=== PATIENT | male | born 1935 | race Caucasian/White ===

== ENCOUNTER 2017-03-22 19:08 | Emergency (ER) | payer MEDICARE ==
[~2017-03-22] VITALS: Ht 180.3 cm; Wt 102.5 kg
[~2017-03-22 19:08] MED LIST: /ESOM40CA OR; ALLO300T OR; BUME2TAB OR; KLOR8TAB OR; LIPI20TA OR; PLAV75TA2 OR; meloxicam
[2017-03-22] MEDS ORDERED: COUM1TAB19 PO (19:18)
[2017-03-22] MEDS ORDERED: PRED25TA PO (19:19)
[2017-03-22 20:33] LABS: INR 2.04
[2017-03-22 20:45] LABS: ADD MORPHOLOGY? YES; BASO # 0.1 K/mm3 (0.0-0.2); BASO % 0.9 % (0.0-1.0); EOS # 0.1 K/mm3 (0.0-0.50); EOS % 0.9 % (0.0-3.0); LARGE UNSTAINED CELL # 0.2 K/mm3 (0.0-0.4); LARGE UNSTAINED CELL % 2.1 % (0.0-4.0); LYMPH # 2.3 K/mm3 (1.5-4.5); MEAN CORPUSCULAR HEMOGLOBIN 24.8 pg (27.0-33.0); MEAN CORPUSCULAR HGB CONC 30.7 g/dl (32.0-36.5); MEAN CORPUSCULAR VOLUME 80.8 fl (80.0-96.0); MONO # 0.4 K/mm3 (0.0-0.8); MONO % 4.3 % (0.0-5.0); NEUTROPHILS % 70.8 % (36.0-66.0); PLATELET COUNT, AUTOMATED 268 k/mm3 (150-450); RED CELL DISTRIBUTION WIDTH 17.5 % (11.5-14.5); WHITE BLOOD COUNT 9.9 K/mm3 (4.0-10.0)
[2017-03-22 20:48] LABS: CALCIUM LEVEL 8.5 MG/DL (8.8-10.2); CREATININE FOR GFR 1.78 MG/DL (0.70-1.30); GLOMERULAR FILTRATION RATE 39.1 (>35); POTASSIUM SERUM 4.2 MEQ/L (3.5-5.1)
[2017-03-22 21:05] LABS: ANISOCYTOSIS 1+; HYPOCHROMASIA 2+
[2017-03-22 21:07] LABS: MICROCYTOSIS 1+
--- NOTE | 2017-03-22 22:00 | REPUSA ---
CT of the head Clinical history: dizziness. Protocol: Multiple axial CT images obtained with 5 mm slice thickness were obtained through the head without administration of contrast. Comparison: None. Findings: The ventricles and sulci are symmetric but prominent in size bilaterally. There are periven tricular areas of low attenuation throughout the deep white matter. There is no evidence of acute hem orrhage or infarct. There is no midline shift, mass effect, or extra-axial fluid collection. The osse ous structures are unremarkable. The visualized paranasal sinuses and mastoid air cells are clear. Impression: No acute hemorrhage or infarct. 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
[2017-03-22 23:43] VITALS: O2SAT 93
[2017-03-22 23:48] VITALS: BP 120/58
--- NOTE | 2017-03-23 06:54 | REP ---
Clinical: Chest pain . Comparison: 03/07/2012 . Technique: PA and lateral. Findings: The mediastinum and cardiac silhouette are stable and within normal limits. The lung ugarte demonstrate chronic change without acute consolidation, effusion, or pneumothorax. The skeletal structures are intact and normal. Impression: 1. No acute cardiopulmonary process. Signed by Ramez Hutchins MD 03/23/2017 06:45 A
--- NOTE | 2017-03-23 08:11 | ECGEPIP ---
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
== END 2017-03-22 23:56 | disposition home or self-care (01) ==
LOC: M ED 20:47
DX: R53.81 Other malaise (principal); I51.9 Heart disease, unspecified; I48.91 Unspecified atrial fibrillation; I50.9 Heart failure, unspecified; I25.10 Atherosclerotic heart disease of native coronary artery without angina pectoris; I25.2 Old myocardial infarction; Z95.5 Presence of coronary angioplasty implant and graft; Z87.891 Personal history of nicotine dependence; Z79.82 Long term (current) use of aspirin; Z79.899 Other long term (current) drug therapy; Z88.5 Allergy status to narcotic agent
CPT/HCPCS: 36415; 70450; 71020; 80048; 80162; 81001; 82550; 82553; 83880; 84484; 85025; 85610; 85730; 87040; 87086; 93005; 93041; 94760; 99285; G0480

== ENCOUNTER → 2017-05-05 | Outpatient (REF) | payer MEDICARE ==
[~2017-05-05] MED LIST changes: +COUM1TAB19 PO; +PRED25TA PO
[2017-05-05 18:25] LABS: MEAN CORPUSCULAR HEMOGLOBIN 23.7 pg (27.0-33.0); MEAN CORPUSCULAR HGB CONC 28.9 g/dl (32.0-36.5); MEAN CORPUSCULAR VOLUME 82.2 fl (80.0-96.0); RED CELL DISTRIBUTION WIDTH 18.4 % (11.5-14.5); WHITE BLOOD COUNT 12.2 K/mm3 (4.0-10.0)
[2017-05-05 18:41] LABS: CALCIUM LEVEL 8.7 MG/DL (8.8-10.2); CREATININE FOR GFR 1.82 MG/DL (0.70-1.30); DIGOXIN LEVEL 0.7 NG/ML (0.5-2.0); GLOMERULAR FILTRATION RATE 38.1 (>35)
== END ==
LOC: M LABSMT 17:09
PROVIDERS: ATTEND Internal Medicine Cardiovascular Disease
DX: I50.9 Heart failure, unspecified (principal); I48.91 Unspecified atrial fibrillation

== ENCOUNTER → 2017-10-25 | Outpatient (CLI) | payer MEDICARE ==
[2017-10-25 13:07] LABS: MEAN CORPUSCULAR HEMOGLOBIN 32.8 pg (27.0-33.0); MEAN CORPUSCULAR HGB CONC 33.7 g/dl (32.0-36.5); MEAN CORPUSCULAR VOLUME 97.3 fl (80.0-96.0); PLATELET COUNT, AUTOMATED 221 10^3/uL (150-450); RED CELL DISTRIBUTION WIDTH 17.2 % (11.5-14.5); WHITE BLOOD COUNT 12.2 10^3/uL (4.0-10.0)
[2017-10-25 13:17] LABS: INR 2.39
[2017-10-25 13:28] LABS: ESTIMATED AVERAGE GLUCOSE 103 MG/DL (60-110)
[2017-10-25 13:33] LABS: ALBUMIN 3.7 GM/DL (3.2-5.2); ALKALINE PHOSPHATASE 157 U/L (45-117); ALT/SGPT 31 U/L (12-78); ANION GAP 7 MEQ/L (8-16); AST/SGOT 21 U/L (7-37); BILIRUBIN,TOTAL 0.9 MG/DL (0.2-1.0); BLOOD UREA NITROGEN 27 MG/DL (7-18); CALCIUM LEVEL 8.9 MG/DL (8.8-10.2); CARBON DIOXIDE LEVEL 36 MEQ/L (21-32); CHLORIDE LEVEL 100 MEQ/L (98-107); CREATININE FOR GFR 1.75 MG/DL (0.70-1.30); GLOMERULAR FILTRATION RATE 39.7 (>35); GLUCOSE, FASTING 102 MG/DL (83-110); POTASSIUM SERUM 4.2 MEQ/L (3.5-5.1); PSA SCREENING 0.54 NG/ML (< 4.0); SODIUM LEVEL 143 MEQ/L (136-145); TOTAL PROTEIN 7.4 GM/DL (6.4-8.2)
== END ==
LOC: M SMT 11:05
DX: R53.83 Other fatigue (principal); N40.1 Benign prostatic hyperplasia with lower urinary tract symptoms; I10 Essential (primary) hypertension
CPT/HCPCS: 84403

== ENCOUNTER 2018-02-07 16:57 | Inpatient (IN) | payer MEDICARE ==
[2018-02-07 17:19] LABS: BASO # 0.1 10^3/uL (0.0-0.2); BASO % 0.3 % (0.0-1.0); EOS % 0.1 % (0.0-3.0); HEMATOCRIT 49.7 % (42.0-52.0); HEMOGLOBIN 17.1 g/dl (13.5-17.5); IMMATURE GRANULOCYTE % 0.6 % (0-3.0); LYMPH # 1.9 10^3/uL (1.5-4.5); MEAN CORPUSCULAR HEMOGLOBIN 32.3 pg (27.0-33.0); MEAN CORPUSCULAR HGB CONC 34.4 g/dl (32.0-36.5); MONO # 1.1 10^3/uL (0.0-0.8); MONO % 6.2 % (0.0-5.0); NEUTROPHILS # 14.4 10^3/uL (1.8-7.7); NEUTROPHILS % 81.8 % (36.0-66.0); PLATELET COUNT, AUTOMATED 282 10^3/uL (150-450); RED BLOOD COUNT 5.29 10^6/uL (4.30-6.10); RED CELL DISTRIBUTION WIDTH 15.4 % (11.5-14.5); WHITE BLOOD COUNT 17.7 10^3/uL (4.0-10.0)
[2018-02-07 17:43] LABS: ERYTHROCYTE SEDIMENTATION RATE 18 mm/hr (0-20)
[2018-02-07 17:49] LABS: ANION GAP 7 MEQ/L (8-16); BLOOD UREA NITROGEN 26 MG/DL (7-18); CALCIUM LEVEL 9.4 MG/DL (8.8-10.2); CARBON DIOXIDE LEVEL 32 MEQ/L (21-32); CHLORIDE LEVEL 98 MEQ/L (98-107); CREATININE FOR GFR 1.66 MG/DL (0.70-1.30); GLOMERULAR FILTRATION RATE 42.2 (>35); GLUCOSE, FASTING 131 MG/DL (70-100); POTASSIUM SERUM 4.3 MEQ/L (3.5-5.1); SODIUM LEVEL 137 MEQ/L (136-145)
[2018-02-07 18:18] LABS: LACTIC ACID SEPSIS PROTOCOL 3.1 MMOL/L (0.4-2.0)
[2018-02-07] MEDS: CEFTAROLINE FOSAMIL 600 MG in D5W MINI-BAG PLUS 50 ML IV (20:15)
[2018-02-07] MEDS ORDERED: ONDANSETRON 4MG/2ML VIAL (J2405) IV (20:30)
[2018-02-07] MEDS: METOPROLOL SUCC (TopROL XL) 100MG *XL* TAB PO (23:22)
[2018-02-07] MEDS: ATORVASTATIN 20 MG TAB PO (23:22)
[2018-02-07] MEDS: MULTIVITAMINS/MINERALS THERAP 1 TAB PO (23:22)
[2018-02-07] MEDS: ACETAMINOPHEN 500 MG TAB PO (23:22)
[2018-02-07] MEDS: DIGOXIN 0.125 MG TAB PO (23:23)
[2018-02-07] MEDS: ALLOPURINOL 300 MG TAB PO (23:23)
[2018-02-07] MEDS: MELOXICAM (MOBIC) 7.5 MG TAB PO (23:53)
[2018-02-07] MEDS: TORSEMIDE 100 MG TAB PO (23:53)
[2018-02-08] MEDS ORDERED: HEPARIN SOD (PORCINE) 5000 UNITS/ML VIAL SC (06:00)
[2018-02-08 07:06] LABS: HEMATOCRIT 46.8 % (42.0-52.0); HEMOGLOBIN 15.8 g/dl (13.5-17.5); MEAN CORPUSCULAR HEMOGLOBIN 32.4 pg (27.0-33.0); MEAN CORPUSCULAR HGB CONC 33.8 g/dl (32.0-36.5); MEAN CORPUSCULAR VOLUME 96.1 fl (80.0-96.0); PLATELET COUNT, AUTOMATED 220 10^3/uL (150-450); RED BLOOD COUNT 4.87 10^6/uL (4.30-6.10); RED CELL DISTRIBUTION WIDTH 15.2 % (11.5-14.5)
[2018-02-08 07:17] LABS: INR 2.85; PROTHROMBIN TIME 31.2 SECONDS (12.4-14.5)
[2018-02-08 07:38] LABS: ANION GAP 7 MEQ/L (8-16); BLOOD UREA NITROGEN 23 MG/DL (7-18); CARBON DIOXIDE LEVEL 30 MEQ/L (21-32); CHLORIDE LEVEL 101 MEQ/L (98-107); CREATININE FOR GFR 1.28 MG/DL (0.70-1.30); DIGOXIN LEVEL 0.7 NG/ML (0.5-2.0); GLUCOSE, FASTING 106 MG/DL (70-100); MAGNESIUM LEVEL 2.4 MG/DL (1.8-2.4); POTASSIUM SERUM 3.3 MEQ/L (3.5-5.1); SODIUM LEVEL 138 MEQ/L (136-145)
[2018-02-08] MEDS: METOPROLOL SUCC (TopROL XL) 100MG *XL* TAB PO ×2 (08:43→23:00)
[2018-02-08] MEDS: ACETAMINOPHEN 500 MG TAB PO ×2 (08:43→21:55)
[2018-02-08] MEDS: OMEPRAZOLE 20 MG CAP PO (08:43)
[2018-02-08] MEDS: MELOXICAM (MOBIC) 7.5 MG TAB PO ×2 (08:43→21:55)
[2018-02-08] MEDS: CEFTAROLINE FOSAMIL 400 MG in D5W MINI-BAG PLUS 50 ML IV ×2 (08:43→21:56)
[2018-02-08] MEDS: POTASSIUM CHLORIDE 10 MEQ SR TABLET PO (14:34)
[2018-02-08] MEDS: MULTIVITAMINS/MINERALS THERAP 1 TAB PO (21:55)
[2018-02-08] MEDS: ALLOPURINOL 300 MG TAB PO (21:55)
[2018-02-08] MEDS: ATORVASTATIN 20 MG TAB PO (21:55)
[2018-02-08] MEDS: DIGOXIN 0.125 MG TAB PO (21:56)
[2018-02-08] MEDS: TORSEMIDE 100 MG TAB PO (23:00)
[2018-02-09 07:25] LABS: HEMATOCRIT 48.2 % (42.0-52.0); HEMOGLOBIN 16.3 g/dl (13.5-17.5); MEAN CORPUSCULAR HEMOGLOBIN 32.1 pg (27.0-33.0); MEAN CORPUSCULAR HGB CONC 33.8 g/dl (32.0-36.5); MEAN CORPUSCULAR VOLUME 94.9 fl (80.0-96.0); PLATELET COUNT, AUTOMATED 268 10^3/uL (150-450); RED BLOOD COUNT 5.08 10^6/uL (4.30-6.10); RED CELL DISTRIBUTION WIDTH 14.7 % (11.5-14.5); WHITE BLOOD COUNT 14.3 10^3/uL (4.0-10.0)
[2018-02-09 07:51] LABS: ANION GAP 4 MEQ/L (8-16); BLOOD UREA NITROGEN 27 MG/DL (7-18); CALCIUM LEVEL 9.1 MG/DL (8.8-10.2); CARBON DIOXIDE LEVEL 34 MEQ/L (21-32); CHLORIDE LEVEL 102 MEQ/L (98-107); CREATININE FOR GFR 1.42 MG/DL (0.70-1.30); GLOMERULAR FILTRATION RATE 50.6 (>35); GLUCOSE, FASTING 112 MG/DL (70-100); MAGNESIUM LEVEL 2.6 MG/DL (1.8-2.4); POTASSIUM SERUM 3.7 MEQ/L (3.5-5.1); SODIUM LEVEL 140 MEQ/L (136-145)
[2018-02-09 07:59] LABS: INR 2.53; PROTHROMBIN TIME 28.3 SECONDS (12.4-14.5)
[2018-02-09] MEDS: MELOXICAM (MOBIC) 7.5 MG TAB PO ×2 (09:00→21:25)
[2018-02-09] MEDS: OMEPRAZOLE 20 MG CAP PO (09:00)
[2018-02-09] MEDS: ACETAMINOPHEN 500 MG TAB PO ×2 (10:22→21:24)
[2018-02-09] MEDS: CEFTAROLINE FOSAMIL 400 MG in D5W MINI-BAG PLUS 50 ML IV ×2 (10:22→21:24)
[2018-02-09] MEDS: METOPROLOL SUCC (TopROL XL) 100MG *XL* TAB PO ×2 (10:26→21:26)
[2018-02-09] MEDS ORDERED: MIDAZOLAM INJ 2 MG/2 ML VIAL (J2250) As Ordered ×2 (13:23→17:12)
[2018-02-09] MEDS ORDERED: HEPARIN 1,000 UNITS/ML 10ML VIAL (FOR RADIOLOGY& DIALYSIS ONLY) As Ordered (13:23)
[2018-02-09] MEDS ORDERED: fentaNYL 100 MCG/2 ML INJECTION (J3010) As Ordered ×2 (13:23→17:12)
[2018-02-09] MEDS ORDERED: ISOVUE-300 61% 50ML VIAL (Q9967) As Ordered (13:24)
[2018-02-09 16:53] LABS: ABO/RH TYPE(VISION) 1 1
[2018-02-09] MEDS ORDERED: PROPOFOL 200 MG/20 ML VIAL As Ordered (17:12)
[2018-02-09] MEDS: ROPIvacaine 0.5% 30 ML INJECTION (J2795 PER 1MG) As Ordered (18:14)
[2018-02-09] MEDS: GENTAMICIN SULF INJ 80MG/2ML VIAL (J1580) As Ordered (18:30)
[2018-02-09] MEDS ORDERED: ACETAMINOPHEN TAB 650MG DOSE (2X325MG) PO (19:30)
[2018-02-09] MEDS ORDERED: ONDANSETRON 4MG/2ML VIAL (J2405) IV (19:30)
[2018-02-09] MEDS: LR 1,000 ML IV (20:41)
[2018-02-09] MEDS: ATORVASTATIN 20 MG TAB PO (21:24)
[2018-02-09] MEDS: TORSEMIDE 100 MG TAB PO (21:24)
[2018-02-09] MEDS: MULTIVITAMINS/MINERALS THERAP 1 TAB PO (21:25)
[2018-02-09] MEDS: DIGOXIN 0.125 MG TAB PO (21:25)
[2018-02-09] MEDS: ALLOPURINOL 300 MG TAB PO (21:25)
[2018-02-10 05:59] LABS: HEMATOCRIT 46.6 % (42.0-52.0); HEMOGLOBIN 15.6 g/dl (13.5-17.5); MEAN CORPUSCULAR HEMOGLOBIN 32.2 pg (27.0-33.0); MEAN CORPUSCULAR HGB CONC 33.5 g/dl (32.0-36.5); MEAN CORPUSCULAR VOLUME 96.3 fl (80.0-96.0); PLATELET COUNT, AUTOMATED 247 10^3/uL (150-450); RED BLOOD COUNT 4.84 10^6/uL (4.30-6.10); RED CELL DISTRIBUTION WIDTH 14.7 % (11.5-14.5)
[2018-02-10 06:09] LABS: INR 1.81; PROTHROMBIN TIME 21.5 SECONDS (12.4-14.5)
[2018-02-10 06:20] LABS: ANION GAP 6 MEQ/L (8-16); BLOOD UREA NITROGEN 21 MG/DL (7-18); CARBON DIOXIDE LEVEL 35 MEQ/L (21-32); CHLORIDE LEVEL 100 MEQ/L (98-107); CREATININE FOR GFR 1.24 MG/DL (0.70-1.30); GLOMERULAR FILTRATION RATE 59.1 (>35); GLUCOSE, FASTING 97 MG/DL (70-100); MAGNESIUM LEVEL 2.3 MG/DL (1.8-2.4); POTASSIUM SERUM 3.5 MEQ/L (3.5-5.1); SODIUM LEVEL 141 MEQ/L (136-145)
[2018-02-10] MEDS: MELOXICAM (MOBIC) 7.5 MG TAB PO ×2 (09:00→20:44)
[2018-02-10] MEDS: OMEPRAZOLE 20 MG CAP PO (10:15)
[2018-02-10] MEDS: METOPROLOL SUCC (TopROL XL) 100MG *XL* TAB PO ×2 (10:15→20:44)
[2018-02-10] MEDS: ACETAMINOPHEN 500 MG TAB PO ×2 (10:16→20:45)
[2018-02-10] MEDS: CEFTAROLINE FOSAMIL 400 MG in D5W MINI-BAG PLUS 50 ML IV ×2 (10:17→20:44)
[2018-02-10] MEDS: HEPARIN SOD (PORCINE) 5000 UNITS/ML VIAL SQ ×2 (11:48→20:43)
[2018-02-10] MEDS: WARFARIN SOD 4 MG TAB PO (16:47)
[2018-02-10] MEDS: TORSEMIDE 100 MG TAB PO (20:42)
[2018-02-10] MEDS: ALLOPURINOL 300 MG TAB PO (20:44)
[2018-02-10] MEDS: ATORVASTATIN 20 MG TAB PO (20:44)
[2018-02-10] MEDS: DIGOXIN 0.125 MG TAB PO (20:45)
[2018-02-10] MEDS: MULTIVITAMINS/MINERALS THERAP 1 TAB PO (20:45)
[2018-02-11 05:47] LABS: HEMATOCRIT 46.9 % (42.0-52.0); HEMOGLOBIN 15.6 g/dl (13.5-17.5); MEAN CORPUSCULAR HGB CONC 33.3 g/dl (32.0-36.5); MEAN CORPUSCULAR VOLUME 96.1 fl (80.0-96.0); PLATELET COUNT, AUTOMATED 248 10^3/uL (150-450); RED BLOOD COUNT 4.88 10^6/uL (4.30-6.10); RED CELL DISTRIBUTION WIDTH 14.6 % (11.5-14.5); WHITE BLOOD COUNT 10.7 10^3/uL (4.0-10.0)
[2018-02-11 05:58] LABS: INR 1.85; PROTHROMBIN TIME 21.9 SECONDS (12.4-14.5)
[2018-02-11 06:09] LABS: ANION GAP 3 MEQ/L (8-16); BLOOD UREA NITROGEN 23 MG/DL (7-18); CARBON DIOXIDE LEVEL 36 MEQ/L (21-32); CHLORIDE LEVEL 103 MEQ/L (98-107); CREATININE FOR GFR 1.36 MG/DL (0.70-1.30); GLOMERULAR FILTRATION RATE 53.1 (>35); GLUCOSE, FASTING 94 MG/DL (70-100); MAGNESIUM LEVEL 2.5 MG/DL (1.8-2.4); POTASSIUM SERUM 3.6 MEQ/L (3.5-5.1); SODIUM LEVEL 142 MEQ/L (136-145)
[2018-02-11] MEDS: MELOXICAM (MOBIC) 7.5 MG TAB PO ×2 (09:00→20:25)
[2018-02-11] MEDS: ACETAMINOPHEN 500 MG TAB PO ×2 (09:07→20:29)
[2018-02-11] MEDS: OMEPRAZOLE 20 MG CAP PO (09:07)
[2018-02-11] MEDS: TORSEMIDE 100 MG TAB PO (09:07)
[2018-02-11] MEDS: METOPROLOL SUCC (TopROL XL) 100MG *XL* TAB PO ×2 (09:08→20:27)
[2018-02-11] MEDS: HEPARIN SOD (PORCINE) 5000 UNITS/ML VIAL SQ ×2 (09:08→20:29)
[2018-02-11] MEDS: CEFTAROLINE FOSAMIL 400 MG in D5W MINI-BAG PLUS 50 ML IV (09:09)
[2018-02-11] MEDS: LevoFLOXacin IV 500 MG in APPROPRIATE DILUENT 1 EA IV (12:48)
[2018-02-11] MEDS: CEFAZOLIN SOD 1 GM in APPROPRIATE DILUENT 1 EA IV ×2 (15:09→21:27)
[2018-02-11] MEDS: WARFARIN SOD 4 MG TAB PO (16:44)
[2018-02-11] MEDS: ATORVASTATIN 20 MG TAB PO (20:27)
[2018-02-11] MEDS: ALLOPURINOL 300 MG TAB PO (20:27)
[2018-02-11] MEDS: MULTIVITAMINS/MINERALS THERAP 1 TAB PO (20:28)
[2018-02-11] MEDS: DIGOXIN 0.125 MG TAB PO (20:30)
[2018-02-12] MEDS: CEFAZOLIN SOD 1 GM in APPROPRIATE DILUENT 1 EA IV ×3 (05:25→21:10)
[2018-02-12 06:35] LABS: HEMATOCRIT 44.8 % (42.0-52.0); HEMOGLOBIN 15.2 g/dl (13.5-17.5); MEAN CORPUSCULAR HEMOGLOBIN 32.5 pg (27.0-33.0); MEAN CORPUSCULAR HGB CONC 33.9 g/dl (32.0-36.5); MEAN CORPUSCULAR VOLUME 95.9 fl (80.0-96.0); PLATELET COUNT, AUTOMATED 257 10^3/uL (150-450); RED BLOOD COUNT 4.67 10^6/uL (4.30-6.10); RED CELL DISTRIBUTION WIDTH 14.6 % (11.5-14.5); WHITE BLOOD COUNT 11.7 10^3/uL (4.0-10.0)
[2018-02-12 06:51] LABS: INR 2.08; PROTHROMBIN TIME 24.1 SECONDS (12.4-14.5)
[2018-02-12 07:19] LABS: ANION GAP 5 MEQ/L (8-16); BLOOD UREA NITROGEN 24 MG/DL (7-18); CALCIUM LEVEL 9.1 MG/DL (8.8-10.2); CARBON DIOXIDE LEVEL 35 MEQ/L (21-32); CHLORIDE LEVEL 100 MEQ/L (98-107); CREATININE FOR GFR 1.31 MG/DL (0.70-1.30); GLOMERULAR FILTRATION RATE 55.5 (>35); GLUCOSE, FASTING 94 MG/DL (70-100); MAGNESIUM LEVEL 2.3 MG/DL (1.8-2.4); POTASSIUM SERUM 3.3 MEQ/L (3.5-5.1); SODIUM LEVEL 140 MEQ/L (136-145)
[2018-02-12] MEDS: OMEPRAZOLE 20 MG CAP PO (08:31)
[2018-02-12] MEDS: METOPROLOL SUCC (TopROL XL) 100MG *XL* TAB PO ×2 (08:31→21:00)
[2018-02-12] MEDS: MELOXICAM (MOBIC) 7.5 MG TAB PO ×2 (08:31→20:39)
[2018-02-12] MEDS: TORSEMIDE 100 MG TAB PO (08:31)
[2018-02-12] MEDS: ACETAMINOPHEN 500 MG TAB PO ×2 (08:31→20:38)
[2018-02-12] MEDS: HEPARIN SOD (PORCINE) 5000 UNITS/ML VIAL SQ (08:32)
[2018-02-12] MEDS: POTASSIUM CHLORIDE 10 MEQ SR TABLET PO (10:59)
[2018-02-12] MEDS: LevoFLOXacin IV 500 MG in APPROPRIATE DILUENT 1 EA IV (11:01)
[2018-02-12] MEDS: WARFARIN SOD 4 MG TAB PO (16:38)
[2018-02-12] MEDS: ATORVASTATIN 20 MG TAB PO (20:37)
[2018-02-12] MEDS: ALLOPURINOL 300 MG TAB PO (20:37)
[2018-02-12] MEDS: MULTIVITAMINS/MINERALS THERAP 1 TAB PO (20:37)
[2018-02-12] MEDS: DIGOXIN 0.125 MG TAB PO (21:10)
[2018-02-12] MEDS: NS 1,000 ML IV (22:28)
[2018-02-13] MEDS: CEFAZOLIN SOD 1 GM in APPROPRIATE DILUENT 1 EA IV ×3 (05:32→22:18)
[2018-02-13 06:15] LABS: HEMATOCRIT 44.6 % (42.0-52.0); HEMOGLOBIN 15.1 g/dl (13.5-17.5); MEAN CORPUSCULAR HGB CONC 33.9 g/dl (32.0-36.5); MEAN CORPUSCULAR VOLUME 94.5 fl (80.0-96.0); PLATELET COUNT, AUTOMATED 266 10^3/uL (150-450); RED BLOOD COUNT 4.72 10^6/uL (4.30-6.10); RED CELL DISTRIBUTION WIDTH 14.5 % (11.5-14.5); WHITE BLOOD COUNT 10.9 10^3/uL (4.0-10.0)
[2018-02-13 06:32] LABS: ANION GAP 5 MEQ/L (8-16); BLOOD UREA NITROGEN 24 MG/DL (7-18); CARBON DIOXIDE LEVEL 34 MEQ/L (21-32); CHLORIDE LEVEL 101 MEQ/L (98-107); CREATININE FOR GFR 1.25 MG/DL (0.70-1.30); GLOMERULAR FILTRATION RATE 58.6 (>35); GLUCOSE, FASTING 102 MG/DL (70-100); POTASSIUM SERUM 3.4 MEQ/L (3.5-5.1); SODIUM LEVEL 140 MEQ/L (136-145)
[2018-02-13 08:09] LABS: INR 2.14; PROTHROMBIN TIME 24.7 SECONDS (12.4-14.5)
[2018-02-13] MEDS: OMEPRAZOLE 20 MG CAP PO (09:00)
[2018-02-13] MEDS: MELOXICAM (MOBIC) 7.5 MG TAB PO ×2 (09:00→20:41)
[2018-02-13] MEDS: TORSEMIDE 100 MG TAB PO (09:00)
[2018-02-13] MEDS: METOPROLOL SUCC (TopROL XL) 100MG *XL* TAB PO ×2 (09:39→20:50)
[2018-02-13] MEDS: ACETAMINOPHEN 500 MG TAB PO ×2 (09:40→20:52)
[2018-02-13] MEDS: NS 1,000 ML IV (11:41)
[2018-02-13] MEDS: LevoFLOXacin IV 500 MG in APPROPRIATE DILUENT 1 EA IV (11:41)
[2018-02-13] MEDS ORDERED: NEOSPORIN GU IRRIG 20 ML VIAL As Ordered (15:38)
[2018-02-13] MEDS ORDERED: BACITRACIN PWD 50,000 UNITS VIAL As Ordered (15:38)
[2018-02-13] MEDS ORDERED: MIDAZOLAM INJ 2 MG/2 ML VIAL (J2250) As Ordered (17:06)
[2018-02-13] MEDS ORDERED: PROPOFOL 200 MG/20 ML VIAL As Ordered (17:06)
[2018-02-13] MEDS ORDERED: fentaNYL 100 MCG/2 ML INJECTION (J3010) As Ordered (17:07)
[2018-02-13] MEDS ORDERED: LIDOCAINE 2% INJ 100 MG/5 ML SDV (FOR ANES.) As Ordered (18:02)
[2018-02-13] MEDS: ROPIvacaine 0.5% 30 ML INJECTION (J2795 PER 1MG) As Ordered (18:13)
[2018-02-13] MEDS: TOBRAMYCIN SULF 1.2 GM VIAL As Ordered (18:28)
[2018-02-13] MEDS ORDERED: ONDANSETRON 4MG/2ML VIAL (J2405) IV (19:30)
[2018-02-13] MEDS ORDERED: PERCOCET 5MG/325MG TAB PO (19:30)
[2018-02-13] MEDS: ALLOPURINOL 300 MG TAB PO (20:50)
[2018-02-13] MEDS: MULTIVITAMINS/MINERALS THERAP 1 TAB PO (20:50)
[2018-02-13] MEDS: WARFARIN SOD 4 MG TAB PO (20:50)
[2018-02-13] MEDS: DIGOXIN 0.125 MG TAB PO (20:51)
[2018-02-13] MEDS: ATORVASTATIN 20 MG TAB PO (20:52)
[2018-02-14] MEDS: NS 1,000 ML IV (00:52)
[2018-02-14] MEDS: CEFAZOLIN SOD 1 GM in APPROPRIATE DILUENT 1 EA IV ×3 (05:55→21:45)
[2018-02-14 06:24] LABS: HEMATOCRIT 42.5 % (42.0-52.0); HEMOGLOBIN 14.4 g/dl (13.5-17.5); MEAN CORPUSCULAR HEMOGLOBIN 32.4 pg (27.0-33.0); MEAN CORPUSCULAR HGB CONC 33.9 g/dl (32.0-36.5); MEAN CORPUSCULAR VOLUME 95.5 fl (80.0-96.0); PLATELET COUNT, AUTOMATED 258 10^3/uL (150-450); RED BLOOD COUNT 4.45 10^6/uL (4.30-6.10); RED CELL DISTRIBUTION WIDTH 14.6 % (11.5-14.5); WHITE BLOOD COUNT 9.8 10^3/uL (4.0-10.0)
[2018-02-14 06:36] LABS: INR 2.31; PROTHROMBIN TIME 26.3 SECONDS (12.4-14.5)
[2018-02-14 06:40] LABS: ANION GAP 5 MEQ/L (8-16); BLOOD UREA NITROGEN 18 MG/DL (7-18); CALCIUM LEVEL 8.7 MG/DL (8.8-10.2); CARBON DIOXIDE LEVEL 30 MEQ/L (21-32); CHLORIDE LEVEL 107 MEQ/L (98-107); CREATININE FOR GFR 0.86 MG/DL (0.70-1.30); GLOMERULAR FILTRATION RATE > 60.0 (>35); GLUCOSE, FASTING 81 MG/DL (70-100); MAGNESIUM LEVEL 2.2 MG/DL (1.8-2.4); POTASSIUM SERUM 3.2 MEQ/L (3.5-5.1); SODIUM LEVEL 142 MEQ/L (136-145)
[2018-02-14] MEDS: TORSEMIDE 100 MG TAB PO (09:54)
[2018-02-14] MEDS: OMEPRAZOLE 20 MG CAP PO (09:56)
[2018-02-14] MEDS: METOPROLOL SUCC (TopROL XL) 100MG *XL* TAB PO ×2 (09:56→21:44)
[2018-02-14] MEDS: POTASSIUM CHLORIDE 10 MEQ SR TABLET PO ×2 (09:57→12:37)
[2018-02-14] MEDS: ACETAMINOPHEN 500 MG TAB PO ×2 (09:57→21:43)
[2018-02-14] MEDS: LevoFLOXacin IV 500 MG in APPROPRIATE DILUENT 1 EA IV (12:37)
[2018-02-14] MEDS: WARFARIN SOD 4 MG TAB PO (17:24)
[2018-02-14] MEDS: MULTIVITAMINS/MINERALS THERAP 1 TAB PO (21:43)
[2018-02-14] MEDS: DIGOXIN 0.125 MG TAB PO (21:44)
[2018-02-14] MEDS: ALLOPURINOL 300 MG TAB PO (21:44)
[2018-02-14] MEDS: ATORVASTATIN 20 MG TAB PO (21:44)
[2018-02-15] MEDS: CEFAZOLIN SOD 1 GM in APPROPRIATE DILUENT 1 EA IV ×3 (06:35→21:18)
[2018-02-15 06:42] LABS: HEMOGLOBIN 14.9 g/dl (13.5-17.5); MEAN CORPUSCULAR HEMOGLOBIN 31.7 pg (27.0-33.0); MEAN CORPUSCULAR HGB CONC 33.9 g/dl (32.0-36.5); MEAN CORPUSCULAR VOLUME 93.6 fl (80.0-96.0); PLATELET COUNT, AUTOMATED 277 10^3/uL (150-450); RED CELL DISTRIBUTION WIDTH 14.5 % (11.5-14.5); WHITE BLOOD COUNT 7.9 10^3/uL (4.0-10.0)
[2018-02-15 06:52] LABS: INR 2.48; PROTHROMBIN TIME 27.9 SECONDS (12.4-14.5)
[2018-02-15 07:07] LABS: ANION GAP 6 MEQ/L (8-16); BLOOD UREA NITROGEN 21 MG/DL (7-18); CARBON DIOXIDE LEVEL 30 MEQ/L (21-32); CHLORIDE LEVEL 105 MEQ/L (98-107); CREATININE FOR GFR 1.01 MG/DL (0.70-1.30); GLOMERULAR FILTRATION RATE > 60.0 (>35); GLUCOSE, FASTING 86 MG/DL (70-100); POTASSIUM SERUM 3.4 MEQ/L (3.5-5.1); SODIUM LEVEL 141 MEQ/L (136-145)
[2018-02-15] MEDS: ACETAMINOPHEN 500 MG TAB PO ×2 (08:30→21:18)
[2018-02-15] MEDS: OMEPRAZOLE 20 MG CAP PO (08:30)
[2018-02-15] MEDS: POTASSIUM CHLORIDE 10 MEQ SR TABLET PO (08:33)
[2018-02-15] MEDS: METOPROLOL SUCC (TopROL XL) 100MG *XL* TAB PO ×2 (08:33→21:17)
[2018-02-15] MEDS: TORSEMIDE (DEMADEX) 50 MG PER 1/2 TAB PO (10:13)
[2018-02-15] MEDS: LevoFLOXacin IV 500 MG in APPROPRIATE DILUENT 1 EA IV (12:05)
[2018-02-15] MEDS: WARFARIN SOD 4 MG TAB PO (17:02)
[2018-02-15] MEDS: ATORVASTATIN 20 MG TAB PO (21:16)
[2018-02-15] MEDS: ALLOPURINOL 300 MG TAB PO (21:16)
[2018-02-15] MEDS: MULTIVITAMINS/MINERALS THERAP 1 TAB PO (21:16)
[2018-02-15] MEDS: DIGOXIN 0.125 MG TAB PO (21:17)
[2018-02-16] MEDS: CEFAZOLIN SOD 1 GM in APPROPRIATE DILUENT 1 EA IV ×3 (05:48→21:03)
[2018-02-16 06:36] LABS: HEMATOCRIT 44.3 % (42.0-52.0); MEAN CORPUSCULAR HGB CONC 33.9 g/dl (32.0-36.5); MEAN CORPUSCULAR VOLUME 94.5 fl (80.0-96.0); PLATELET COUNT, AUTOMATED 294 10^3/uL (150-450); RED BLOOD COUNT 4.69 10^6/uL (4.30-6.10); RED CELL DISTRIBUTION WIDTH 14.4 % (11.5-14.5); WHITE BLOOD COUNT 9.3 10^3/uL (4.0-10.0)
[2018-02-16 06:49] LABS: INR 2.66; PROTHROMBIN TIME 29.5 SECONDS (12.4-14.5)
[2018-02-16 06:55] LABS: ANION GAP 6 MEQ/L (8-16); BLOOD UREA NITROGEN 25 MG/DL (7-18); CALCIUM LEVEL 9.3 MG/DL (8.8-10.2); CARBON DIOXIDE LEVEL 35 MEQ/L (21-32); CHLORIDE LEVEL 100 MEQ/L (98-107); GLOMERULAR FILTRATION RATE 51.4 (>35); GLUCOSE, FASTING 102 MG/DL (70-100); POTASSIUM SERUM 3.5 MEQ/L (3.5-5.1); SODIUM LEVEL 141 MEQ/L (136-145)
[2018-02-16] MEDS: OMEPRAZOLE 20 MG CAP PO (09:41)
[2018-02-16] MEDS: ACETAMINOPHEN 500 MG TAB PO ×2 (09:41→21:05)
[2018-02-16] MEDS: METOPROLOL SUCC (TopROL XL) 100MG *XL* TAB PO ×2 (09:41→21:04)
[2018-02-16] MEDS: LevoFLOXacin IV 500 MG in APPROPRIATE DILUENT 1 EA IV (12:42)
[2018-02-16] MEDS: WARFARIN SOD 4 MG TAB PO (16:01)
[2018-02-16] MEDS: ALLOPURINOL 300 MG TAB PO (21:06)
[2018-02-16] MEDS: ATORVASTATIN 20 MG TAB PO (21:06)
[2018-02-16] MEDS: MULTIVITAMINS/MINERALS THERAP 1 TAB PO (21:06)
[2018-02-16] MEDS: DIGOXIN 0.125 MG TAB PO (21:06)
[2018-02-17] MEDS: CEFAZOLIN SOD 1 GM in APPROPRIATE DILUENT 1 EA IV ×2 (05:33→13:21)
[2018-02-17 05:59] LABS: HEMATOCRIT 43.2 % (42.0-52.0); HEMOGLOBIN 14.7 g/dl (13.5-17.5); MEAN CORPUSCULAR HEMOGLOBIN 31.8 pg (27.0-33.0); MEAN CORPUSCULAR VOLUME 93.5 fl (80.0-96.0); PLATELET COUNT, AUTOMATED 273 10^3/uL (150-450); RED BLOOD COUNT 4.62 10^6/uL (4.30-6.10); RED CELL DISTRIBUTION WIDTH 14.3 % (11.5-14.5); WHITE BLOOD COUNT 8.4 10^3/uL (4.0-10.0)
[2018-02-17 06:14] LABS: PROTHROMBIN TIME 27.1 SECONDS (12.4-14.5)
[2018-02-17 06:21] LABS: ANION GAP 7 MEQ/L (8-16); BLOOD UREA NITROGEN 21 MG/DL (7-18); CALCIUM LEVEL 9.2 MG/DL (8.8-10.2); CARBON DIOXIDE LEVEL 30 MEQ/L (21-32); CHLORIDE LEVEL 105 MEQ/L (98-107); GLOMERULAR FILTRATION RATE > 60.0 (>35); GLUCOSE, FASTING 91 MG/DL (70-100); POTASSIUM SERUM 3.3 MEQ/L (3.5-5.1); SODIUM LEVEL 142 MEQ/L (136-145)
[2018-02-17] MEDS: ACETAMINOPHEN 500 MG TAB PO ×2 (08:25→20:54)
[2018-02-17] MEDS: POTASSIUM CHLORIDE 10 MEQ SR TABLET PO (08:25)
[2018-02-17] MEDS: OMEPRAZOLE 20 MG CAP PO (08:25)
[2018-02-17] MEDS: METOPROLOL SUCC (TopROL XL) 100MG *XL* TAB PO ×2 (08:27→20:55)
[2018-02-17] MEDS: TORSEMIDE 10 MG TABLET PO (12:21)
[2018-02-17] MEDS: LevoFLOXacin IV 500 MG in APPROPRIATE DILUENT 1 EA IV (12:21)
[2018-02-17] MEDS: WARFARIN SOD 4 MG TAB PO (17:17)
[2018-02-17] MEDS: ATORVASTATIN 20 MG TAB PO (20:54)
[2018-02-17] MEDS: ALLOPURINOL 300 MG TAB PO (20:55)
[2018-02-17] MEDS: MULTIVITAMINS/MINERALS THERAP 1 TAB PO (20:55)
[2018-02-17] MEDS: DIGOXIN 0.125 MG TAB PO (20:55)
[2018-02-17] MEDS: BACTRIM 160MG/800MG DS TAB PO (20:55)
[2018-02-18 06:22] LABS: HEMATOCRIT 43.2 % (42.0-52.0); HEMOGLOBIN 14.8 g/dl (13.5-17.5); MEAN CORPUSCULAR HEMOGLOBIN 32.2 pg (27.0-33.0); MEAN CORPUSCULAR HGB CONC 34.3 g/dl (32.0-36.5); MEAN CORPUSCULAR VOLUME 93.9 fl (80.0-96.0); PLATELET COUNT, AUTOMATED 276 10^3/uL (150-450); RED CELL DISTRIBUTION WIDTH 14.4 % (11.5-14.5)
[2018-02-18 06:39] LABS: ANION GAP 8 MEQ/L (8-16); BLOOD UREA NITROGEN 21 MG/DL (7-18); CARBON DIOXIDE LEVEL 30 MEQ/L (21-32); CHLORIDE LEVEL 104 MEQ/L (98-107); CREATININE FOR GFR 0.97 MG/DL (0.70-1.30); GLOMERULAR FILTRATION RATE > 60.0 (>35); GLUCOSE, FASTING 76 MG/DL (70-100); INR 2.19; POTASSIUM SERUM 3.4 MEQ/L (3.5-5.1); PROTHROMBIN TIME 25.1 SECONDS (12.4-14.5); SODIUM LEVEL 142 MEQ/L (136-145)
[2018-02-18] MEDS: OMEPRAZOLE 20 MG CAP PO (09:41)
[2018-02-18] MEDS: TORSEMIDE 10 MG TABLET PO (09:41)
[2018-02-18] MEDS: ACETAMINOPHEN 500 MG TAB PO ×2 (09:42→22:20)
[2018-02-18] MEDS: POTASSIUM CHLORIDE 10 MEQ SR TABLET PO (09:42)
[2018-02-18] MEDS: METOPROLOL SUCC (TopROL XL) 100MG *XL* TAB PO ×2 (09:42→21:00)
[2018-02-18] MEDS: BACTRIM 160MG/800MG DS TAB PO ×2 (09:42→22:17)
[2018-02-18] MEDS: WARFARIN SOD 4 MG TAB PO (17:49)
[2018-02-18] MEDS: DIGOXIN 0.125 MG TAB PO (21:00)
[2018-02-18] MEDS: ATORVASTATIN 20 MG TAB PO (22:17)
[2018-02-18] MEDS: MULTIVITAMINS/MINERALS THERAP 1 TAB PO (22:18)
[2018-02-18] MEDS: ALLOPURINOL 300 MG TAB PO (22:23)
[2018-02-19 05:56] LABS: HEMATOCRIT 41.9 % (42.0-52.0); HEMOGLOBIN 14.1 g/dl (13.5-17.5); MEAN CORPUSCULAR HEMOGLOBIN 31.9 pg (27.0-33.0); MEAN CORPUSCULAR HGB CONC 33.7 g/dl (32.0-36.5); MEAN CORPUSCULAR VOLUME 94.8 fl (80.0-96.0); PLATELET COUNT, AUTOMATED 267 10^3/uL (150-450); RED BLOOD COUNT 4.42 10^6/uL (4.30-6.10); RED CELL DISTRIBUTION WIDTH 14.4 % (11.5-14.5); WHITE BLOOD COUNT 7.9 10^3/uL (4.0-10.0)
[2018-02-19 06:23] LABS: INR 2.28
[2018-02-19 06:34] LABS: ANION GAP 8 MEQ/L (8-16); BLOOD UREA NITROGEN 21 MG/DL (7-18); CARBON DIOXIDE LEVEL 29 MEQ/L (21-32); CHLORIDE LEVEL 106 MEQ/L (98-107); CREATININE FOR GFR 1.11 MG/DL (0.70-1.30); GLOMERULAR FILTRATION RATE > 60.0 (>35); GLUCOSE, FASTING 76 MG/DL (70-100); POTASSIUM SERUM 3.6 MEQ/L (3.5-5.1); SODIUM LEVEL 143 MEQ/L (136-145)
[2018-02-19] MEDS: OMEPRAZOLE 20 MG CAP PO (09:44)
[2018-02-19] MEDS: BACTRIM 160MG/800MG DS TAB PO ×2 (09:45→21:39)
[2018-02-19] MEDS: TORSEMIDE 10 MG TABLET PO (09:45)
[2018-02-19] MEDS: ACETAMINOPHEN 500 MG TAB PO ×2 (09:46→21:40)
[2018-02-19] MEDS: METOPROLOL SUCC (TopROL XL) 100MG *XL* TAB PO ×2 (09:46→21:41)
[2018-02-19] MEDS: WARFARIN SOD 4 MG TAB PO (18:30)
[2018-02-19] MEDS: DIGOXIN 0.125 MG TAB PO (21:39)
[2018-02-19] MEDS: ATORVASTATIN 20 MG TAB PO (21:40)
[2018-02-19] MEDS: MULTIVITAMINS/MINERALS THERAP 1 TAB PO (21:40)
[2018-02-19] MEDS: ALLOPURINOL 300 MG TAB PO (21:40)
[2018-02-20] MEDS: OMEPRAZOLE 20 MG CAP PO (00:40)
[2018-02-20 06:02] LABS: HEMATOCRIT 41.2 % (42.0-52.0); HEMOGLOBIN 13.9 g/dl (13.5-17.5); MEAN CORPUSCULAR HGB CONC 33.7 g/dl (32.0-36.5); MEAN CORPUSCULAR VOLUME 94.7 fl (80.0-96.0); PLATELET COUNT, AUTOMATED 266 10^3/uL (150-450); RED BLOOD COUNT 4.35 10^6/uL (4.30-6.10); RED CELL DISTRIBUTION WIDTH 14.6 % (11.5-14.5); WHITE BLOOD COUNT 7.6 10^3/uL (4.0-10.0)
[2018-02-20] MEDS: ACETAMINOPHEN 500 MG TAB PO ×2 (07:58→21:54)
[2018-02-20] MEDS: BACTRIM 160MG/800MG DS TAB PO (07:58)
[2018-02-20] MEDS: TORSEMIDE 10 MG TABLET PO (07:59)
[2018-02-20] MEDS: METOPROLOL SUCC (TopROL XL) 100MG *XL* TAB PO ×2 (07:59→21:55)
[2018-02-20] MEDS: WARFARIN SOD 4 MG TAB PO (17:21)
[2018-02-20] MEDS: ALLOPURINOL 300 MG TAB PO (21:53)
[2018-02-20] MEDS: MULTIVITAMINS/MINERALS THERAP 1 TAB PO (21:54)
[2018-02-20] MEDS: DIGOXIN 0.125 MG TAB PO (21:54)
[2018-02-20] MEDS: ATORVASTATIN 20 MG TAB PO (21:55)
[2018-02-20] MEDS: SENOKOT S TAB PO (21:55)
[2018-02-21 07:32] LABS: HEMATOCRIT 41.8 % (42.0-52.0); HEMOGLOBIN 14.2 g/dl (13.5-17.5); MEAN CORPUSCULAR HEMOGLOBIN 31.9 pg (27.0-33.0); MEAN CORPUSCULAR VOLUME 93.9 fl (80.0-96.0); PLATELET COUNT, AUTOMATED 274 10^3/uL (150-450); RED BLOOD COUNT 4.45 10^6/uL (4.30-6.10); RED CELL DISTRIBUTION WIDTH 14.6 % (11.5-14.5); WHITE BLOOD COUNT 7.3 10^3/uL (4.0-10.0)
[2018-02-21] MEDS: TORSEMIDE 10 MG TABLET PO (09:18)
[2018-02-21] MEDS: OMEPRAZOLE 20 MG CAP PO (09:18)
[2018-02-21] MEDS: METOPROLOL SUCC (TopROL XL) 100MG *XL* TAB PO (09:19)
[2018-02-21] MEDS: ACETAMINOPHEN 500 MG TAB PO ×2 (09:19→21:56)
[2018-02-21 15:21] LABS: INR 2.33; PROTHROMBIN TIME 26.5 SECONDS (12.4-14.5)
[2018-02-21 15:23] LABS: ANION GAP 4 MEQ/L (8-16); BLOOD UREA NITROGEN 21 MG/DL (7-18); CALCIUM LEVEL 8.9 MG/DL (8.8-10.2); CARBON DIOXIDE LEVEL 35 MEQ/L (21-32); CHLORIDE LEVEL 102 MEQ/L (98-107); CREATININE FOR GFR 1.26 MG/DL (0.70-1.30); GLUCOSE, FASTING 164 MG/DL (70-100); POTASSIUM SERUM 3.9 MEQ/L (3.5-5.1); SODIUM LEVEL 141 MEQ/L (136-145)
[2018-02-21] MEDS: WARFARIN SOD 4 MG TAB PO (18:04)
[2018-02-21] MEDS: SENOKOT S TAB PO (21:54)
[2018-02-21] MEDS: ATORVASTATIN 20 MG TAB PO (21:55)
[2018-02-21] MEDS: MULTIVITAMINS/MINERALS THERAP 1 TAB PO (21:55)
[2018-02-21] MEDS: ALLOPURINOL 300 MG TAB PO (21:56)
[2018-02-21] MEDS: DIGOXIN 0.125 MG TAB PO (21:57)
[2018-02-21] MEDS: METOPROLOL SUCC *XL* 25MG TAB (TopROL *XL*) PO (21:57)
[2018-02-22 06:23] LABS: HEMATOCRIT 38.9 % (42.0-52.0); HEMOGLOBIN 13.3 g/dl (13.5-17.5); MEAN CORPUSCULAR HEMOGLOBIN 31.9 pg (27.0-33.0); MEAN CORPUSCULAR HGB CONC 34.2 g/dl (32.0-36.5); MEAN CORPUSCULAR VOLUME 93.3 fl (80.0-96.0); PLATELET COUNT, AUTOMATED 256 10^3/uL (150-450); RED BLOOD COUNT 4.17 10^6/uL (4.30-6.10); RED CELL DISTRIBUTION WIDTH 14.6 % (11.5-14.5)
[2018-02-22 06:28] LABS: PROTHROMBIN TIME 27.1 SECONDS (12.4-14.5)
[2018-02-22 06:42] LABS: ANION GAP 6 MEQ/L (8-16); BLOOD UREA NITROGEN 20 MG/DL (7-18); CALCIUM LEVEL 8.8 MG/DL (8.8-10.2); CARBON DIOXIDE LEVEL 32 MEQ/L (21-32); CHLORIDE LEVEL 104 MEQ/L (98-107); CREATININE FOR GFR 1.05 MG/DL (0.70-1.30); GLOMERULAR FILTRATION RATE > 60.0 (>35); GLUCOSE, FASTING 81 MG/DL (70-100); MAGNESIUM LEVEL 2.3 MG/DL (1.8-2.4); POTASSIUM SERUM 3.6 MEQ/L (3.5-5.1); SODIUM LEVEL 142 MEQ/L (136-145)
[2018-02-22] MEDS: OMEPRAZOLE 20 MG CAP PO (09:00)
[2018-02-22] MEDS: TORSEMIDE 10 MG TABLET PO (09:00)
[2018-02-22] MEDS: ACETAMINOPHEN 500 MG TAB PO ×2 (09:01→21:02)
[2018-02-22] MEDS: METOPROLOL SUCC *XL* 25MG TAB (TopROL *XL*) PO ×2 (09:02→21:03)
[2018-02-22] MEDS: ASPIRIN 81 MG ENTERIC TAB PO (11:10)
[2018-02-22] MEDS: WARFARIN SOD 4 MG TAB PO (16:49)
[2018-02-22] MEDS: MULTIVITAMINS/MINERALS THERAP 1 TAB PO (21:01)
[2018-02-22] MEDS: DIGOXIN 0.125 MG TAB PO (21:01)
[2018-02-22] MEDS: ATORVASTATIN 20 MG TAB PO (21:01)
[2018-02-22] MEDS: ALLOPURINOL 300 MG TAB PO (21:01)
[2018-02-23 07:02] LABS: HEMATOCRIT 42.1 % (42.0-52.0); HEMOGLOBIN 14.6 g/dl (13.5-17.5); MEAN CORPUSCULAR HEMOGLOBIN 32.4 pg (27.0-33.0); MEAN CORPUSCULAR HGB CONC 34.7 g/dl (32.0-36.5); MEAN CORPUSCULAR VOLUME 93.3 fl (80.0-96.0); PLATELET COUNT, AUTOMATED 257 10^3/uL (150-450); RED BLOOD COUNT 4.51 10^6/uL (4.30-6.10); RED CELL DISTRIBUTION WIDTH 14.5 % (11.5-14.5); WHITE BLOOD COUNT 6.9 10^3/uL (4.0-10.0)
[2018-02-23 07:19] LABS: ANION GAP 6 MEQ/L (8-16); BLOOD UREA NITROGEN 21 MG/DL (7-18); CARBON DIOXIDE LEVEL 30 MEQ/L (21-32); CHLORIDE LEVEL 106 MEQ/L (98-107); CREATININE FOR GFR 1.04 MG/DL (0.70-1.30); GLOMERULAR FILTRATION RATE > 60.0 (>35); GLUCOSE, FASTING 86 MG/DL (70-100); MAGNESIUM LEVEL 2.3 MG/DL (1.8-2.4); POTASSIUM SERUM 3.6 MEQ/L (3.5-5.1); SODIUM LEVEL 142 MEQ/L (136-145)
[2018-02-23 07:25] LABS: INR 2.27; PROTHROMBIN TIME 25.9 SECONDS (12.4-14.5)
[2018-02-23] MEDS: OMEPRAZOLE 20 MG CAP PO (08:21)
[2018-02-23] MEDS: TORSEMIDE 10 MG TABLET PO (08:22)
[2018-02-23] MEDS: ACETAMINOPHEN 500 MG TAB PO ×2 (08:22→22:07)
[2018-02-23] MEDS: ASPIRIN 81 MG ENTERIC TAB PO (08:22)
[2018-02-23] MEDS: METOPROLOL SUCC *XL* 25MG TAB (TopROL *XL*) PO ×2 (08:22→21:52)
[2018-02-23] MEDS: WARFARIN SOD 4 MG TAB PO (16:56)
[2018-02-23] MEDS: DIGOXIN 0.125 MG TAB PO (22:04)
[2018-02-23] MEDS: ATORVASTATIN 20 MG TAB PO (22:04)
[2018-02-23] MEDS: BACTRIM 160MG/800MG DS TAB PO (22:04)
[2018-02-23] MEDS: MULTIVITAMINS/MINERALS THERAP 1 TAB PO (22:05)
[2018-02-23] MEDS: ALLOPURINOL 300 MG TAB PO (22:07)
[2018-02-24 06:03] LABS: HEMATOCRIT 40.9 % (42.0-52.0); HEMOGLOBIN 13.8 g/dl (13.5-17.5); MEAN CORPUSCULAR HGB CONC 33.7 g/dl (32.0-36.5); MEAN CORPUSCULAR VOLUME 94.9 fl (80.0-96.0); PLATELET COUNT, AUTOMATED 221 10^3/uL (150-450); RED BLOOD COUNT 4.31 10^6/uL (4.30-6.10); RED CELL DISTRIBUTION WIDTH 14.3 % (11.5-14.5); WHITE BLOOD COUNT 7.2 10^3/uL (4.0-10.0)
[2018-02-24 06:14] LABS: INR 2.22; PROTHROMBIN TIME 25.4 SECONDS (12.4-14.5)
[2018-02-24 06:31] LABS: ANION GAP 8 MEQ/L (8-16); BLOOD UREA NITROGEN 24 MG/DL (7-18); C REACTIVE PROTEIN QUANTITATIV 1.77 MG/DL (0.00-0.30); CALCIUM LEVEL 8.8 MG/DL (8.8-10.2); CARBON DIOXIDE LEVEL 31 MEQ/L (21-32); CHLORIDE LEVEL 104 MEQ/L (98-107); CREATININE FOR GFR 0.91 MG/DL (0.70-1.30); GLOMERULAR FILTRATION RATE > 60.0 (>35); GLUCOSE, FASTING 80 MG/DL (70-100); MAGNESIUM LEVEL 2.4 MG/DL (1.8-2.4); POTASSIUM SERUM 3.2 MEQ/L (3.5-5.1); SODIUM LEVEL 143 MEQ/L (136-145)
[2018-02-24] MEDS: METOPROLOL SUCC *XL* 25MG TAB (TopROL *XL*) PO ×2 (09:00→21:51)
[2018-02-24] MEDS: OMEPRAZOLE 20 MG CAP PO (09:17)
[2018-02-24] MEDS: ASPIRIN 81 MG ENTERIC TAB PO (09:17)
[2018-02-24] MEDS: BACTRIM 160MG/800MG DS TAB PO ×2 (09:17→21:50)
[2018-02-24] MEDS: TORSEMIDE 10 MG TABLET PO (09:17)
[2018-02-24] MEDS: ACETAMINOPHEN 500 MG TAB PO ×2 (09:18→21:49)
[2018-02-24] MEDS: POTASSIUM CHLORIDE 10 MEQ SR TABLET PO (09:18)
[2018-02-24] MEDS: WARFARIN SOD 4 MG TAB PO (16:46)
[2018-02-24] MEDS: MULTIVITAMINS/MINERALS THERAP 1 TAB PO (21:48)
[2018-02-24] MEDS: DIGOXIN 0.125 MG TAB PO (21:49)
[2018-02-24] MEDS: ATORVASTATIN 20 MG TAB PO (21:51)
[2018-02-24] MEDS: ALLOPURINOL 300 MG TAB PO (21:51)
[2018-02-24] MEDS: SENOKOT S TAB PO (21:59)
[2018-02-25 06:01] LABS: HEMATOCRIT 40.3 % (42.0-52.0); MEAN CORPUSCULAR HEMOGLOBIN 32.6 pg (27.0-33.0); MEAN CORPUSCULAR HGB CONC 34.7 g/dl (32.0-36.5); MEAN CORPUSCULAR VOLUME 93.7 fl (80.0-96.0); PLATELET COUNT, AUTOMATED 204 10^3/uL (150-450); RED CELL DISTRIBUTION WIDTH 14.5 % (11.5-14.5); WHITE BLOOD COUNT 7.2 10^3/uL (4.0-10.0)
[2018-02-25 06:13] LABS: INR 2.46; PROTHROMBIN TIME 27.6 SECONDS (12.4-14.5)
[2018-02-25 06:21] LABS: ANION GAP 5 MEQ/L (8-16); BLOOD UREA NITROGEN 23 MG/DL (7-18); C REACTIVE PROTEIN QUANTITATIV 1.86 MG/DL (0.00-0.30); CALCIUM LEVEL 8.8 MG/DL (8.8-10.2); CARBON DIOXIDE LEVEL 31 MEQ/L (21-32); CHLORIDE LEVEL 107 MEQ/L (98-107); CREATININE FOR GFR 1.11 MG/DL (0.70-1.30); GLOMERULAR FILTRATION RATE > 60.0 (>35); GLUCOSE, FASTING 80 MG/DL (70-100); MAGNESIUM LEVEL 2.4 MG/DL (1.8-2.4); POTASSIUM SERUM 3.8 MEQ/L (3.5-5.1); SODIUM LEVEL 143 MEQ/L (136-145)
[2018-02-25] MEDS: TORSEMIDE 10 MG TABLET PO (09:04)
[2018-02-25] MEDS: BACTRIM 160MG/800MG DS TAB PO ×2 (09:04→21:53)
[2018-02-25] MEDS: ACETAMINOPHEN 500 MG TAB PO ×2 (09:04→21:54)
[2018-02-25] MEDS: ASPIRIN 81 MG ENTERIC TAB PO (09:04)
[2018-02-25] MEDS: OMEPRAZOLE 20 MG CAP PO (09:04)
[2018-02-25] MEDS: POTASSIUM CHLORIDE 10 MEQ SR TABLET PO (09:05)
[2018-02-25] MEDS: METOPROLOL SUCC *XL* 25MG TAB (TopROL *XL*) PO ×2 (09:05→21:55)
[2018-02-25] MEDS: LACTOBACILLUS ACIDOPHILUS CAP (BACID) PO ×3 (11:32→17:19)
[2018-02-25] MEDS: WARFARIN SOD 4 MG TAB PO (17:18)
[2018-02-25] MEDS: ATORVASTATIN 20 MG TAB PO (21:54)
[2018-02-25] MEDS: ALLOPURINOL 300 MG TAB PO (21:54)
[2018-02-25] MEDS: MULTIVITAMINS/MINERALS THERAP 1 TAB PO (21:54)
[2018-02-25] MEDS: DIGOXIN 0.125 MG TAB PO (21:56)
[2018-02-26 06:23] LABS: HEMATOCRIT 39.9 % (42.0-52.0); HEMOGLOBIN 13.7 g/dl (13.5-17.5); MEAN CORPUSCULAR HEMOGLOBIN 32.5 pg (27.0-33.0); MEAN CORPUSCULAR HGB CONC 34.3 g/dl (32.0-36.5); MEAN CORPUSCULAR VOLUME 94.8 fl (80.0-96.0); PLATELET COUNT, AUTOMATED 189 10^3/uL (150-450); RED BLOOD COUNT 4.21 10^6/uL (4.30-6.10); RED CELL DISTRIBUTION WIDTH 14.7 % (11.5-14.5); WHITE BLOOD COUNT 6.9 10^3/uL (4.0-10.0)
[2018-02-26 06:56] LABS: ANION GAP 4 MEQ/L (8-16); BLOOD UREA NITROGEN 22 MG/DL (7-18); C REACTIVE PROTEIN QUANTITATIV 1.59 MG/DL (0.00-0.30); CALCIUM LEVEL 8.7 MG/DL (8.8-10.2); CARBON DIOXIDE LEVEL 31 MEQ/L (21-32); CHLORIDE LEVEL 107 MEQ/L (98-107); CREATININE FOR GFR 1.12 MG/DL (0.70-1.30); GLOMERULAR FILTRATION RATE > 60.0 (>35); GLUCOSE, FASTING 80 MG/DL (70-100); MAGNESIUM LEVEL 2.4 MG/DL (1.8-2.4); SODIUM LEVEL 142 MEQ/L (136-145)
[2018-02-26] MEDS: LACTOBACILLUS ACIDOPHILUS CAP (BACID) PO ×3 (08:31→17:34)
[2018-02-26] MEDS: TORSEMIDE 10 MG TABLET PO (08:32)
[2018-02-26] MEDS: BACTRIM 160MG/800MG DS TAB PO ×2 (08:32→21:25)
[2018-02-26] MEDS: ASPIRIN 81 MG ENTERIC TAB PO (08:32)
[2018-02-26] MEDS: OMEPRAZOLE 20 MG CAP PO (08:33)
[2018-02-26] MEDS: POTASSIUM CHLORIDE 10 MEQ SR TABLET PO (08:33)
[2018-02-26] MEDS: METOPROLOL SUCC *XL* 25MG TAB (TopROL *XL*) PO ×2 (08:34→21:26)
[2018-02-26] MEDS: ACETAMINOPHEN 500 MG TAB PO ×2 (08:36→21:25)
[2018-02-26 12:16] LABS: INR 2.37; PROTHROMBIN TIME 26.8 SECONDS (12.4-14.5)
[2018-02-26] MEDS: WARFARIN SOD 4 MG TAB PO (15:36)
[2018-02-26] MEDS: MULTIVITAMINS/MINERALS THERAP 1 TAB PO (21:24)
[2018-02-26] MEDS: ALLOPURINOL 300 MG TAB PO (21:25)
[2018-02-26] MEDS: ATORVASTATIN 20 MG TAB PO (21:25)
[2018-02-26] MEDS: DIGOXIN 0.125 MG TAB PO (21:26)
[2018-02-27 06:15] LABS: HEMATOCRIT 42.8 % (42.0-52.0); HEMOGLOBIN 14.7 g/dl (13.5-17.5); MEAN CORPUSCULAR HEMOGLOBIN 32.8 pg (27.0-33.0); MEAN CORPUSCULAR HGB CONC 34.3 g/dl (32.0-36.5); MEAN CORPUSCULAR VOLUME 95.5 fl (80.0-96.0); PLATELET COUNT, AUTOMATED 203 10^3/uL (150-450); RED BLOOD COUNT 4.48 10^6/uL (4.30-6.10); RED CELL DISTRIBUTION WIDTH 14.7 % (11.5-14.5)
[2018-02-27 06:30] LABS: ANION GAP 6 MEQ/L (8-16); BLOOD UREA NITROGEN 21 MG/DL (7-18); CALCIUM LEVEL 8.9 MG/DL (8.8-10.2); CARBON DIOXIDE LEVEL 31 MEQ/L (21-32); CHLORIDE LEVEL 105 MEQ/L (98-107); CREATININE FOR GFR 1.18 MG/DL (0.70-1.30); GLOMERULAR FILTRATION RATE > 60.0 (>35); GLUCOSE, FASTING 86 MG/DL (70-100); MAGNESIUM LEVEL 2.6 MG/DL (1.8-2.4); SODIUM LEVEL 142 MEQ/L (136-145)
[2018-02-27 06:32] LABS: INR 2.52; PROTHROMBIN TIME 28.2 SECONDS (12.4-14.5)
[2018-02-27] MEDS: OMEPRAZOLE 20 MG CAP PO (08:40)
[2018-02-27] MEDS: ACETAMINOPHEN 500 MG TAB PO ×2 (08:40→22:31)
[2018-02-27] MEDS: POTASSIUM CHLORIDE 10 MEQ SR TABLET PO (08:40)
[2018-02-27] MEDS: BACTRIM 160MG/800MG DS TAB PO ×2 (08:41→22:28)
[2018-02-27] MEDS: TORSEMIDE 10 MG TABLET PO (08:41)
[2018-02-27] MEDS: LACTOBACILLUS ACIDOPHILUS CAP (BACID) PO ×3 (08:41→17:38)
[2018-02-27] MEDS: ASPIRIN 81 MG ENTERIC TAB PO (08:41)
[2018-02-27] MEDS: METOPROLOL SUCC *XL* 25MG TAB (TopROL *XL*) PO ×2 (08:42→22:29)
[2018-02-27] MEDS: WARFARIN SOD 4 MG TAB PO (17:38)
[2018-02-27] MEDS: MULTIVITAMINS/MINERALS THERAP 1 TAB PO (22:29)
[2018-02-27] MEDS: DIGOXIN 0.125 MG TAB PO (22:31)
[2018-02-27] MEDS: ATORVASTATIN 20 MG TAB PO (22:31)
[2018-02-27] MEDS: ALLOPURINOL 300 MG TAB PO (22:31)
[2018-02-28 06:12] LABS: HEMATOCRIT 39.7 % (42.0-52.0); HEMOGLOBIN 13.6 g/dl (13.5-17.5); MEAN CORPUSCULAR HEMOGLOBIN 32.2 pg (27.0-33.0); MEAN CORPUSCULAR HGB CONC 34.3 g/dl (32.0-36.5); MEAN CORPUSCULAR VOLUME 93.9 fl (80.0-96.0); PLATELET COUNT, AUTOMATED 171 10^3/uL (150-450); RED BLOOD COUNT 4.23 10^6/uL (4.30-6.10); RED CELL DISTRIBUTION WIDTH 14.6 % (11.5-14.5); WHITE BLOOD COUNT 6.9 10^3/uL (4.0-10.0)
[2018-02-28 06:22] LABS: INR 2.87; PROTHROMBIN TIME 31.3 SECONDS (12.4-14.5)
[2018-02-28 06:35] LABS: ANION GAP 6 MEQ/L (8-16); BLOOD UREA NITROGEN 24 MG/DL (7-18); CALCIUM LEVEL 8.8 MG/DL (8.8-10.2); CARBON DIOXIDE LEVEL 30 MEQ/L (21-32); CHLORIDE LEVEL 105 MEQ/L (98-107); CREATININE FOR GFR 1.17 MG/DL (0.70-1.30); GLOMERULAR FILTRATION RATE > 60.0 (>35); GLUCOSE, FASTING 76 MG/DL (70-100); MAGNESIUM LEVEL 2.3 MG/DL (1.8-2.4); POTASSIUM SERUM 4.1 MEQ/L (3.5-5.1); SODIUM LEVEL 141 MEQ/L (136-145)
[2018-02-28] MEDS: POTASSIUM CHLORIDE 10 MEQ SR TABLET PO (08:48)
[2018-02-28] MEDS: ACETAMINOPHEN 500 MG TAB PO (08:50)
[2018-02-28] MEDS: BACTRIM 160MG/800MG DS TAB PO (08:51)
[2018-02-28] MEDS: LACTOBACILLUS ACIDOPHILUS CAP (BACID) PO ×2 (08:51→12:31)
[2018-02-28] MEDS: ASPIRIN 81 MG ENTERIC TAB PO (08:51)
[2018-02-28] MEDS: TORSEMIDE 10 MG TABLET PO (08:51)
[2018-02-28] MEDS: METOPROLOL SUCC *XL* 25MG TAB (TopROL *XL*) PO (08:51)
[2018-02-28] MEDS: OMEPRAZOLE 20 MG CAP PO (08:51)
== END 2018-02-28 13:35 | disposition home health service (06) | DRG 617 ==
LOC: M ED 16:57 → M ED INP 20:18 → M MSPAV 22:37
PROC: 0Y6T0Z1 Detachment at Right 3rd Toe, High, Open Approach (ICD-10-PCS; principal; 2018-02-09 10:24)
PROC: 0KBV0ZZ Excision of Right Foot Muscle, Open Approach (ICD-10-PCS; 2018-02-09 18:06)
PROC: B41FYZZ Fluoroscopy of Right Lower Extremity Arteries using Other Contrast (ICD-10-PCS; 2018-02-09 18:06)
DX: E11.621 Type 2 diabetes mellitus with foot ulcer (principal); L03.115 Cellulitis of right lower limb; T81.31XA Disruption of external operation (surgical) wound, not elsewhere classified, initial encounter; I13.0 Hypertensive heart and chronic kidney disease with heart failure and stage 1 through stage 4 chronic kidney disease, or unspecified chronic kidney disease; E11.52 Type 2 diabetes mellitus with diabetic peripheral angiopathy with gangrene; I50.9 Heart failure, unspecified; I73.9 Peripheral vascular disease, unspecified; E78.5 Hyperlipidemia, unspecified; N18.3 Chronic kidney disease, stage 3 (moderate); M10.9 Gout, unspecified; I48.91 Unspecified atrial fibrillation; K21.9 Gastro-esophageal reflux disease without esophagitis; M21.371 Foot drop, right foot; M21.372 Foot drop, left foot; M48.04 Spinal stenosis, thoracic region; M48.061 Spinal stenosis, lumbar region without neurogenic claudication; Z79.899 Other long term (current) drug therapy; Z79.82 Long term (current) use of aspirin; Z88.5 Allergy status to narcotic agent; I25.10 Atherosclerotic heart disease of native coronary artery without angina pectoris; Z95.2 Presence of prosthetic heart valve; E87.6 Hypokalemia; Z79.01 Long term (current) use of anticoagulants; N17.9 Acute kidney failure, unspecified; B95.61 Methicillin susceptible Staphylococcus aureus infection as the cause of diseases classified elsewhere; B96.4 Proteus (mirabilis) (morganii) as the cause of diseases classified elsewhere; E11.69 Type 2 diabetes mellitus with other specified complication

== ENCOUNTER → 2018-07-24 | Outpatient (REF) | payer MEDICARE | LOC: M LAB REF 17:17 | DX: L03.125 Acute lymphangitis of right lower limb (principal) | CPT/HCPCS: 87077; 87186 ==

== ENCOUNTER → 2018-10-16 | Outpatient (CLI) | payer MEDICARE ==
[~2018-10-16] MED LIST changes: +ACET500T15 PO; -ALLO300T OR; +ALLO300T PO; +ASPI81TA85 PO; +BACT800T5 PO; +CALC1TAB74 PO; +CALC600T57 PO; +COUM6TAB PO; +DESI40PS3 TOP; +DIGO0.12 PO; +FERR325T16 PO; +KLOR20TA42 PO; -LIPI20TA OR; +LIPI20TA PO; +MELO7.5T7 PO; +METO1TAB33 PO; +MULT1TAB10 PO; +OMEP20CA3 PO; +OMEP40CA2 PO; +PRED5TA PO; +SMZ/TMP; +TORS100T PO
== END ==
LOC: M SMT 15:11
PROVIDERS: ATTEND Family Medicine
DX: N40.0 Benign prostatic hyperplasia without lower urinary tract symptoms (principal); R53.83 Other fatigue
CPT/HCPCS: 36415; 84403; G0103

== ENCOUNTER 2018-11-06 13:43 | Emergency (ER) | payer MEDICARE ==
[~2018-11-06] VITALS: Ht 182.9 cm; Wt 87.7 kg
[2018-11-06 13:44] VITALS: BP 119/55
--- NOTE | 2018-11-06 14:46 | REP ---
LEFT WRIST, FOUR VIEWS: HISTORY: Fall. A faint linear lucency is present in the navicular bone. This may represent a nondisplaced fracture. There is no dislocation. There is narrowing of the radial carpal joint space. There is marked narrowing of the greater multangular first metacarpal joint space with associated sclerosis and irregularity. The bony structure is osteopenic. IMPRESSION: 1. There is a possible nondisplaced fracture of the navicular bone. 2. Degenerative change as described above. Electronically Signed by Rios Quinones MD 11/06/2018 02:47 P
== END 2018-11-06 14:41 | disposition home or self-care (01) ==
LOC: M ED 13:43
DX: S63.502A Unspecified sprain of left wrist, initial encounter (principal); R93.7 Abnormal findings on diagnostic imaging of other parts of musculoskeletal system; W19.XXXA Unspecified fall, initial encounter; Y92.098 Other place in other non-institutional residence as the place of occurrence of the external cause; G62.9 Polyneuropathy, unspecified; I48.91 Unspecified atrial fibrillation; I10 Essential (primary) hypertension; E78.00 Pure hypercholesterolemia, unspecified; K21.9 Gastro-esophageal reflux disease without esophagitis; N42.9 Disorder of prostate, unspecified; M19.90 Unspecified osteoarthritis, unspecified site; Z95.5 Presence of coronary angioplasty implant and graft; F17.200 Nicotine dependence, unspecified, uncomplicated; Z88.5 Allergy status to narcotic agent; Z79.899 Other long term (current) drug therapy; Z79.01 Long term (current) use of anticoagulants; Z79.82 Long term (current) use of aspirin; Z79.52 Long term (current) use of systemic steroids

== ENCOUNTER 2018-12-02 13:46 | Inpatient (IN) | payer MEDICARE ==
[~2018-12-02] VITALS: Ht 182.9 cm; Wt 86.7 kg
[2018-12-02] MEDS ORDERED: NS 1,000 ML IV ONE ×2 (14:30→16:45)
[2018-12-02 14:48] LABS: BASO % 0.4 % (0.0-1.0); EOS % 0.3 % (0.0-3.0); HEMATOCRIT 42.2 % (42.0-52.0); HEMOGLOBIN 13.9 g/dl (13.5-17.5); LYMPH % 10.9 % (24.0-44.0); MEAN CORPUSCULAR HEMOGLOBIN 33.5 pg (27.0-33.0); MEAN CORPUSCULAR HGB CONC 32.9 g/dl (32.0-36.5); MEAN CORPUSCULAR VOLUME 101.7 fl (80.0-96.0); MONO # 0.5 10^3/uL (0.0-0.8); MONO % 5.9 % (0.0-5.0); NEUTROPHILS # 7.5 10^3/uL (1.8-7.7); NEUTROPHILS % 82.1 % (36.0-66.0); PLATELET COUNT, AUTOMATED 160 10^3/uL (150-450); RED BLOOD COUNT 4.15 10^6/uL (4.30-6.10); WHITE BLOOD COUNT 9.2 10^3/uL (4.0-10.0)
--- NOTE | 2018-12-02 14:54 | REP ---
Clinical: MALAISE. Comparison: 02/09/2018 . Findings: The mediastinum and cardiac silhouette are stable and within normal limits for portable technique. The lung ugarte stable with chronic changes. No acute consolidation, effusion, or pneumothorax. Skeletal structures are intact. Impression: No acute cardiopulmonary process appreciated. If the patient remains symptomatic consider chest CT for further investigation. Electronically Signed by Ramez Hutchins MD 12/02/2018 02:44 P
[2018-12-02 15:01] LABS: INR 1.59; PROTHROMBIN TIME 19.2 SECONDS (12.1-14.4)
[2018-12-02 15:02] LABS: PARTIAL THROMBOPLASTIN TIME 42.8 SECONDS (25.4-37.6)
[2018-12-02 15:09] LABS: ERYTHROCYTE SEDIMENTATION RATE 43 mm/hr (0-30)
[2018-12-02 15:32] LABS: GLUCOSE, FASTING 148 MG/DL (70-100)
[2018-12-02 15:33] LABS: BLOOD UREA NITROGEN 19 MG/DL (7-18); GLOMERULAR FILTRATION RATE 47.4 (>35)
[2018-12-02 15:34] LABS: ALT/SGPT 13 U/L (12-78); CARBON DIOXIDE LEVEL 28 MEQ/L (21-32); CHLORIDE LEVEL 103 MEQ/L (98-107); CPK CREATINE PHOSPHOKINASE 42 U/L (39-308); POTASSIUM SERUM 3.8 MEQ/L (3.5-5.1); SODIUM LEVEL 138 MEQ/L (136-145)
[2018-12-02 15:35] LABS: CK-MB VALUE MASS 1.4 NG/ML (<3.6); MB/CK RELATIVE INDEX 0.03 (< OR =4)
[2018-12-02 15:36] LABS: ALBUMIN 2.7 GM/DL (3.2-5.2); BILIRUBIN,DIRECT 0.2 MG/DL (0.0-0.2); BILIRUBIN,TOTAL 0.7 MG/DL (0.2-1.0)
[2018-12-02 15:37] LABS: TROPONIN I < 0.02 NG/ML (< 0.10)
[2018-12-02] MEDS ORDERED: PIPERACILLIN/TAZOBACTAM SOD 3.375 GM in D5W MINI-BAG PLUS 50 ML IV ONE (16:45)
--- NOTE | 2018-12-02 16:49 | REP ---
Clinical: Trauma. Fall. Technique: AP, lateral, bilateral oblique views of the left wrist. Findings: Evaluation is significantly limited due to overlying cast material. Age related osteoarthritic degenerative changes are appreciated subtle fracture/injury cannot be excluded. Recent prior examination dated 11/06/2018 demonstrated subtle nondisplaced scaphoid fracture. Impression: Limited by advanced osteoarthritic degenerative changes and overlying cast material. Electronically Signed by Ramez Hutchins MD 12/02/2018 04:41 P
--- NOTE | 2018-12-02 16:51 | REP ---
Clinical: Osteomyelitis. Technique: AP, lateral, oblique views of the right foot. Findings: Osteopenia and osteoarthritic degenerative changes are appreciated along with evidence for peripheral vascular disease. The patient is known to be status post amputation at the third metatarsophalangeal joint level. No obvious acute fracture dislocation. No significant subcutaneous emphysema or periosteal reaction is definitively identified. Impression: Osteopenia and osteoarthritic degenerative changes. Electronically Signed by Ramez Hutchins MD 12/02/2018 04:43 P
[2018-12-02] MEDS ORDERED: VITMTA PO (17:36)
[2018-12-02] MEDS ORDERED: ZYLO300T6 PO (17:36)
[2018-12-02] MEDS ORDERED: ATOR1TAB21 PO (17:36)
[2018-12-02] MEDS ORDERED: COUM1TAB19 PO (17:36)
[2018-12-02] MEDS ORDERED: FLOM0.4C39 PO (17:38)
[2018-12-02] MEDS ORDERED: PROBCAP14 PO (17:38)
[2018-12-02] MEDS ORDERED: STOO100C PO (17:38)
[2018-12-02] MEDS: NS 1,000 ML IV SCH (17:45)
[2018-12-02 18:35] VITALS: BP 98/52
[2018-12-02 22:00] VITALS: BP 128/92
[2018-12-02] MEDS: PIPERACILLIN/TAZOBACTAM SOD 3.375 GM in D5W MINI-BAG PLUS 50 ML IV SCH (22:49)
[2018-12-03] MEDS: NS 1,000 ML IV SCH ×2 (01:45→13:55)
[2018-12-03] MEDS: PIPERACILLIN/TAZOBACTAM SOD 3.375 GM in D5W MINI-BAG PLUS 50 ML IV SCH ×4 (05:17→22:11)
[2018-12-03 06:00] VITALS: BP 102/52
--- NOTE | 2018-12-03 07:16 | HPE ---
DATE OF ADMISSION: 12/02/2018 HISTORY OF PRESENT ILLNESS (HPI:) This patient is an 83-year-old male with a past medical history of hypertension, hyperlipidemia, chronic kidney disease (CKD) III, coronary artery disease status post 5 stent placement, history of congestive heart failure (CHF), active tobacco abuser, atrial fibrillation (A-fib), peripheral vascular disease status post right third toe amputation in January 2018 who presents to the emergency room after 48 hours of generalized malaise. When he came to the emergency room (ER) he was found to have some purulent discharge in his ulcer but no elevated white count or fever. The patient was started on intravenous (IV) Zosyn. Dr. Noriega was consulted and will see the patient in the morning. At this time the patient has no pain in the area though he has neuropathy of his feet and he will be admitted for further management. He denies any subjective feeling of fever, aches or chills. PAST MEDICAL HISTORY: 1. Hypertension. 2. Hyperlipidemia. 3. CKD III. 4. Coronary artery disease status post 5 stent placement. 5. CHF. 6. Gastroesophageal reflux disease (GERD). 7. Atrial fibrillation. 8. History of gout. 9. Peripheral artery disease status post right third toe amputation in January 2018. ALLERGIES: OXYCODONE. FAMILY HISTORY: Noncontributory. SOCIAL HISTORY: The patient still is an active tobacco abuser. He smokes 3-4 cigars and inhales them daily. He drinks alcohol occasionally. He denies illicit drug use. MEDICATIONS: - Tylenol 1 gram twice a day - allopurinol 300 mg orally at bedtime - aspirin 81 mg orally at bedtime - atorvastatin 20 mg orally at bedtime - calcium with vitamin D 600/400 one tablet orally daily - Desitin one dose topically daily to the right foot - digoxin 0.125 micrograms orally daily - ferrous gluconate 324 mg orally two times a week - meloxicam 7.5 mg orally twice daily - metoprolol 100 mg orally twice daily - multivitamin one tablet orally daily - omeprazole 20 mg orally daily - potassium chloride 20 mEq orally twice daily - prednisone 5 mg orally at bedtime - torsemide 100 mg orally at bedtime - Bactrim DS 800/160 one tablet orally twice daily three days a week - Warfarin 3 mg orally six times a week and 6 mg once a week. REVIEW OF SYSTEMS: Negative for all 10 major systems except for what is mentioned in the HPI. PHYSICAL EXAMINATION VITAL SIGNS: Blood pressure 96/51, heart rate 99 and irregular, respiratory rate 18, temperature 99.4, Oxygen saturation 92% on room air. HEENT: Normocephalic atraumatic. NECK: Supple, no jugular venous distention (JVD). LUNGS: Clear to auscultation. HEART: S1, S2 audible, no murmurs appreciated. ABDOMEN: Soft, positive bowel sounds. No pedal edema. SKIN: There is a large ulcer with necrotic borders and mild purulent discharge noted in the surgical site where he had his third toe amputation. EXTREMITIES: Dorsal pedal pulses are appreciated bilaterally. NEUROLOGIC EXAM: The patient is awake, alert and oriented times three. LABORATORY DATA: WBC 9.3, hemoglobin 13.9, hematocrit 42.2, platelets 160,000. Sodium 138, potassium 3.8, chloride 103, CO2 28, BUN 19, creatinine 1.5, lactic acid 3.1, calcium 8.0, AST 15, ALT 13, troponin less than 0.02. IMAGING: X-ray of the right foot shows osteopenia, osteoarthritic degenerative changes. No obvious acute fracture or dislocation. IMPRESSION: Infected right foot ulcer. PLAN: The patient will be admitted to the med/surg floor. Will start the patient on intravenous (IV) Zosyn, cultures of that area have been take. Dr. Noriega will be on consult and will see the patient in the morning. The patient's lactic acid level appears elevated. I will start him on normal saline (NS) at 125 mL an hour. Will follow serial lactic acid levels. Will continue all of his preadmission medications but I will hold his Bactrim. Will get an MRI of his right foot to rule out any abscess or possible osteomyelitis.
[2018-12-03 07:31] LABS: BASO % 0.4 % (0.0-1.0); EOS % 0.1 % (0.0-3.0); HEMATOCRIT 38.1 % (42.0-52.0); HEMOGLOBIN 12.7 g/dl (13.5-17.5); LYMPH # 1.5 10^3/uL (1.5-4.5); LYMPH % 20.3 % (24.0-44.0); MEAN CORPUSCULAR HGB CONC 33.3 g/dl (32.0-36.5); MEAN CORPUSCULAR VOLUME 102.1 fl (80.0-96.0); MONO # 0.5 10^3/uL (0.0-0.8); MONO % 7.3 % (0.0-5.0); NEUTROPHILS # 5.1 10^3/uL (1.8-7.7); NEUTROPHILS % 71.3 % (36.0-66.0); PLATELET COUNT, AUTOMATED 132 10^3/uL (150-450); RED BLOOD COUNT 3.73 10^6/uL (4.30-6.10); WHITE BLOOD COUNT 7.1 10^3/uL (4.0-10.0)
[2018-12-03 07:47] LABS: BLOOD UREA NITROGEN 15 MG/DL (7-18); CALCIUM LEVEL 7.8 MG/DL (8.8-10.2); CARBON DIOXIDE LEVEL 27 MEQ/L (21-32); CHLORIDE LEVEL 108 MEQ/L (98-107); CREATININE FOR GFR 1.19 MG/DL (0.70-1.30); GLOMERULAR FILTRATION RATE > 60.0 (>35); GLUCOSE, FASTING 91 MG/DL (70-100); POTASSIUM SERUM 3.3 MEQ/L (3.5-5.1); SODIUM LEVEL 141 MEQ/L (136-145)
--- NOTE | 2018-12-03 08:37 | ECGEPIP ---
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
[2018-12-03] MEDS ORDERED: WARFARIN SOD 3 MG TAB PO SCH ×2 (09:00→21:00)
[2018-12-03 09:34] VITALS: BP 113/52
[2018-12-03 09:37] VITALS: BP 113/52
[2018-12-03] MEDS: MULTIVITAMINS/MINERALS THERAP 1 TAB PO SCH (10:26)
[2018-12-03] MEDS: TAMSULOSIN 0.4 MG CAP PO SCH (11:41)
[2018-12-03] MEDS: DIGOXIN 0.125 MG TAB PO SCH (11:42)
[2018-12-03] MEDS: METOPROLOL SUCC (TopROL XL) 100MG *XL* TAB PO SCH ×2 (11:43→20:35)
[2018-12-03] MEDS: POTASSIUM CHLORIDE 10 MEQ SR TABLET PO SCH ×2 (11:44→20:35)
[2018-12-03] MEDS: DOCUSATE SODIUM 100 MG CAP PO SCH ×2 (12:02→20:34)
[2018-12-03] MEDS: ACETAMINOPHEN TAB 650MG DOSE (2X325MG) PO PRN (12:02)
[2018-12-03] MEDS: ASPIRIN 81 MG ENTERIC TAB PO SCH ×2 (12:02→20:35)
[2018-12-03] MEDS ORDERED: PROHANCE 279.3MG/ML 5ML VIAL (A9576) As Ordered ONE (12:26)
[2018-12-03] MEDS ORDERED: PROHANCE 279.3MG/ML 15ML VIAL (A9576) As Ordered ONE (12:26)
[2018-12-03] MEDS: ATORVASTATIN 20 MG TAB PO SCH ×2 (13:57→20:35)
--- NOTE | 2018-12-03 15:02 | IPN ---
DATE: 12/03/2018 CHIEF COMPLAINT: The patient is seen this morning for evaluation of his right foot. The patient states that he started to feel ill with chills and went to the emergency room where he was admitted. PAST MEDICAL HISTORY: Positive for hypertension, hyperlipidemia, chronic kidney disease stage III, coronary artery disease, congestive heart failure (CHF), gastroesophageal reflux disease (GERD), atrial fibrillation, lower extremity peripheral artery disease. PAST SURGICAL HISTORY: Includes partial third toe amputation of his right foot. ALLERGIES: OXYCODONE. MEDICATIONS: - Tylenol - allopurinol 300 mg at bedtime - aspirin 81 mg at bedtime - atorvastatin 20 mg at bedtime - calcium with vitamin D - digoxin 0.125 mcg daily - ferrous gluconate 324 mg three times a week - meloxicam 7.5 mg twice a day - metoprolol 100 mg twice a day - omeprazole 20 mg daily - potassium chloride 20 mEq twice a day - prednisone 5 mg at bedtime - torsemide 100 mg arthritis bedtime - Bactrim - warfarin 3 mg six times a week and 6 mg once a week PHYSICAL EXAMINATION: 83-year-old male in no acute distress. Evaluation of his foot reveals the fourth toe to be dark and firm to the touch with distal dry gangrene. Evaluation of his second toe reveals it to be dusky in color with considerable vascular changes. Pedal pulses are not palpable. There is an ulceration that spans the lateral aspect of the second toe and the medial aspect of the fourth toe. The ulceration measures 5 cm in length by approximately 4 cm in width. The extensor tendons are visible and there is some necrotic change noted of the wound. X-rays revealed no signs of acute osteomyelitis. There is erythema noted on both lower extremities. There is no discharge from the right wound. ASSESSMENT: Necrotic second and fourth toes with peripheral artery disease. PLAN: Discussed with the patient since the second and fourth toe are necrotic that local amputation of the second and the fourth toe would give a less desirable foot than a transmetatarsal amputation. Discussed with the patient getting a vascular consultation for a transmetatarsal amputation is planned to assess healing of this surgery. His questions were answered.
--- NOTE | 2018-12-03 15:09 | REP ---
MRI right foot without and with IV gadolinium: History: Rule out abscess and osteomyelitis. Comparison right foot radiographs are from December 02, 2018. Gadolinium enhancement dose: 18 mL of intravenous ProHance. MR technique: Axial, coronal and sagittal imaging planes utilized. T1 and T2-weighted scans were obtained with and without fat saturation. MRI findings: The third digit is amputated at the MTP joint as seen radiographically. Cortical and medullary bone signal intensity are normal in the remaining phalanges and in the metatarsals on T1 and T2-weighted scans. There is no abnormal fluid collection to suggest an abscess. No MR evidence of osteomyelitis is seen. Post gadolinium enhanced images show no additional finding. Impression: Status post third digit amputation at the MTP joint. No evidence of abscess or osteomyelitis seen. Electronically Signed by Bert Shafer MD 12/03/2018 05:50 P
[2018-12-03 15:48] VITALS: BP 103/55
--- NOTE | 2018-12-03 17:19 | IPN ---
DATE: 12/03/2018 SUBJECTIVE: The patient is seen and examined in the room today. Patient continues complaining about generalized discomfort. According to the patient, the patient had a fever and chills. OBJECTIVE: VITAL SIGNS: Temperature is 99.4, pulse is 94, respirations 16, blood pressure is 113/52, pulse oximetry is 95% in room air. GENERAL: The patient is alert and awake, mild distress. HEENT: Normocephalic, atraumatic. Extraocular motor grossly intact. CARDIOVASCULAR: Positive S1, S2, irregularly irregular. LUNGS: Clear to auscultation bilaterally. ABDOMEN: Soft, nontender, nondistended. EXTREMITIES: Right lower extremity is wrapped with a dressing. Chronic venous changes noted. LABORATORY DATA: WBC is 7.1, hemoglobin 12.7, hematocrit 38.1, platelet count is 132. Sodium is 141, potassium 3.3, chloride 108, carbon dioxide 27, BUN 15, creatinine 1.19, GFR greater than 60, fasting glucose 91, calcium is 7.8. Microbiology: Blood culture from 12/02/2018 showed no growth after 24 hours. Wound cultures are pending. MRI of the foot without followed by with contrast showed status post digit amputation at the metatarsophalangeal (MTP) joint. No evidence of abscess or osteomyelitis. ASSESSMENT AND PLAN: 1. Necrotic toes with peripheral vascular disease. Dr. Noriega was consulted According to recommendation, the patient may benefit from amputation. We will also consult Dr. Florence for vascular workup. Due to possible amputation in the future, the patient was started on Lovenox. Warfarin on hold. 2. Atrial fibrillation with rapid ventricular response (RVR). The patient has a subtherapeutic international normalized ratio (INR). On Lovenox, on digoxin, on metoprolol. 3. Coronary artery disease. Status post multiple stent placement. On aspirin and Plavix. 4. Congestive heart failure. No significant sign of gross overload at this point. Will continue to monitor. 5. Gastroesophageal reflux disease. On proton pump inhibitor (PPI). 6. Peripheral vascular disease. Status post right third digit amputation January 2018. Vascular surgeon, Dr. Florence, consulted. The patient is on aspirin and Lipitor. 7. History of chronic kidney disease stage III. Current renal function within normal range. 8. Deep vein thrombosis (DVT) prophylaxis. The patient is currently on Lovenox.
[2018-12-03] MEDS: ENOXAPARIN 100MG/1ML SYRINGE (J1650) SC SCH (17:34)
[2018-12-03] MEDS: OMEPRAZOLE 20 MG CAP PO SCH (20:35)
[2018-12-03 22:00] VITALS: BP 130/64
[2018-12-04] MEDS: ENOXAPARIN 100MG/1ML SYRINGE (J1650) SC SCH ×2 (05:42→18:38)
[2018-12-04] MEDS: PIPERACILLIN/TAZOBACTAM SOD 3.375 GM in D5W MINI-BAG PLUS 50 ML IV SCH ×4 (05:42→22:52)
[2018-12-04 06:00] VITALS: BP 120/64
[2018-12-04 06:20] LABS: HEMATOCRIT 37.4 % (42.0-52.0); HEMOGLOBIN 12.3 g/dl (13.5-17.5); MEAN CORPUSCULAR HEMOGLOBIN 33.2 pg (27.0-33.0); MEAN CORPUSCULAR HGB CONC 32.9 g/dl (32.0-36.5); MEAN CORPUSCULAR VOLUME 101.1 fl (80.0-96.0); PLATELET COUNT, AUTOMATED 133 10^3/uL (150-450); WHITE BLOOD COUNT 7.3 10^3/uL (4.0-10.0)
[2018-12-04 06:38] LABS: BLOOD UREA NITROGEN 15 MG/DL (7-18); CALCIUM LEVEL 8.2 MG/DL (8.8-10.2); CARBON DIOXIDE LEVEL 26 MEQ/L (21-32); CHLORIDE LEVEL 111 MEQ/L (98-107); CREATININE FOR GFR 0.96 MG/DL (0.70-1.30); GLOMERULAR FILTRATION RATE > 60.0 (>35); GLUCOSE, FASTING 100 MG/DL (70-100); MAGNESIUM LEVEL 2.4 MG/DL (1.8-2.4); POTASSIUM SERUM 3.6 MEQ/L (3.5-5.1); SODIUM LEVEL 143 MEQ/L (136-145)
[2018-12-04 06:39] LABS: INR 1.49; PROTHROMBIN TIME 18.3 SECONDS (12.1-14.4)
--- NOTE | 2018-12-04 08:50 | IPNPDOC ---
Text Note Date of Service The patient was seen on 12/04/18. NOTE SUBJECTIVE: Patient seen and examined at bedside. No new medical complaints. Very curious about his warfarin therapy. OBJECTIVE: GENERAL: NAD, lying comfortably in bed HEENT: NC/AT, EOMI CARDIOVASCULAR: +S1S2, irregular LUNGS: CTA B/L ABDOMEN: Soft, NT, ND EXTREMITIES: RLE dressings in place, LUE cast ASSESSMENT AND PLAN: 83 yo male for necrotic toes, possible amputation complicated with afib/RVR. #Necrotic toes/PVD - podiatry on consult - assistance appreciated - vascular consulted - possible amputation - assistance appreciated - warfarin on hold, bridging with Lovenox - receiving Zosyn day #2 #Afib/RVR - Lovenox for a/c - rate controlled - continue digoxin, metoprolol #CAD - s/p # stents - continue ASA/Plavix #CHF - compensated #GERD - continue PPI #PVD - s/p right third digit amputation - January 2018 - as above pending vascular surgery c/s #CKD III # DVT prophylaxis. The patient is currently on Lovenox. VS,Fishbone, I+O VS, Fishbone, I+O Laboratory Tests 12/04/18 05:52 Red Blood Count 3.70 L, Mean Corpuscular Volume 101.1 H, Mean Corpuscular Hemoglobin 33.2 H, Mean Corpuscular Hemoglobin Concent 32.9, Red Cell Distribution Width 15.6 H, Calcium Level 8.2 L Vital Signs Date Time Temp Pulse Resp B/P (MAP) Pulse Ox O2 Delivery O2 Flow Rate FiO2 12/04/18 06:00 98.7 72 14 120/64 (82) 95 12/02/18 14:04 Room Air I&O- Last 24 Hours up to 6 AM 12/04/18 06:00 Intake Total 3880 ml Balance 3880 ml SHANTEL HUYNH MD Dec 04, 2018 08:50
[2018-12-04] MEDS: DIGOXIN 0.125 MG TAB PO SCH (08:57)
[2018-12-04] MEDS: METOPROLOL SUCC (TopROL XL) 100MG *XL* TAB PO SCH ×2 (08:57→21:35)
[2018-12-04] MEDS: MULTIVITAMINS/MINERALS THERAP 1 TAB PO SCH (08:57)
[2018-12-04] MEDS: POTASSIUM CHLORIDE 10 MEQ SR TABLET PO SCH ×2 (08:57→21:34)
[2018-12-04] MEDS: TAMSULOSIN 0.4 MG CAP PO SCH (08:58)
[2018-12-04] MEDS: ACETAMINOPHEN TAB 650MG DOSE (2X325MG) PO PRN ×2 (08:58→21:34)
[2018-12-04 14:00] VITALS: BP 110/54
--- NOTE | 2018-12-04 15:15 | REP ---
Right lower extremity arterial Doppler ultrasound: History: Nonhealing ulcer right leg. Ankle brachial index could not be accomplished due to the wound in the foot. Severe atherosclerotic disease is seen from the proximal superficial femoral artery distally with multilevel SFA stenoses. There is evidence of occlusion of the posterior tibial artery. Very slow flow is seen in the mid superficial femoral artery. Biphasic to monophasic waveforms are seen. Velocity chart right lower extremity arteries: Right external iliac artery 169 cm/S CF A 104 Profunda 99 Proximal SFA 38-79 Mid SFA 16-48 Distal SFA 20-13 Popliteal 11 Proximal ROBERT 10 Tibioperoneal trunk 17 Proximal SOLUTIONS DELIVERY CONSULTANT occluded Distal SOL[employer] DELIV[employer] CONSULTANT occluded Distal AT A 22 cm/S Electronically Signed by Bert Shafer MD 12/04/2018 03:07 P
--- NOTE | 2018-12-04 15:54 | CR.PDOC ---
General Date of Admission Dec 02, 2018 at 17:19 Primary Care Physician: Mariposa Coon Other Providers Dr. Luis Noriega DPM Attending Physician: DEEPAK MAGANA DO Chief Complaint Vascular surgical consultation was requested on this 83-year-old male admitted with history of peripheral arterial disease, nonhealing right third toe amputation site, right foot cellulitis and right toe ulcerations. Source: Patient, Old records History of Present Illness The patient was seen on 12/04/18 at 12:51. The patient is an 83-year-old male who was seen in the emergency room due to having fevers and chills at home. Patient states that he had just not been feeling well for the last 2 days or so. The patient presented to the emergency room and was noted to have cellulitis of his right foot and some perilymph discharge from his right third toe amputation wound. Patient also had dry gangrene and ischemic changes of the right second and fourth toes. There was also cellulitis in the right foot. The patient was seen by Dr. Noriega who recommended transmetatarsal amputation but wished for the patient to have a vascular surgical evaluation with possible intervention for revascularization prior to undergoing any surgery on his foot. Upon admission the patient was noted to have an elevated serum creatinine with acute kidney injury superimposed on his chronic kidney disease which has now normalized. Wound cultures taken in the emergency room showed ALCALIGENES FAECALIS in the right third toe amputation wound. Patient had an MRI of his right foot which demonstrated no evidence of osteomyelitis or abscess. Home Medications Scheduled (Digoxin) 125 Mcg Tab, 125 MCG PO QHS, (Reported) (Probiotic) 1 Cap Cap, 1 CAP PO BID, (Reported) Allopurinol (Zyloprim) 300 Mg Tab, 300 MG PO DAILY, (Reported) Atorvastatin Calcium (Atorvastatin Calcium) 20 Mg Tab, 20 MG PO QHS, (Reported) Calcium/Vitamin D (Calcium/Vitamin D 600-400 mg-Unit) 1 Tab Tab, 1 TAB PO DAILY, (Reported) Clopidogrel Bisulfate (Clopidogrel) 75 Mg Tab, 75 MG PO DAILY Docusate Sodium (Stool Softener) 100 Mg Cap, 100 MG PO QHS, (Reported) Ferrous Gluconate (Ferrous Gluconate) 324 Mg Tab, 324 MG PO 2XW, (Reported) MON/MON Levofloxacin Hemihydrate (Levaquin) 750 Mg Tab, 750 MG PO DAILY@06 Meloxicam (Meloxicam) 7.5 Mg Tab, 7.5 MG PO BID, (Reported) Metoprolol Succinate (Metoprolol Succinate ER) 100 Mg Tab, 100 MG PO BID, (Reported) Multivitamins *[facility] STOCKED* (Thera M Plus *[facility] STOCKED*) 1 Tab Tab, 1 TAB PO DAILY, (Reported) Omeprazole (Omeprazole) 20 Mg Cap, 20 MG PO QHS, (Reported) Potassium Chloride (Klor-Con M20) 20 Meq Tabcr, 20 MEQ PO BID, (Reported) Prednisone (Prednisone) 5 Mg Tab, 5 MG PO QHS, (Reported) Tamsulosin Hydrochloride (Flomax) 0.4 Mg Cap, 0.4 MG PO DAILY, (Reported) Torsemide (Torsemide) 100 Mg Tab, 50 MG PO DAILY, (Reported) Warfarin Sod (Coumadin) 3 Mg Tab, 3 MG PO DAILY, (Reported) Warfarin Sod (Coumadin) 3 Mg Tab, 3 MG PO 2XWK, (Reported) TAKES AT BEDTIME ON MONDAYS AND WEDNESDAYS IN ADDITION TO MORNING DOSE. Scheduled PRN Acetaminophen (Acetaminophen) 500 Mg Tab, 1,000 MG PO BID PRN for PAIN, (Reported) Allergies Coded Allergies: Oxycodone (Verified Allergy, Intermediate, RASH, 11/06/18) Past Medical History Medical History Atrial fibrillation Coronary artery disease Congestive heart failure Hypertension Hyperlipidemia Chronic renal insufficiency stage III Gastroesophageal reflux disease Gout Bilateral lower extremity peripheral arterial disease Bilateral lower extremity venous valvular insufficiency Left nondisplaced scaphoid fracture Surgical History Coronary angiography with percutaneous intervention with stent placement 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 Review of Systems Review of Systems General: Denies: ROS Unobtainable, Chills, Night Sweats, Fatigue, Malaise, Normal Appetite Constitutional: Denies: Chills, Fever, Malaise, Night Sweats, Weakness, Fatigue, Weight Loss, Lethargy Eyes: Denies: Pain, Vision change, Conjunctivae inflammation, Eyelid infl ammation, Redness HEENT: Denies: Head Aches, Ear Pain, Dysphagia, Sinus Congestion, Post Nasal Drip, Sore Throat, Epistaxis Skin: Denies: Rash, Lesions, Jaundice, Bruising, Itching, Dry, Breakdown, Nail Changes Pulmonary: Denies: Dyspnea, Cough, Pleuritic Chest Pain Cardiovascular: Denies: Chest Pain, Palpitations, Orthopnea, Paroxysmal Noc. Dyspnea, Edema, Lt Headedness Gastrointestinal: Denies: Nausea, Vomiting, Abdominal Pain, Diarrhea, Constipation, Melena, Hematochezia Genitourinary: Denies: Dysuria, Frequency, Incontinence, Hematuria, Retention Hematologic: Denies: Bruising, Bleeding Excessively, Petecchia, Purpura, Enlarged Lymph Nodes ENDOCRINE: Denies: Polydipsia, Polyphagia, Polyuria, Heat Intolerance, Cold Intolerance Musculoskeletal: Denies: Neck Pain, Back Pain, Shoulder Pain, Arm Pain, Hand Pain, Leg Pain, Foot Pain, Joint Pain, Muscle Pain, Spasms Neurological: Reports: Other Symptoms (patient acknowledges some neuropathy in his distal lower extremities.); Denies: Weakness, Numbness, Incoordination, Change in speech, Confusion, Seizures Psych: Reports: Mood Normal; Denies: Anxiety, Depression, Memory Issues, Thoughts of Self Harm, Anger, Thoughts of Harming Other, Other Psych VITAL SIGNS VITAL SIGNS Vital Signs Date Time Temp Pulse Resp B/P (MAP) Pulse Ox O2 Delivery O2 Flow Rate FiO2 12/04/18 14:00 98.2 88 20 110/54 (72) 94 12/04/18 08:57 72 12/04/18 08:57 72 120/64 12/04/18 06:00 98.7 72 14 120/64 (82) 95 12/03/18 22:00 98.8 82 14 130/64 (86) 96 12/03/18 20:35 82 130/64 Intake & Output 12/04/18 06:00 Intake Total 3880 ml Balance 3880 ml Laboratory Tests 12/04/18 05:52: White Blood Count 7.3, Red Blood Count 3.70L, Hemoglobin 12.3L, Hematocrit 37.4L, Mean Corpuscular Volume 101.1H, Mean Corpuscular Hemoglobin 33.2H, Mean Corpuscular Hemoglobin Concent 32.9, Red Cell Distribution Width 15.6H, Platelet Count 133L, Nucleated Red Blood Cells % (auto) 0.0, Prothrombin Time 18.3H, Prothromb Time International Ratio 1.49, Blood Urea Nitrogen 15, Creatinine 0.96, Sodium Level 143, Potassium Level 3.6, Chloride Level 111H, Carbon Dioxide Level 26, Calcium Level 8.2L, Anion Gap 6L, Glomerular Filtration Rate > 60.0, Fasting Glucose 100, Magnesium Level 2.4 Current Medications Medications (Trade) Dose Ordered Sig/Jaime Route PRN Reason Start Time Stop Time Status Last Admin Dose Admin Acetaminophen (Tylenol Tab) 650 mg Q6HP PRN PO PAIN / FEVER 12/03/18 08:15 12/04/18 08:58 650 MG Aspirin (Ecotrin) 81 mg QHS PO 12/03/18 09:45 12/03/18 20:35 81 MG Atorvastatin Calcium (Lipitor) 20 mg QHS PO 12/03/18 09:45 12/03/18 20:35 20 MG Digoxin (Lanoxin) 0.125 mg DAILY PO 12/03/18 09:45 12/04/18 08:57 0.125 MG Docusate Sodium (Colace) 100 mg QHS PO 12/03/18 09:45 12/03/18 20:34 100 MG Enoxaparin Sodium (Lovenox) 90 mg Q12H SC 12/03/18 18:00 12/04/18 05:42 90 MG Metoprolol Succinate (TopROL XL) 100 mg BID PO 12/03/18 09:45 12/04/18 08:57 100 MG Multivitamins (Theragram-M) 1 tab DAILY PO 12/03/18 09:00 12/04/18 08:57 1 TAB Omeprazole (PriLOSEC) 20 mg QHS PO 12/03/18 21:00 12/03/18 20:35 20 MG Piperacillin Sod/ Tazobactam Sod 3.375 gm/Dextrose 50 ml @ 50 mls/hr Q6H IV 12/02/18 23:00 12/04/18 10:46 50 MLS/HR Potassium Chloride (Micro-K Extencaps) 20 meq BID PO 12/03/18 09:45 12/04/18 08:57 20 MEQ Tamsulosin HCl (Flomax) 0.4 mg DAILY PO 12/03/18 09:45 12/04/18 08:58 0.4 MG Laboratory Tests 12/03/18 07:06 Red Blood Count 3.73 L, Mean Corpuscular Volume 102.1 H, Mean Corpuscular Hemoglobin 34.0 H, Mean Corpuscular Hemoglobin Concent 33.3, Red Cell Distribution Width 15.5 H, Neutrophils (%) (Auto) 71.3 H, Lymphocytes (%) (Auto) 20.3 L, Monocytes (%) (Auto) 7.3 H, Eosinophils (%) (Auto) 0.1, Basophils (%) (Auto) 0.4, Neutrophils # (Auto) 5.1, Lymphocytes # (Auto) 1.5, Monocytes # (Auto) 0.5, Eosinophils # (Auto) 0.0, Basophils # (Auto) 0.0, Calcium Level 7.8 L 12/04/18 05:52 Red Blood Count 3.70 L, Mean Corpuscular Volume 101.1 H, Mean Corpuscular Hemoglobin 33.2 H, Mean Corpuscular Hemoglobin Concent 32.9, Red Cell Distribution Width 15.6 H, Calcium Level 8.2 L Microbiology 12/02/18 Blood Culture - Preliminary, Resulted No Growth after 48 hours. All Specime... 12/02/18 Blood Culture - Preliminary, Resulted No Growth after 48 hours. All Specime... 12/02/18 Wound Culture - Preliminary, Resulted Alcaligenes Sp. Faecalis Objective Physical Examination General Exam: Positive: Alert, Cooperative, No Acute Distress Eye Exam: Positive: PERRLA, Conjunctiva & lids normal, EOMI ENT Exam: Positive: Atraumatic, Mucous membr. moist/pink, Pharynx Normal, Tongue Midline, Nares Patent, Ext Auditory Canal Nml, Pinna Normal Neck Exam: Positive: Supple, +2 carotid pulse wo bruit; Negative: JVD, thyromegaly, Lymphadenopathy Chest Exam: Positive: Clear to auscultation, Normal air movement; Negative: Rales, Rhonchi, Wheezing, Diminished Heart Exam: Positive: Rate Normal, Regular Rhythm; Negative: Tachycardic, Bradycardic, Irregular Rhythm, Normal S1, Normal S2, Gallops, Murmurs, Rubs Telemetry: Positive: No significant arrhythmia Abdomen Exam: Positive: Normal bowel sounds; Negative: BS Hyperactive, BS Hypoactive, Soft, Tenderness, Hepatospenomegaly, Mass, Hernia Male Exam: Positive: Normal Genital Exam Extremity Exam: Positive: Other ( ); Negative: Clubbing, Cyanosis, Edema, Normal pulses (patient has nonpalpable popliteal, dorsalis pedis and posterior tibial pulses in the bilateral lower extremities.), Tenderness, Swelling Skin Exam: Positive: Nl turgor and temperature; Negative: Rash, Breakdown, Lesion, Pruritus, Other skin issue Neuro Exam: Positive: Normal Gait, Normal Speech, Strength at 5/5 X4 ext, Normal Tone, Sensation Intact, Cranial Nerves 3-12 NL, Reflexes 2+ Psych Exam: Positive: Mental status NL, Mood NL, Memory Intact, Oriented x 3 Date of Service IMAGING NOTE NAME: KEO WOODS DATE OF : 1935 AGE: 83 SEX: M REPORT #: [id number] ROOM: ED [facility] DOCTOR: STERLING GILLIS MD Ordered for Date&Time: 12/02/18 1429 cc: [~ rep ct ivnm] Service Date&Time: EXAMINATION REQUESTED: PORTABLE CHEST X-RAY REASON FOR PATIENT VISIT: GENERAL ILLNESS REASON FOR EXAM/COMMENT: malaise Clinical: MALAISE. Comparison: 02/09/2018 . Findings: The mediastinum and cardiac silhouette are stable and within normal limits for portable technique. The lung ugarte stable with chronic changes. No acute consolidation, effusion, or pneumothorax. Skeletal structures are intact. Impression: No acute cardiopulmonary process appreciated. If the patient remains symptomatic consider chest CT for further investigation. Electronically Signed by Ramez Hutchins MD 12/02/2018 02:44 P NAME: KEO WOODS DATE OF : 1935 AGE: 83 SEX: M REPORT #: [id number] ROOM: ED TECHNOLOGIST: [facility] DOCTOR: STERLING GILLIS MD Ordered for Date&Time: 12/02/18 1606 cc: [~ rep ct ivnm] Service Date&Time: EXAMINATION REQUESTED: Wrist Ap, Lat LEFT REASON FOR PATIENT VISIT: GENERAL ILLNESS REASON FOR EXAM/COMMENT: fall/cast Clinical: Trauma. Fall. Technique: AP, lateral, bilateral oblique views of the left wrist. Findings: Evaluation is significantly limited due to overlying cast material. Age related osteoarthritic degenerative changes are appreciated subtle fracture/injury cannot be excluded. Recent prior examination dated 11/06/2018 demonstrated subtle nondisplaced scaphoid fracture. Impression: Limited by advanced osteoarthritic degenerative changes and overlying cast material. Electronically Signed by Ramez Hutchins MD 12/02/2018 04:41 P NAME: KEO WOODS DATE OF : 1935 AGE: 83 SEX: M REPORT #: [id number] ROOM: [facility] TECHNOLOGIST: [facility] DOCTOR: STERLING GILLIS MD Ordered for Date&Time: 12/02/18 1606 cc: [~ rep ct ivnm] Service Date&Time: EXAMINATION REQUESTED: Foot, complete RIGHT REASON FOR PATIENT VISIT: GENERAL ILLNESS REASON FOR EXAM/COMMENT: osteomylitis Clinical: Osteomyelitis. Technique: AP, lateral, oblique views of the right foot. Findings: Osteopenia and osteoarthritic degenerative changes are appreciated along with evidence for peripheral vascular disease. The patient is known to be status post amputation at the third metatarsophalangeal joint level. No obvious acute fracture dislocation. No significant subcutaneous emphysema or periosteal reaction is definitively identified. Impression: Osteopenia and osteoarthritic degenerative changes. Electronically Signed by Ramez Hutchins MD 12/02/2018 04:43 P NAME: KEO WOODS DATE OF : 1935 AGE: 83 SEX: M REPORT #: [id number] ROOM: [address] TECHNOLOGIST: [facility] DOCTOR: PALMIRA STOKES MD Ordered for Date&Time: 12/03/18 1728 cc: [~ rep ct ivnm] Service Date&Time: 12/03/18 1321 EXAMINATION REQUESTED: MRI-Foot W/O FOL WITH RIGHT REASON FOR PATIENT VISIT: CELLULITIS FOOT REASON FOR EXAM/COMMENT: R/O ABSCESS AND OSTEOMYELITIS MRI right foot without and with IV gadolinium: History: Rule out abscess and osteomyelitis. Comparison right foot radiographs are from December 02, 2018. Gadolinium enhancement dose: 18 mL of intravenous ProHance. MR technique: Axial, coronal and sagittal imaging planes utilized. T1 and T2-weighted scans were obtained with and without fat saturation. MRI findings: The third digit is amputated at the MTP joint as seen radiographically. Cortical and medullary bone signal intensity are normal in the remaining phalanges and in the metatarsals on T1 and T2-weighted scans. There is no abnormal fluid collection to suggest an abscess. No MR evidence of osteomyelitis is seen. Post gadolinium enhanced images show no additional finding. Impression: Status post third digit amputation at the MTP joint. No evidence of abscess or osteomyelitis seen. Electronically Signed by Bert Shafer MD 12/03/2018 05:50 P Assessment/Plan Assessment 83-year-old male with admission to the hospital with nonhealing right third toe amputation site and ischemic gangrene of the right second and fourth toes. Patient also had acute kidney injury with an elevated creatinine on admission which is now resolved. Patient has a history of chronic renal insufficiency. Patient has bilateral lower extremity arterial and venous insufficiency. Patient requires a right transmetatarsal amputation. Plan Patient will undergo a right lower extremity arterial duplex to define the in flow to the right foot followed by probable need for right lower extremity angiography with intervention prior to any surgical intervention on the right foot. Luis Florence MD Dec 04, 2018 15:54
--- NOTE | 2018-12-04 16:38 | CR ---
DATE OF CONSULTATION: 12/04/2018 CONSULTATION FOR: Hospitalist, Lemuel Marcelino M.D. CHIEF COMPLAINT: Left thumb spica cast with possible drainage from the dorsum of his hand. HISTORY: This is an 83-year-old gentleman who was admitted for cellulitis of his lower extremity, and he was admitted 2 days ago for this. He has a thumb spica cast on his left upper extremity for a scaphoid fracture that had been treated through the office and apparently did fall a few days ago and had a repeat x-ray after that that he indicated was okay, but basically I was asked to see him because he had a little bit of drainage coming from the back of his cast. The patient is not having any pain with the cast. He says it is comfortable, etc.. PAST MEDICAL HISTORY: Notable for: 1. Hypertension. 2. Hyperlipidemia. 3. Kidney disease. 4. Coronary artery disease. 5. Congestive heart failure (CHF). 6. Gastroesophageal reflux disease (GERD). 7. Atrial fibrillation. 8. Gout. 9. Peripheral artery disease. ALLERGIES: Include OXYCODONE. FAMILY HISTORY: Noncontributory. MEDICATIONS: Include Tylenol, allopurinol, aspirin, atorvastatin, calcium, Desitin, digoxin, ferrous gluconate, meloxicam, metoprolol, multivitamin, omeprazole, potassium chloride, prednisone, flurosemide, Bactrim DS, warfarin. PHYSICAL EXAMINATION: Isolated to the upper extremity. His thumb spica cast appears to be fitting well. Under the dorsal ulnar aspect of his cast there appears to be a small little bloody area. I elected to window the cast after talking to him about the options. We talked about possibly doing a bivalve and taking the back half off, but he said he is worried about how friable his skin is, so I decided just to window the cast over the back of his hand, and there was a very small, what appeared to be, blister that was draining a tiny bit over the dorsal aspect of his distal 5th metacarpal. It is quite superficial. No mayra purulence noted. There was a little bit of bloody drainage on the cast padding. This is likely just a little pressure sore from the cast, and the pressure has been eliminated now. I think just a triple-antibiotic ointment twice a day would be appropriate for this. Please contact us if there are further issues. Please arrange for followup with the orthopedic group when he is discharged. The cast itself is intact appropriately for stabilizing his fracture. The thumb portion was left alone.
[2018-12-04] MEDS: OMEPRAZOLE 20 MG CAP PO SCH (21:33)
[2018-12-04] MEDS: ASPIRIN 81 MG ENTERIC TAB PO SCH (21:33)
[2018-12-04] MEDS: DOCUSATE SODIUM 100 MG CAP PO SCH (21:33)
[2018-12-04] MEDS: ATORVASTATIN 20 MG TAB PO SCH (21:34)
[2018-12-04] MEDS: NEOSPORIN TOP OINT 15GM TOP SCH (21:35)
[2018-12-04 22:00] VITALS: BP 118/55
[2018-12-05] MEDS: PIPERACILLIN/TAZOBACTAM SOD 3.375 GM in D5W MINI-BAG PLUS 50 ML IV SCH ×4 (05:27→23:14)
[2018-12-05] MEDS: ENOXAPARIN 100MG/1ML SYRINGE (J1650) SC SCH ×2 (05:27→17:12)
[2018-12-05 06:05] LABS: HEMATOCRIT 38.2 % (42.0-52.0); HEMOGLOBIN 12.5 g/dl (13.5-17.5); MEAN CORPUSCULAR HEMOGLOBIN 32.8 pg (27.0-33.0); MEAN CORPUSCULAR HGB CONC 32.7 g/dl (32.0-36.5); MEAN CORPUSCULAR VOLUME 100.3 fl (80.0-96.0); PLATELET COUNT, AUTOMATED 134 10^3/uL (150-450); RED BLOOD COUNT 3.81 10^6/uL (4.30-6.10); WHITE BLOOD COUNT 8.2 10^3/uL (4.0-10.0)
[2018-12-05 06:19] LABS: INR 1.4; PROTHROMBIN TIME 17.4 SECONDS (12.1-14.4)
[2018-12-05 06:28] LABS: BLOOD UREA NITROGEN 11 MG/DL (7-18); CALCIUM LEVEL 8.3 MG/DL (8.8-10.2); CARBON DIOXIDE LEVEL 24 MEQ/L (21-32); CHLORIDE LEVEL 112 MEQ/L (98-107); CREATININE FOR GFR 0.95 MG/DL (0.70-1.30); GLOMERULAR FILTRATION RATE > 60.0 (>35); GLUCOSE, FASTING 99 MG/DL (70-100); MAGNESIUM LEVEL 2.4 MG/DL (1.8-2.4); POTASSIUM SERUM 3.9 MEQ/L (3.5-5.1); SODIUM LEVEL 143 MEQ/L (136-145)
--- NOTE | 2018-12-05 08:32 | IPNPDOC ---
Text Note Date of Service The patient was seen on 12/05/18. NOTE SUBJECTIVE: Patient seen and examined at bedside. No new medical complaints. He is not happy with his breakfast this morning. OBJECTIVE: GENERAL: NAD, sitting comfortably at edge of bed, disheveled HEENT: NC/AT, EOMI CARDIOVASCULAR: +S1S2, irregular LUNGS: CTA B/L ABDOMEN: Soft, NT, ND EXTREMITIES: RLE dressings in place, LUE cast in place ASSESSMENT AND PLAN: 83 yo male for necrotic toes, possible amputation complicated with afib/RVR. #Necrotic toes/PVD - podiatry on consult - assistance appreciated - vascular consulted - possible amputation - assistance appreciated - pending angiogram - warfarin on hold, bridging with Lovenox - receiving Zosyn day #3 #Afib/RVR - Lovenox for a/c - rate controlled - continue digoxin, metoprolol #LUE cast - ortho c/s appreciated #CAD - s/p # stents - continue ASA/Plavix #CHF - compensated #GERD - continue PPI #PVD - s/p right third digit amputation - January 2018 - as above pending vascular surgery c/s #CKD III # DVT prophylaxis. The patient is currently on Lovenox. #CODE STATUS - discussed advanced directives at length at bedside; he has opted for DNR/DNI, MOLST form completed VS,Ezequiel, I+O VS, Ezequiel, I+O Laboratory Tests 12/05/18 05:51 Red Blood Count 3.81 L, Mean Corpuscular Volume 100.3 H, Mean Corpuscular Hemoglobin 32.8, Mean Corpuscular Hemoglobin Concent 32.7, Red Cell Distribution Width 15.3 H, Calcium Level 8.3 L Vital Signs Date Time Temp Pulse Resp B/P (MAP) Pulse Ox O2 Delivery O2 Flow Rate FiO2 12/04/18 22:00 98.6 101 18 118/55 (76) 89 12/02/18 14:04 Room Air I&O- Last 24 Hours up to 6 AM 12/05/18 06:00 Intake Total 890 ml Balance 890 ml SHANTEL HUYNH MD Dec 05, 2018 08:32
[2018-12-05] MEDS: MULTIVITAMINS/MINERALS THERAP 1 TAB PO SCH (08:40)
[2018-12-05] MEDS: METOPROLOL SUCC (TopROL XL) 100MG *XL* TAB PO SCH ×2 (08:41→20:44)
[2018-12-05] MEDS: FERROUS GLUCONATE 324 MG TAB PO SCH (08:41)
[2018-12-05] MEDS: POTASSIUM CHLORIDE 10 MEQ SR TABLET PO SCH ×2 (08:41→20:41)
[2018-12-05] MEDS: TAMSULOSIN 0.4 MG CAP PO SCH (08:41)
[2018-12-05] MEDS: DIGOXIN 0.125 MG TAB PO SCH (08:41)
[2018-12-05] MEDS: NEOSPORIN TOP OINT 15GM TOP SCH ×2 (08:41→20:46)
[2018-12-05] MEDS ORDERED: MIDAZOLAM INJ 2 MG/2 ML VIAL (J2250) As Ordered ONE (09:01)
[2018-12-05] MEDS ORDERED: fentaNYL 100 MCG/2 ML INJECTION (J3010) As Ordered ONE (09:01)
[2018-12-05] MEDS ORDERED: LIDOCAINE 2% MDV 20 ML VIAL As Ordered ONE (09:01)
[2018-12-05] MEDS ORDERED: HEPARIN 1,000 UNITS/ML 10ML VIAL (FOR RADIOLOGY& DIALYSIS ONLY) As Ordered ONE (09:01)
[2018-12-05] MEDS ORDERED: ISOVUE-300 61% 50ML VIAL (Q9967) As Ordered ONE (09:02)
[2018-12-05] MEDS ORDERED: CALCIUM CARBONATE 500 MG CHEW U/D PO ONE (10:30)
[2018-12-05 10:50] LABS: MB/CK RELATIVE INDEX 3.24 (< OR =4); TROPONIN I 0.02 NG/ML (< 0.10)
[2018-12-05 14:00] VITALS: BP 123/57
[2018-12-05 16:21] LABS: CK-MB VALUE MASS < 1.0 NG/ML (<3.6); CPK CREATINE PHOSPHOKINASE 29 U/L (39-308); MB/CK RELATIVE INDEX 3.45 (< OR =4); TROPONIN I 0.02 NG/ML (< 0.10)
[2018-12-05 20:00] VITALS: BP 124/60
[2018-12-05] MEDS: ACETAMINOPHEN TAB 650MG DOSE (2X325MG) PO PRN (20:41)
[2018-12-05] MEDS: ATORVASTATIN 20 MG TAB PO SCH (20:41)
[2018-12-05] MEDS: DOCUSATE SODIUM 100 MG CAP PO SCH (20:44)
[2018-12-05] MEDS: OMEPRAZOLE 20 MG CAP PO SCH (20:44)
[2018-12-05] MEDS: ASPIRIN 81 MG ENTERIC TAB PO SCH (20:45)
--- NOTE | 2018-12-05 21:41 | ECGEPIP ---
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
--- NOTE | 2018-12-05 22:03 | IPNPDOC ---
Subjective General Date/Time Seen The patient was seen on 12/05/18 at 22:02. Subject Chief Complaint/History The patient is a 83-year-old male admitted with a reason for visit of Cellulitis Foot. Patient without complaints. Current Medications Current Medications Current Medications Acetaminophen (Tylenol Tab) 650 mg Q6HP PRN PO PAIN / FEVER Last administered on 12/05/18 20:41; Start 12/03/18 at 08:15 Aspirin (Ecotrin) 81 mg QHS PO Last administered on 12/05/18 20:45; Start 12/03/18 at 09:45 Atorvastatin Calcium (Lipitor) 20 mg QHS PO Last administered on 12/05/18 20:41; Start 12/03/18 at 09:45 Digoxin (Lanoxin) 0.125 mg DAILY PO Last administered on 12/05/18 08:41; Start 12/03/18 at 09:45 Docusate Sodium (Colace) 100 mg QHS PO Last administered on 12/05/18 20:44; Start 12/03/18 at 09:45 Enoxaparin Sodium (Lovenox) 90 mg Q12H SC Last administered on 12/05/18 17:12; Start 12/03/18 at 18:00 Ferrous Gluconate (Fergon) 324 mg SuWe@0900 PO Last administered on 12/05/18 08:41; Start 12/05/18 at 09:00 Home Med (Med Rec Complete!) ASDIRECTED XX ; Start 12/02/18 at 17:45; Stop 12/02/18 at 17:53; Status DC Metoprolol Succinate (TopROL XL) 100 mg BID PO Last administered on 12/05/18 20:44; Start 12/03/18 at 09:45 Multivitamins (Theragram-M) 1 tab DAILY PO Last administered on 12/05/18 08:40; Start 12/03/18 at 09:00 Neomycin/ Polymyxin/ Bacitracin (Neosporin) TO dorsal hand BID TOP Last administered on 12/05/18 20:46; Start 12/04/18 at 21:00 Omeprazole (PriLOSEC) 20 mg QHS PO Last administered on 12/05/18 20:44; Start 12/03/18 at 21:00 Piperacillin Sod/ Tazobactam Sod 3.375 gm/Dextrose 50 ml @ 50 mls/hr Q6H IV Last administered on 12/05/18at 17:11; Start 12/02/18 at 23:00 Potassium Chloride (Micro-K Extencaps) 20 meq BID PO Last administered on at 20:41; Start 12/03/18 at 09:45 Sodium Chloride 1,000 ml @ 125 mls/hr Q8H IV Last administered on 12/03/18at 13:55; Start 12/02/18 at 17:45; Stop 12/03/18 at 16:53; Status DC Tamsulosin HCl (Flomax) 0.4 mg DAILY PO Last administered on 12/05/18 08:41; Start 12/03/18 at 09:45 Warfarin Sodium (Coumadin) 3 mg DAILY PO Last administered on 12/03/18at 10:26; Start 12/03/18 at 09:00; Stop 12/03/18 at 16:46; Status DC Warfarin Sodium (Coumadin) 3 mg MoWe@2100 PO ; Start 12/03/18 at 21:00; Stop 12/03/18 at 21:00; Status DC Allergies Coded Allergies: Oxycodone (Verified Allergy, Intermediate, RASH, 11/06/18) VITAL SIGNS VITAL SIGNS Vital Signs Date Time Temp Pulse Resp B/P (MAP) Pulse Ox O2 Delivery O2 Flow Rate FiO2 12/05/18 20:44 101 124/60 12/05/18 14:00 99.9 94 18 123/57 (79) 96 12/05/18 08:41 101 12/05/18 08:41 101 132/75 Intake & Output 12/05/18 06:00 Intake Total 890 ml Output Total 1000 ml Balance -110 ml Laboratory Tests 12/05/18 05:51: White Blood Count 8.2, Red Blood Count 3.81L, Hemoglobin 12.5L, Hematocrit 38.2L, Mean Corpuscular Volume 100.3H, Mean Corpuscular Hemoglobin 32.8, Mean Corpuscular Hemoglobin Concent 32.7, Red Cell Distribution Width 15.3H, Platelet Count 134L, Nucleated Red Blood Cells % (auto) 0.0, Prothrombin Time 17.4H, Prothromb Time International Ratio 1.40, Blood Urea Nitrogen 11, Creatinine 0.95, Sodium Level 143, Potassium Level 3.9, Chloride Level 112H, Carbon Dioxide Level 24, Calcium Level 8.3L, Anion Gap 7L, Glomerular Filtration Rate > 60.0, Fasting Glucose 99, Magnesium Level 2.4 12/05/18 10:15: Total Creatine Kinase 37L, Creatine Kinase MB 1.0, Creatine Kinase MB Relative Index 3.24, Troponin I 0.02 12/05/18 15:41: Total Creatine Kinase 29L, Creatine Kinase MB < 1.0, Creatine Kinase MB Relative Index 3.45, Troponin I 0.02 Microbiology 12/02/18 Wound Culture - Final, Complete Alcaligenes Sp. Faecalis Enterococcus Faecalis Staphylococcus Epidermidis Current Medications Medications (Trade) Dose Ordered Sig/Jaime Route PRN Reason Start Time Stop Time Status Last Admin Dose Admin Acetaminophen (Tylenol Tab) 650 mg Q6HP PRN PO PAIN / FEVER 12/03/18 08:15 12/05/18 20:41 Aspirin (Ecotrin) 81 mg QHS PO 12/03/18 09:45 12/05/18 20:45 Atorvastatin Calcium (Lipitor) 20 mg QHS PO 12/03/18 09:45 12/05/18 20:41 Digoxin (Lanoxin) 0.125 mg DAILY PO 12/03/18 09:45 12/05/18 08:41 Docusate Sodium (Colace) 100 mg QHS PO 12/03/18 09:45 12/05/18 20:44 Enoxaparin Sodium (Lovenox) 90 mg Q12H SC 12/03/18 18:00 12/05/18 17:12 Ferrous Gluconate (Fergon) 324 mg SuWe@0900 PO 12/05/18 09:00 12/05/18 08:41 Metoprolol Succinate (TopROL XL) 100 mg BID PO 12/03/18 09:45 12/05/18 20:44 Multivitamins (Theragram-M) 1 tab DAILY PO 12/03/18 09:00 12/05/18 08:40 Neomycin/ Polymyxin/ Bacitracin (Neosporin) TO dorsal hand BID TOP 12/04/18 21:00 12/05/18 20:46 Omeprazole (PriLOSEC) 20 mg QHS PO 12/03/18 21:00 12/05/18 20:44 Piperacillin Sod/ Tazobactam Sod 3.375 gm/Dextrose 50 ml @ 50 mls/hr Q6H IV 12/02/18 23:00 12/05/18 17:11 Potassium Chloride (Micro-K Extencaps) 20 meq BID PO 12/03/18 09:45 12/05/18 20:41 Tamsulosin HCl (Flomax) 0.4 mg DAILY PO 12/03/18 09:45 12/05/18 08:41 Laboratory Tests 12/04/18 05:52 Red Blood Count 3.70 L, Mean Corpuscular Volume 101.1 H, Mean Corpuscular Hemoglobin 33.2 H, Mean Corpuscular Hemoglobin Concent 32.9, Red Cell Distribution Width 15.6 H, Calcium Level 8.2 L 12/05/18 05:51 Red Blood Count 3.81 L, Mean Corpuscular Volume 100.3 H, Mean Corpuscular Hemoglobin 32.8, Mean Corpuscular Hemoglobin Concent 32.7, Red Cell Distribution Width 15.3 H, Calcium Level 8.3 L Microbiology 12/02/18 Blood Culture - Preliminary, Resulted No Growth after 72 hours. All specime... 12/02/18 Blood Culture - Preliminary, Resulted No Growth after 72 hours. All specime... 12/02/18 Wound Culture - Final, Complete Alcaligenes Sp. Faecalis Enterococcus Faecalis Staphylococcus Epidermidis Objective Physical Examination General Exam: Positive: Alert, Cooperative, No Acute Distress Eye Exam: Positive: PERRLA, Conjunctiva & lids normal, EOMI ENT Exam: Positive: Atraumatic, Mucous membr. moist/pink, Pharynx Normal, Tongue Midline, Nares Patent, Ext Auditory Canal Nml, Pinna Normal Neck Exam: Positive: Supple, +2 carotid pulse wo bruit; Negative: JVD, thyromegaly, Lymphadenopathy Chest Exam: Positive: Clear to auscultation, Normal air movement; Negative: Rales, Rhonchi, Wheezing, Diminished Heart Exam: Positive: Rate Normal, Regular Rhythm; Negative: Tachycardic, Bradycardic, Irregular Rhythm, Normal S1, Normal S2, Gallops, Murmurs, Rubs Telemetry: Positive: No significant arrhythmia Abdomen Exam: Positive: Normal bowel sounds; Negative: BS Hyperactive, BS Hypoactive, Soft, Tenderness, Hepatospenomegaly, Mass, Hernia Male Exam: Positive: Normal Genital Exam Extremity Exam: Positive: Other ( ); Negative: Clubbing, Cyanosis, Edema, Normal pulses (patient has nonpalpable popliteal, dorsalis pedis and posterior tibial pulses in the bilateral lower extremities.), Tenderness, Swelling Skin Exam: Positive: Nl turgor and temperature; Negative: Rash, Breakdown, Lesion, Pruritus, Other skin issue Neuro Exam: Positive: Normal Gait, Normal Speech, Strength at 5/5 X4 ext, Normal Tone, Sensation Intact, Cranial Nerves 3-12 NL, Reflexes 2+ Psych Exam: Positive: Mental status NL, Mood NL, Memory Intact, Oriented x 3 Assessment/Plan Assessment Patient is stable with better perfusion of his lower extremity's. Plan Stable with better improvement in his perfusion of his lower extremity is. Luis Florence MD Dec 05, 2018 22:03
[2018-12-06] MEDS: PIPERACILLIN/TAZOBACTAM SOD 3.375 GM in D5W MINI-BAG PLUS 50 ML IV SCH ×4 (05:41→22:17)
[2018-12-06] MEDS: ENOXAPARIN 100MG/1ML SYRINGE (J1650) SC SCH ×2 (05:41→18:03)
[2018-12-06 05:59] LABS: HEMOGLOBIN 13.6 g/dl (13.5-17.5); MEAN CORPUSCULAR HEMOGLOBIN 33.5 pg (27.0-33.0); MEAN CORPUSCULAR HGB CONC 33.2 g/dl (32.0-36.5); PLATELET COUNT, AUTOMATED 143 10^3/uL (150-450); RED BLOOD COUNT 4.06 10^6/uL (4.30-6.10); WHITE BLOOD COUNT 10.9 10^3/uL (4.0-10.0)
[2018-12-06 06:00] VITALS: BP 131/72
[2018-12-06 06:13] LABS: INR 1.17; PROTHROMBIN TIME 15.1 SECONDS (12.1-14.4)
[2018-12-06 06:18] LABS: BLOOD UREA NITROGEN 11 MG/DL (7-18); CALCIUM LEVEL 8.5 MG/DL (8.8-10.2); CARBON DIOXIDE LEVEL 26 MEQ/L (21-32); CHLORIDE LEVEL 111 MEQ/L (98-107); GLOMERULAR FILTRATION RATE > 60.0 (>35); GLUCOSE, FASTING 96 MG/DL (70-100); MAGNESIUM LEVEL 2.5 MG/DL (1.8-2.4); POTASSIUM SERUM 3.9 MEQ/L (3.5-5.1); SODIUM LEVEL 143 MEQ/L (136-145)
[2018-12-06] MEDS: ACETAMINOPHEN TAB 650MG DOSE (2X325MG) PO PRN ×2 (06:37→22:14)
[2018-12-06] MEDS ORDERED: VANCOMYCIN HCL 1,000 MG, VIAL MATE ADAPTER 1 EACH in D5W 250 ML IV ONE (07:00)
--- NOTE | 2018-12-06 07:59 | PHACANCOPD ---
PHARMACY VANCOMYCIN DOSING Pt Demographics Demographics Patient Age:83 , Weight:88.640 , Gender: male Adjusted Body Weight Date: 12/06/18, Adjusted Body Weight: Kg Vancomycin Vancomycin indication: NONHEALING RIGHT 3RD TOE AMPUTATION SITE Vancomycin Target Ranges: 10-20 mcg/ml Vancomycin Load Y/N: Yes Load Dose Date Time Vancomycin Load Dose: 2g Date: 12/06/18 Time: 0730 Vancomycin Dose Date: 12/06/18. Current Vancomycin Dose: [1g IVQ18H] Intermittent Dosing?: No Labs Labs Item Value Date Time White Blood Count 10.9 10^3/uL H 12/06/18 0522 White Blood Count 8.2 10^3/uL 12/05/18 0551 White Blood Count 7.3 10^3/uL 12/04/18 0552 White Blood Count 7.1 10^3/uL 12/03/18 0706 Creatinine 0.90 MG/DL 12/06/18 0522 Blood Urea Nitrogen 11 MG/DL 12/05/18 0551 Creatinine 0.96 MG/DL 12/04/18 0552 Creatinine 0.95 MG/DL 12/05/18 0551 Blood Urea Nitrogen 11 MG/DL 12/06/18 0522 Anion Gap 6 MEQ/L L 12/04/18 0552 Blood Urea Nitrogen 15 MG/DL 12/04/18 0552 Micro Microbiology 12/06/18 Blood Culture, Received Pending 12/06/18 Blood Culture, Received Pending 12/02/18 Blood Culture - Preliminary, Resulted No Growth after 72 hours. All specime... 12/02/18 Blood Culture - Preliminary, Resulted No Growth after 72 hours. All specime... 12/02/18 Wound Culture - Final, Complete Alcaligenes Sp. Faecalis Enterococcus Faecalis Staphylococcus Epidermidis Creatinine Clearance Date:12/06/18. Est Creatinine Clearance: [~65 ml/min]. Pending Labs Vancomycin trough scheduled 12/07/18 @1999 Assessment and Plan Maintaining Current Dose?: Yes Reason for dose change: No Dose Change Pharmacist Note Pharmacist Note Date: 12/06/18. Pharmacist note: Day #1 empiric vancomycin initiated with a 2g loading dose, followed by a maintenance regimen of 1g IV Q18H for the treatment of a nonhealing right 3rd toe amputation site. The patient is febrile and WBC is slightly elevated. ESR was elevated on admit. Wound culture grew e.faecalis, staph epi, and alcaligenes faecalis. Scr is currently WNL, but it is noted that the patient does have a hx of CKD stage III. A vancomycin trough has been sched uled to be drawn 12/07/18 @2000, prior to the 3rd dose. We will continue to monitor and make dose adjustments if needed. [facility] Dec 06, 2018 07:59
[2018-12-06] MEDS: METOPROLOL SUCC (TopROL XL) 100MG *XL* TAB PO SCH ×2 (08:23→22:16)
[2018-12-06] MEDS: TAMSULOSIN 0.4 MG CAP PO SCH (08:23)
[2018-12-06] MEDS: POTASSIUM CHLORIDE 10 MEQ SR TABLET PO SCH ×2 (08:24→22:15)
[2018-12-06] MEDS: DIGOXIN 0.125 MG TAB PO SCH (08:24)
[2018-12-06] MEDS: MULTIVITAMINS/MINERALS THERAP 1 TAB PO SCH (08:24)
[2018-12-06] MEDS: VANCOMYCIN HCL 1,000 MG, VIAL MATE ADAPTER 1 EACH in D5W 250 ML IV SCH (08:25)
[2018-12-06] MEDS: NEOSPORIN TOP OINT 15GM TOP SCH ×2 (08:26→22:18)
--- NOTE | 2018-12-06 13:22 | IPNPDOC ---
Text Note Date of Service The patient was seen on 12/06/18. NOTE SUBJECTIVE: Patient seen and examined at bedside. No new medical complaints. OBJECTIVE: GENERAL: NAD, sitting comfortably at edge of bed, disheveled HEENT: NC/AT, EOMI CARDIOVASCULAR: +S1S2, irregular LUNGS: CTA B/L ABDOMEN: Soft, NT, ND EXTREMITIES: RLE dressings in place, LUE cast in place ASSESSMENT AND PLAN: 83 yo male for necrotic toes, possible amputation complicated with afib/RVR. #Necrotic toes/PVD - patient spiking fevers this morning - adding vancomycin for broader coverage - podiatry on consult - assistance appreciated - vascular consulted - possible amputation - assistance appreciated - pending angiogram - warfarin on hold, bridging with Lovenox - receiving Zosyn day #4 #Afib/RVR - Lovenox for a/c - rate controlled - continue digoxin, metoprolol #LUE cast - ortho c/s appreciated #CAD - s/p # stents - continue ASA/Plavix #CHF - compensated #GERD - continue PPI #PVD - s/p right third digit amputation - January 2018 - as above pending vascular surgery c/s #CKD III # DVT prophylaxis. The patient is currently on Lovenox. #CODE STATUS - discussed advanced directives at length at bedside; he has opted for DNR/DNI, MOLST form completed VS,Ezequiel, I+O VS, Keciae, I+O Laboratory Tests 12/06/18 05:22 Red Blood Count 4.06 L, Mean Corpuscular Volume 101.0 H, Mean Corpuscular Hemoglobin 33.5 H, Mean Corpuscular Hemoglobin Concent 33.2, Red Cell Distribution Width 14.9 H, Calcium Level 8.5 L Vital Signs Date Time Temp Pulse Resp B/P (MAP) Pulse Ox O2 Delivery O2 Flow Rate FiO2 12/06/18 08:24 99 12/06/18 08:23 131/72 12/06/18 06:00 100.1 19 95 12/02/18 14:04 Room Air I&O- Last 24 Hours up to 6 AM 12/06/18 06:00 Intake Total 1140 ml Balance 1140 ml SHANTEL HUYNH MD Dec 06, 2018 13:22
[2018-12-06 14:00] VITALS: BP 125/68
[2018-12-06] MEDS ORDERED: fentaNYL 100 MCG/2 ML INJECTION (J3010) As Ordered ONE (14:26)
[2018-12-06] MEDS ORDERED: MIDAZOLAM INJ 2 MG/2 ML VIAL (J2250) As Ordered ONE (14:26)
[2018-12-06] MEDS ORDERED: ISOVUE-300 61% 50ML VIAL (Q9967) As Ordered ONE ×2 (14:27→15:25)
[2018-12-06] MEDS ORDERED: HEPARIN 1,000 UNITS/ML 10ML VIAL (FOR RADIOLOGY& DIALYSIS ONLY) As Ordered ONE (14:27)
[2018-12-06] MEDS ORDERED: LIDOCAINE 2% MDV 20 ML VIAL As Ordered ONE (14:27)
[2018-12-06] MEDS ORDERED: CLOPIDOGREL 300 MG TAB (PLAVIX) PO STA (16:40)
[2018-12-06 22:00] VITALS: BP 102/61
[2018-12-06] MEDS: ASPIRIN 81 MG ENTERIC TAB PO SCH (22:13)
[2018-12-06] MEDS: DOCUSATE SODIUM 100 MG CAP PO SCH (22:13)
[2018-12-06] MEDS: OMEPRAZOLE 20 MG CAP PO SCH (22:14)
[2018-12-06] MEDS: ATORVASTATIN 20 MG TAB PO SCH (22:15)
--- NOTE | 2018-12-06 22:37 | IPNPDOC ---
Subjective General Date/Time Seen The patient was seen on 12/06/18 at 22:33. Subject Chief Complaint/History The patient is a 83-year-old male admitted with a reason for visit of Cellulitis Foot. Patient without complaints. Current Medications Current Medications Current Medications Acetaminophen (Tylenol Tab) 650 mg Q6HP PRN PO PAIN / FEVER Last administered on 12/06/18 22:14; Start 12/03/18 at 08:15 Aspirin (Ecotrin) 81 mg QHS PO Last administered on 12/06/18 22:13; Start 12/03/18 at 09:45 Atorvastatin Calcium (Lipitor) 20 mg QHS PO Last administered on 12/06/18 22:15; Start 12/03/18 at 09:45 Clopidogrel Bisulfate (PLAVix) 75 mg DAILY PO ; Start 12/07/18 at 09:00 Clopidogrel Bisulfate (PLAVix) 600 mg STAT STAT PO Last administered on 12/06/18 18:03; Start 12/06/18 at 16:40; Stop 12/06/18 at 16:43; Status DC Digoxin (Lanoxin) 0.125 mg DAILY PO Last administered on 12/06/18 08:24; Start 12/03/18 at 09:45 Docusate Sodium (Colace) 100 mg QHS PO Last administered on 12/06/18 22:13; Start 12/03/18 at 09:45 Enoxaparin Sodium (Lovenox) 90 mg Q12H SC Last administered on 12/06/18 18:03; Start 12/03/18 at 18:00 Ferrous Gluconate (Fergon) 324 mg SuWe@0900 PO Last administered on 12/05/18 08:41; Start 12/05/18 at 09:00 Home Med (Med Rec Complete!) ASDIRECTED XX ; Start 12/02/18 at 17:45; Stop 12/02/18 at 17:53; Status DC Metoprolol Succinate (TopROL XL) 100 mg BID PO Last administered on 12/06/18 22:16; Start 12/03/18 at 09:45 Multivitamins (Theragram-M) 1 tab DAILY PO Last administered on 12/06/18 08:24; Start 12/03/18 at 09:00 Neomycin/ Polymyxin/ Bacitracin (Neosporin) TO dorsal hand BID TOP Last administered on 12/06/18 22:18; Start 12/04/18 at 21:00 Omeprazole (PriLOSEC) 20 mg QHS PO Last administered on 12/06/18 22:14; Start 12/03/18 at 21:00 Piperacillin Sod/ Tazobactam Sod 3.375 gm/Dextrose 50 ml @ 50 mls/hr Q6H IV Last administered on 12/06/18 22:17; Start 12/02/18 at 23:00 Potassium Chloride (Micro-K Extencaps) 20 meq BID PO Last administered on 12/06/18 22:15; Start 12/03/18 at 09:45 Sodium Chloride 1,000 ml @ 125 mls/hr Q8H IV Last administered on 12/03/18 13:55; Start 12/02/18 at 17:45; Stop 12/03/18 at 16:53; Status DC Tamsulosin HCl (Flomax) 0.4 mg DAILY PO Last administered on 12/06/18 08:23; Start 12/03/18 at 09:45 Vancomycin HCl 1000 mg/IV Miscellaneous Supplies 1 each/ Dextrose 270 ml @ 270 mls/hr Q18H IV Last administered on 12/06/18 08:25; Start 12/06/18 at 09:00 Warfarin Sodium (Coumadin) 3 mg DAILY PO Last administered on 12/03/18 10:26; Start 12/03/18 at 09:00; Stop 12/03/18 at 16:46; Status DC Warfarin Sodium (Coumadin) 3 mg MoWe@2100 PO ; Start 12/03/18 at 21:00; Stop 12/03/18 at 21:00; Status DC Allergies Coded Allergies: Oxycodone (Verified Allergy, Intermediate, RASH, 11/06/18) VITAL SIGNS VITAL SIGNS Vital Signs Date Time Temp Pulse Resp B/P (MAP) Pulse Ox O2 Delivery O2 Flow Rate FiO2 12/06/18 22:16 81 102/61 12/06/18 14:00 99.4 100 22 125/68 (87) 89 12/06/18 08:24 99 12/06/18 08:23 99 131/72 12/06/18 06:00 100.1 99 19 131/72 (91) 95 12/05/18 23:13 99.5 Intake & Output 12/06/18 06:00 Intake Total 1140 ml Balance 1140 ml Laboratory Tests 12/06/18 05:22: White Blood Count 10.9H, Red Blood Count 4.06L, Hemoglobin 13.6, Hematocrit 41.0L, Mean Corpuscular Volume 101.0H, Mean Corpuscular Hemoglobin 33.5H, Mean Corpuscular Hemoglobin Concent 33.2, Red Cell Distribution Width 14.9H, Platelet Count 143L, Nucleated Red Blood Cells % (auto) 0.0, Prothrombin Time 15.1H, Prothromb Time International Ratio 1.17, Blood Urea Nitrogen 11, Creatinine 0.90, Sodium Level 143, Potassium Level 3.9, Chloride Level 111H, Carbon Dioxide Level 26, Calcium Level 8.5L, Anion Gap 6L, Glomerular Filtration Rate > 60.0, Fasting Glucose 96, Magnesium Level 2.5H Microbiology 12/02/18 Wound Culture - Final, Complete Alcaligenes Sp. Faecalis Enterococcus Faecalis Staphylococcus Epidermidis Current Medications Medications (Trade) Dose Ordered Sig/Jaime Route PRN Reason Start Time Stop Time Status Last Admin Dose Admin Acetaminophen (Tylenol Tab) 650 mg Q6HP PRN PO PAIN / FEVER 12/03/18 08:15 12/06/18 22:14 Aspirin (Ecotrin) 81 mg QHS PO 12/03/18 09:45 12/06/18 22:13 Atorvastatin Calcium (Lipitor) 20 mg QHS PO 12/03/18 09:45 12/06/18 22:15 Digoxin (Lanoxin) 0.125 mg DAILY PO 12/03/18 09:45 12/06/18 08:24 Docusate Sodium (Colace) 100 mg QHS PO 12/03/18 09:45 12/06/18 22:13 Enoxaparin Sodium (Lovenox) 90 mg Q12H SC 12/03/18 18:00 12/06/18 18:03 Ferrous Gluconate (Fergon) 324 mg SuWe@0900 PO 12/05/18 09:00 12/05/18 08:41 Metoprolol Succinate (TopROL XL) 100 mg BID PO 12/03/18 09:45 12/06/18 22:16 Multivitamins (Theragram-M) 1 tab DAILY PO 12/03/18 09:00 12/06/18 08:24 Neomycin/ Polymyxin/ Bacitracin (Neosporin) TO dorsal hand BID TOP 12/04/18 21:00 12/06/18 22:18 Omeprazole (PriLOSEC) 20 mg QHS PO 12/03/18 21:00 12/06/18 22:14 Piperacillin Sod/ Tazobactam Sod 3.375 gm/Dextrose 50 ml @ 50 mls/hr Q6H IV 12/02/18 23:00 12/06/18 22:17 Potassium Chloride (Micro-K Extencaps) 20 meq BID PO 12/03/18 09:45 12/06/18 22:15 Tamsulosin HCl (Flomax) 0.4 mg DAILY PO 12/03/18 09:45 12/06/18 08:23 Vancomycin HCl 1000 mg/IV Miscellaneous Supplies 1 each/ Dextrose 270 ml @ 270 mls/hr Q18H IV 12/06/18 09:00 12/06/18 08:25 Laboratory Tests 12/05/18 05:51 Red Blood Count 3.81 L, Mean Corpuscular Volume 100.3 H, Mean Corpuscular Hemoglobin 32.8, Mean Corpuscular Hemoglobin Concent 32.7, Red Cell Distribution Width 15.3 H, Calcium Level 8.3 L 12/06/18 05:22 Red Blood Count 4.06 L, Mean Corpuscular Volume 101.0 H, Mean Corpuscular Hemoglobin 33.5 H, Mean Corpuscular Hemoglobin Concent 33.2, Red Cell Distribution Width 14.9 H, Calcium Level 8.5 L Microbiology 12/06/18 Blood Culture, Received Pending 12/06/18 Blood Culture, Received Pending 12/02/18 Blood Culture - Preliminary, Resulted No Growth after 72 hours. All specime... 12/02/18 Blood Culture - Preliminary, Resulted No Growth after 72 hours. All specime... 12/02/18 Wound Culture - Final, Complete Alcaligenes Sp. Faecalis Enterococcus Faecalis Staphylococcus Epidermidis Objective Physical Examination General Exam: Positive: Alert, Cooperative, No Acute Distress Eye Exam: Positive: PERRLA, Conjunctiva & lids normal, EOMI ENT Exam: Positive: Atraumatic, Mucous membr. moist/pink, Pharynx Normal, Tongue Midline, Nares Patent, Ext Auditory Canal Nml, Pinna Normal Neck Exam: Positive: Supple, +2 carotid pulse wo bruit; Negative: JVD, thyromegaly, Lymphadenopathy Chest Exam: Positive: Clear to auscultation, Normal air movement; Negative: Rales, Rhonchi, Wheezing, Diminished Heart Exam: Positive: Rate Normal, Regular Rhythm; Negative: Tachycardic, Bradycardic, Irregular Rhythm, Normal S1, Normal S2, Gallops, Murmurs, Rubs Telemetry: Positive: No significant arrhythmia Abdomen Exam: Positive: Normal bowel sounds; Negative: BS Hyperactive, BS Hypoactive, Soft, Tenderness, Hepatospenomegaly, Mass, Hernia Male Exam: Positive: Normal Genital Exam Extremity Exam: Positive: Other ( ); Negative: Clubbing, Cyanosis, Edema, Normal pulses (patient has nonpalpable popliteal, dorsalis pedis and posterior tibial pulses in the bilateral lower extremities.), Tenderness, Swelling Skin Exam: Positive: Nl turgor and temperature; Negative: Rash, Breakdown, Lesion, Pruritus, Other skin issue Neuro Exam: Positive: Normal Gait, Normal Speech, Strength at 5/5 X4 ext, Normal Tone, Sensation Intact, Cranial Nerves 3-12 NL, Reflexes 2+ Psych Exam: Positive: Mental status NL, Mood NL, Memory Intact, Oriented x 3 Assessment/Plan Assessment 83-year-old male with 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 Patient underwent angiography with angioplasty and stenting of his right superficial femoral and popliteal artery as well as angioplasty of his right common femoral and superficial femoral artery. Patient has single vessel inflow into the right foot via the peroneal artery which reconstitutes the posterior tibial and dorsalis pedis arteries distally. Patient has significant improvement in inflow to the right foot after undergoing intervention on his right lower extremity. Plan Patient will require Plavix for a minimum of 6 months after undergoing right lower extremity angioplasty and stenting. Patient is stable for right foot surgery. Luis Florence MD Dec 06, 2018 22:37
[2018-12-07 02:00] VITALS: BP 118/64
[2018-12-07] MEDS: VANCOMYCIN HCL 1,000 MG, VIAL MATE ADAPTER 1 EACH in D5W 250 ML IV SCH ×2 (03:47→21:14)
[2018-12-07 04:00] VITALS: BP 102/61
[2018-12-07] MEDS: ENOXAPARIN 100MG/1ML SYRINGE (J1650) SC SCH ×2 (05:35→17:42)
[2018-12-07] MEDS: PIPERACILLIN/TAZOBACTAM SOD 3.375 GM in D5W MINI-BAG PLUS 50 ML IV SCH ×2 (05:35→12:25)
[2018-12-07 06:00] VITALS: BP 102/61
[2018-12-07 07:02] LABS: HEMATOCRIT 36.8 % (42.0-52.0); HEMOGLOBIN 12.1 g/dl (13.5-17.5); MEAN CORPUSCULAR HEMOGLOBIN 33.1 pg (27.0-33.0); MEAN CORPUSCULAR HGB CONC 32.9 g/dl (32.0-36.5); MEAN CORPUSCULAR VOLUME 100.5 fl (80.0-96.0); PLATELET COUNT, AUTOMATED 158 10^3/uL (150-450); RED BLOOD COUNT 3.66 10^6/uL (4.30-6.10); WHITE BLOOD COUNT 9.3 10^3/uL (4.0-10.0)
[2018-12-07 07:15] LABS: INR 1.19; PROTHROMBIN TIME 15.3 SECONDS (12.1-14.4)
[2018-12-07 07:21] LABS: BLOOD UREA NITROGEN 13 MG/DL (7-18); CALCIUM LEVEL 8.3 MG/DL (8.8-10.2); CARBON DIOXIDE LEVEL 24 MEQ/L (21-32); CHLORIDE LEVEL 110 MEQ/L (98-107); CREATININE FOR GFR 0.89 MG/DL (0.70-1.30); GLOMERULAR FILTRATION RATE > 60.0 (>35); GLUCOSE, FASTING 112 MG/DL (70-100); MAGNESIUM LEVEL 2.3 MG/DL (1.8-2.4); POTASSIUM SERUM 3.9 MEQ/L (3.5-5.1); SODIUM LEVEL 140 MEQ/L (136-145)
[2018-12-07 08:00] VITALS: BP 130/68
--- NOTE | 2018-12-07 08:14 | IPNPDOC ---
Text Note Date of Service The patient was seen on 12/07/18. NOTE SUBJECTIVE: Patient seen and examined at bedside. No new medical complaints. OBJECTIVE: GENERAL: NAD, sitting comfortably at edge of bed, disheveled HEENT: NC/AT, EOMI CARDIOVASCULAR: +S1S2, irregular LUNGS: CTA B/L ABDOMEN: Soft, NT, ND EXTREMITIES: RLE dressings in place, LUE cast in place ASSESSMENT AND PLAN: 83 yo male for necrotic toes, possible amputation complicated with afib/RVR. #Necrotic toes/PVD - podiatry on consult - assistance appreciated - vascular consulted - angiogram revealed severe occlusive atherosclerotic disease RLE, s/p stent; cleared for planned TMA - warfarin on hold, bridging with Lovenox - receiving Zosyn day #5, vanco day #2 #Afib/RVR - Lovenox for a/c - rate controlled - continue digoxin, metoprolol #LUE cast - ortho c/s appreciated #CAD - s/p # stents - continue ASA/Plavix #CHF - compensated #GERD - continue PPI #PVD - s/p right third digit amputation - January 2018 - as above - severe occlusive atherosclerotic disease on angiogram - s/p stent; needs plavix 6mths #CKD III # DVT prophylaxis. The patient is currently on Lovenox. #CODE STATUS - discussed advanced directives at length at bedside; he has opted for DNR/DNI, MOLST form completed Dispo: plan for TMA VS,Fishbone, I+O VS, Fishbone, I+O Laboratory Tests 12/07/18 05:45 Red Blood Count 3.66 L, Mean Corpuscular Volume 100.5 H, Mean Corpuscular Hemoglobin 33.1 H, Mean Corpuscular Hemoglobin Concent 32.9, Red Cell Distribution Width 14.7 H, Calcium Level 8.3 L Vital Signs Date Time Temp Pulse Resp B/P (MAP) Pulse Ox O2 Delivery O2 Flow Rate FiO2 12/07/18 06:00 97.8 97 20 102/61 (75) 93 12/02/18 14:04 Room Air I&O- Last 24 Hours up to 6 AM 12/07/18 06:00 Intake Total 1210 ml Balance 1210 ml SHANTEL HUYNH MD Dec 07, 2018 08:14
[2018-12-07] MEDS: POTASSIUM CHLORIDE 10 MEQ SR TABLET PO SCH ×2 (10:53→21:17)
[2018-12-07] MEDS: TAMSULOSIN 0.4 MG CAP PO SCH (10:54)
[2018-12-07] MEDS: CLOPIDOGREL 75 MG TAB PO SCH (10:54)
[2018-12-07] MEDS: DIGOXIN 0.125 MG TAB PO SCH (10:54)
[2018-12-07] MEDS: METOPROLOL SUCC (TopROL XL) 100MG *XL* TAB PO SCH ×2 (10:55→21:17)
[2018-12-07] MEDS: MULTIVITAMINS/MINERALS THERAP 1 TAB PO SCH (10:55)
[2018-12-07] MEDS: NEOSPORIN TOP OINT 15GM TOP SCH ×2 (10:55→21:20)
[2018-12-07 14:00] VITALS: BP 134/70
[2018-12-07 14:20] LABS: ERYTHROCYTE SEDIMENTATION RATE 65 mm/hr (0-30)
[2018-12-07] MEDS: ATORVASTATIN 20 MG TAB PO SCH (21:14)
[2018-12-07] MEDS: OMEPRAZOLE 20 MG CAP PO SCH (21:14)
[2018-12-07] MEDS: DOCUSATE SODIUM 100 MG CAP PO SCH (21:17)
[2018-12-07] MEDS: ASPIRIN 81 MG ENTERIC TAB PO SCH (21:17)
[2018-12-07] MEDS: ACETAMINOPHEN TAB 650MG DOSE (2X325MG) PO PRN (21:19)
[2018-12-07 22:00] VITALS: BP 112/58
[2018-12-08] MEDS: ENOXAPARIN 100MG/1ML SYRINGE (J1650) SC SCH ×2 (05:19→17:52)
[2018-12-08 06:00] VITALS: BP 121/63
[2018-12-08 06:22] LABS: HEMATOCRIT 38.2 % (42.0-52.0); HEMOGLOBIN 12.6 g/dl (13.5-17.5); MEAN CORPUSCULAR HEMOGLOBIN 33.1 pg (27.0-33.0); MEAN CORPUSCULAR VOLUME 100.3 fl (80.0-96.0); PLATELET COUNT, AUTOMATED 196 10^3/uL (150-450); RED BLOOD COUNT 3.81 10^6/uL (4.30-6.10); WHITE BLOOD COUNT 11.9 10^3/uL (4.0-10.0)
[2018-12-08 06:37] LABS: INR 1.11; PROTHROMBIN TIME 14.4 SECONDS (12.1-14.4)
[2018-12-08 06:42] LABS: BLOOD UREA NITROGEN 12 MG/DL (7-18); CALCIUM LEVEL 8.5 MG/DL (8.8-10.2); CARBON DIOXIDE LEVEL 25 MEQ/L (21-32); CHLORIDE LEVEL 109 MEQ/L (98-107); CREATININE FOR GFR 0.77 MG/DL (0.70-1.30); GLOMERULAR FILTRATION RATE > 60.0 (>35); GLUCOSE, FASTING 100 MG/DL (70-100); MAGNESIUM LEVEL 2.3 MG/DL (1.8-2.4); SODIUM LEVEL 140 MEQ/L (136-145)
[2018-12-08] MEDS: VANCOMYCIN HCL 1,000 MG, VIAL MATE ADAPTER 1 EACH in D5W 250 ML IV SCH ×2 (09:17→21:20)
[2018-12-08] MEDS: CLOPIDOGREL 75 MG TAB PO SCH (09:17)
[2018-12-08] MEDS: MULTIVITAMINS/MINERALS THERAP 1 TAB PO SCH (09:18)
[2018-12-08] MEDS: POTASSIUM CHLORIDE 10 MEQ SR TABLET PO SCH ×2 (09:18→21:19)
[2018-12-08] MEDS: DIGOXIN 0.125 MG TAB PO SCH (09:19)
[2018-12-08] MEDS: TAMSULOSIN 0.4 MG CAP PO SCH (09:19)
[2018-12-08] MEDS: METOPROLOL SUCC (TopROL XL) 100MG *XL* TAB PO SCH ×2 (09:19→21:20)
[2018-12-08] MEDS: NEOSPORIN TOP OINT 15GM TOP SCH ×2 (09:19→21:20)
[2018-12-08] MEDS: ACETAMINOPHEN TAB 650MG DOSE (2X325MG) PO PRN (09:34)
--- NOTE | 2018-12-08 12:28 | IPNPDOC ---
Text Note Date of Service The patient was seen on 12/08/18. NOTE SUBJECTIVE: Patient seen and examined at bedside. Complained of chest pain overnight and shortness of breath. No clear modifying factors regarding his chest pain. States his shortness of breath may have improved when sitting up. OBJECTIVE: GENERAL: NAD, sitting comfortably at edge of bed, disheveled HEENT: NC/AT, EOMI CARDIOVASCULAR: +S1S2, irregular LUNGS: CTA B/L ABDOMEN: Soft, NT, ND EXTREMITIES: RLE dressings in place, LUE cast in place ASSESSMENT AND PLAN: 83 yo male for necrotic toes, possible amputation complicated with afib/RVR. #Necrotic toes/PVD - podiatry on consult - assistance appreciated - vascular consulted - angiogram revealed severe occlusive atherosclerotic disease RLE, s/p stent right SFA and popliteal artery; cleared by vascular for planned TMA - warfarin on hold, bridging with Lovenox - Zosyn discontinued, vanco day #3 - ID consultation appreciated #planned TMA - given cardiac history and chest pain - cardiology c/s pending for risk st ratification #bacteremia - repeat cultures pending - as per above - receiving vancomycin #Afib/RVR - Lovenox for a/c - rate controlled - continue digoxin, metoprolol #LUE cast - ortho c/s appreciated #CAD - s/p 5 stents - 2010 at [facility] - continue ASA/Plavix #CHF - compensated #GERD - continue PPI #PVD - s/p right third digit amputation - January 2018 - as above - severe occlusive atherosclerotic disease on angiogram - s/p stent; needs plavix 6mths #CKD III # DVT prophylaxis. The patient is currently on Lovenox. #CODE STATUS - discussed advanced directives at length at bedside; he has opted for DNR/DNI, MOLST form completed Dispo: cardiology c/s pending; f/u blood cultures; plan for likely TMA on Monday VS,Fishbone, I+O VS, Fishbone, I+O Laboratory Tests 12/08/18 05:38 Red Blood Count 3.81 L, Mean Corpuscular Volume 100.3 H, Mean Corpuscular Hemoglobin 33.1 H, Mean Corpuscular Hemoglobin Concent 33.0, Red Cell Distr ibution Width 14.6 H, Calcium Level 8.5 L Vital Signs Date Time Temp Pulse Resp B/P (MAP) Pulse Ox O2 Delivery O2 Flow Rate FiO2 12/08/18 09:19 95 12/08/18 09:19 137/55 12/08/18 06:00 97.6 20 95 12/02/18 14:04 Room Air I&O- Last 24 Hours up to 6 AM 12/08/18 06:00 Intake Total 360 ml Balance 360 ml SHANTEL HUYNH MD Dec 08, 2018 12:28
[2018-12-08 14:00] VITALS: BP 97/54
[2018-12-08] MEDS ORDERED: ACETAMINOPHEN 500 MG TAB PO PRN (14:15)
--- NOTE | 2018-12-08 18:31 | CR ---
DATE OF CONSULTATION: 12/08/2018 REFERRING PHYSICIAN: Dr. Cornell INDICATION: Preoperative evaluation for transmetatarsal amputation of right foot. HISTORY OF PRESENT ILLNESS: Mr. Gardiner is known to me. He is an 83-year-old man who has chronic atrial fibrillation and ischemic cardiomyopathy with severe left ventricular systolic dysfunction. He was admitted to [facility] ([facility]) with infection of his right lower extremity, specifically of his foot. He has infected ischemic ulcer and now is tentatively scheduled for transmetatarsal amputation of his right foot after he underwent percutaneous revascularization of right lower extremity by Dr. Florence. There was a concern about the fact that he had an episode of chest discomfort 2 days ago, on December 05. The patient tells me that he had pressure-like discomfort on the left side of his chest, extending from the left lower ribs to left shoulder. It was present for several hours, he believes at least 3 or 4, in a steady pattern. Not aggravated by position, activity, or taking a deep breath. Eventually the pain subsided on its own. In spite of the prolonged episode, he had no abnormalities on ECG suggestive of ischemia, and his troponin remained negative. He has not had any chest discomfort since. Today he tells me that he is feeling well. He denies any dyspnea or chest discomfort but admits that he has been basically in bed all the time. PAST MEDICAL HISTORY: 1. Coronary artery disease. History of percutaneous coronary intervention (PCI) to right coronary artery with bare metal stents times five in 2010. He has not had any re-evaluation since. 2. Ischemic cardiomyopathy. Last evaluation of systolic function in our office was an echocardiogram performed in 2014 that revealed left ventricular systolic function approximately 30-35% and no significant valvular disease. He did have an echocardiogram in [facility] in December 2017, at which point the left ventricular ejection fraction was estimated about 30% with inferior wall hypokinesis. There was felt to be approximately moderate mitral insufficiency and moderate pulmonary hypertension. Aortic sclerosis but no stenosis was also noted. 3. Chronic atrial fibrillation. At his baseline rate control with combination of Toprol-XL 200 a day plus digoxin and chronically anticoagulated with Coumadin. 4. Hypertension. 5. Dyslipidemia. 6. 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 7. Peripheral vascular disease. 8. Gastroesophageal reflux disease (GERD).. SURGICAL HISTORY: 1. Toe amputation. 2. Coronary intervention. SOCIAL HISTORY: Patient is . He lives with his son. He smokes cigars and has been for all of his adult life. He also is an alcohol drinker of variable degree. Apparently as of lately he cut down substantially, but he used to be a heavy drinker at times. FAMILY HISTORY: No longer relevant. OUTPATIENT MEDICATIONS: - digoxin 0.125 a day - Toprol-XL 100 twice a day - Lipitor 20 mg a day - omeprazole 20 a day - allopurinol 300 mg a day - Flomax 0.4 mg a day - iron sulfate twice a day - testosterone injection as directed by primary care physician - torsemide 50 mg daily - warfarin as directed by our office ALLERGIES: OXYCODONE. PHYSICAL EXAMINATION: Mr. Gardiner is an elderly man who appears approximately the same as his age, even though he seems mentally fairly sharp. The last vital signs, blood pressure was only 97/554. Heart rate usually in 90s but occasionally gets into 100 and teens. Saturation 96% on room air. His weight and fluid balance have not been documented for several days. The admission weight was 88.6 kg. He is alert, oriented, and appropriate. His jugular venous pulse (JVP) is about 4-5 cm. Lungs are reasonably clear to auscultation, even though air movement is only fair due to poor inspiratory effort. I do not appreciate any crackles or rhonchi. Heart exam reveals irregularly irregular rhythm. There is precordial impulse that is displaced to the left. There is faint murmur over the aortic valve, maybe 1/6 in intensity. There is also fairly unimpressive murmur of MR, maybe 1/6 intensity in the apex. Abdomen is soft, nontender. Bowel sounds are present. Extremities have mild edema bilaterally. There are good peripheral pulses in popliteal arteries as well as posterior tibial arteries on both sides. There is a bandage of his right foot that I did not unwrap. Neurologically, he appears weak, but otherwise his speech is intact, and train of thought is intact as well. LABORATORY DATA: As of today CBC reveals WBC count 11.90, hemoglobin 12.6, hematocrit 28.2 a platelet count 196,000. His sedimentation rate yesterday was elevated at 65. Basic metabolic panel today is normal and magnesium is 2.3, CRP 80 yesterday was 18.7. After the chest pain two sets of cardiac enzymes were completely negative and included troponin . INR is 1.1. Chest x-ray revealed chronic abnormalities but otherwise no new problems. He had imaging of his lower extremity during angiography and MRI of the foot on the December 03 date did not reveal any evidence for osteomyelitis. He had two ECGs. The first one was on and revealed atrial fibrillation with heart rate 117 and nonspecific repolarization abnormalities. The second on the , again, atrial fibrillation with ventricular rate 88 beats per minute and no new repolarization abnormalities. During this hospitalization he had a wound culture on the that revealed a mixed alejandra with Enterococcus faecalis and Streptococcus epidermidis. Blood culture, though, also revealed gram-positive cocci in clusters. I do not have the actual identification as of yet. Additional blood cultures were drawn this morning. ASSESSMENT AND PLAN: Mr. Gardiner is an 83-year-old man who has no ischemic cardiomyopathy with severe left ventricular systolic dysfunction together with chronic atrial fibrillation and chronic systolic heart failure who presents with infection of his right foot due to ischemic disease. He underwent peripheral revascularization by Dr. Florence and is scheduled for transmetatarsal amputation on Monday. From a cardiac perspective, I believe that he needs to proceed, unless some new development occurs. He undoubtedly has coronary artery disease and had recent chest discomfort, but the fact that the discomfort lasted several hours and there was no objective evidence for ischemia on ECG and his cardiac enzymes remain negative makes me think that the pain was likely nonischemic in nature. Nevertheless, the intervention needs to be considered high risk on account of his poor mobility, peripheral vascular disease, ischemic cardiomyopathy, chronic atrial fibrillation, and also his age. He is currently on aspirin, Plavix, and Lovenox. Obviously the Lovenox will be held for the procedure, and I hope that the aspirin and Plavix can be continued. If not, I do not have objections for discontinuation of Plavix for the procedure, but it will be up to the discretion of the surgeon. As far as long-term management is concerned, he should return back to warfarin, but I would discontinue aspirin and leave him on Plavix only, because the risk of bleeding on triple therapy is very high. As far as congestive heart failure is concerned, he has not been receiving diuretics since he came to the hospital. It seems to me that he is not grossly volume overloaded, but we will re-evaluate him on daily basis. I am going to add brain natriuretic peptide (BNP) to his lab work tomorrow. It will undoubtedly be high, but it will help us in decision making regarding volume status. I am somewhat concerned about the fact that he is mildly tachycardic, even though he is on his chronic rate-controlling medications. He also has a little elevated white count, and his blood culture came back positive today. That raises to me suspicion that he might have systemic infection. This is something that will be monitored as well, and I am hopeful that he will not become septic. Obviously the surgery may need to be reconsidered under those circumstance, but the way he is looking now, I am optimistic that he indeed will be able to have his surgery on Monday. I will follow the patient with you for the immediate future. JADON
[2018-12-08] MEDS: DOCUSATE SODIUM 100 MG CAP PO SCH (21:18)
[2018-12-08] MEDS: ASPIRIN 81 MG ENTERIC TAB PO SCH (21:18)
[2018-12-08] MEDS: OMEPRAZOLE 20 MG CAP PO SCH (21:19)
[2018-12-08] MEDS: ACETAMINOPHEN 500 MG TAB PO PRN (21:19)
[2018-12-08] MEDS: ATORVASTATIN 20 MG TAB PO SCH (21:20)
[2018-12-08 22:00] VITALS: BP 115/56
[2018-12-09] MEDS: ENOXAPARIN 100MG/1ML SYRINGE (J1650) SC SCH ×2 (05:19→17:56)
[2018-12-09 06:00] VITALS: BP 110/55
[2018-12-09 08:19] LABS: HEMOGLOBIN 12.2 g/dl (13.5-17.5); MEAN CORPUSCULAR HEMOGLOBIN 33.6 pg (27.0-33.0); MEAN CORPUSCULAR VOLUME 101.9 fl (80.0-96.0); PLATELET COUNT, AUTOMATED 214 10^3/uL (150-450); RED BLOOD COUNT 3.63 10^6/uL (4.30-6.10); WHITE BLOOD COUNT 8.4 10^3/uL (4.0-10.0)
[2018-12-09] MEDS: TAMSULOSIN 0.4 MG CAP PO SCH (08:19)
[2018-12-09] MEDS: CLOPIDOGREL 75 MG TAB PO SCH (08:19)
[2018-12-09] MEDS: FERROUS GLUCONATE 324 MG TAB PO SCH (08:20)
[2018-12-09] MEDS: MULTIVITAMINS/MINERALS THERAP 1 TAB PO SCH (08:20)
[2018-12-09] MEDS: POTASSIUM CHLORIDE 10 MEQ SR TABLET PO SCH ×2 (08:20→20:35)
[2018-12-09] MEDS: ACETAMINOPHEN 500 MG TAB PO PRN ×2 (08:20→20:37)
[2018-12-09] MEDS: METOPROLOL SUCC (TopROL XL) 100MG *XL* TAB PO SCH ×2 (08:21→20:34)
[2018-12-09] MEDS: DIGOXIN 0.125 MG TAB PO SCH (08:22)
[2018-12-09 08:28] LABS: BLOOD UREA NITROGEN 12 MG/DL (7-18); CALCIUM LEVEL 8.3 MG/DL (8.8-10.2); CARBON DIOXIDE LEVEL 26 MEQ/L (21-32); CHLORIDE LEVEL 111 MEQ/L (98-107); CREATININE FOR GFR 0.82 MG/DL (0.70-1.30); GLOMERULAR FILTRATION RATE > 60.0 (>35); GLUCOSE, FASTING 108 MG/DL (70-100); MAGNESIUM LEVEL 2.2 MG/DL (1.8-2.4); NT-PRO BNP 4310 PG/ML (<450); SODIUM LEVEL 141 MEQ/L (136-145); TROPONIN I 0.02 NG/ML (< 0.10); VANCOMYCIN LEVEL TROUGH 16.4 UG/ML (10.0-20.0)
[2018-12-09 08:35] LABS: INR 1.17; PROTHROMBIN TIME 15.1 SECONDS (12.1-14.4)
[2018-12-09 08:52] LABS: ERYTHROCYTE SEDIMENTATION RATE 63 mm/hr (0-30)
[2018-12-09] MEDS: NEOSPORIN TOP OINT 15GM TOP SCH ×2 (09:00→20:37)
--- NOTE | 2018-12-09 09:07 | PHACANCOPD ---
PHARMACY VANCOMYCIN DOSING Pt Demographics Demographics Patient Age:83 , Weight:88.640 , Gender: male Adjusted Body Weight Date: 12/06/18, Adjusted Body Weight: Kg Events Past 24 Hours Events Past 24 Hours: NO: Dialysis, Diuretic Therapy, Change in CrCl, Fever, Elevation in WBC, Pending Diagnostics, Pending Procedures, Other Vancomycin Vancomycin indication: NONHEALING RIGHT 3RD TOE AMPUTATION SITE Vancomycin Target Ranges: 10-20 mcg/ml Vancomycin Load Y/N: Yes Load Dose Date Time Vancomycin Load Dose: 2g Date: 12/06/18 Time: 0730 Vancomycin Dose Date: 12/06/18. Current Vancomycin Dose: [1g IVQ18H] Intermittent Dosing?: No Labs Labs Vital Signs Label Value Date Time Patient Temperature 98.5 degrees F 12/09/18 0600 Temperature Source Temporal 12/09/18 0600 Patient Temperature 98.9 degrees F 12/08/18 2200 Temperature Source Temporal 12/08/18 2200 Patient Temperature 97.6 degrees F 12/08/18 1400 Temperature Source Temporal 12/08/18 1400 Item Value Date Time White Blood Count 8.4 10^3/uL 12/09/18 0753 White Blood Count 11.9 10^3/uL H 12/08/18 0538 White Blood Count 9.3 10^3/uL 12/07/18 0545 Vancomycin Level Trough 16.4 UG/ML 12/09/18 0753 Vancomycin Level Trough 8.5 UG/ML L 12/07/18 1956 Creatinine 0.82 MG/DL 12/09/18 0753 Creatinine 0.77 MG/DL 12/08/18 0538 Creatinine 0.89 MG/DL 12/07/18 0545 Micro Microbiology 12/08/18 Blood Culture, Received Pending 12/08/18 Blood Culture - Preliminary, Resulted No growth after 24 hours . All specim... 12/06/18 Blood Culture - Preliminary, Resulted 12/06/18 Blood Culture - Preliminary, Resulted No Growth after 72 hours. All specime... 12/02/18 Blood Culture - Final, Complete NO GROWTH AFTER 5 DAYS 12/02/18 Blood Culture - Final, Complete NO GROWTH AFTER 5 DAYS 12/07/18 MRSA Screen - Final, Complete 12/02/18 Wound Culture - Final, Complete Alcaligenes Sp. Faecalis Enterococcus Faecalis Staphylococcus Epidermidis Creatinine Clearance Date:12/06/18. Est Creatinine Clearance: [~65 ml/min]. Pending Labs Vancomycin trough scheduled 12/07/18 @1999 Assessment and Plan Maintaining Current Dose?: Yes Reason for dose change: No Dose Change Pharmacist Note Pharmacist Note 12/09/18: Trough today resulted at 16.4mcg/ml. This is within our goal range so we will continue the current dose of Vanco 1G IV Q12H@2100. We will continue to monitor and adjust dose as needed. Date: 12/06/18. Pharmacist note: Day #1 empiric vancomycin initiated with a 2g loading dose, followed by a maintenance regimen of 1g IV Q18H for the treatment of a nonhealing right 3rd toe amputation site. The patient is febrile and WBC is slightly elevated. ESR was elevated on admit. Wound culture grew e.faecalis, staph epi, and alcaligenes faecalis. Scr is currently WNL, but it is noted that the patient does have a hx of CKD stage III. A vancomycin trough has been scheduled to be drawn 12/07/18 @1999, prior to the 3rd dose. We will continue to m onitor and make dose adjustments if needed. SHERRIE APONTE [facility] Dec 09, 2018 09:06
[2018-12-09] MEDS: VANCOMYCIN HCL 1,000 MG, VIAL MATE ADAPTER 1 EACH in D5W 250 ML IV SCH ×2 (09:40→20:37)
--- NOTE | 2018-12-09 11:47 | IPNPDOC ---
Text Note Date of Service The patient was seen on 12/09/18. NOTE SUBJECTIVE: Patient seen and examined at bedside. Complained of chest pain overnight and shortness of breath. No clear modifying factors regarding his chest pain. States his shortness of breath may have improved when sitting up. OBJECTIVE: GENERAL: NAD, sitting comfortably at edge of bed, disheveled HEENT: NC/AT, EOMI CARDIOVASCULAR: +S1S2, irregular LUNGS: CTA B/L ABDOMEN: Soft, NT, ND EXTREMITIES: RLE dressings in place, LUE cast in place ASSESSMENT AND PLAN: 83 yo male for necrotic toes, possible amputation complicated with afib/RVR. #Necrotic toes/PVD - podiatry on consult - assistance appreciated - vascular consulted - angiogram revealed severe occlusive atherosclerotic disease RLE, s/p stent right SFA and popliteal artery; cleared by vascular for planned TMA - warfarin on hold, bridging with Lovenox - Zosyn discontinued, vanco day #4 - ID consultation appreciated - planned TMA #bacteremia - repeat cultures pending - as per above - receiving vancomycin #Afib/RVR - Lovenox for a/c - hold 12/10/18 am dose - rate not optimally controlled - possibly secondary to infection? - continue digoxin, metoprolol #LUE cast - ortho c/s appreciated #CAD - s/p 5 stents - 2010 at [facility] - continue ASA/Plavix #CHF - compensated #GERD - continue PPI #PVD - s/p right third digit amputation - January 2018 - as above - severe occlusive atherosclerotic disease on angiogram - s/p stent; needs plavix 6mths #CKD III # DVT prophylaxis. The patient is currently on therapeutic Lovenox. #CODE STATUS - discussed advanced directives at length at bedside; he has opted for DNR/DNI, MOLST form completed Dispo: f/u blood cultures; plan for TMA on Monday VS,Fishbone, I+O VS, Fishbone, I+O Laboratory Tests 12/09/18 07:53 Red Blood Count 3.63 L, Mean Corpuscular Volume 101.9 H, Mean Corpuscular Hemoglobin 33.6 H, Mean Corpuscular Hemoglobin Concent 33.0, Red Cell Distribution Width 14.6 H, Calcium Level 8.3 L Vital Signs Date Time Temp Pulse Resp B/P (MAP) Pulse Ox O2 Delivery O2 Flow Rate FiO2 12/09/18 08:22 103 12/09/18 08:21 110/56 12/09/18 06:00 98.5 20 96 I&O- Last 24 Hours up to 6 AM 12/09/18 06:00 Intake Total 1740 ml Balance 1740 ml SHANTEL HUYNH MD Dec 09, 2018 11:47
--- NOTE | 2018-12-09 13:05 | ECGEPIP ---
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
[2018-12-09 14:00] VITALS: BP 115/60
[2018-12-09] MEDS: ATORVASTATIN 20 MG TAB PO SCH (20:34)
[2018-12-09] MEDS: ASPIRIN 81 MG ENTERIC TAB PO SCH (20:35)
[2018-12-09] MEDS: DOCUSATE SODIUM 100 MG CAP PO SCH (20:35)
[2018-12-09] MEDS: OMEPRAZOLE 20 MG CAP PO SCH (20:35)
[2018-12-09 22:00] VITALS: BP 107/59
[2018-12-10] VITALS (7 sets, daily range): BP systolic 109–141; BP diastolic 56–79
[2018-12-10 06:00] LABS: HEMATOCRIT 38.5 % (42.0-52.0); HEMOGLOBIN 12.5 g/dl (13.5-17.5); MEAN CORPUSCULAR HEMOGLOBIN 32.6 pg (27.0-33.0); MEAN CORPUSCULAR HGB CONC 32.5 g/dl (32.0-36.5); MEAN CORPUSCULAR VOLUME 100.5 fl (80.0-96.0); PLATELET COUNT, AUTOMATED 259 10^3/uL (150-450); RED BLOOD COUNT 3.83 10^6/uL (4.30-6.10); WHITE BLOOD COUNT 9.1 10^3/uL (4.0-10.0)
[2018-12-10 06:32] LABS: BLOOD UREA NITROGEN 14 MG/DL (7-18); CALCIUM LEVEL 8.6 MG/DL (8.8-10.2); CARBON DIOXIDE LEVEL 24 MEQ/L (21-32); CHLORIDE LEVEL 112 MEQ/L (98-107); GLOMERULAR FILTRATION RATE > 60.0 (>35); GLUCOSE, FASTING 90 MG/DL (70-100); MAGNESIUM LEVEL 2.3 MG/DL (1.8-2.4); POTASSIUM SERUM 4.1 MEQ/L (3.5-5.1); SODIUM LEVEL 141 MEQ/L (136-145)
[2018-12-10 06:35] LABS: INR 1.04; PROTHROMBIN TIME 13.7 SECONDS (12.1-14.4)
[2018-12-10] MEDS: CLOPIDOGREL 75 MG TAB PO SCH (08:23)
[2018-12-10] MEDS: NEOSPORIN TOP OINT 15GM TOP SCH (08:23)
[2018-12-10] MEDS: DIGOXIN 0.125 MG TAB PO SCH (08:23)
[2018-12-10] MEDS: VANCOMYCIN HCL 1,000 MG, VIAL MATE ADAPTER 1 EACH in D5W 250 ML IV SCH ×2 (08:23→21:14)
[2018-12-10] MEDS: METOPROLOL SUCC (TopROL XL) 100MG *XL* TAB PO SCH ×2 (08:24→21:16)
[2018-12-10] MEDS: TAMSULOSIN 0.4 MG CAP PO SCH (08:24)
[2018-12-10] MEDS: MULTIVITAMINS/MINERALS THERAP 1 TAB PO SCH (08:24)
[2018-12-10] MEDS: POTASSIUM CHLORIDE 10 MEQ SR TABLET PO SCH ×2 (08:24→21:14)
[2018-12-10] MEDS: ACETAMINOPHEN 500 MG TAB PO PRN ×2 (08:25→21:15)
[2018-12-10 09:16] LABS: ERYTHROCYTE SEDIMENTATION RATE 71 mm/hr (0-30)
--- NOTE | 2018-12-10 10:02 | IPN ---
DATE: 12/10/2018 Mr. Gardiner is scheduled to have his transmetatarsal amputation later this evening. Since yesterday, he has not had any major events. He was able to sleep without difficulty after it took him a long time to actually fall asleep, but he did not have any paroxysmal nocturnal dyspnea (PND). He feels that his shortness of breath this morning is to his baseline. No chest pain. Blood pressure 115/56. Heart rate has been consistently in the 90s. He is afebrile. Saturation is 96% on 2 liters supplemental oxygen. His fluid balance was poorly documented. There has not been any weight. Especially of his output, we really do not have any idea. He is alert and oriented and appropriate. His jugular venous pulse (JVP) does not appear high, maybe 2 or 3 cm above the clavicle. Lungs are clear. Good air movement. No wheezing, crackles or rhonchi. Heart exam reveals irregular rhythm, slightly tachycardiac. No gallop. Faint murmur at the base. Abdomen is soft. There is about 1+ peripheral edema. His right foot is wrapped up. Laboratory-rader: CBC: Hemoglobin 12.5, hematocrit 38, platelet count 259,000, WBC count 9.1. Basic metabolic panel reveals sodium 141, potassium 4.1, BUN 14, creatinine 0.8 and glucose 90. CRP is down to 10.8. N-terminal pro BNP yesterday was 4300. Blood culture from the 7th is growing gram-positive cocci in clusters. I still do not see any identification. All other blood cultures have been negative. ASSESSMENT/PLAN: Mr. Gardiner is an 83-year-old man who has ischemic cardiomyopathy and chronic atrial fibrillation. His ejection fraction is around 30%. He presented with infected right foot and underwent revascularization by Dr. Florence with [employer] to right lower extremity and now is scheduled to have transmetatarsal amputation of his right foot later today. From a cardiac perspective, he can proceed. He certainly is a higher risk than average on account of numerous risk factors that include his advanced age, cardiomyopathy, coronary artery disease and peripheral vascular disease. From a medical point of view, he seems to be reasonably well optimized. After the surgery is performed, I intend to introduce back his diuretics, which he has not been receiving. Otherwise, will continue his chronic medications. Will restart anticoagulation after the surgery is accomplished in the form of Coumadin. He is now on aspirin and Plavix. I will discontinue the aspirin when the anticoagulation is restarted, as the risk of triple therapy is considerable.
--- NOTE | 2018-12-10 12:27 | IPNPDOC ---
Text Note Date of Service The patient was seen on 12/10/18. NOTE SUBJECTIVE: Patient seen and examined at bedside. Complained of chest pain overnight and shortness of breath. No clear modifying factors regarding his chest pain. States his shortness of breath may have improved when sitting up. OBJECTIVE: GENERAL: NAD, sitting comfortably at edge of bed, disheveled HEENT: NC/AT, EOMI CARDIOVASCULAR: +S1S2, irregular LUNGS: CTA B/L ABDOMEN: Soft, NT, ND EXTREMITIES: RLE dressings in place, LUE cast in place ASSESSMENT AND PLAN: 83 yo male for necrotic toes, possible amputation complicated with afib/RVR. #Necrotic toes/PVD - podiatry on consult - assistance appreciated - vascular consulted - angiogram revealed severe occlusive atherosclerotic disease RLE, s/p stent right SFA and popliteal artery; cleared by vascular for planned TMA - medically optimized/risk stratified - cardiology - warfarin on hold, hold Lovenox today for planned surgery - Zosyn discontinued, vanco day #5 - ID consultation appreciated - planned TMA today #bacteremia - repeat cultures pending - as per above - receiving vancomycin - ESR slightly rising; CRP trending down #Afib/RVR - Lovenox for a/c - hold 12/10/18 am dose - rate not optimally controlled - possibly secondary to infection? - continue digoxin, metoprolol - plan to transition to coumadin post-op #LUE cast - ortho c/s appreciated #CAD - s/p 5 stents - 2010 at [facility] - continue ASA/Plavix for now, plan to d/c ASA and transition to warfarin after surgery - follow as per cardiology #CHF - compensated #GERD - continue PPI #PVD - s/p right third digit amputation - January 2018 - as above - severe occlusive atherosclerotic disease on angiogram - s/p stent; needs plavix 6mths as per vascular #CKD III # DVT prophylaxis. The patient is currently on therapeutic Lovenox. #CODE STATUS - discussed advanced directives at length at bedside; he has opted for DNR/DNI, MOLST form completed Dispo: f/u blood cultures; plan for TMA today VS,Fishbone, I+O VS, Fishbone, I+O Laboratory Tests 12/10/18 05:36 Red Blood Count 3.83 L, Mean Corpuscular Volume 100.5 H, Mean Corpuscular Hemoglobin 32.6, Mean Corpuscular Hemoglobin Concent 32.5, Red Cell Distribution Width 14.6 H, Calcium Level 8.6 L Vital Signs Date Time Temp Pulse Resp B/P (MAP) Pulse Ox O2 Delivery O2 Flow Rate FiO2 12/10/18 08:24 95 115/56 12/10/18 06:00 97.8 18 96 I&O- Last 24 Hours up to 6 AM 12/10/18 06:00 Intake Total 2230 ml Balance 2230 ml SHANTEL HUYNH MD Dec 10, 2018 12:27
[2018-12-10] MEDS ORDERED: LIDOCAINE 2% MDV 20 ML VIAL As Ordered ONE (14:20)
[2018-12-10] MEDS ORDERED: BUPIVACAINE HCL 0.5% 10 ML VIAL As Ordered ONE (14:20)
[2018-12-10] MEDS ORDERED: fentaNYL 100 MCG/2 ML INJECTION (J3010) As Ordered ONE (15:48)
[2018-12-10] MEDS ORDERED: PROPOFOL 200 MG/20 ML VIAL As Ordered ONE (15:48)
[2018-12-10] MEDS ORDERED: LIDOCAINE 2% INJ 100 MG/5 ML SDV (FOR ANES.) As Ordered ONE (15:48)
[2018-12-10] MEDS ORDERED: MIDAZOLAM INJ 2 MG/2 ML VIAL (J2250) As Ordered ONE (15:49)
[2018-12-10] MEDS ORDERED: VANCOMYCIN 1000 MG/20 ML VIAL (J3370) As Ordered ONE (17:18)
[2018-12-10] MEDS ORDERED: ONDANSETRON 4MG/2ML VIAL (J2405) As Ordered ONE (17:37)
--- NOTE | 2018-12-10 18:03 | IPN ---
DATE: 12/09/2018 CHIEF COMPLAINT: Patient seen today for evaluation of his right foot. The patient had an angioplasty on his right lower extremity by Dr. Florence. He has necrotic changes of the 2nd and 4th toe, and he was tentatively scheduled for a transmetatarsal amputation of the right foot. Evaluation of the patient's foot today: The bandage was removed, revealing a full thickness ulceration between the 2nd and 4th toes that extends to tendon. The 2nd and 4th toe have dark changes and loss of the distal aspect of the digits, which are firm to the touch. His pedal pulses are not palpable. 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 PLAN: We discussed with the patient a transmetatarsal amputation of the right foot tomorrow. The patient will be nothing by mouth after breakfast, hold heparin after his 6:00 a.m. dose. This will be closed over antibiotic beads with TLS drain. His questions were answered and consent was signed.
[2018-12-10] MEDS ORDERED: fentaNYL 100 MCG/2 ML INJECTION (J3010) IV PRN (19:00)
[2018-12-10] MEDS ORDERED: ONDANSETRON 4MG/2ML VIAL (J2405) IV PRN (19:00)
--- NOTE | 2018-12-10 19:56 | REP ---
Right foot intraoperative fluoroscopic views: There are five views. There is amputation of all five digits at the at the metatarsal neck level. Electronically Signed by Suman Ramírez MD 12/10/2018 07:47 P
[2018-12-10] MEDS: OMEPRAZOLE 20 MG CAP PO SCH (21:14)
[2018-12-10] MEDS: DOCUSATE SODIUM 100 MG CAP PO SCH (21:14)
[2018-12-10] MEDS: ATORVASTATIN 20 MG TAB PO SCH (21:14)
[2018-12-10] MEDS: ASPIRIN 81 MG ENTERIC TAB PO SCH (21:15)
[2018-12-11] MEDS ORDERED: ENOXAPARIN 100MG/1ML SYRINGE (J1650) SC SCH (00:30)
[2018-12-11 02:00] VITALS: BP 117/63
[2018-12-11 06:00] VITALS: BP 125/82
[2018-12-11] MEDS: ENOXAPARIN 100MG/1ML SYRINGE (J1650) SC SCH ×3 (06:00→18:17)
[2018-12-11] MEDS: POTASSIUM CHLORIDE 10 MEQ SR TABLET PO SCH ×2 (08:22→21:10)
[2018-12-11] MEDS: CLOPIDOGREL 75 MG TAB PO SCH (08:22)
[2018-12-11] MEDS: TAMSULOSIN 0.4 MG CAP PO SCH (08:22)
[2018-12-11] MEDS: MULTIVITAMINS/MINERALS THERAP 1 TAB PO SCH (08:23)
[2018-12-11] MEDS: METOPROLOL SUCC (TopROL XL) 100MG *XL* TAB PO SCH ×2 (08:23→21:11)
[2018-12-11] MEDS: VANCOMYCIN HCL 1,000 MG, VIAL MATE ADAPTER 1 EACH in D5W 250 ML IV SCH ×2 (08:23→21:10)
[2018-12-11] MEDS: DIGOXIN 0.125 MG TAB PO SCH (08:23)
--- NOTE | 2018-12-11 09:01 | IPN ---
DATE: 12/11/2018 Mr. Gardiner had his transmetatarsal amputation of right foot yesterday evening. It was uneventful and he tolerated the procedure well. This morning he is a little cantankerous and he is demanding that he gets some bernal, which he has not had since he came to the hospital. Considering the fact that he is an 83-year-old man, it is not likely he is going to change his habits very much, so I will let him have some regular diet just with sodium restrictions. He denies any significant dyspnea or chest discomfort but obviously has not done much activity. Vital signs this morning: Blood pressure 125/82, heart rate remains around 100 beats per minute. He is afebrile. Saturation is 96% on 2 liters of oxygen. Fluid balance is again poorly documented because he is incontinent in his underwear. He is alert and oriented even though he reports that he was confused last night. CVP is hard to clinical transplant coordinator but I would say about 2 to 3 cm above clavicle. Lungs are reasonably clear with good air movement. Heart exam is irregularly irregular rhythm without gallop or rub. Abdomen is soft. There is about 1+ edema bilaterally. Right foot is bandaged. LABORATORY: Hemoglobin 12.9, hematocrit 38, platelet count 259 and his ESR is 71. Basic metabolic panel is normal. CRP is 10.8. ASSESSMENT/PLAN: Mr. Gardiner is an 83-year-old man who has ischemic cardiomyopathy with ejection fraction around 30-35% and chronic atrial fibrillation. He presented with infected right foot and underwent transmetatarsal amputation yesterday evening. From cardiac perspective, he is volume overloaded, but I am somewhat reluctant to give him diuretics now when he just had his foot amputated so he cannot stand and with his incontinence it would create a problem of different thoughts so instead I am going to limit his fluid intake to 1800 mL a day and I asked the nurse to obtain daily weight. We will see as his mobility hopefully will start to increase if we will have to start diuretics. Hopefully, tomorrow or the day after tomorrow. Otherwise, his atrial fibrillation is reasonably rate-controlled, I would hope that it will get improved once we get some of the fluid out of him and wants to the infection is controlled hopefully the irritation from the inflammation will stop as well. I am hoping that his postoperative course is otherwise going to be uneventful. He will continue his aspirin and Lovenox but we should switch him back to apixaban as felt safe from surgical perspective. I do not want to predict how long he will need stay in the hospital but I am somewhat reluctant to consider pushing for early discharge as he is quite debilitated.
[2018-12-11 10:00] VITALS: BP 111/59
[2018-12-11] MEDS: ACETAMINOPHEN 500 MG TAB PO PRN ×2 (10:51→21:11)
[2018-12-11 14:00] VITALS: BP 110/57
[2018-12-11 16:28] LABS: HEMATOCRIT 36.1 % (42.0-52.0); HEMOGLOBIN 11.8 g/dl (13.5-17.5); MEAN CORPUSCULAR HEMOGLOBIN 32.7 pg (27.0-33.0); MEAN CORPUSCULAR HGB CONC 32.7 g/dl (32.0-36.5); PLATELET COUNT, AUTOMATED 263 10^3/uL (150-450); RED BLOOD COUNT 3.61 10^6/uL (4.30-6.10); WHITE BLOOD COUNT 9.1 10^3/uL (4.0-10.0)
--- NOTE | 2018-12-11 16:44 | IPN ---
DATE: 12/10/2018 Mr. Gardiner was unhappy today going to the operating room for a transmetatarsal amputation. This was done by Dr. Noriega this afternoon. He had a right lower extremity angioplasty done by Dr. Florence and has necrotic changes in 2nd and 4th toe. He denied having any fever or chills. He has finished 6 days of IV Zosyn and currently on IV vancomycin. He still has mildly erythematous leg below the knee, mostly anteriorly on the jones and necrotic 2nd and 4th toe. On physical exam, he has stage IV ulceration with necrotic toes of 2nd and 4th, +1 pitting edema of the leg, erythema on the leg. There is also absent sensation to the foot bilaterally. Pedal pulses are not palpable. IMPRESSION: 1. Stage IV ulceration of 2nd and 4th toe, on IV vancomycin and Zosyn for total of 6 days and currently only on IV vancomycin. 2. Peripheral vascular disease status post angioplasty. 3. Necrotic toes. The patient will have a transmetatarsal amputation today. PLAN: Continue IV vancomycin 5 days postoperative.
[2018-12-11 16:45] LABS: BLOOD UREA NITROGEN 15 MG/DL (7-18); CALCIUM LEVEL 7.9 MG/DL (8.8-10.2); CARBON DIOXIDE LEVEL 25 MEQ/L (21-32); CHLORIDE LEVEL 108 MEQ/L (98-107); GLOMERULAR FILTRATION RATE > 60.0 (>35); GLUCOSE, FASTING 137 MG/DL (70-100); MAGNESIUM LEVEL 2.2 MG/DL (1.8-2.4); POTASSIUM SERUM 4.4 MEQ/L (3.5-5.1); SODIUM LEVEL 140 MEQ/L (136-145)
--- NOTE | 2018-12-11 16:56 | IPN ---
DATE: 12/11/2018 SUBJECTIVE: Patient is seen and examined in the room today. Patient does not have any acute complaints. During encounter, the patient is noted to have a soft and pepper bottle at his bedside. He stated that he does not like the hospital food because of the low salt content and long discussion occurred with the patient for the importance of the low salt diet in his situation. He stated he has very difficult time maintaining good oral intake with low salt diet. SUBJECTIVE: VITAL SIGNS: Temperature is 97.8, pulse 99, respirations 20, blood pressure 125/82, pulse oximetry is 96% with 2 liters oxygen. GENERAL: No sign of acute distress. Patient is alert and awake. HEENT: Normocephalic, atraumatic. CARDIOVASCULAR: Positive S1, S2. Irregularly irregular. LUNGS: Clear to auscultation bilaterally. ABDOMEN: Soft, nontender. EXTREMITIES: Right foot was wrapped with bandage. There are some chronic venous stasis changes bilateral lower extremities. 2+ pedal edema bilaterally. LABORATORY DATA: The most recent laboratory data showed WBC 9.1, hemoglobin 12.5, hematocrit 38.5, platelet count is 259. Sodium 141, potassium 4.1, chloride 112, carbon dioxide 24, BUN 14, creatinine 0.8, GFR greater than 60. Fasting glucose 90. Calcium 8.6. Magnesium 2.3. C-reactive protein 10.8. ASSESSMENT AND PLAN: 1. Right necrotic toe. Vascular surgery consulted. Angiogram reveals severe occlusive atherosclerotic disease in the right lower extremities, status post right popliteal artery and superficial femoral artery (SFA) stent placement. Podiatry consulted. Patient had toe amputations. Patient is currently on vancomycin. 2. Peripheral vascular disease. Aspirin, Lipitor. Plavix. 3. Atrial fibrillation (a-fib) with rapid ventricular response (RVR). Lovenox is on hold for the procedure. Currently rate in satisfactory range, on digoxin, on metoprolol. 4. Left upper extremity cast. Orthopedic team was previously consulted. Coronary artery disease, status post right stent. Aspirin and Plavix. Statin. Patient is not very complaint with his low salt diet. 5. Congestive heart failure. Continue to monitor patient's fluid status. 6. History of esophageal reflux disease. On Prilosec. 7. Chronic kidney disease, stage III. 8. Peripheral vascular disease, status post right toe amputations. Status post stent placement. 9. Deep venous thrombosis (DVT) prophylaxis. Will restart Lovenox at appropriate time.
--- NOTE | 2018-12-11 17:51 | CR ---
DATE OF CONSULTATION: 12/10/2018 REASON FOR CONSULTATION: Right lower extremity cellulitis with necrotic toes. HISTORY OF PRESENT ILLNESS: Mr. Gardiner is an 83-year-old gentleman with a history of peripheral vascular disease, hypertension, hyperlipidemia, and chronic kidney disease who underwent a 3rd toe amputation in January [address] Noriega. Since then the wound has not healed. The patient was came in with complaints of 2-3 days of fever and chills. He had temperatures up to 101.3. He was noted to have purulent discharge from the 3rd toe ulceration site, where the toe was amputated. He was started on intravenous (IV) vancomycin and Zosyn. Dr. Noriega was consulted and recommended a transmetatarsal amputation. The patient also was seen by Dr. Florence to clear him from a vascular standpoint. Dr. Florence did an arterial Doppler study, which shows severe atherosclerotic disease of proximal superficial femoral artery and multilevel stenosis. Dr. Florence recommended angioplasty, which was done. The patient is scheduled to have transmetatarsal amputation on Monday. Foot MRI during this hospitalization done on December 03 shows amputation of the 3rd digit at the metatarsophalangeal (MTP) joint and no evidence of abscess or osteomyelitis seen in the other toes. The patient states his fever and chills have resolved. He has no pain in his feet, as he has severe peripheral neuropathy. PAST MEDICAL HISTORY: Significant for: 1. Hypertension. 2. Hyperlipidemia. 3. Chronic kidney disease. 4. Coronary artery disease status post five stent placement. 5. Congestive heart failure. 6. Gastroesophageal reflux disease. 7. Atrial fibrillation. 8. Gout. ALLERGIES: OXYCODONE. FAMILY HISTORY: Nonrevealing. SOCIAL HISTORY: Tobacco abuse, three to four cigarettes a day. Alcohol occasionally. He denies any other drug use. MEDICATIONS: - Tylenol as needed - vancomycin 1 gram intravenous (IV) every 18 hours - Zosyn 3.375 grams IV every 6 hours - warfarin 3 mg by mouth daily - Colace 100 mg by mouth at bedtime - metoprolol 100 mg by mouth twice a day - Flomax 0.4 mg by mouth daily - digoxin 0.125 mg daily - potassium chloride 20 mEq by mouth twice a day - multivitamin one tablet by mouth daily ALLERGIES: OXYCODONE. PHYSICAL EXAMINATION: Elderly gentleman in no acute distress. Irritated and angry about his food restriction. HEART: Irregularly regular. Normal S1-S2 with a systolic ejection murmur. LUNGS: Diminished breath sounds bilaterally. ABDOMEN: Soft, nontender. No hepatosplenomegaly. EXTREMITIES: Bilateral pitting edema, right more than left. Right lower extremity has erythema extending to the jones. He has an amputation of the 3rd toe with necrosis of 2nd and 4th toe. Pulses could be evaluated. Left hand in a cast. Patient with navicular bone fracture. NEUROLOGIC: Alert, oriented times three. Motor strength is normal. LABORATORY DATA On December 07, white count 9.3, hemoglobin 12.1, hematocrit 36.3, platelets 158. ESR 65. Sodium 140, potassium 3.9, chloride 110, bicarbonate 24, BUN 13, creatinine 0.89, glucose 112, calcium 8.3, magnesium 2.3. CRP 18.7, on December 02 was 13. Wound cultures had Alcaligenes faecalis, Enterococcus faecalis, staphylococcus epidermidis. Blood cultures on December 02 were negative. Blood cultures on December 06, one out of two have gram-positive cocci in clusters, most likely a contaminant. December 08 blood cultures we ordered were negative. IMPRESSION: This is a 89-year-old gentleman with a history of peripheral vascular disease, admitted with fever, chills, and right lower extremity cellulitis involving the foot and leg. Cultures were positive for Alcaligenes faecalis, Enterococcus (E) faecalis, Staphylococcus epidermidis. The patient has been on broad-spectrum antibiotic with IV vancomycin and Zosyn. Fever has resolved. He has received 6 days total of IV combination. At this point IV vancomycin was continued, and Zosyn was discontinued. Agree with current management. PLAN: Agree with current management. Transmetatarsal amputation on Monday after preoperative clearance. Continue IV vancomycin for 5 days postoperatively. Monitor fever, CRP, and sedimentation rate. Intraoperative wound cultures will be done.
[2018-12-11] MEDS: WARFARIN SOD 3 MG TAB PO SCH (18:16)
[2018-12-11] MEDS: ATORVASTATIN 20 MG TAB PO SCH (21:10)
[2018-12-11] MEDS: ASPIRIN 81 MG ENTERIC TAB PO SCH (21:10)
[2018-12-11] MEDS: DOCUSATE SODIUM 100 MG CAP PO SCH (21:10)
[2018-12-11] MEDS: OMEPRAZOLE 20 MG CAP PO SCH (21:10)
[2018-12-11 22:00] VITALS: BP 148/67
[2018-12-12] MEDS: ENOXAPARIN 100MG/1ML SYRINGE (J1650) SC SCH ×2 (05:01→17:11)
[2018-12-12 06:00] VITALS: BP 119/53
[2018-12-12 06:43] LABS: HEMATOCRIT 34.6 % (42.0-52.0); HEMOGLOBIN 11.6 g/dl (13.5-17.5); MEAN CORPUSCULAR HEMOGLOBIN 33.1 pg (27.0-33.0); MEAN CORPUSCULAR HGB CONC 33.5 g/dl (32.0-36.5); MEAN CORPUSCULAR VOLUME 98.9 fl (80.0-96.0); PLATELET COUNT, AUTOMATED 251 10^3/uL (150-450); WHITE BLOOD COUNT 7.7 10^3/uL (4.0-10.0)
[2018-12-12 07:03] LABS: BLOOD UREA NITROGEN 15 MG/DL (7-18); CALCIUM LEVEL 8.2 MG/DL (8.8-10.2); CARBON DIOXIDE LEVEL 25 MEQ/L (21-32); CHLORIDE LEVEL 109 MEQ/L (98-107); CREATININE FOR GFR 0.76 MG/DL (0.70-1.30); GLOMERULAR FILTRATION RATE > 60.0 (>35); GLUCOSE, FASTING 89 MG/DL (70-100); MAGNESIUM LEVEL 2.3 MG/DL (1.8-2.4); POTASSIUM SERUM 3.9 MEQ/L (3.5-5.1); SODIUM LEVEL 141 MEQ/L (136-145)
[2018-12-12] MEDS: MULTIVITAMINS/MINERALS THERAP 1 TAB PO SCH (09:04)
[2018-12-12] MEDS: CLOPIDOGREL 75 MG TAB PO SCH (09:04)
[2018-12-12] MEDS: VANCOMYCIN HCL 1,000 MG, VIAL MATE ADAPTER 1 EACH in D5W 250 ML IV SCH ×2 (09:04→20:56)
[2018-12-12] MEDS: DIGOXIN 0.125 MG TAB PO SCH (09:04)
[2018-12-12] MEDS: TAMSULOSIN 0.4 MG CAP PO SCH (09:04)
[2018-12-12] MEDS: METOPROLOL SUCC (TopROL XL) 100MG *XL* TAB PO SCH ×2 (09:05→20:55)
[2018-12-12] MEDS: POTASSIUM CHLORIDE 10 MEQ SR TABLET PO SCH ×2 (09:05→20:53)
[2018-12-12] MEDS: FERROUS GLUCONATE 324 MG TAB PO SCH (09:05)
--- NOTE | 2018-12-12 11:38 | RO ---
DATE OF SURGERY: 12/10/2018 PREOPERATIVE DIAGNOSIS: Necrotic 2nd and 4th toes with stage IV ulceration and infection, right foot. POSTOPERATIVE DIAGNOSIS: Necrotic 2nd and 4th toes with stage IV ulceration and infection, right foot. PROCEDURE PERFORMED: Transmetatarsal amputation, right foot. SURGEON: Luis Noriega DPM CAR ICER: None. HEMOSTASIS: None. DRAINS UTILIZED: TLS drain. IMPLANTS UTILIZED: Vancomycin-impregnated beads. ESTIMATED BLOOD LOSS: 100 mL. DESCRIPTION OF OPERATION: On 12/10/2018, this 83-year-old male was taken from his hospital room to the operating room and placed on the operating table in a supine position. Following the induction of intravenous (IV) sedation and local and regional anesthesia, the right lower extremity was prepped and draped in the usual aseptic manner. Attention was directed to the patient's right foot. There was noted to be a necrotic 2nd and 4th toes with a stage IV wound with infection. At this time, a modified fishmouth-type incision was placed just proximal to the toes extending onto the plantar surface, crossing through the open ulcer, debriding all necrotic tissue with a V-shape dip into the incision margin and then extending off into the plantar surface of the foot inferior to the 5th toe. Dissection was then carried straight down to the metatarsophalangeal joints, and all the toes were disarticulated. The sesamoids were then removed. The dorsal skin was retracted; and utilizing a power saw, osteotomies were performed just at the anatomic necks of the metatarsals, angled slightly in a plantar direction, and utilizing a C-arm to create a well-established parabola to the foot. All bleeders as encountered were electrocoagulated. The redundant flesh was then skived with a 10 blade. Utilizing 3 liters of dilute vancomycin solution with a low-pressure pulse lavage system, the foot was irrigated. A TLS drain was then placed through the wound and tied to the skin with 3-0 nylon suture. The skin was closed with francy. ESTIMATED BLOOD LOSS: Was approximately 100 mL. A dry sterile dressing was applied to the patient's right foot, consisting of Adaptic, 4 x 4's, ABDs, Kerlix, and an Scott wrap under low pressure. The patient, having apparently tolerated the surgical procedure well, was taken to the recovery room for further monitoring by the anesthesia department.
[2018-12-12 14:00] VITALS: BP 98/64
[2018-12-12] MEDS: WARFARIN SOD 3 MG TAB PO SCH (17:11)
--- NOTE | 2018-12-12 19:48 | IPNPDOC ---
Text Note Date of Service The patient was seen on 12/12/18. NOTE SUBJECTIVE: Patient is seen and examined in the room today. Patient does not have any acute complaints. He still does not like hospital food. No fever or chill. SUBJECTIVE: VITAL SIGNS: Listed below. GENERAL: No sign of acute distress. Patient is alert and awake. HEENT: Normocephalic, atraumatic. CARDIOVASCULAR: Positive S1, S2. Irregularly irregular. LUNGS: Clear to auscultation bilaterally. ABDOMEN: Soft, nontender. EXTREMITIES: Right foot was wrapped with bandage. There are some chronic venous stasis changes bilateral lower extremities. positive pedal edema bilaterally. LABORATORY DATA: Listed below. ASSESSMENT AND PLAN: #. Right necrotic toe. - Vascular surgery consulted. Angiogram reveals severe occlusive atherosclerotic disease in the right lower extremities, status post right popliteal artery and superficial femoral artery (SFA) stent placement. - Podiatry consulted. Patient had toe amputations. Patient is currently on vancomycin. - Start physical therapy. #. Atrial fibrillation (a-fib) with rapid ventricular response (RVR). - On Lovenox. Restarted warfarin. Heart rate in satisfactory range, on digoxin, on metoprolol. #. Peripheral vascular disease. Aspirin, Lipitor. Plavix. #. Left upper extremity cast. Orthopedic team was previously consulted. # Coronary artery disease, status post right stent. - On Aspirin and Plavix and Statin. Patient is not very complaint with his low salt diet. #. Congestive heart failure. Continue to monitor patient's fluid status. #. History of esophageal reflux disease. On Prilosec. #. Chronic kidney disease, stage III. #. Peripheral vascular disease, status post right toe amputations. Status post stent placement. #. Deep venous thrombosis (DVT) prophylaxis. On Lovenox. VS,Fishbone, I+O VS, Fishbone, I+O Laboratory Tests 12/12/18 06:24 Red Blood Count 3.50 L, Mean Corpuscular Volume 98.9 H, Mean Corpuscular Hemoglobin 33.1 H, Mean Corpuscular Hemoglobin Concent 33.5, Red Cell Distribution Width 14.5, Calcium Level 8.2 L Vital Signs Date Time Temp Pulse Resp B/P (MAP) Pulse Ox O2 Delivery O2 Flow Rate FiO2 12/12/18 14:00 98.4 96 16 98/64 (75 95 12/11/18 06:00 2.0 12/10/18 18:45 Nasal Cannula I&O- Last 24 Hours up to 6 AM 12/12/18 06:00 Intake Total 1390 ml Output Total 5 ml Balance 1385 ml DEEPAK MAGANA DO Dec 12, 2018 19:48
--- NOTE | 2018-12-12 19:54 | REP ---
RIGHT FOOT, FOUR VIEWS: Four views of the right foot are performed. Patient has had transmetatarsal amputation distally. There are adjacent radiodense implants in the soft tissues as well as metallic skin francy. There are mild degenerative changes of the intertarsal and tarsal/metatarsal joints. There is mild inferior calcaneal spurring. Electronically Signed by Suman Esquivel MD 12/13/2018 09:13 A
[2018-12-12] MEDS: ATORVASTATIN 20 MG TAB PO SCH (20:53)
[2018-12-12] MEDS: ASPIRIN 81 MG ENTERIC TAB PO SCH (20:53)
[2018-12-12] MEDS: DOCUSATE SODIUM 100 MG CAP PO SCH (20:54)
[2018-12-12] MEDS: OMEPRAZOLE 20 MG CAP PO SCH (20:54)
[2018-12-12] MEDS: EUCERIN 120GM CREAM TOP SCH (20:56)
[2018-12-12] MEDS: ACETAMINOPHEN 500 MG TAB PO PRN (20:59)
[2018-12-12 22:00] VITALS: BP 134/60
[2018-12-13 06:00] VITALS: BP 119/64
[2018-12-13] MEDS: ENOXAPARIN 100MG/1ML SYRINGE (J1650) SC SCH ×2 (06:00→17:11)
[2018-12-13 06:58] LABS: HEMATOCRIT 34.3 % (42.0-52.0); HEMOGLOBIN 11.3 g/dl (13.5-17.5); MEAN CORPUSCULAR HEMOGLOBIN 33.1 pg (27.0-33.0); MEAN CORPUSCULAR HGB CONC 32.9 g/dl (32.0-36.5); MEAN CORPUSCULAR VOLUME 100.6 fl (80.0-96.0); PLATELET COUNT, AUTOMATED 269 10^3/uL (150-450); RED BLOOD COUNT 3.41 10^6/uL (4.30-6.10); WHITE BLOOD COUNT 8.4 10^3/uL (4.0-10.0)
[2018-12-13 07:18] LABS: INR 1.12; PROTHROMBIN TIME 14.5 SECONDS (12.1-14.4)
[2018-12-13 07:23] LABS: BLOOD UREA NITROGEN 12 MG/DL (7-18); CALCIUM LEVEL 8.7 MG/DL (8.8-10.2); CARBON DIOXIDE LEVEL 25 MEQ/L (21-32); CHLORIDE LEVEL 109 MEQ/L (98-107); CREATININE FOR GFR 0.69 MG/DL (0.70-1.30); GLOMERULAR FILTRATION RATE > 60.0 (>35); GLUCOSE, FASTING 84 MG/DL (70-100); MAGNESIUM LEVEL 2.2 MG/DL (1.8-2.4); POTASSIUM SERUM 3.9 MEQ/L (3.5-5.1); SODIUM LEVEL 141 MEQ/L (136-145)
--- NOTE | 2018-12-13 08:00 | PHACANCOPD ---
PHARMACY VANCOMYCIN DOSING Pt Demographics Demographics Patient Age:83 , Weight:89.900 , Gender: male Adjusted Body Weight Date: 12/06/18, Adjusted Body Weight: Kg Vancomycin Vancomycin indication: NONHEALING RIGHT 3RD TOE AMPUTATION SITE Vancomycin Target Ranges: 10-20 mcg/ml Vancomycin Load Y/N: Yes Load Dose Date Time Vancomycin Load Dose: 2g Date: 12/06/18 Time: 0730 Vancomycin Dose Date: 12/06/18. Current Vancomycin Dose: [1g IVQ18H] Intermittent Dosing?: No Labs Micro Microbiology 12/08/18 Blood Culture - Preliminary, Resulted No Growth after 72 hours. All specime... 12/08/18 Blood Culture - Preliminary, Resulted No Growth after 72 hours. All specime... 12/06/18 Blood Culture - Final, Complete NO GROWTH AFTER 5 DAYS 12/06/18 Blood Culture - Final, Complete NO GROWTH AFTER 5 DAYS 12/07/18 MRSA Screen - Final, Complete 12/10/18 Gram Stain - Final, Complete 12/10/18 Wound Culture - Final, Complete Stenotrophomonas Maltophilia Enterococcus Faecalis Staphylococcus Epidermidis Creatinine Clearance Date:12/06/18. Est Creatinine Clearance: [~65 ml/min]. Pending Labs Vancomycin trough scheduled 12/07/18 @2000 Assessment and Plan Maintaining Current Dose?: Yes Reason for dose change: No Dose Change Pharmacist Note Pharmacist Note 12/13/18: Vancomycin trough level yesterday resulted therapeutic at 15.3mcg/ml. Scr remains stable at 0.69 today from 0.9 at the start of therapy. We will continue the patient on his current regimen of 1g IV Q12H. We will continue to monitor and draw further levels if needed. 12/09/18: Trough today resulted at 16.4mcg/ml. This is within our goal range so we will continue the current dose of Vanco 1G IV Q12H@2100. We will continue to monitor and adjust dose as needed. Date: 12/06/18. Pharmacist note: Day #1 empiric vancomycin initiated with a 2g loading dose, followed by a maintenance regimen of 1g IV Q18H for the treatment of a nonhealing right 3rd toe amputation site. The patient is febrile and WBC is slightly elevated. ESR was elevated on admit. Wound culture grew e.faecalis, staph epi, and alcaligenes faecalis. Scr is currently WNL, but it is noted that the patient does have a hx of CKD stage III. A vancomycin trough has been scheduled to be drawn 12/07/18 @1999, prior to the 3rd dose. We will continue to monitor and make dose adjustments if needed. [facility] Dec 13, 2018 08:00
[2018-12-13] MEDS: METOPROLOL SUCC (TopROL XL) 100MG *XL* TAB PO SCH ×2 (08:37→22:04)
[2018-12-13] MEDS: TAMSULOSIN 0.4 MG CAP PO SCH (08:37)
[2018-12-13] MEDS: VANCOMYCIN HCL 1,000 MG, VIAL MATE ADAPTER 1 EACH in D5W 250 ML IV SCH ×2 (08:37→22:04)
[2018-12-13] MEDS: DIGOXIN 0.125 MG TAB PO SCH (08:38)
[2018-12-13] MEDS: POTASSIUM CHLORIDE 10 MEQ SR TABLET PO SCH ×2 (08:38→22:04)
[2018-12-13] MEDS: MULTIVITAMINS/MINERALS THERAP 1 TAB PO SCH (08:38)
[2018-12-13] MEDS: CLOPIDOGREL 75 MG TAB PO SCH (08:38)
[2018-12-13] MEDS: EUCERIN 120GM CREAM TOP SCH ×2 (08:38→22:05)
--- NOTE | 2018-12-13 08:54 | IPN ---
DATE: 12/13/2018 Mr. Gardiner has welcomed me with a slew of complaints about his diet as usual, but overall he has been doing well. He denies any dyspnea or chest discomfort. He started rehab yesterday, so far has not done very much. Vital signs this morning, blood pressure 119/64, heart rate has been from 80s to low 100s, he is afebrile, saturation 96% on room air. Fluid balance was poorly documented today. No weight is documented today yesterday it was 89.9 kg. He is alert and oriented and appropriate. His jugular venous pulse (JVP) is not high. Lungs are clear, actually good air movement. No wheezing, rhonchi or crackles. Heart exam reveals irregularly irregular rhythm. I do not appreciate any gallop, rub or murmur. Abdomen is soft. There is trace edema on both lower extremities. Laboratory-rader, hemoglobin 11.3, hematocrit 34, platelet count 169,000. Basic metabolic panel is normal. His INR is 1.1. ASSESSMENT: Mr. Gardiner is an 83-year-old man who has atrial fibrillation and ischemic heart disease who presented with infected toe and underwent transmetatarsal amputation of his right foot. From a cardiac perspective, he has done well. Atrial fibrillation is reasonably well rate controlled. Coumadin was restarted, even though he is not therapeutic as yet. Please do discontinue aspirin once his INR becomes therapeutic because the bleeding risk on triple therapy of aspirin, Plavix and warfarin is very high. Otherwise, I would continue his chronic medications. He seems slightly volume overloaded, but has been stable. I am afraid that giving him diuretics would just be complicated because of his incontinence and difficult mobility. I intend to see him in followup as an outpatient, but I will not keep seeing him in the hospital. Please call me if you have any further questions or concerns.
[2018-12-13 14:00] VITALS: BP 125/65
[2018-12-13] MEDS: WARFARIN SOD 3 MG TAB PO SCH (16:14)
--- NOTE | 2018-12-13 19:37 | IPNPDOC ---
Text Note Date of Service The patient was seen on 12/13/18. NOTE SUBJECTIVE: Patient is seen and examined in the room today. Patient does not have any acute complaints. No fever or chill. SUBJECTIVE: VITAL SIGNS: Listed below. GENERAL: No sign of acute distress. Patient is alert and awake. HEENT: Normocephalic, atraumatic. CARDIOVASCULAR: Positive S1, S2. Irregularly irregular. LUNGS: Clear to auscultation bilaterally. ABDOMEN: Soft, nontender. EXTREMITIES: Right foot was wrapped with bandage. There are some chronic venous stasis changes bilateral lower extremities. positive lower extremity edema bilaterally. LABORATORY DATA: Listed below. ASSESSMENT AND PLAN: #. Right necrotic toe. - Vascular surgery consulted. Angiogram reveals severe occlusive atherosclerotic disease in the right lower extremities, status post right popliteal artery and superficial femoral artery (SFA) stent placement. - Podiatry consulted. Patient had transmetatarsal amputation. Wound culture reviewed. Patient is currently on vancomycin. - Continue physical therapy. #. Atrial fibrillation (a-fib) with rapid ventricular response (RVR). - On Lovenox. Restarted warfarin. Will discontinue ASA when INR is therapeutic. - Heart rate in satisfactory range, on digoxin, on metoprolol. #. Peripheral vascular disease. Aspirin, Lipitor, Plavix. #. Left upper extremity cast. Orthopedic team was previously consulted. # Coronary artery disease, status post right stent. - On Aspirin and Plavix and Statin. Patient is not very complaint with his low salt diet. #. Congestive heart failure. Continue to monitor patient's fluid status. #. History of esophageal reflux disease. On Prilosec. #. Chronic kidney disease, stage III. #. Peripheral vascular disease, status post right transmetatarsal amputations. Status post stent placement. #. Deep venous thrombosis (DVT) prophylaxis. On Lovenox. VS,Fishbone, I+O VS, Fishbone, I+O Laboratory Tests 12/13/18 06:46 Red Blood Count 3.41 L, Mean Corpuscular Volume 100.6 H, Mean Corpuscular Hemoglobin 33.1 H, Mean Corpuscular Hemoglobin Concent 32.9, Red Cell Distribution Width 14.2, Calcium Level 8.7 L Vital Signs Date Time Temp Pulse Resp B/P (MAP) Pulse Ox O2 Delivery O2 Flow Rate FiO2 12/13/18 14:00 98.0 88 18 125/65 (85) 95 12/11/18 06:00 2.0 12/10/18 18:45 Nasal Cannula I&O- Last 24 Hours up to 6 AM 12/13/18 06:00 Intake Total 960 ml Output Total 75 ml Balance 885 ml DEEPAK MAGANA DO Dec 13, 2018 19:37
[2018-12-13 22:00] VITALS: BP 139/71
[2018-12-13] MEDS: ATORVASTATIN 20 MG TAB PO SCH (22:04)
[2018-12-13] MEDS: ASPIRIN 81 MG ENTERIC TAB PO SCH (22:04)
[2018-12-13] MEDS: OMEPRAZOLE 20 MG CAP PO SCH (22:04)
[2018-12-13] MEDS: DOCUSATE SODIUM 100 MG CAP PO SCH (22:04)
[2018-12-13] MEDS: ACETAMINOPHEN 500 MG TAB PO PRN (22:12)
[2018-12-14 06:00] VITALS: BP 143/78
[2018-12-14 06:03] LABS: HEMATOCRIT 34.5 % (42.0-52.0); HEMOGLOBIN 11.5 g/dl (13.5-17.5); MEAN CORPUSCULAR HEMOGLOBIN 32.7 pg (27.0-33.0); MEAN CORPUSCULAR HGB CONC 33.3 g/dl (32.0-36.5); PLATELET COUNT, AUTOMATED 306 10^3/uL (150-450); RED BLOOD COUNT 3.52 10^6/uL (4.30-6.10)
[2018-12-14] MEDS: ENOXAPARIN 100MG/1ML SYRINGE (J1650) SC SCH ×2 (06:16→17:15)
[2018-12-14 06:24] LABS: BLOOD UREA NITROGEN 10 MG/DL (7-18); CALCIUM LEVEL 8.6 MG/DL (8.8-10.2); CARBON DIOXIDE LEVEL 26 MEQ/L (21-32); CHLORIDE LEVEL 107 MEQ/L (98-107); CREATININE FOR GFR 0.72 MG/DL (0.70-1.30); GLOMERULAR FILTRATION RATE > 60.0 (>35); GLUCOSE, FASTING 84 MG/DL (70-100); INR 1.18; MAGNESIUM LEVEL 2.3 MG/DL (1.8-2.4); POTASSIUM SERUM 3.9 MEQ/L (3.5-5.1); PROTHROMBIN TIME 15.2 SECONDS (12.1-14.4); SODIUM LEVEL 140 MEQ/L (136-145)
[2018-12-14 08:42] VITALS: BP 138/58
[2018-12-14] MEDS: DIGOXIN 0.125 MG TAB PO SCH (09:47)
[2018-12-14] MEDS: CLOPIDOGREL 75 MG TAB PO SCH (09:47)
[2018-12-14] MEDS: MULTIVITAMINS/MINERALS THERAP 1 TAB PO SCH (09:48)
[2018-12-14] MEDS: METOPROLOL SUCC (TopROL XL) 100MG *XL* TAB PO SCH ×2 (09:48→20:08)
[2018-12-14] MEDS: TAMSULOSIN 0.4 MG CAP PO SCH (09:48)
[2018-12-14] MEDS: POTASSIUM CHLORIDE 10 MEQ SR TABLET PO SCH ×2 (09:49→20:08)
[2018-12-14] MEDS: VANCOMYCIN HCL 1,000 MG, VIAL MATE ADAPTER 1 EACH in D5W 250 ML IV SCH ×2 (10:09→20:07)
[2018-12-14] MEDS: ACETAMINOPHEN 500 MG TAB PO PRN ×2 (10:15→20:09)
[2018-12-14] MEDS: EUCERIN 120GM CREAM TOP SCH ×2 (10:17→20:09)
[2018-12-14 14:00] VITALS: BP 136/52
[2018-12-14] MEDS: WARFARIN SOD 3 MG TAB PO SCH (17:15)
--- NOTE | 2018-12-14 19:18 | IPNPDOC ---
Text Note Date of Service The patient was seen on 12/14/18. NOTE SUBJECTIVE: Patient is seen and examined in the room today. Patient thinks he is making some progression with physical therapy. No fever or chill. SUBJECTIVE: VITAL SIGNS: Listed below. GENERAL: No sign of acute distress. Patient is alert and awake. HEENT: Normocephalic, atraumatic. CARDIOVASCULAR: Positive S1, S2. Irregularly irregular. LUNGS: Clear to auscultation bilaterally. ABDOMEN: Soft, nontender. EXTREMITIES: Right foot was wrapped with bandage. Chronic venous stasis changes bilateral lower extremities. Positive lower extremity edema bilaterally. LABORATORY DATA: Listed below. ASSESSMENT AND PLAN: #. Right necrotic toe. - Vascular surgery consulted. Angiogram reveals severe occlusive atherosclerotic disease in the right lower extremities, status post right popliteal artery and superficial femoral artery (SFA) stent placement. - Podiatry consulted. Patient had transmetatarsal amputation. - Infectious disease consulted. Wound culture reviewed. On Levaquin. - Continue physical therapy. #. Atrial fibrillation (a-fib) with rapid ventricular response (RVR). - On Lovenox. Restarted warfarin. Will discontinue ASA when INR is therapeutic. - Heart rate in satisfactory range, on digoxin, on metoprolol. #. Peripheral vascular disease. Aspirin, Lipitor, Plavix. #. Left upper extremity cast. Orthopedic team was previously consulted. # Coronary artery disease, status post right stent. - On Aspirin and Plavix and Statin. Patient is not very complaint with his low salt diet. #. Congestive heart failure. Continue to monitor patient's fluid status. #. History of esophageal reflux disease. On Prilosec. #. Chronic kidney disease, stage III. #. Peripheral vascular disease, status post right transmetatarsal amputations. Status post stent placement. #. Deep venous thrombosis (DVT) prophylaxis. On Lovenox. VS,Fishbone, I+O VS, Fishbone, I+O Laboratory Tests 12/14/18 05:29 Red Blood Count 3.52 L, Mean Corpuscular Volume 98.0 H, Mean Corpuscular Hemoglobin 32.7, Mean Corpuscular Hemoglobin Concent 33.3, Red Cell Distribution Width 14.2, Calcium Level 8.6 L Vital Signs Date Time Temp Pulse Resp B/P (MAP) Pulse Ox O2 Delivery O2 Flow Rate FiO2 2/15/19 14:58 96 12/14/18 14:00 97.8 82 20 136/52 (80) 12/11/18 06:00 2.0 12/10/18 18:45 Nasal Cannula I&O- Last 24 Hours up to 6 AM 12/14/18 06:00 Intake Total 840 ml Balance 840 ml DEEPAK MAGANA DO Dec 14, 2018 19:18
[2018-12-14] MEDS: ASPIRIN 81 MG ENTERIC TAB PO SCH (20:07)
[2018-12-14] MEDS: OMEPRAZOLE 20 MG CAP PO SCH (20:08)
[2018-12-14] MEDS: ATORVASTATIN 20 MG TAB PO SCH (20:09)
[2018-12-14] MEDS: DOCUSATE SODIUM 100 MG CAP PO SCH (20:12)
[2018-12-14 22:00] VITALS: BP 114/62
[2018-12-14] MEDS ORDERED: CALCIUM CARBONATE 500 MG CHEW U/D PO PRN (22:00)
[2018-12-15] MEDS: ENOXAPARIN 100MG/1ML SYRINGE (J1650) SC SCH ×2 (05:35→18:39)
[2018-12-15] MEDS: LevoFLOXacin 750 MG TABLET PO SCH (05:35)
[2018-12-15 06:00] VITALS: BP 132/59
[2018-12-15 06:48] LABS: HEMATOCRIT 36.9 % (42.0-52.0); MEAN CORPUSCULAR HEMOGLOBIN 32.3 pg (27.0-33.0); MEAN CORPUSCULAR HGB CONC 32.5 g/dl (32.0-36.5); MEAN CORPUSCULAR VOLUME 99.5 fl (80.0-96.0); PLATELET COUNT, AUTOMATED 311 10^3/uL (150-450); RED BLOOD COUNT 3.71 10^6/uL (4.30-6.10); WHITE BLOOD COUNT 7.9 10^3/uL (4.0-10.0)
[2018-12-15 06:55] LABS: INR 1.42; PROTHROMBIN TIME 17.6 SECONDS (12.1-14.4)
[2018-12-15 07:12] LABS: BLOOD UREA NITROGEN 11 MG/DL (7-18); CALCIUM LEVEL 8.9 MG/DL (8.8-10.2); CARBON DIOXIDE LEVEL 28 MEQ/L (21-32); CHLORIDE LEVEL 107 MEQ/L (98-107); CREATININE FOR GFR 0.81 MG/DL (0.70-1.30); GLOMERULAR FILTRATION RATE > 60.0 (>35); GLUCOSE, FASTING 83 MG/DL (70-100); MAGNESIUM LEVEL 2.2 MG/DL (1.8-2.4); POTASSIUM SERUM 4.2 MEQ/L (3.5-5.1); SODIUM LEVEL 140 MEQ/L (136-145)
--- NOTE | 2018-12-15 07:57 | IPN ---
DATE OF SERVICE: 12/14/2018 Mr. Gardiner has no complaints today. He just complains of being tired as he woke up at 3:30 in the morning. He denies any fever or chills. No nausea, vomiting or diarrhea. He has urinary incontinence. On physical exam, temperature is 97.3, pulse 88, respirations 18, blood pressure 138/58, O2 sat 92% on room air. Right foot transmetatarsal amputation with [address] Wound looks like it is healing well. There is erythema along the dorsal aspect of the foot. Pulse is not palpable. No tenderness. No purulence. LABORATORY DATA: White count is 8, hemoglobin 11.5, hematocrit 34.5, platelets 306. Sodium 140, potassium 3.9, chloride 107, bicarb 26, BUN 10, creatinine 0.72, glucose 84, calcium 8.6, magnesium 2.3, CRP 10.5. Wound culture from 12/10 had moderate growth of Stenotrophomonas Enterococcus faecalis and staph epidermidis. IMPRESSION: 1. Osteomyelitis of the right foot status post transmetatarsal amputation. The patient on IV vancomycin postoperatively. Doing well currently day #5 postop. Due to persistent erythema and elevated CRP, will switch the patient to oral Levaquin for 10 days. Case discussed with Dr. Noriega who believes all the infected bone has been removed. 2. Peripheral vascular disease status post angioplasty by Dr. Florence. PLAN: Discontinue IV vancomycin and switch to oral Levaquin. Continue monitoring CBC, basic CRP weekly for the next couple of weeks.
--- NOTE | 2018-12-15 08:12 | IPN ---
DATE: 12/14/2018 CHIEF COMPLAINT: Patient seen at bedside for evaluation of his right foot status-post transmetatarsal amputation. Patient denies shortness of breath or chest pain. Patient's dressing was removed and the wound is well coapted and maintained with francy. There are no signs of dehiscence at the right foot. X-rays were reviewed revealing a transmetatarsal amputation with antibiotics beads in place with staple closure. No air in the subcutaneous tissues and no signs of continued osteomyelitis. Patient's bacteriology report reveals growth of enterococcus faecalis and streptococcus epidermidis. Patient's antibiotic coverage was being obtained through Dr. Guevara. ASSESSMENT: Status-post transmetatarsal amputation right foot. PLAN: Dry sterile dressing was applied. Patient may ambulate with surgical shoe with walker and try to limit weight to the posterior heel. Patient will be seen later in the week after further evaluation. Discussed with the patient leaving the francy in place for approximately. Patient can change his bandage as needed, however if there is no discharge we discussed with the patient that he can just leave his bandage on and change as the bandage gets soiled or there is discharge noted. His questions were answered.
[2018-12-15] MEDS: DIGOXIN 0.125 MG TAB PO SCH (08:48)
[2018-12-15] MEDS: TAMSULOSIN 0.4 MG CAP PO SCH (08:49)
[2018-12-15] MEDS: POTASSIUM CHLORIDE 10 MEQ SR TABLET PO SCH ×2 (08:49→21:11)
[2018-12-15] MEDS: METOPROLOL SUCC (TopROL XL) 100MG *XL* TAB PO SCH ×2 (08:50→21:11)
[2018-12-15] MEDS: CLOPIDOGREL 75 MG TAB PO SCH (08:51)
[2018-12-15] MEDS: EUCERIN 120GM CREAM TOP SCH ×2 (08:51→21:12)
[2018-12-15] MEDS: MULTIVITAMINS/MINERALS THERAP 1 TAB PO SCH (08:52)
[2018-12-15] MEDS: ACETAMINOPHEN 500 MG TAB PO PRN ×2 (09:02→21:10)
[2018-12-15 14:00] VITALS: BP 113/56
--- NOTE | 2018-12-15 18:31 | IPNPDOC ---
Text Note Date of Service The patient was seen on 12/15/18. NOTE SUBJECTIVE: Patient is seen and examined in the room today. No fever or chill. Denies any pain. Denies no acute complaint. SUBJECTIVE: VITAL SIGNS: Listed below. GENERAL: No sign of acute distress. Patient is alert and awake. HEENT: Normocephalic, atraumatic. CARDIOVASCULAR: Positive S1, S2. Irregularly irregular. LUNGS: Clear to auscultation bilaterally. ABDOMEN: Soft, nontender. EXTREMITIES: Right foot was wrapped with bandage. Chronic venous stasis changes bilateral lower extremities. Positive lower extremity edema bilaterally. LABORATORY DATA: Listed below. ASSESSMENT AND PLAN: #. Right necrotic toe. - Vascular surgery consulted. Angiogram reveals severe occlusive atherosclerotic disease in the right lower extremities, status post right popliteal artery and s uperficial femoral artery (SFA) stent placement. - Podiatry consulted. Transmetatarsal amputation on 12/10/18. Per recommendation, patient may ambulate with surgical shoe and with walker. - Infectious disease consulted. Wound culture reviewed. On Levaquin. - Continue physical therapy. #. Atrial fibrillation (a-fib) with rapid ventricular response (RVR). - On Lovenox. Restarted warfarin. Will discontinue ASA when INR is therapeutic. - Heart rate in satisfactory range, on digoxin, on metoprolol. #. Peripheral vascular disease. Aspirin, Lipitor, Plavix. #. Left upper extremity cast. Orthopedic team was previously consulted. # Coronary artery disease, status post right stent. - On Aspirin and Plavix and Statin. Patient is not very complaint with his low salt diet. #. Congestive heart failure. Continue to monitor patient's fluid status. #. History of esophageal reflux disease. On Prilosec. #. Chronic kidney disease, stage III. #. Peripheral vascular disease, status post right transmetatarsal amputations. Status post stent placement. #. Deep venous thrombosis (DVT) prophylaxis. On Lovenox. VS,Fishbone, I+O VS, Fishbone, I+O Laboratory Tests 12/15/18 06:32 Red Blood Count 3.71 L, Mean Corpuscular Volume 99.5 H, Mean Corpuscular Hemoglobin 32.3, Mean Corpuscular Hemoglobin Concent 32.5, Red Cell Distribution Width 13.9, Calcium Level 8.9 Vital Signs Date Time Temp Pulse Resp B/P (MAP) Pulse Ox O2 Delivery O2 Flow Rate FiO2 12/15/18 14:00 98.3 73 20 113/56 (75) 99 12/11/18 06:00 2.0 12/10/18 18:45 Nasal Cannula I&O- Last 24 Hours up to 6 AM 12/15/18 06:00 Intake Total 960 ml Balance 960 ml DEEPAK MAGANA DO Dec 15, 2018 18:31
[2018-12-15] MEDS: WARFARIN SOD 3 MG TAB PO SCH (18:39)
[2018-12-15] MEDS: OMEPRAZOLE 20 MG CAP PO SCH (21:10)
[2018-12-15] MEDS: ATORVASTATIN 20 MG TAB PO SCH (21:11)
[2018-12-15] MEDS: ASPIRIN 81 MG ENTERIC TAB PO SCH (21:11)
[2018-12-15] MEDS: DOCUSATE SODIUM 100 MG CAP PO SCH (21:11)
[2018-12-15 22:00] VITALS: BP 119/56
[2018-12-16] MEDS: ENOXAPARIN 100MG/1ML SYRINGE (J1650) SC SCH ×2 (05:43→17:41)
[2018-12-16] MEDS: LevoFLOXacin 750 MG TABLET PO SCH (05:43)
[2018-12-16 06:00] VITALS: BP 119/56
[2018-12-16 07:26] LABS: HEMATOCRIT 37.6 % (42.0-52.0); HEMOGLOBIN 12.1 g/dl (13.5-17.5); MEAN CORPUSCULAR HEMOGLOBIN 32.4 pg (27.0-33.0); MEAN CORPUSCULAR HGB CONC 32.2 g/dl (32.0-36.5); MEAN CORPUSCULAR VOLUME 100.5 fl (80.0-96.0); PLATELET COUNT, AUTOMATED 325 10^3/uL (150-450); RED BLOOD COUNT 3.74 10^6/uL (4.30-6.10)
[2018-12-16 07:36] LABS: INR 1.54; PROTHROMBIN TIME 18.7 SECONDS (12.1-14.4)
[2018-12-16 07:51] LABS: BLOOD UREA NITROGEN 14 MG/DL (7-18); CARBON DIOXIDE LEVEL 28 MEQ/L (21-32); CHLORIDE LEVEL 108 MEQ/L (98-107); CREATININE FOR GFR 0.91 MG/DL (0.70-1.30); GLOMERULAR FILTRATION RATE > 60.0 (>35); GLUCOSE, FASTING 85 MG/DL (70-100); MAGNESIUM LEVEL 2.3 MG/DL (1.8-2.4); POTASSIUM SERUM 3.9 MEQ/L (3.5-5.1); SODIUM LEVEL 141 MEQ/L (136-145)
[2018-12-16] MEDS: POTASSIUM CHLORIDE 10 MEQ SR TABLET PO SCH ×2 (09:48→20:11)
[2018-12-16] MEDS: METOPROLOL SUCC (TopROL XL) 100MG *XL* TAB PO SCH ×2 (09:48→20:12)
[2018-12-16] MEDS: MULTIVITAMINS/MINERALS THERAP 1 TAB PO SCH (09:48)
[2018-12-16] MEDS: CLOPIDOGREL 75 MG TAB PO SCH (09:48)
[2018-12-16] MEDS: TAMSULOSIN 0.4 MG CAP PO SCH (09:48)
[2018-12-16] MEDS: FERROUS GLUCONATE 324 MG TAB PO SCH (09:50)
[2018-12-16] MEDS: DIGOXIN 0.125 MG TAB PO SCH (09:50)
[2018-12-16] MEDS: EUCERIN 120GM CREAM TOP SCH ×2 (09:51→20:13)
[2018-12-16 14:00] VITALS: BP 107/57
--- NOTE | 2018-12-16 15:26 | IPNPDOC ---
Text Note Date of Service The patient was seen on 12/16/18. NOTE SUBJECTIVE: Patient is seen and examined in the room today. No fever or chill. Patient has good oral intake. Denies no acute complaint. SUBJECTIVE: VITAL SIGNS: Listed below. GENERAL: No sign of acute distress. Patient is alert and awake. HEENT: Normocephalic, atraumatic. CARDIOVASCULAR: Positive S1, S2. Irregularly irregular. LUNGS: Clear to auscultation bilaterally. ABDOMEN: Soft, nontender. EXTREMITIES: Right foot was wrapped with bandage. Chronic venous stasis changes bilateral lower extremities. Positive lower extremity edema bilaterally. LABORATORY DATA: Listed below. ASSESSMENT AND PLAN: #. Right necrotic toe. - Vascular surgery consulted. Angiogram reveals severe occlusive atherosclerotic disease in the right lower extremities, status post right popliteal artery and superficial femoral artery (SFA) stent placement. - Podiatry consulted. Transmetatarsal amputation on 12/10/18. Per recommendation, patient may ambulate with surgical shoe and with walker. - Infectious disease consulted. Wound culture reviewed. On Levaquin. - Continue physical therapy. #. Atrial fibrillation (a-fib) with rapid ventricular response (RVR). - On Lovenox. Restarted warfarin. Will discontinue ASA when INR is therapeutic. - Heart rate in satisfactory range, on digoxin, on metoprolol. #. Peripheral vascular disease. Aspirin, Lipitor, Plavix. #. Left upper extremity cast. - Orthopedic team was previously consulted. # Coronary artery disease, status post right stent. - On Aspirin and Plavix and Statin. #. Congestive heart failure. Continue to monitor patient's fluid status. #. History of esophageal reflux disease. On Prilosec. #. Chronic kidney disease, stage III. #. Peripheral vascular disease, status post right transmetatarsal amputations. S tatus post stent placement. #. Deep venous thrombosis (DVT) prophylaxis. On Lovenox. INR is not therapeutic yet. VS,Fishbone, I+O VS, Fishbone, I+O Laboratory Tests 12/16/18 06:59 Red Blood Count 3.74 L, Mean Corpuscular Volume 100.5 H, Mean Corpuscular Hemoglobin 32.4, Mean Corpuscular Hemoglobin Concent 32.2, Red Cell Distribution Width 14.0, Calcium Level 9.0 Vital Signs Date Time Temp Pulse Resp B/P (MAP) Pulse Ox O2 Delivery O2 Flow Rate FiO2 12/16/18 14:00 98.0 87 18 107/57 (74) 94 12/11/18 06:00 2.0 12/10/18 18:45 Nasal Cannula I&O- Last 24 Hours up to 6 AM 12/16/18 06:00 Intake Total 1824 ml Output Total 0 ml Balance 1824 ml DEEPAK MAGANA DO Dec 16, 2018 15:26
[2018-12-16] MEDS ORDERED: WARFARIN SOD 5 MG TAB PO ONE (17:00)
[2018-12-16] MEDS: OMEPRAZOLE 20 MG CAP PO SCH (20:12)
[2018-12-16] MEDS: ASPIRIN 81 MG ENTERIC TAB PO SCH (20:12)
[2018-12-16] MEDS: ATORVASTATIN 20 MG TAB PO SCH (20:12)
[2018-12-16] MEDS: DOCUSATE SODIUM 100 MG CAP PO SCH (20:12)
[2018-12-16 22:00] VITALS: BP 115/54
[2018-12-17] MEDS: LevoFLOXacin 750 MG TABLET PO SCH (05:15)
[2018-12-17] MEDS: ENOXAPARIN 100MG/1ML SYRINGE (J1650) SC SCH ×2 (05:15→18:08)
[2018-12-17 06:00] VITALS: BP 117/58
[2018-12-17 06:43] LABS: HEMATOCRIT 36.2 % (42.0-52.0); MEAN CORPUSCULAR HEMOGLOBIN 32.6 pg (27.0-33.0); MEAN CORPUSCULAR HGB CONC 33.1 g/dl (32.0-36.5); MEAN CORPUSCULAR VOLUME 98.4 fl (80.0-96.0); PLATELET COUNT, AUTOMATED 354 10^3/uL (150-450); RED BLOOD COUNT 3.68 10^6/uL (4.30-6.10); WHITE BLOOD COUNT 7.5 10^3/uL (4.0-10.0)
[2018-12-17 06:54] LABS: INR 1.75; PROTHROMBIN TIME 20.7 SECONDS (12.1-14.4)
[2018-12-17 07:04] LABS: BLOOD UREA NITROGEN 14 MG/DL (7-18); CALCIUM LEVEL 8.9 MG/DL (8.8-10.2); CARBON DIOXIDE LEVEL 28 MEQ/L (21-32); CHLORIDE LEVEL 108 MEQ/L (98-107); GLOMERULAR FILTRATION RATE > 60.0 (>35); GLUCOSE, FASTING 76 MG/DL (70-100); MAGNESIUM LEVEL 2.1 MG/DL (1.8-2.4); POTASSIUM SERUM 3.9 MEQ/L (3.5-5.1); SODIUM LEVEL 141 MEQ/L (136-145)
[2018-12-17] MEDS: CLOPIDOGREL 75 MG TAB PO SCH (09:36)
[2018-12-17] MEDS: ACETAMINOPHEN 500 MG TAB PO PRN ×2 (09:37→20:19)
[2018-12-17] MEDS: POTASSIUM CHLORIDE 10 MEQ SR TABLET PO SCH ×2 (09:38→20:19)
[2018-12-17] MEDS: DIGOXIN 0.125 MG TAB PO SCH (09:38)
[2018-12-17] MEDS: METOPROLOL SUCC (TopROL XL) 100MG *XL* TAB PO SCH ×2 (09:39→20:20)
[2018-12-17 09:40] VITALS: BP 115/52
[2018-12-17] MEDS: TAMSULOSIN 0.4 MG CAP PO SCH (09:40)
[2018-12-17] MEDS: MULTIVITAMINS/MINERALS THERAP 1 TAB PO SCH (09:40)
[2018-12-17] MEDS: EUCERIN 120GM CREAM TOP SCH ×2 (09:41→20:20)
[2018-12-17 14:00] VITALS: BP 113/52
[2018-12-17] MEDS: OMEPRAZOLE 20 MG CAP PO SCH (20:19)
[2018-12-17] MEDS: DOCUSATE SODIUM 100 MG CAP PO SCH (20:19)
[2018-12-17] MEDS: ATORVASTATIN 20 MG TAB PO SCH (20:19)
[2018-12-17] MEDS: ASPIRIN 81 MG ENTERIC TAB PO SCH (20:20)
[2018-12-17 22:00] VITALS: BP 111/55
[2018-12-18] MEDS: LevoFLOXacin 750 MG TABLET PO SCH (05:10)
[2018-12-18] MEDS: ENOXAPARIN 100MG/1ML SYRINGE (J1650) SC SCH ×2 (05:11→17:03)
[2018-12-18 06:00] VITALS: BP_SYST 115; BP_SYST 89; BP_DIAS 52; BP_DIAS 94
[2018-12-18 06:35] LABS: HEMATOCRIT 37.4 % (42.0-52.0); HEMOGLOBIN 12.4 g/dl (13.5-17.5); MEAN CORPUSCULAR HEMOGLOBIN 32.4 pg (27.0-33.0); MEAN CORPUSCULAR HGB CONC 33.2 g/dl (32.0-36.5); MEAN CORPUSCULAR VOLUME 97.7 fl (80.0-96.0); PLATELET COUNT, AUTOMATED 310 10^3/uL (150-450); RED BLOOD COUNT 3.83 10^6/uL (4.30-6.10); WHITE BLOOD COUNT 6.7 10^3/uL (4.0-10.0)
[2018-12-18 06:59] LABS: BLOOD UREA NITROGEN 14 MG/DL (7-18); CALCIUM LEVEL 8.8 MG/DL (8.8-10.2); CARBON DIOXIDE LEVEL 27 MEQ/L (21-32); CHLORIDE LEVEL 109 MEQ/L (98-107); CREATININE FOR GFR 0.77 MG/DL (0.70-1.30); GLOMERULAR FILTRATION RATE > 60.0 (>35); GLUCOSE, FASTING 83 MG/DL (70-100); MAGNESIUM LEVEL 2.3 MG/DL (1.8-2.4); POTASSIUM SERUM 3.9 MEQ/L (3.5-5.1); SODIUM LEVEL 142 MEQ/L (136-145)
[2018-12-18] MEDS: CLOPIDOGREL 75 MG TAB PO SCH (08:31)
[2018-12-18] MEDS: DIGOXIN 0.125 MG TAB PO SCH (08:32)
[2018-12-18] MEDS: MULTIVITAMINS/MINERALS THERAP 1 TAB PO SCH (08:32)
[2018-12-18] MEDS: METOPROLOL SUCC (TopROL XL) 100MG *XL* TAB PO SCH ×2 (08:32→21:36)
[2018-12-18] MEDS: TAMSULOSIN 0.4 MG CAP PO SCH (08:32)
[2018-12-18] MEDS: POTASSIUM CHLORIDE 10 MEQ SR TABLET PO SCH ×2 (08:33→21:35)
[2018-12-18] MEDS: EUCERIN 120GM CREAM TOP SCH ×2 (08:33→21:36)
[2018-12-18 10:27] LABS: INR 1.79; PROTHROMBIN TIME 21.1 SECONDS (12.1-14.4)
[2018-12-18 14:00] VITALS: BP 115/63
--- NOTE | 2018-12-18 16:20 | IPNPDOC ---
Subjective Date Seen The patient was seen on 12/18/18. Subjective Chief Complaint/HPI Patient seen and examined at the bedside. No acute overnight events noted. Objective Physical Examination General Exam: Positive: Alert, Cooperative, No Acute Distress ENT Exam: Positive: Atraumatic, Mucous membr. moist/pink Chest Exam: Positive: Clear to auscultation, Normal air movement Heart Exam: Positive: Rate Normal, Normal S1, Normal S2 Abdomen Exam: Positive: Soft; Negative: Tenderness Extremity Exam: Positive: Other (RLE s/p transmetatarsal amputation. Surgical dressing noted to be covering extremity.) Psych Exam: Positive: Oriented x 3 Assessment /Plan Plan/VTE VTE Prophylaxis Ordered?: Yes Plan Osteomyelitis of the right foot s/p Transmetatarsal Amputation Vascular surgery consulted--Angiogram revealed severe occlusive atherosclerotic disease in the right lower extremity, status post right popliteal artery and superficial femoral artery (SFA) stent placement on 12/06/18. Podiatry consulted--s/p Transmetatarsal amputation on 12/10/18--Per recommendation, patient may ambulate with surgical shoe and with walker. Infectious disease consulted--Wound culture reviewed, patient to be on Levaquin for a total of 10 days (started on 12/15/18) Continue physical therapy. Atrial fibrillation Currently on Lovenox bridge to Warfarin Cont on digoxin,metoprolol. We will cont to monitor INR and adjust Coumadin dosing accordingly Peripheral vascular disease Cont Aspirin, Plavix, Lipitor. We will d/c Aspirin once INR is therapeutic given bleeding risk as per Cardiology Left Upper Extremity Scaphoid Fracture s/p Cast placement of the LUE with Ortho as outpatient when injury initially occured in October 2018 LUE Wrist XR noted Orthopedic consulted here--have advised the patient to follow up as an outpatient Hx of Coronary artery disease, status post right stent. On Aspirin, Plavix, Metoprolol, and Statin. Cardiology input noted Hx of Systolic Congestive heart failure EF noted to be 30% on ECHO from 01/2018, severe left atrial dilatation Cont Torsemide History of esophageal reflux disease Cont PPI BPH Cont Flomax Deep venous thrombosis (DVT) prophylaxis. On Lovenox bridge to Coumadin Dispo--pending ramp placement at home for safe entry/exit. Will f/u with PFS. VS, I&O, 24H, Fishbone Vital Signs/I&O Vital Signs Date Time Temp Pulse Resp B/P (MAP) Pulse Ox O2 Delivery O2 Flow Rate FiO2 12/18/18 14:00 97.0 105 19 115/63 (80) 96 I&O- Last 24 Hours up to 6 AM 12/18/18 06:00 Intake Total 1120 ml Balance 1120 ml Laboratory Data 24H LABS Laboratory Tests 2 12/18/18 06:11: Nucleated Red Blood Cells % (auto) 0.0, Anion Gap 6L, Glomerular Filtration Rate > 60.0, Blood Urea Nitrogen 14, Creatinine 0.77, Sodium Level 142, Potassium Level 3.9, Chloride Level 109H, Carbon Dioxide Level 27, Calcium Level 8.8, Magnesium Level 2.3 12/18/18 09:23: Prothrombin Time 21.1H, Prothromb Time International Ratio 1.79 CBC/BMP Laboratory Tests 12/18/18 06:11 Red Blood Count 3.83 L, Mean Corpuscular Volume 97.7 H, Mean Corpuscular Hemoglobin 32.4, Mean Corpuscular Hemoglobin Concent 33.2, Red Cell Distribution Width 13.9, Calcium Level 8.8 Microbiology Microbiology 12/08/18 Blood Culture - Final, Complete NO GROWTH AFTER 5 DAYS 12/08/18 Blood Culture - Final, Complete NO GROWTH AFTER 5 DAYS 12/10/18 Gram Stain - Final, Complete 12/10/18 Wound Culture - Final, Complete Stenotrophomonas Maltophilia Enterococcus Faecalis Staphylococcus Epidermidis NICKOLAS JASSO MD Dec 18, 2018 16:20
[2018-12-18] MEDS ORDERED: WARFARIN SOD 5 MG TAB PO ONE (17:00)
--- NOTE | 2018-12-18 20:04 | IPN ---
DATE: 12/18/2018 CHIEF COMPLAINT: Patient is seen for evaluation status post right foot surgery transmetatarsal amputation. He states he is doing well however his surgical shoe appears to be long when he puts his foot in the shoe, otherwise it fits appropriately at the rear of the foot. He denies shortness of breath or chest pain. There is minimal bleeding noted on the bandage. The bandage was removed today. The incision is well coapted and maintained without discharge. No active bleeding is noted. A dry, sterile dressing was applied to the patient's right foot. Laboratory studies reviewed revealing a white count of 6.7. Culture reveals growth of Enterococcus faecalis and Streptococcus epidermidis sensitive to Zyvox and vancomycin. The infection is being monitored by Dr. Guevara, infectious disease. ASSESSMENT: Healing well status post transmetatarsal amputation status post necrotic toes and osteomyelitis. PLAN: Dry, sterile dressing was re-applied. Patient advised to bear weight touch weightbearing to the heel with walker to assist ambulation. The surgical shoe was sent to maintenance to be shortened. A cutoff line was drawn onto the surgical shoe. The patient's questions are answered.
[2018-12-18] MEDS: ASPIRIN 81 MG ENTERIC TAB PO SCH (21:35)
[2018-12-18] MEDS: ATORVASTATIN 20 MG TAB PO SCH (21:35)
[2018-12-18] MEDS: OMEPRAZOLE 20 MG CAP PO SCH (21:35)
[2018-12-18] MEDS: DOCUSATE SODIUM 100 MG CAP PO SCH (21:35)
[2018-12-18 22:00] VITALS: BP 116/58
[2018-12-19] MEDS: LevoFLOXacin 750 MG TABLET PO SCH (05:43)
[2018-12-19] MEDS: ENOXAPARIN 100MG/1ML SYRINGE (J1650) SC SCH (05:43)
[2018-12-19 06:00] VITALS: BP 123/59
[2018-12-19 06:47] LABS: INR 1.8; PROTHROMBIN TIME 21.2 SECONDS (12.1-14.4)
[2018-12-19] MEDS ORDERED: CLOP75TA2 PO (08:24)
[2018-12-19] MEDS ORDERED: LEVA750T7 PO (08:24)
[2018-12-19] MEDS: POTASSIUM CHLORIDE 10 MEQ SR TABLET PO SCH (08:44)
[2018-12-19 08:46] VITALS: BP 105/58
[2018-12-19] MEDS: METOPROLOL SUCC (TopROL XL) 100MG *XL* TAB PO SCH (08:46)
[2018-12-19] MEDS: DIGOXIN 0.125 MG TAB PO SCH (08:47)
[2018-12-19] MEDS: MULTIVITAMINS/MINERALS THERAP 1 TAB PO SCH (08:47)
[2018-12-19] MEDS: FERROUS GLUCONATE 324 MG TAB PO SCH (08:47)
[2018-12-19] MEDS: CLOPIDOGREL 75 MG TAB PO SCH (08:47)
[2018-12-19] MEDS: TAMSULOSIN 0.4 MG CAP PO SCH (08:47)
[2018-12-19] MEDS: EUCERIN 120GM CREAM TOP SCH (08:48)
[2018-12-19] MEDS ORDERED: TORSEMIDE (DEMADEX) 50 MG PER 1/2 TAB PO SCH (09:00)
[2018-12-19] MEDS ORDERED: WARFARIN SOD 5 MG TAB PO ONE ×2 (12:00→17:00)
--- NOTE | 2018-12-19 17:13 | DS.PDOC ---
Discharge Summary General Date of Admission Dec 02, 2018 at 17:19 Date of Discharge 12/19/18 Specialist/Consultants Involve Dr. Guevara of ID, Dr. Noriega of Podiatry, Dr. Florence of Vascular Surgery, Dr. Mejias of Cardiology Discharge Summary PROCEDURES PERFORMED DURING STAY: Status post right popliteal artery and superficial femoral artery stent placement on 12/06/[address] Florence Status post right transmetatarsal amputation on 12/10/[address] Noriega of Podiatry ADMITTING/DISCHARGE DIAGNOSES: Osteomyelitis of the right foot s/p Transmetatarsal Amputation Atrial fibrillation Peripheral vascular disease Left Upper Extremity Scaphoid Fracture Hx of Coronary artery disease, status post right stent. Hx of Systolic Congestive heart failure COMPLICATIONS/CHIEF COMPLAINT: Cellulitis Foot. HISTORY OF PRESENT ILLNESS: . 83-year-old male with past medical history of peripheral vascular disease, hypertension, dyslipidemia, and chronic kidney disease presented to the ER with a chief complaint of fevers, and chills. The patient stated that he was having purulent discharge from the third toe on his right foot, where the toe was amputated. He was started on empiric antibiotic therapy, and podiatry was consulted. He was admitted to the hospital service for further evaluation and management. During hospitalization, vascular surgery was also consulted, and an arterial Doppler study revealed severe atherosclerotic disease of the proximal superficial femoral artery and multilevel stenosis. Subsequently, an angioplasty was performed. The patient also underwent a transmetatarsal amputation on 12/10/18. Infectious disease has been consulted for antibiotic management. The pa ariane will be discharged home on Levaquin for a completion of a total of 10 days of therapy. Also of note, the patient has been bridging to Coumadin with Lovenox. He has been given an increased dose of Coumadin today, and has been asked to follow-up with his primary care physician within one week for a repeat INR check and further titration of his medication. DISCHARGE MEDICATIONS: Please see below. ALLERGIES: Please see below. PHYSICAL EXAMINATION ON DISCHARGE: VITAL SIGNS: Please see below. General Exam: Positive: Alert, Cooperative, No Acute Distress ENT Exam: Positive: Atraumatic, Mucous membr. moist/pink Chest Exam: Positive: Clear to auscultation, Normal air movement Heart Exam: Positive: Rate Normal, Normal S1, Normal S2 Abdomen Exam: Positive: Soft; Negative: Tenderness Extremity Exam: Positive: Other (RLE s/p transmetatarsal amputation. Surgical dressing noted to be covering extremity.) Psych Exam: Positive: Oriented x 3 LABORATORY DATA: Please see below. IMAGING: Clinical: Trauma. Fall. Technique: AP, lateral, bilateral oblique views of the left wrist. Findings: Evaluation is significantly limited due to overlying cast material. Age related osteoarthritic degenerative changes are appreciated subtle fracture/injury cannot be excluded. Recent prior examination dated 11/06/2018 demonstrated subtle nondisplaced scaphoid fracture. Impression: Limited by advanced osteoarthritic degenerative changes and overlying cast material. Clinical: Osteomyelitis. Technique: AP, lateral, oblique views of the right foot. Findings: Osteopenia and osteoarthritic degenerative changes are appreciated along with evidence for peripheral vascular disease. The patient is known to be status post amputation at the third metatarsophalangeal joint level. No obvious acute fracture dislocation. No significant subcutaneous emphysema or periosteal reaction is definitively identified. Impression: Osteopenia and osteoarthritic degenerative changes. MRI right foot without and with IV gadolinium: History: Rule out abscess and osteomyelitis. Comparison right foot radiographs are from December 02, 2018. Gadolinium enhancement dose: 18 mL of intravenous ProHance. MR technique: Axial, coronal and sagittal imaging planes utilized. T1 and T2-weighted scans were obtained with and without fat saturation. MRI findings: The third digit is amputated at the MTP joint as seen radiographically. Cortical and medullary bone signal intensity are normal in the remaining phalanges and in the metatarsals on T1 and T2-weighted scans. There is no abnormal fluid collection to suggest an abscess. No MR evidence of osteomyelitis is seen. Post gadolinium enhanced images show no additional finding. Impression: Status post third digit amputation at the MTP joint. No evidence of abscess or osteomyelitis seen. RIGHT FOOT, FOUR VIEWS: Four views of the right foot are performed. Patient has had transmetatarsal amputation distally. There are adjacent radiodense implants in the soft tissues as well as metallic skin francy. There are mild degenerative changes of the intertarsal and tarsal/metatarsal joints. There is mild inferior calcaneal spurring. PROGNOSIS: Poor long-term prognosis ACTIVITY: As tolerated. DIET: 2 g low sodium, 1800 mL fluid restricted diet DISCHARGE PLAN: DISPOSITION: [address] [place] [address] [facility] Service. DISCHARGE INSTRUCTIONS: Follow-up with primary care physician within one week for INR check and medical management. Follow-up with vascular surgery within 1-2 weeks. Follow-up with cardiology in 1-2 months. DISCHARGE CONDITION: Stable. TIME SPENT ON DISCHARGE: Greater than 30 minutes. Vital Signs/I&Os Vital Signs Date Time Temp Pulse Resp B/P (MAP) Pulse Ox O2 Delivery O2 Flow Rate FiO2 12/19/18 08:47 91 12/19/18 08:46 105/58 12/19/18 06:00 97.2 19 99 I&O- Last 24 Hours up to 6 AM 12/19/18 06:00 Intake Total 920 ml Output Total 200 ml Balance 720 ml Laboratory Data Labs 24H Laboratory Tests 2 12/19/18 06:17: Prothrombin Time 21.2H, Prothromb Time International Ratio 1.80 Microbiology Microbiology 12/10/18 Gram Stain - Final, Complete 12/10/18 Wound Culture - Final, Complete Stenotrophomonas Maltophilia Enterococcus Faecalis Staphylococcus Epidermidis Discharge Medications Scheduled (Digoxin) 125 Mcg Tab, 125 MCG PO QHS, (Reported) (Probiotic) 1 Cap Cap, 1 CAP PO BID, (Reported) Allopurinol (Zyloprim) 300 Mg Tab, 300 MG PO DAILY, (Reported) Atorvastatin Calcium (Atorvastatin Calcium) 20 Mg Tab, 20 MG PO QHS, (Reported) Calcium/Vitamin D (Calcium/Vitamin D 600-400 mg-Unit) 1 Tab Tab, 1 TAB PO DAILY, (Reported) Clopidogrel Bisulfate (Clopidogrel) 75 Mg Tab, 75 MG PO DAILY Docusate Sodium (Stool Softener) 100 Mg Cap, 100 MG PO QHS, (Reported) Ferrous Gluconate (Ferrous Gluconate) 324 Mg Tab, 324 MG PO 2XW, (Reported) MON/MON Levofloxacin Hemihydrate (Levaquin) 750 Mg Tab, 750 MG PO DAILY@06 Meloxicam (Meloxicam) 7.5 Mg Tab, 7.5 MG PO BID, (Reported) Metoprolol Succinate (Metoprolol Succinate ER) 100 Mg Tab, 100 MG PO BID, (Reported) Multivitamins *[facility] STOCKED* (Thera M Plus *[facility] STOCK[facility]*) 1 Tab Tab, 1 TAB PO DAILY, (Reported) Omeprazole (Omeprazole) 20 Mg Cap, 20 MG PO QHS, (Reported) Potassium Chloride (Klor-Con M20) 20 Meq Tabcr, 20 MEQ PO BID, (Reported) Prednisone (Prednisone) 5 Mg Tab, 5 MG PO QHS, (Reported) Tamsulosin Hydrochloride (Flomax) 0.4 Mg Cap, 0.4 MG PO DAILY, (Reported) Torsemide (Torsemide) 100 Mg Tab, 50 MG PO DAILY, (Reported) Warfarin Sod (Coumadin) 3 Mg Tab, 3 MG PO DAILY, (Reported) Warfarin Sod (Coumadin) 3 Mg Tab, 3 MG PO 2XWK, (Reported) TAKES AT BEDTIME ON MONDAYS AND WEDNESDAYS IN ADDITION TO MORNING DOSE. Scheduled PRN Acetaminophen (Acetaminophen) 500 Mg Tab, 1,000 MG PO BID PRN for PAIN, (Reported) Allergies Coded Allergies: Oxycodone (Verified Allergy, Intermediate, RASH, 11/06/18) NICKOLAS JASSO MD Dec 19, 2018 17:13
--- NOTE | 2018-12-26 11:16 | REPIR ---
DATE OF PROCEDURE: 12/06/2018 ATTENDING SURGEON: Dr. Yessenia Florence SALES REPRESENTATIVE [employer]URCH FURNITURE: Misti Bonds and Vicky Tello PREOPERATIVE DIAGNOSES: Right foot gangrene. Right foot ulcer, nonhealing. POSTOPERATIVE DIAGNOSES Right foot gangrene. Right foot ulcer, nonhealing. PROCEDURE: Aortogram. Iliofemoral angiogram. Selective right common femoral artery catheter placement. Right lower extremity angiogram. Right popliteal artery angioplasty and stent with a 7 x 120 mm balloon Marlen drug-eluting stent, postdilated with a 6 x 200 balloon. Right common femoral artery angioplasty with a 6 x 200 balloon. Right superficial femoral artery angioplasty with a 6 x 200 balloon. MYNX closure of the left common femoral arteriotomy. INDICATION: The patient is an 83-year-old male with nonhealing ulcers and gangrene of the right foot who has cellulitis and will undergo right lower extremity angiogram with possible angioplasty, stent and/or atherectomy. Risks, benefits and alternative options were discussed with the patient. ANESTHESIA: Local with sedation with 1 mg of Versed, 50 mcg of fentanyl and 10 mL of 2% lidocaine. FLUORO TIME: 9.2 minutes. CONTRAST: 27.5 mL. HEPARIN: 7000 units. SEDATION TIME: 1526 hours to 1627 hours for a total of 61 minutes of sedation time. COMPLICATIONS: None. DRAINS: None. SPECIMENS: None. IMPLANT: Right popliteal artery 7 x 120 mm Marlen drug-eluting stent. PROCEDURE: Patient was taken to the angiography suite, placed supine on the angiography room table, and then prepped and draped in a standard surgical fashion. The left common femoral artery was cannulated with a micropuncture needle after anesthetizing the overlying skin with 2% lidocaine. The micropuncture wire was advanced through the micropuncture needle which was upsized to a micropuncture sheath. A Bentson wire was advanced through the micropuncture sheath which was upsized to 5-Mohawk sheath. The catheter was placed in the aorta and aortogram was performed. Catheter was pulled down level with the bifurcation of the iliac arteries and an iliofemoral angiogram was performed. The catheter was directed over the bifurcation, placed in the right common femoral artery and a right lower extremity angiogram was performed. This showed complete occlusion of the superficial femoral and popliteal artery junction which was crossed, after which the area was stented with a 7 x 120 mm Marlen drug-eluting stent which was postdilated a 6 x 200 balloon. There was also stenosis in the right common femoral, superficial femoral arteries which were angioplastied with a 6 x 200 balloon. A completion angiogram showed resolution of the stenoses with widely patent common femoral, superficial femoral and popliteal arteries. Catheters and wires were removed. A MYNX closure device was used to close the arteriotomy in the left common femoral artery with an additional 10 minutes of adjunctive pressure applied for hemostasis. Dressings were then applied. The patient tolerated the procedure well. All instrument, sponge and needle counts were correct at the end the case. There were no complications. Dr. Florence was present for and directed the entire case. The patient was transferred to the holding area and subsequently to the floor in stable condition.
== END 2018-12-19 11:20 | disposition home health service (06) | DRG 240 ==
LOC: M ED 13:46 → M ED INP 17:19 → M MS5PR 18:35
PROVIDERS: ADMIT Internal Medicine; ATTEND Internal Medicine
PROC: 047K3ZZ Dilation of Right Femoral Artery, Percutaneous Approach (ICD-10-PCS; principal; 2018-12-06)
PROC: 047M3ZZ Dilation of Right Popliteal Artery, Percutaneous Approach (ICD-10-PCS; 2018-12-06)
PROC: B41FYZZ Fluoroscopy of Right Lower Extremity Arteries using Other Contrast (ICD-10-PCS; 2018-12-06)
PROC: 0Y6M0Z5 Detachment at Right Foot, Complete 2nd Ray, Open Approach (ICD-10-PCS; 2018-12-10)
PROC: 0Y6M0Z6 Detachment at Right Foot, Complete 3rd Ray, Open Approach (ICD-10-PCS; 2018-12-10)
PROC: 0Y6M0Z7 Detachment at Right Foot, Complete 4th Ray, Open Approach (ICD-10-PCS; 2018-12-10)
DX: I70.261 Atherosclerosis of native arteries of extremities with gangrene, right leg (principal); M86.171 Other acute osteomyelitis, right ankle and foot; I50.32 Chronic diastolic (congestive) heart failure; I13.0 Hypertensive heart and chronic kidney disease with heart failure and stage 1 through stage 4 chronic kidney disease, or unspecified chronic kidney disease; L97.919 Non-pressure chronic ulcer of unspecified part of right lower leg with unspecified severity; L03.115 Cellulitis of right lower limb; N17.9 Acute kidney failure, unspecified; I48.91 Unspecified atrial fibrillation; I25.10 Atherosclerotic heart disease of native coronary artery without angina pectoris; E78.5 Hyperlipidemia, unspecified; N18.3 Chronic kidney disease, stage 3 (moderate); Z79.899 Other long term (current) drug therapy; Z88.5 Allergy status to narcotic agent; K21.9 Gastro-esophageal reflux disease without esophagitis; Z95.2 Presence of prosthetic heart valve; M10.9 Gout, unspecified; F17.200 Nicotine dependence, unspecified, uncomplicated; Z79.82 Long term (current) use of aspirin; Z79.52 Long term (current) use of systemic steroids; S62.002D Unspecified fracture of navicular [scaphoid] bone of left wrist, subsequent encounter for fracture with routine healing; I25.5 Ischemic cardiomyopathy; N40.0 Benign prostatic hyperplasia without lower urinary tract symptoms

== ENCOUNTER 2019-04-25 13:37 | Inpatient (IN) | payer MEDICARE ==
[~2019-04-25] VITALS: Ht 188 cm; Wt 88.4 kg
[~2019-04-25 13:37] MED LIST changes: -/ESOM40CA OR; +ATOR1TAB21 PO; +CLOP75TA2 PO; +FLOM0.4C39 PO; +LEVA750T7 PO; +MM S100C PO; +NEXI1CAP3 OR; -OMEP20CA3 PO; +OMEP20CA4 PO; +PROBCAP14 PO; +VITMTA PO; +ZYLO300T6 PO
[2019-04-25] MEDS ORDERED: ACETAMINOPHEN 325 MG TAB PO ONE (14:00)
[2019-04-25] MEDS ORDERED: NS 1,000 ML IV ONE (14:00)
--- NOTE | 2019-04-25 14:43 | REP ---
Portable chest, 02:27 p.m., single AP view with the patient semi upright: Comparison is 03/22/2017. The the patient is rotated. There is increased density inferiorly in the left lung behind the heart. This could be artifact from patient rotation or could represent a left lower lobe infiltrate. Remainder the lung ugarte are clear. Cardiac size appears upper normal for AP positioning. The pb, mediastinum, skeletal structures are unremarkable except for bilateral shoulder osteoarthritis. Impression: Increased density inferiorly on the left, possibly a left lower lobe infiltrate. The patient is rotated. Electronically Signed by Suman Ramírez MD 04/25/2019 02:34 P
[2019-04-25 14:47] LABS: BASO # 0.1 10^3/uL (0.0-0.2); BASO % 0.3 % (0.0-1.0); EOS % 0.2 % (0.0-3.0); HEMATOCRIT 46.7 % (42.0-52.0); HEMOGLOBIN 15.2 g/dl (13.5-17.5); LYMPH # 1.1 10^3/uL (1.5-4.5); MEAN CORPUSCULAR HEMOGLOBIN 31.9 pg (27.0-33.0); MEAN CORPUSCULAR HGB CONC 32.5 g/dl (32.0-36.5); MEAN CORPUSCULAR VOLUME 97.9 fl (80.0-96.0); MONO # 1.3 10^3/uL (0.0-0.8); MONO % 6.3 % (0.0-5.0); NEUTROPHILS # 18.6 10^3/uL (1.8-7.7); NEUTROPHILS % 87.4 % (36.0-66.0); PLATELET COUNT, AUTOMATED 138 10^3/uL (150-450); RED BLOOD COUNT 4.77 10^6/uL (4.30-6.10); WHITE BLOOD COUNT 21.3 10^3/uL (4.0-10.0)
[2019-04-25 14:57] LABS: INR 2.04; PROTHROMBIN TIME 22.8 SECONDS (11.8-14.0)
[2019-04-25] MEDS ORDERED: LevoFLOXacin IV 500 MG in APPROPRIATE DILUENT 1 EA IV ONE (15:00)
[2019-04-25 15:24] LABS: ALT/SGPT 20 U/L (12-78); BILIRUBIN,DIRECT 0.3 MG/DL (0.0-0.2); BILIRUBIN,TOTAL 0.9 MG/DL (0.2-1.0); BLOOD UREA NITROGEN 22 MG/DL (7-18); CALCIUM LEVEL 8.1 MG/DL (8.8-10.2); CARBON DIOXIDE LEVEL 30 MEQ/L (21-32); CHLORIDE LEVEL 108 MEQ/L (98-107); CK-MB VALUE MASS < 1.0 NG/ML (<3.6); CPK CREATINE PHOSPHOKINASE 33 U/L (39-308); CREATININE FOR GFR 1.29 MG/DL (0.70-1.30); DIGOXIN LEVEL 0.5 NG/ML (0.5-2.0); GLOMERULAR FILTRATION RATE 56.4 (>35); GLUCOSE, FASTING 97 MG/DL (70-100); MB/CK RELATIVE INDEX 3.03 (< OR =4); POTASSIUM SERUM 3.1 MEQ/L (3.5-5.1); SODIUM LEVEL 145 MEQ/L (136-145); TOTAL PROTEIN 6.6 GM/DL (6.4-8.2); TROPONIN I 0.04 NG/ML (< 0.10)
[2019-04-25] MEDS ORDERED: AZITHROMYCIN 250 MG TAB PO ONE (15:30)
[2019-04-25] MEDS ORDERED: WARF-58 PO ×2 (15:46)
[2019-04-25] MEDS ORDERED: MELO15TA28 PO (15:46)
[2019-04-25] MEDS ORDERED: TORS100T PO (15:46)
[2019-04-25] MEDS ORDERED: TEST200I14 IM (15:51)
[2019-04-25] MEDS ORDERED: CYAN1000VL IM (15:51)
[2019-04-25] MEDS ORDERED: ASPI81TA85 PO (15:56)
--- NOTE | 2019-04-25 16:15 | REP ---
Clinical: Shortness of breath and cough. Technique: Axial noncontrast images from the thoracic inlet to the upper abdomen with coronal and sagittal re-formations. Findings: Lung ugarte demonstrate chronic age-related interstitial changes along with chronic bronchiectasis and emphysematous changes. Subtle superimposed left basilar atelectasis is suggested. No effusion. No focal consolidation. No pneumothorax. Tracheobronchial tree is patent. No significant adenopathy. Mediastinum demonstrates atherosclerotic changes to the thoracic aorta and coronary arteries along with cardiomegaly. Surrounding osseous structures demonstrate degenerative changes. Impression: Chronic changes with subtle superimposed left basilar atelectasis suggested. Electronically Signed by Ramez Hutchins MD 04/25/2019 04:06 P
[2019-04-25 16:38] LABS: C REACTIVE PROTEIN QUANTITATIV 3.37 MG/DL (0.00-0.30); NT-PRO BNP 1486 PG/ML (<450)
[2019-04-25 17:18] VITALS: BP 102/56
[2019-04-25] MEDS: NS 1,000 ML IV SCH (17:30)
[2019-04-25] MEDS ORDERED: POTASSIUM CHLORIDE 10 MEQ SR TABLET PO ONE (17:45)
[2019-04-25 18:23] LABS: ERYTHROCYTE SEDIMENTATION RATE 20 mm/hr (0-30)
[2019-04-25] MEDS: WARFARIN SOD 3 MG TAB PO SCH (19:00)
[2019-04-25 20:00] VITALS: BP 106/53
--- NOTE | 2019-04-25 20:23 | HPEPDOC ---
[facility] Medical History & Physical Date of Admission Apr 25, 2019 Date of Service: Apr 25, 2019 History and Physical CHIEF COMPLAINT: Chills HISTORY OF PRESENTING ILLNESS: 83 y/o male admitted 11/2018 for a right ischemic foot / osteomyelitis s/p transmetatarsal amputation by Dr. Noriega, given IV vanco, zosyn and downgraded to po levaquin,chronic wound vac and debridement by Dr. Noriega since hospital discharge. Pt also underwent right popliteal artery and superficial femoral artery stent placement on 12/06/[address] Florence to improve healing, but has not seen vascular surgery since. His right foot was debrided in the office on Monday, and now presents to the ER with acute onset of chills this morning, described as "I was shaking so bad, I figured something was wrong." no medications were taken at home. He also admits to a hacking cough more than usual,nonproductive, for the past few days, and woke up morning "not breathing good. I couldn't move so much since my toes were taken off." He d enies any pain in the right foot. "I don't feel much in my hands and feet anymore, anyway," and has not seen any change in the usual serous drainage seen when the wound vac is changed on mon, mon, monday. Pt says his temperature usually runs low 97.5-98, but In the ER, pt was found to be febrile 102.4 white count 22 cxr: artifact vs left lower lobe infiltrate. ER gave one dose of IV levaquin. Hospitalist was called to admit for pneumonia, and patient was initially ordered iv ceftrriaxone and azithromycin. CT chest, however, showed chronic bronchiectasis, no consolidation, or infiltrate. Antibiotics changed to iv vanco and iv zosyn to cover chronic osteo of the right foot, podiatry and ID consulted to see the patient in the morning, and MRI foot. PAST MEDICAL HISTORY: Coronary artery disease. percutaneous coronary intervention (PCI) to right coronary artery with bare metal stents times five in 2010. Ischemic cardiomyopathy. 2014 left ventricular systolic function approximately 30-35% inferior wall hypokinesis. moderate mitral insufficiency moderate pulmonary hypertension. Chronic atrial fibrillation. Hypertension. Dyslipidemia. History of chronic anemia that was iron deficiency polycythemia Peripheral vascular disease. Gastroesophageal reflux disease (GERD). Osteomyelitis of the right foot s/p Transmetatarsal Amputation 11/2018 Dr. Noriega Peripheral vascular disease Left Upper Extremity Scaphoid Fracture SURGICAL HISTORY: Toe amputation. PCI with bare metal stents x 5 Right foot transmetatarsal amputation 11/2018 Status post right popliteal artery and superficial femoral artery stent placement on 12/06/[address] Florence SOCIAL HISTORY:. He lives with his son. smoked cigars history of heavy ETOH abuse FAMILY HISTORY: No longer relevant. HOME MEDICATIONS: PLS SEE BELOW ALLERGIES: OXYCODONE. REVIEW OF SYSTEM: 12 POINT SYSTEMS REVIEW NEGATIVE ASIDE FROM POSITIVE FINDINGS ON HPI. PHYSICAL EXAMINATION: VITALS: PLS SEE BELOW GENERAL: unkempt.He is alert, oriented, awake x 3. no conversational dyspnea. no use of respiratory accessory muscles HEENT: anicteric sclera, no jaundice. PERRLA EOMI poor dentition dry mucus membranes neck supple no LAD or cervical LAD HEART:S1 S2 JVP 4-5 cm. irregularly irregular rhythm. displaced PMI to left Lungs : diminished. fairly clear bilaterally. Abdomen isoft,nontender. Bowel sounds are present. no rebound guarding no hsm Extremities have mild edema bilaterally.chronic erythematous venous changes There are good peripheral pulses in popliteal arteries as well as posterior tibial arteries on both sides. Right foot transmetatarsal amputation with wound vac nontender LABORATORY DATA, IMAGING STUDIES, MICROBIOLOGY: PLS SEE BELOW ASSESSMENT AND PLAN: 83 y/o male admitted 11/2018 for a right ischemic foot / osteomyelitis s/p transmetatarsal amputation by Dr. Noriega, given IV vanco, zosyn and downgraded to po levaquin,chronic wound vac and debridement by Dr. Noriega since hospital discharge. Pt also underwent right popliteal artery and superficial femoral artery stent placement on 12/06/[address] Florence to improve healing, but has not seen vascular surgery since. His right foot was debrided in the office on Monday, and now presents to the ER with acute onset of chills this morning, described as "I was shaking so bad, I figured something was wrong." no medications were taken at home. He also admits to a hacking cough more than usual,nonproductive, for the past few days, and woke up th morning "not breathing good. I couldn't move so much since my toes were taken off." He denies any pain in the right foot. "I don't feel much in my hands and feet anymore, anyway," and has not seen any change in the usual serous drainage seen when the wound vac is changed on mon, mon, monday. Pt says his temperature usually runs low 97.5-98, but In the ER, pt was found to be febrile 102.4 white count 22 cxr: artifact vs left lower lobe infiltrate. ER gave one dose of IV levaquin. Hospitalist was called to admit for pneumonia, and patient was initially ordered iv ceftrriaxone and azithromycin. CT chest, however, showed chronic bronchiectasis, no consolidation, or infiltrate. Antibiotics changed to iv vanco and iv zosyn to cover chronic osteo of the right foot, podiatry and ID consulted to see the patient in the morning, and MRI foot. Sepsis -initially thought to be due to left lower lobe pneumonia due to c/o hacking cough, fever, wbc 22, and cxr: artifact vs LLL infiltrate. s/p iv levaquin given by ER 04/25/19, and azithro. -However, CT chest: bronchiectasis, no consolidation or infiltrate -most likely due to chronic osteomyelitis in the right foot despite transmetatarsal amputation with recent debridement this past monday by his patient advocate. -MRI right foot ordered which may be difficult to interpret with previous amputation. -ID and podiatry consulted. -IV vanco and IV zosyn renally dosed by pharmacy until cultures are finalized. -PCU admit due to risk of chf decompensation in light of new infection for telemetry monitoring chronic osteomyelitis in the right foot despite transmetatarsal amputation with recent debridement this past monday by his patient advocate. - Tmax 102.4 wbc 22 -MRI right foot ordered which may be difficult to interpret with previous amputation. -ID and podiatry consulted. wound vac -IV vanco and IV zosyn renally dosed by pharmacy until cultures are finalized. -PCU admit due to risk of chf decompensation in light of new infection for telemetry monitoring Chronic Bronchiectasis s/p iv levaquin given by ER 04/25/19 and po azithromycin -7days IV ceftriaxone and 5 days po azithromycin -PCU admit due to risk of chf decompensation in light of new infection for telemetry monitoring -checked sputum cx, blood cx x 2 sets, urine legionella, urine streptococcal antigen, MRSA screen , and respiratory panel -CT chest : chronic bronchiectasis. no consolidation or infiltrate -supplemental oxygen if needed to keep o2 sat>90% Lactic Acidosis -due to sepsis -gentle ivfluid hydration due to history of systolic chf, and iv antibiotics -serial lactic acid monitoring -follow clinically and check admission and discharge esr and crp Coronary artery disease s/p percutaneous coronary intervention (PCI) to right coronary artery with bare metal stents times five in 2010. -core baker is Dr. Mejias -in light of sepsis , diuretics were held and pt given gentle hydration with ns at 75ml/hr. -monitor for acute ischemic symptoms in light of acute respiratory infection -cycle cardiac markers if sob persists Ischemic cardiomyopathy with left ventricular systolic function approximately 30-35% inferior wall hypokinesis. -core baker is Dr. Mejias -resume home meds -monitor for acute ischemic symptoms in light of acute respiratory infection -cycle cardiac markers if sob persists moderate mitral insufficiency -complicating care moderate pulmonary hypertension. -complicating care Chronic atrial fibrillation. -on chronic warfarin to target inr 2-3 -resumed home dose of warfarin -daily inr check to adjust dose if needed -resumed home metoprolol Hypertension. -resumed home dose of metoprolol Dyslipidemia. -resumed home meds History of chronic anemia that was iron deficiency -monitoring for symptoms of anemia -cbc stable on admission polycythemia -monitor cbc Peripheral vascular disease. -right popliteal artery and superficial femoral artery stent placement on 12/06/[address] Florence -s/p transmetatarsal amputation of the right foot due to osteomyelitis in 11/[address] Noriega Gastroesophageal reflux disease (GERD). -resume home meds Osteomyelitis of the right foot s/p Transmetatarsal Amputation 11/2018 Dr. Noriega -outpt fu with vascular surgery and podiatry for peripheral vascular disease Peripheral vascular disease -on chronic warfarin and statins -history of heavy cigar use Left Upper Extremity Scaphoid Fracture -healed History of cigar use -contributed to pt's peripheral arterial disease History of heavy Alcohol abuse -decreased consumption in recent years DVT prophylaxis: on chronic warfarin for atrial fibrillation Diet: GALEN diet Vital Signs Vital Signs Date Time Temp Pulse Resp B/P (MAP) Pulse Ox O2 Delivery O2 Flow Rate FiO2 04/25/19 13:55 102.0 04/25/19 13:51 116 20 146/65 (92) 95 Room Air Laboratory Data Labs 24H Laboratory Tests 2 04/25/19 14:35: Immature Granulocyte % (Auto) 0.8, White Blood Count 21.3H, Red Blood Count 4.77, Hemoglobin 15.2, Hematocrit 46.7, Mean Corpuscular Volume 97.9H, Mean Corpuscular Hemoglobin 31.9, Mean Corpuscular Hemoglobin Concent 32.5, Red Cell Distribution Width 17.1H, Platelet Count 138L, Neutrophils (%) (Auto) 87.4H, Lymphocytes (%) (Auto) 5.0L, Monocytes (%) (Auto) 6.3H, Eosinophils (%) (Auto) 0.2, Basophils (%) (Auto) 0.3, Neutrophils # (Auto) 18.6H, Lymphocytes # (Auto) 1.1L, Monocytes # (Auto) 1.3H, Eosinophils # (Auto) 0.0, Basophils # (Auto) 0.1, Nucleated Red Blood Cells % (auto) 0.0, Prothrombin Time 22.8H, Prothromb Time International Ratio 2.04, Lactic Acid Level 3.1*H CBC/BMP Laboratory Tests 04/25/19 14:35 Red Blood Count 4.77, Mean Corpuscular Volume 97.9 H, Mean Corpuscular Hemoglobin 31.9, Mean Corpuscular Hemoglobin Concent 32.5, Red Cell Distribution Width 17.1 H, Neutrophils (%) (Auto) 87.4 H, Lymphocytes (%) (Auto) 5.0 L, Monocytes (%) (Auto) 6.3 H, Eosinophils (%) (Auto) 0.2, Basophils (%) (Auto) 0.3, Neutrophils # (Auto) 18.6 H, Lymphocytes # (Auto) 1.1 L, Monocytes # (Auto) 1.3 H, Eosinophils # (Auto) 0.0, Basophils # (Auto) 0.1 Microbiology Microbiology 04/25/19 Blood Culture, Received Pending 04/25/19 Blood Culture, Received Pending Home Medications Scheduled Acetaminophen (Acetaminophen) 500 Mg Tab, 1,000 MG PO BID Allopurinol (Zyloprim) 300 Mg Tab, 300 MG PO DAILY Aspirin (Aspir 81) 81 Mg Tablet.dr, 81 MG PO QPM Atorvastatin Calcium (Atorvastatin Calcium) 20 Mg Tab, 20 MG PO QHS Calcium Carbonate/Vitamin D3 (Calcium 600-Vit D3 400 Tablet) 1 Tab Tab, 1 TAB PO BID Cyanocobalamin (Cyanocobalamin Injection) 1,000 Mcg/1 Ml Vial, 1 ML IM Q2WK Digoxin (Digoxin) 125 Mcg Tab, 125 MCG PO Q2D Docusate Sodium (Stool Softener) 100 Mg Cap, 100 MG PO QHS Ferrous Gluconate (Ferrous Gluconate) 324 Mg Tab, 324 MG PO 2XW SUN/WED Lactobacillus Acidophilus (Probiotic) 1 Cap Cap, 1 CAP PO BID Meloxicam (Meloxicam) 15 Mg Tablet, 7.5 MG PO BID Metoprolol Succinate (Metoprolol Succinate) 100 Mg Tab, 100 MG PO BID Multivitamins (Thera M Plus Tablet) 1 Tab Tab, 1 TAB PO DAILY Omeprazole (Omeprazole) 20 Mg Cap, 20 MG PO QHS Potassium Chloride (Klor-Con M20) 20 Meq Tabcr, 20 MEQ PO BID Prednisone (Prednisone) 5 Mg Tab, 5 MG PO QHS Tamsulosin HCl (Flomax) 0.4 Mg Cap, 0.4 MG PO DAILY Testosterone Cypionate (Testosterone Cypionate) 200 Mg/1 Ml Vial, 1 ML IM Q2WK Torsemide (Torsemide) 100 Mg Tab, 50 MG PO QAM Torsemide (Torsemide) 100 Mg Tablet, 25 MG PO QPM Warfarin Sodium (Warfarin Sodium) 3 Mg Tablet, 6 MG PO 2XW Tuesdays and Wednesdays Warfarin Sodium (Warfarin Sodium) 3 Mg Tablet, 3 MG PO 5XW Sun, Mon, Thurs, Fri, Sat Allergies Coded Allergies: oxycodone (Verified Allergy, Mild, Rash, 04/25/19) A-FIB/CHADSVASC A-FIB History Current/History of A-Fib/PAF?: Yes Current PO Anticoag Therapy: Yes Treatment Treatment ordered: ROSALES Hurt MD Apr 25, 2019 15:20
[2019-04-25] MEDS ORDERED: LR 1,000 ML IV SCH ×2 (20:30→23:00)
[2019-04-25] MEDS ORDERED: VANCOMYCIN HCL 500 MG in D5W MINI-BAG PLUS 100 ML IV ONE ×2 (20:45→23:00)
[2019-04-25] MEDS ORDERED: cefTRIAXone SOD 2 GM in D5W MINI-BAG PLUS 50 ML IV SCH (21:00)
--- NOTE | 2019-04-25 21:26 | PHACANCOPD ---
PHARMACY VANCOMYCIN DOSING Pt Demographics Demographics Patient Age:83 , Weight:91.500 , Gender: male Adjusted Body Weight Date: 04/25/19, Adjusted Body Weight: Kg Events Past 24 Hours Events Past 24 Hours: YES: Fever, Elevation in WBC Vancomycin Vancomycin Target Ranges: 15-20 mcg/ml Vancomycin Load Y/N: Yes Load Dose Date Time Vancomycin Load Dose: 1500 MG Date: 04/25/19 Time: 2200 Vancomycin Dose Date: 04/25/19. Current Vancomycin Dose: [1 GRAM IV Q12H] Intermittent Dosing?: No Labs Micro Microbiology 04/25/19 Blood Culture, Received Pending 04/25/19 Blood Culture, Received Pending 04/25/19 Respiratory Virus Panel (PCR) (AIDA) - Final, Complete 04/25/19 MRSA Screen, Received Pending Creatinine Clearance Date:04/25/19. Creatinine Clearance: . Assessment and Plan Maintaining Current Dose?: Yes Reason for dose change: No Dose Change Pharmacist Note Pharmacist Note Date: 04/25/19. Pharmacist note: Pharmacy consulted for vancomycin dosing for sepsis suspected to be caused by chronic osteomyelitis of the right foot. Patient was previously treated here at [facility] for same issue in November with Vancomycin and Zosyn. Patient was febrile and had an elevated white count. We'll load him with 1500 mg and continue with 1 gram q12h, as he did well on this regimen back in November. His creatinine is slightly higher this time, however. Pharmacy will continue to follow this patient and make adjustments as necessary. [facility] Apr 25, 2019 21:26
[2019-04-25] MEDS: PIPERACILLIN/TAZOBACTAM SOD 3.375 GM in D5W MINI-BAG PLUS 50 ML IV SCH (21:35)
[2019-04-25] MEDS: ASPIRIN 81 MG ENTERIC TAB PO SCH (21:37)
[2019-04-25] MEDS: ACETAMINOPHEN 500 MG TAB PO SCH (21:37)
[2019-04-25] MEDS: predniSONE 5 MG TAB PO SCH (21:37)
[2019-04-25] MEDS: OMEPRAZOLE 20 MG CAP PO SCH (21:38)
[2019-04-25] MEDS: ATORVASTATIN 20 MG TAB PO SCH (21:38)
[2019-04-25] MEDS: METOPROLOL SUCC (TopROL XL) 100MG *XL* TAB PO SCH (21:39)
[2019-04-25] MEDS: DOCUSATE SODIUM 100 MG CAP PO SCH (21:40)
[2019-04-25] MEDS: VANCOMYCIN HCL 1,000 MG, VIAL MATE ADAPTER 1 EACH in D5W 250 ML IV SCH (22:37)
[2019-04-25 23:59] VITALS: BP 95/54
[2019-04-26] MEDS: PIPERACILLIN/TAZOBACTAM SOD 3.375 GM in D5W MINI-BAG PLUS 50 ML IV SCH ×4 (02:48→21:00)
[2019-04-26 04:00] VITALS: BP 114/57
--- NOTE | 2019-04-26 05:43 | ECGEPIP ---
[facility] - ED Test Date: 2019-04-25 Pat Name: KEO WOODS Department: Room: - Gender: Male Vice President: SHIRA : 1935 Requested By: SHAKILA SENIOR Order Number: [id number] Reading MD: Stefan Field Measurements Intervals [place] Rate: 69 P: OR: -1 QRS: 74 QRSD: 103 T: 75 QT: 384 QTc: 413 Interpretive Statements ATRIAL FIBRILLATION WITH ABERRANT CONDUCTION OR VENTRICULAR PREMATURE COMPLEXES LOW QRS VOLTAGE IN EXTREMITY LEADS NSTTW ABNORMALITIES RATE CHANGE COMPARED TO 12/09/18 Electronically Signed on 04-26-2019 5:42:51 EDT by Stefan Field
[2019-04-26] MEDS: NS 1,000 ML IV SCH ×3 (05:54→22:57)
[2019-04-26 08:00] VITALS: BP 104/53
[2019-04-26 08:34] LABS: HEMATOCRIT 43.8 % (42.0-52.0); MEAN CORPUSCULAR HEMOGLOBIN 32.3 pg (27.0-33.0); MEAN CORPUSCULAR VOLUME 101.2 fl (80.0-96.0); PLATELET COUNT, AUTOMATED 117 10^3/uL (150-450); RED BLOOD COUNT 4.33 10^6/uL (4.30-6.10); WHITE BLOOD COUNT 15.7 10^3/uL (4.0-10.0)
[2019-04-26 08:47] LABS: INR 2.07; PROTHROMBIN TIME 23.1 SECONDS (11.8-14.0)
[2019-04-26] MEDS ORDERED: AZITHROMYCIN 250 MG TAB PO SCH (09:00)
[2019-04-26 09:05] LABS: ALBUMIN 2.3 GM/DL (3.2-5.2); BLOOD UREA NITROGEN 20 MG/DL (7-18); CALCIUM LEVEL 8.4 MG/DL (8.8-10.2); CARBON DIOXIDE LEVEL 30 MEQ/L (21-32); CHLORIDE LEVEL 109 MEQ/L (98-107); GLOMERULAR FILTRATION RATE > 60.0 (>35); GLUCOSE, FASTING 90 MG/DL (70-100); PHOSPHORUS LEVEL 2.2 MG/DL (2.5-4.9); POTASSIUM SERUM 3.5 MEQ/L (3.5-5.1); SODIUM LEVEL 140 MEQ/L (136-145); TROPONIN I 0.03 NG/ML (< 0.10)
--- NOTE | 2019-04-26 09:21 | REP ---
Right foot series: Four views. History: Foot infection. Findings: Four views of the right foot are compared with the postoperative views from December 12, 2018. The patient is status post transmetatarsal amputation of all five digits. There is overlying soft tissue dressing and irregularity. A wound VAC is seen dorsally. Vascular calcification is noted in the soft tissues extending out to the of the level of the metatarsals. There is a plantar heel spur. No acute bony erosive changes seen. No soft tissue gas is noted. Electronically Signed by Bert Shafer MD 04/26/2019 09:13 A
[2019-04-26] MEDS: MULTIVITAMINS/MINERALS THERAP 1 TAB PO SCH (10:11)
[2019-04-26] MEDS: ACETAMINOPHEN 500 MG TAB PO SCH ×2 (10:12→22:55)
[2019-04-26] MEDS: TAMSULOSIN 0.4 MG CAP PO SCH (10:12)
[2019-04-26] MEDS: ALLOPURINOL 300 MG TAB PO SCH (10:13)
[2019-04-26] MEDS: LACTOBACILLUS ACIDOPHILUS CAP (BACID) PO SCH ×2 (10:13→17:38)
[2019-04-26] MEDS: METOPROLOL SUCC (TopROL XL) 100MG *XL* TAB PO SCH ×2 (10:22→22:56)
[2019-04-26] MEDS ORDERED: SLF 3 ML SYR IV PRN (11:15)
[2019-04-26] MEDS: VANCOMYCIN HCL 1,000 MG, VIAL MATE ADAPTER 1 EACH in D5W 250 ML IV SCH ×2 (11:24→22:57)
[2019-04-26] MEDS: SLF 3 ML SYR IV SCH ×2 (13:08→22:00)
--- NOTE | 2019-04-26 13:27 | IPNPDOC ---
Date Seen The patient was seen on 04/26/19. Progress Note SUBJECTIVE:Pt continues to have malodorous serosanguieous discharge in the right foot, left open without wound vac by podiatry. Dr. Guevara is unavailable until Monday. Pt remains afebrile without chillls overnight. His cough is nonproductive and slightly improved. no c/o sob, dizziness,lightheadedness, or chest pain. OBJECTIVE: PHYSICAL EXAMINATION: VITALS: PLS SEE BELOW GENERAL: unkempt.He is alert, oriented, awake x 3. no conversational dyspnea. no use of respiratory accessory muscles HEENT: anicteric sclera, no jaundice. PERRLA EOMI poor dentition dry mucus membranes neck supple no LAD or cervical LAD HEART:S1 S2 JVP 4-5 cm. irregularly irregular rhythm. displaced PMI to left Lungs : diminished. fairly clear bilaterally. Abdomen isoft,nontender. Bowel sounds are present. no rebound guarding no hsm Extremities have mild edema bilaterally.chronic erythematous venous changes There are good peripheral pulses in popliteal arteries as well as posterior tibial arteries on both sides. Right foot transmetatarsal amputation with wound vac nontender LABORATORY DATA, IMAGING STUDIES, MICROBIOLOGY: PLS SEE BELOW ASSESSMENT AND PLAN: 83 y/o male admitted 11/2018 for a right ischemic foot / osteomyelitis s/p transmetatarsal amputation by Dr. Noriega, given IV vanco, zosyn and downgraded to po levaquin,chronic wound vac and debridement by Dr. Noriega since hospital discharge. Pt also underwent right popliteal artery and superficial femoral artery stent placement on 12/06/[address] Florence to improve healing, but has not seen vascular surgery since. His right foot was debrided in the office on Monday, and now presents to the ER with acute onset of ch ills this morning, described as "I was shaking so bad, I figured something was wrong." no medications were taken at home. He also admits to a hacking cough more than usual,nonproductive, for the past few days, and woke up morning "not breathing good. I couldn't move so much since my toes were taken off." He denies any pain in the right foot. "I don't feel much in my hands and feet anymore, anyway," and has not seen any change in the usual serous drainage seen when the wound vac is changed on mon, mon, monday. Pt says his temperature usually runs low 97.5-98, but In the ER, pt was found to be febrile 102.4 white count 22 cxr: artifact vs left lower lobe infiltrate. ER gave one dose of IV levaquin. Hospitalist was called to admit for pneumonia, and patient was initially ordered iv ceftrriaxone and azithromycin. CT chest, however, showed chronic bronchiectasis, no consolidation, or infiltrate. Antibiotics changed to iv vanco and iv zosyn to cover chronic osteo of the right foot, podiatry and ID consulted to see the patient in the morning, and MRI foot. Sepsis -initially thought to be due to left lower lobe pneumonia due to c/o hacking cough, fever, wbc 22, and cxr: artifact vs LLL infiltrate. s/p iv levaquin given by ER 04/25/19, and azithro. 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 -MRI right foot ordered which may be difficult to interpret with previous amputation. -ID and podiatry consulted. -IV vanco and IV zosyn renally dosed by pharmacy until cultures are finalized. 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 - Tmax 102.4 wbc 22 -MRI right foot ordered which may be difficult to interpret with previous amputation. -ID and podiatry consulted. wound vac -IV vanco and IV zosyn renally dosed by pharmacy until cultures are finalized. -PCU admit due to risk of chf decompensation in light of new infection for telemetry monitoring Chronic Bronchiectasis s/p iv levaquin given by ER 04/25/19 and po azithromycin -7days IV ceftriaxone and 5 days po azithromycin -PCU admit due to risk of chf decompensation in light of new infection for telemetry monitoring -checked sputum cx, blood cx x 2 sets, urine legionella, urine streptococcal antigen, MRSA screen , and respiratory panel -CT chest : chronic bronchiectasis. no consolidation or infiltrate -supplemental oxygen if needed to keep o2 sat>90% Lactic Acidosis -due to sepsis -gentle ivfluid hydration due to history of systolic chf, and iv antibiotics -serial lactic acid monitoring -follow clinically and check admission and discharge esr and crp Coronary artery disease s/p percutaneous coronary intervention (PCI) to right coronary artery with bare metal stents times five in 2010. -sequins winder is Dr. Mejias -in light of sepsis , diuretics were held and pt given gentle hydration with ns at 75ml/hr. -monitor for acute ischemic symptoms in light of acute respiratory infection -cycle cardiac markers if sob persists Ischemic cardiomyopathy with left ventricular systolic function approximately 30-35% inferior wall hypokinesis. -sequins winder is Dr. Mejias -resume home meds -monitor for acute ischemic symptoms in light of acute respiratory infection -cycle cardiac markers if sob persists moderate mitral insufficiency -complicating care moderate pulmonary hypertension. -complicating care Chronic atrial fibrillation. -on chronic warfarin to target inr 2-3 -resumed home dose of warfarin -daily inr check to adjust dose if needed -resumed home metoprolol Hypertension. -resumed home dose of metoprolol Dyslipidemia. -resumed home meds History of chronic anemia that was iron deficiency -monitoring for symptoms of anemia -cbc stable on admission polycythemia -monitor cbc Peripheral vascular disease. -right popliteal artery and superficial femoral artery stent placement on 12/06/[address] Florence -s/p transmetatarsal amputation of the right foot due to osteomyelitis in 11/[address] Noriega Gastroesophageal reflux disease (GERD). -resume home meds Osteomyelitis of the right foot s/p Transmetatarsal Amputation 11/2018 Dr. Noriega -outpt fu with vascular surgery and podiatry for peripheral vascular disease Peripheral vascular disease -on chronic warfarin and statins -history of heavy cigar use Left Upper Extremity Scaphoid Fracture -healed History of cigar use -contributed to pt's peripheral arterial disease History of heavy Alcohol abuse -decreased consumption in recent years DVT prophylaxis: on chronic warfarin for atrial fibrillation VS, I&O, 24H, Fishbone Vital Signs/I&O Vital Signs Date Time Temp Pulse Resp B/P (MAP) Pulse Ox O2 Delivery O2 Flow Rate FiO2 04/26/19 04:00 98.7 71 18 114/57 (76) 99 04/25/19 16:37 Room Air I&O- Last 24 Hours up to 6 AM 04/26/19 06:00 Intake Total 1460 ml Output Total 0 ml Balance 1460 ml Laboratory Data 24H LABS Laboratory Tests 2 04/25/19 14:35: Immature Granulocyte % (Auto) 0.8, White Blood Count 21.3H, Red Blood Count 4.77, Hemoglobin 15.2, Hematocrit 46.7, Mean Corpuscular Volume 97.9H, Mean Corpuscular Hemoglobin 31.9, Mean Corpuscular Hemoglobin Concent 32.5, Red Cell Distribution Width 17.1H, Platelet Count 138L, Neutrophils (%) (Auto) 87.4H, Lymphocytes (%) (Auto) 5.0L, Monocytes (%) (Auto) 6.3H, Eosinophils (%) (Auto) 0.2, Basophils (%) (Auto) 0.3, Neutrophils # (Auto) 18.6H, Lymphocytes # (Auto) 1.1L, Monocytes # (Auto) 1.3H, Eosinophils # (Auto) 0.0, Basophils # (Auto) 0.1, Nucleated Red Blood Cells % (auto) 0.0, Erythrocyte Sedimentation Rate 20, Prothrombin Time 22.8H, Prothromb Time International Ratio 2.04, Anion Gap 7L, Glomerular Filtration Rate 56.4, Lactic Acid Level 3.1*H, Calcium Level 8.1L, Aspartate Amino Transf (AST/SGOT) 16, Alanine Aminotransferase (ALT/SGPT) 20, Alkaline Phosphatase 128H, Total Bilirubin 0.9, Direct Bilirubin 0.3H, Total Creatine Kinase 33L, Creatine Kinase MB < 1.0, Creatine Kinase MB Relative Index 3.03, Troponin I 0.04, C-Reactive Protein, Quantitative 3.37H, ON-Qhv-V-Type Natriuretic Peptide 1486H, Total Protein 6.6, Albumin 3.0L, Albumin/Globulin Ratio 0.83L, Digoxin Level 0.5 04/25/19 18:53: Lactic Acid Followup at 4 Hours 3.3*H 04/25/19 21:05: Troponin I 0.02# 04/26/19 00:28: Lactic Acid Level 2.5*H 04/26/19 02:52: Troponin I 0.03# 04/26/19 04:37: Urine Color YELLOW, Urine Appearance CLEAR, Urine pH 7.0, Urine Specific [place] 1.016, Urine Protein NEGATIVE, Urine Glucose (UA) NEGATIVE, Urine Ketones NEGATIVE, Urine Blood NEGATIVE, Urine Nitrite NEGATIVE, Urine Bilirubin NEGATIVE, Urine Urobilinogen 0.2, Urine Leukocyte Esterase NEGATIVE, Urine WBC (Auto) 1, Urine RBC (Auto) 3, Urine Hyaline Casts (Auto) 0, Urine Bacteria (Auto) NEGATIVE, Urine Squamous Epithelial Cells 0, Urine Sperm (Auto) CBC/BMP Laboratory Tests 04/25/19 14:35 Red Blood Count 4.77, Mean Corpuscular Volume 97.9 H, Mean Corpuscular Hemoglobin 31.9, Mean Corpuscular Hemoglobin Concent 32.5, Red Cell Distribution Width 17.1 H, Neutrophils (%) (Auto) 87.4 H, Lymphocytes (%) (Auto) 5.0 L, Monocytes (%) (Auto) 6.3 H, Eosinophils (%) (Auto) 0.2, Basophils (%) (Auto) 0.3, Neutrophils # (Auto) 18.6 H, Lymphocytes # (Auto) 1.1 L, Monocytes # (Auto) 1.3 H, Eosinophils # (Auto) 0.0, Basophils # (Auto) 0.1 Microbiology Microbiology 04/25/19 Blood Culture, Received Pending 04/25/19 Blood Culture, Received Pending 04/26/19 Gram Stain, Received Pending 04/26/19 Sputum Culture, Received Pending 04/25/19 Respiratory Virus Panel (PCR) ([facility]) - Final, Complete 04/25/19 MRSA Screen, Received Pending ROSALES CHONG MD Apr 26, 2019 07:15
--- NOTE | 2019-04-26 14:03 | CR ---
DATE: 04/26/2019 Patient well known to me seen for evaluation of his right foot. The patient is an 83-year-old male. He states that he had fever and chills and was therefore admitted to the hospital. He is seen today for evaluation at bedside. PAST MEDICAL HISTORY: Coronary artery disease. Ischemic cardiomyopathy. Moderate mitral valve insufficiency. Pulmonary hypertension. Chronic atrial fibrillation. Hypertension. Dyslipidemia. Chronic anemia. Peripheral artery disease. Gastroesophageal reflux disease. History of osteomyelitis of the right foot treated with transmetatarsal amputation. PAST SURGICAL HISTORY: Toe amputation. Subsequent transmetatarsal amputation. Percutaneous coronary intervention (PCI) with bare metal stents times five. Right popliteal artery and superficial femoral artery stent placement. PHYSICAL EXAMINATION: There is a wound Vac present on the patient's right lower extremity functioning satisfactorily. The wound Vac was removed revealing good granulation tissue throughout the entire wound bed. There is no purulent drainage. No erythema of the skin. The wound was cultured. The wound measures 4.2 cm from medial to lateral, measures 3.2 cm from dorsal to plantar, and it is 1 mm in depth with good granulation tissue throughout the entire wound bed. It does not extend to bone. X-rays are reviewed and are negative for osteomyelitis with no air in the subcutaneous tissues. The patient's pedal pulses are not palpable. LABORATORY STUDIES: Reviewed and revealing a white count today decreased from admission from 21.3 to 15.7 today. ESR is 20. C-reactive protein series ordered. ASSESSMENT: Stage 3 ulceration right foot status post transmetatarsal amputation. PLAN: Discussed with the patient giving him a break from the wound Vac. The foot was cleansed today and a sterile dressing was applied. Orders will be written for application of a Silvadene and sterile dressing. The wound will be cleansed with Vashe wound cleaner industrial and allowed to stand for 10 minutes followed by dressing. The patient may bear weight on both his extremities. Ambulate with a surgical shoe on his right side. The patient does have an AFO on the right side which may stabilize his gait. He can either use that with his surgical shoe or his regular shoe gear if he is unsteady with his surgical shoe. There is a possibility of early cellulitis of his foot, however, this appears less likely. His questions were answered.
[2019-04-26 16:00] VITALS: BP 133/60
[2019-04-26] MEDS: WARFARIN SOD 3 MG TAB PO SCH (17:38)
[2019-04-26 22:00] VITALS: BP 130/79
[2019-04-26 22:53] VITALS: BP 117/69
[2019-04-26] MEDS: ATORVASTATIN 20 MG TAB PO SCH (22:56)
[2019-04-26] MEDS: DOCUSATE SODIUM 100 MG CAP PO SCH (22:56)
[2019-04-26] MEDS: predniSONE 5 MG TAB PO SCH (22:56)
[2019-04-26] MEDS: ASPIRIN 81 MG ENTERIC TAB PO SCH (22:57)
[2019-04-26] MEDS: OMEPRAZOLE 20 MG CAP PO SCH (22:57)
[2019-04-27] MEDS: PIPERACILLIN/TAZOBACTAM SOD 3.375 GM in D5W MINI-BAG PLUS 50 ML IV SCH ×4 (01:45→18:48)
[2019-04-27] MEDS: SILVER SULFADIAZINE 1% CR 50 GM JAR TOP SCH (05:56)
[2019-04-27 06:00] VITALS: BP 114/62
[2019-04-27] MEDS: SLF 3 ML SYR IV SCH ×3 (06:00→22:16)
[2019-04-27 06:14] LABS: HEMATOCRIT 39.7 % (42.0-52.0); HEMOGLOBIN 12.8 g/dl (13.5-17.5); MEAN CORPUSCULAR HGB CONC 32.2 g/dl (32.0-36.5); MEAN CORPUSCULAR VOLUME 96.1 fl (80.0-96.0); PLATELET COUNT, AUTOMATED 113 10^3/uL (150-450); RED BLOOD COUNT 4.13 10^6/uL (4.30-6.10); WHITE BLOOD COUNT 11.1 10^3/uL (4.0-10.0)
[2019-04-27 06:30] LABS: ALBUMIN 2.2 GM/DL (3.2-5.2); BLOOD UREA NITROGEN 16 MG/DL (7-18); CALCIUM LEVEL 8.5 MG/DL (8.8-10.2); CARBON DIOXIDE LEVEL 27 MEQ/L (21-32); CHLORIDE LEVEL 109 MEQ/L (98-107); CREATININE FOR GFR 1.06 MG/DL (0.70-1.30); GLOMERULAR FILTRATION RATE > 60.0 (>35); GLUCOSE, FASTING 91 MG/DL (70-100); PHOSPHORUS LEVEL 2.2 MG/DL (2.5-4.9); POTASSIUM SERUM 3.2 MEQ/L (3.5-5.1); SODIUM LEVEL 140 MEQ/L (136-145)
[2019-04-27] MEDS ORDERED: POTASSIUM CHLORIDE 10 MEQ SR TABLET PO ONE (06:45)
[2019-04-27 06:59] LABS: PROTHROMBIN TIME 22.5 SECONDS (11.8-14.0)
[2019-04-27] MEDS: TAMSULOSIN 0.4 MG CAP PO SCH (09:46)
[2019-04-27] MEDS: MULTIVITAMINS/MINERALS THERAP 1 TAB PO SCH (09:49)
[2019-04-27] MEDS: LACTOBACILLUS ACIDOPHILUS CAP (BACID) PO SCH ×2 (09:49→17:16)
[2019-04-27] MEDS: ALLOPURINOL 300 MG TAB PO SCH (09:50)
[2019-04-27] MEDS: ACETAMINOPHEN 500 MG TAB PO SCH ×2 (09:52→21:03)
[2019-04-27] MEDS: METOPROLOL SUCC (TopROL XL) 100MG *XL* TAB PO SCH ×2 (09:55→21:04)
[2019-04-27] MEDS: VANCOMYCIN HCL 1,000 MG, VIAL MATE ADAPTER 1 EACH in D5W 250 ML IV SCH ×2 (09:56→22:17)
--- NOTE | 2019-04-27 10:14 | IPNPDOC ---
Date Seen The patient was seen on 04/27/19. Progress Note SUBJECTIVE: Pt feels frustrated about ending up in the hospital again for the same foot infection. "I just don't want to lose my foot, you know." Pt continues to have malodorous serosanguieous discharge in the right foot, left open without wound vac by podiatry. Dr. Guevara is unavailable until Monday. Pt remains afebrile without chillls overnight. His cough is nonproductive and slightly improved. no c/o sob, dizziness,lightheadedness, or chest pain. OBJECTIVE: PHYSICAL EXAMINATION: VITALS: PLS SEE BELOW GENERAL: unkempt.He is alert, oriented, awake x 3. no conversational dyspnea. no use of respiratory accessory muscles HEENT: anicteric sclera, no jaundice. PERRLA EOMI poor dentition dry mucus membranes neck supple no LAD or cervical LAD HEART:S1 S2 JVP 4-5 cm. irregularly irregular rhythm. displaced PMI to left Lungs : diminished. fairly clear bilaterally. Abdomen isoft,nontender. Bowel sounds are present. no rebound guarding no hsm Extremities have mild edema bilaterally.chronic erythematous venous changes There are good peripheral pulses in popliteal arteries as well as posterior tibial arteries on both sides. Right foot transmetatarsal amputation with wound vac nontender LABORATORY DATA, IMAGING STUDIES, MICROBIOLOGY: PLS SEE BELOW ASSESSMENT AND PLAN: 83 y/o male admitted 11/2018 for a right ischemic foot / osteomyelitis s/p transmetatarsal amputation by Dr. Noriega, given IV vanco, zosyn and downgraded to po levaquin,chronic wound vac and debridement by Dr. Noriega since hospital discharge. Pt also underwent right popliteal artery and superficial femoral artery stent placement on 12/06/[address] Florence to improve healing, but has not seen vascular surgery since. His right foot was debrided in the office on Monday, and now presents to the ER with acute onset of chills this morning, described as "I was shaking so bad, I figured something was wrong." no medications were taken at home. He also admits to a hacking cough more than usual,nonproductive, for the past few days, and woke up morning "not breathing good. I couldn't move so much since my toes were taken off." He denies any pain in the right foot. "I don't feel much in my hands and feet anymore, anyway," and has not seen any change in the usual serous drainage seen when the wound vac is changed on mon, mon, monday. Pt says his temperature usually runs low 97.5-98, but In the ER, pt was found to be febrile 102.4 white count 22 cxr: artifact vs left lower lobe infiltrate. ER gave one dose of IV levaquin. Hospitalist was called to admit for pneumonia, and patient was initially ordered iv ceftrriaxone and azithromycin. CT chest, however, showed chronic bronchiectasis, no consolidation, or infiltrate. Antibiotics changed to iv vanco and iv zosyn to cover chronic osteo of the right foot, podiatry and ID consulted to see the patient in the morning, and MRI foot. Sepsis -initially thought to be due to left lower lobe pneumonia due to c/o hacking cough, fever, wbc 22, and cxr: artifact vs LLL infiltrate. s/p iv levaquin given by ER 04/25/19, and azithro. 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 -MRI right foot ordered which may be difficult to interpret with previous amputation. -ID and podiatry consulted. -IV vanco and IV zosyn renally dosed by pharmacy until cultures are finalized. -PCU admit due to risk of chf decompensation in light of new infection for telemetry monitoring chronic osteomyelitis in the right foot despite transmetatarsal amputation with recent debridement this past monday by his methods analyst data processing. - Tmax 102.4 wbc 22 -MRI right foot ordered which may be difficult to interpret with previous amputation. -ID and podiatry consulted. wound vac -IV vanco and IV zosyn renally dosed by pharmacy until cultures are finalized. -PCU admit due to risk of chf decompensation in light of new infection for telemetry monitoring Chronic Bronchiectasis s/p iv levaquin given by ER 04/25/19 and po azithromycin -7days IV ceftriaxone and 5 days po azithromycin -PCU admit due to risk of chf decompensation in light of new infection for telemetry monitoring -checked sputum cx, blood cx x 2 sets, urine legionella, urine streptococcal antigen, MRSA screen , and respiratory panel -CT chest : chronic bronchiectasis. no consolidation or infiltrate -supplemental oxygen if needed to keep o2 sat>90% Lactic Acidosis -due to sepsis -gentle ivfluid hydration due to history of systolic chf, and iv antibiotics -serial lactic acid monitoring -follow clinically and check admission and discharge esr and crp Coronary artery disease s/p percutaneous coronary intervention (PCI) to right coronary artery with bare metal stents times five in 2010. -university controller is Dr. Mejias -in light of sepsis , diuretics were held and pt given gentle hydration with ns at 75ml/hr. -monitor for acute ischemic symptoms in light of acute respiratory infection -cycle cardiac markers if sob persists Ischemic cardiomyopathy with left ventricular systolic function approximately 30-35% inferior wall hypokinesis. -university controller is Dr. Mejias -resume home meds -monitor for acute ischemic symptoms in light of acute respiratory infection -cycle cardiac markers if sob persists moderate mitral insufficiency -complicating care moderate pulmonary hypertension. -complicating care Chronic atrial fibrillation. -on chronic warfarin to target inr 2-3 -resumed home dose of warfarin -daily inr check to adjust dose if needed -resumed home metoprolol Hypertension. -resumed home dose of metoprolol Dyslipidemia. -resumed home meds History of chronic anemia that was iron deficiency -monitoring for symptoms of anemia -cbc stable on admission polycythemia -monitor cbc Peripheral vascular disease. -right popliteal artery and superficial femoral artery stent placement on 12/06/[address] Florence -s/p transmetatarsal amputation of the right foot due to osteomyelitis in 11/[address] Noriega Gastroesophageal reflux disease (GERD). -resume home meds Osteomyelitis of the right foot s/p Transmetatarsal Amputation 11/2018 Dr. Noriega -outpt fu with vascular surgery and podiatry for peripheral vascular disease Peripheral vascular disease -on chronic warfarin and statins -history of heavy cigar use Left Upper Extremity Scaphoid Fracture -healed History of cigar use -contributed to pt's peripheral arterial disease History of heavy Alcohol abuse -decreased consumption in recent years DVT prophylaxis: on chronic warfarin for atrial fibrillation VS, I&O, 24H, Fishbone Vital Signs/I&O Vital Signs Date Time Temp Pulse Resp B/P (MAP) Pulse Ox O2 Delivery O2 Flow Rate FiO2 04/27/19 06:00 97.1 69 18 114/62 (79) 91 04/25/19 16:37 Room Air I&O- Last 24 Hours up to 6 AM 04/27/19 06:00 Intake Total 3180 ml Output Total 1300 ml Balance 1880 ml Laboratory Data 24H LABS Laboratory Tests 2 04/26/19 07:58: Nucleated Red Blood Cells % (auto) 0.0, Prothrombin Time 23.1H, Prothromb Time I nternational Ratio 2.07, Blood Urea Nitrogen 20H, Creatinine 1.20, Sodium Level 140, Potassium Level 3.5, Chloride Level 109H, Carbon Dioxide Level 30, Anion Gap 1L, Glomerular Filtration Rate > 60.0, Calcium Level 8.4L, Phosphorus Level 2.2L, Troponin I 0.03, Albumin 2.3#L 04/27/19 05:41: Nucleated Red Blood Cells % (auto) 0.0, Blood Urea Nitrogen 16, Creatinine 1.06, Sodium Level 140, Potassium Level 3.2L, Chloride Level 109H, Carbon Dioxide Level 27, Anion Gap 4L, Glomerular Filtration Rate > 60.0, Calcium Level 8.5L, Phosphorus Level 2.2L, Albumin 2.2L CBC/BMP Laboratory Tests 04/26/19 07:58 Red Blood Count 4.33, Mean Corpuscular Volume 101.2 H, Mean Corpuscular Hemoglobin 32.3, Mean Corpuscular Hemoglobin Concent 32.0, Red Cell Distribution Width 17.2 H, Anion Gap 1 L 04/27/19 05:41 Red Blood Count 4.13 L, Mean Corpuscular Volume 96.1 H, Mean Corpuscular Hemoglobin 31.0, Mean Corpuscular Hemoglobin Concent 32.2, Red Cell Distribution Width 16.9 H, Anion Gap 4 L Microbiology Microbiology 04/25/19 Blood Culture - Preliminary, Resulted No growth after 24 hours . All specim... 04/25/19 Blood Culture - Preliminary, Resulted 04/26/19 Gram Stain - Final, Complete 04/26/19 Sputum Culture - Final, Complete 04/25/19 Respiratory Virus Panel (PCR) ([facility]) - Final, Complete 04/25/19 MRSA Screen, Received Pending 04/26/19 Gram Stain - Final, Resulted 04/26/19 Wound Culture - Preliminary, Resulted Staphylococcus Aureus ROSALES CHONG MD Apr 27, 2019 06:41
[2019-04-27 14:00] VITALS: BP 127/74
[2019-04-27] MEDS: WARFARIN SOD 3 MG TAB PO SCH (17:16)
[2019-04-27] MEDS: TORSEMIDE 100 MG TAB PO SCH (17:18)
[2019-04-27] MEDS: ASPIRIN 81 MG ENTERIC TAB PO SCH (21:02)
[2019-04-27] MEDS: ATORVASTATIN 20 MG TAB PO SCH (21:02)
[2019-04-27] MEDS: DIGOXIN 0.125 MG TAB PO SCH (21:03)
[2019-04-27] MEDS: OMEPRAZOLE 20 MG CAP PO SCH (21:03)
[2019-04-27] MEDS: predniSONE 5 MG TAB PO SCH (21:03)
[2019-04-27] MEDS: DOCUSATE SODIUM 100 MG CAP PO SCH (21:03)
[2019-04-27 22:00] VITALS: BP 144/62
[2019-04-28] MEDS: SILVER SULFADIAZINE 1% CR 50 GM JAR TOP SCH ×2 (00:30→09:45)
[2019-04-28 00:40] VITALS: BP 122/72
[2019-04-28] MEDS: PIPERACILLIN/TAZOBACTAM SOD 3.375 GM in D5W MINI-BAG PLUS 50 ML IV SCH ×4 (01:37→18:07)
[2019-04-28 06:00] VITALS: BP 120/61
[2019-04-28 06:13] LABS: INR 2.17
[2019-04-28 06:14] LABS: HEMATOCRIT 41.9 % (42.0-52.0); HEMOGLOBIN 13.3 g/dl (13.5-17.5); MEAN CORPUSCULAR HEMOGLOBIN 30.9 pg (27.0-33.0); MEAN CORPUSCULAR HGB CONC 31.7 g/dl (32.0-36.5); MEAN CORPUSCULAR VOLUME 97.2 fl (80.0-96.0); PLATELET COUNT, AUTOMATED 122 10^3/uL (150-450); RED BLOOD COUNT 4.31 10^6/uL (4.30-6.10); WHITE BLOOD COUNT 9.2 10^3/uL (4.0-10.0)
[2019-04-28 06:33] LABS: ALBUMIN 2.3 GM/DL (3.2-5.2); BLOOD UREA NITROGEN 13 MG/DL (7-18); CALCIUM LEVEL 8.7 MG/DL (8.8-10.2); CARBON DIOXIDE LEVEL 26 MEQ/L (21-32); CHLORIDE LEVEL 110 MEQ/L (98-107); CREATININE FOR GFR 1.12 MG/DL (0.70-1.30); GLOMERULAR FILTRATION RATE > 60.0 (>35); GLUCOSE, FASTING 110 MG/DL (70-100); PHOSPHORUS LEVEL 2.5 MG/DL (2.5-4.9); POTASSIUM SERUM 3.5 MEQ/L (3.5-5.1); SODIUM LEVEL 142 MEQ/L (136-145)
[2019-04-28] MEDS: SLF 3 ML SYR IV SCH ×3 (06:52→22:04)
[2019-04-28] MEDS: K-PHOS NEUTRAL 250MG TABLET (SOD.PHOSPHATE/POT.PHOSPHATE) PO SCH ×3 (09:42→20:14)
[2019-04-28] MEDS: ACETAMINOPHEN 500 MG TAB PO SCH ×2 (09:43→20:15)
[2019-04-28] MEDS: LACTOBACILLUS ACIDOPHILUS CAP (BACID) PO SCH ×2 (09:43→18:07)
[2019-04-28] MEDS: METOPROLOL SUCC (TopROL XL) 100MG *XL* TAB PO SCH ×2 (09:44→20:16)
[2019-04-28] MEDS: MULTIVITAMINS/MINERALS THERAP 1 TAB PO SCH (09:44)
[2019-04-28] MEDS: ALLOPURINOL 300 MG TAB PO SCH (09:44)
[2019-04-28] MEDS: TORSEMIDE (DEMADEX) 50 MG PER 1/2 TAB PO SCH (09:44)
[2019-04-28] MEDS: TAMSULOSIN 0.4 MG CAP PO SCH (09:44)
[2019-04-28] MEDS: FERROUS GLUCONATE 324 MG TAB PO SCH (09:45)
[2019-04-28] MEDS: VANCOMYCIN HCL 1,000 MG, VIAL MATE ADAPTER 1 EACH in D5W 250 ML IV SCH ×2 (09:45→22:04)
--- NOTE | 2019-04-28 13:03 | IPNPDOC ---
Date Seen The patient was seen on 04/28/19. Progress Note SUBJECTIVE: No malodrous odor today. still with serosanguinous discharge. afebrile no chills. Pt feels frustrated about ending up in the hospital again for the same foot infection. "I just don't want to lose my foot, you know." right foot has been left open without wound vac by podiatry. Dr. Guevara is unavailable until Monday. His cough is nonproductive and slightly improved. no c/o sob, dizziness,lightheadedness, or chest pain. OBJECTIVE: PHYSICAL EXAMINATION: VITALS: PLS SEE BELOW GENERAL: unkempt.He is alert, oriented, awake x 3. no conversational dyspnea. no use of respiratory accessory muscles HEENT: anicteric sclera, no jaundice. PERRLA EOMI poor dentition dry mucus membranes neck supple no LAD or cervical LAD HEART:S1 S2 JVP 4-5 cm. irregularly irregular rhythm. displaced PMI to left Lungs : diminished. fairly clear bilaterally. Abdomen isoft,nontender. Bowel sounds are present. no rebound guarding no hsm Extremities have mild edema bilaterally.chronic erythematous venous changes There are good peripheral pulses in popliteal arteries as well as posterior tibial arteries on both sides. Right foot transmetatarsal amputation with wound vac nontender LABORATORY DATA, IMAGING STUDIES, MICROBIOLOGY: PLS SEE BELOW ASSESSMENT AND PLAN: 83 y/o male admitted 11/2018 for a right ischemic foot / osteomyelitis s/p transmetatarsal amputation by Dr. Noriega, given IV vanco, zosyn and downgraded to po levaquin,chronic wound vac and debridement by Dr. Noriega since hospital discharge. Pt also underwent right popliteal artery and superficial femoral artery stent placement on 12/06/[address] Florence to improve healing, but has not seen vascular surgery since. His right foot was debrided in the office on Monday, and now presents to the ER with acute onset of chills this morning, described as "I was shaking so bad, I figured something was wrong." no medications were taken at home. He also admits to a hacking cough more than usual,nonproductive, for the past few days, and woke up morning "not breathing good. I couldn't move so much since my toes were taken off." He denies any pain in the right foot. "I don't feel much in my hands and feet anymore, anyway," and has not seen any change in the usual serous drainage seen when the wound vac is changed on mon, mon, monday. Pt says his temperature usually runs low 97.5-98, but In the ER, pt was found to be febrile 102.4 white count 22 cxr: artifact vs left lower lobe infiltrate. ER gave one dose of IV levaquin. Hospitalist was called to admit for pneumonia, and patient was initially ordered iv ceftrriaxone and azithromycin. CT chest, however, showed chronic bronchiectasis, no consolidation, or infiltrate. Antibiotics changed to iv vanco and iv zosyn to cover chronic osteo of the right foot, podiatry and ID consulted to see the patient in the morning, and MRI foot. Sepsis -initially thought to be due to left lower lobe pneumonia due to c/o hacking cough, fever, wbc 22, and cxr: artifact vs LLL infiltrate. s/p iv levaquin given by ER 04/25/19, and azithro. -However, CT chest: bronchiectasis, no consolidation or infiltrate -most likely due to chronic osteomyelitis in the right foot despite transmetatarsal amputation with recent debridement this past monday by his torpedo man. -MRI right foot ordered which may be difficult to interpret with previous amputation. -ID and podiatry consulted. -IV vanco and IV zosyn renally dosed by pharmacy until cultures are finalized. -PCU admit due to risk of chf decompensation in light of new infection for telemetry monitoring chronic osteomyelitis in the right foot despite transmetatarsal amputation with recent debridement this past monday by his torpedo man. - Tmax 102.4 wbc 22 -MRI right foot ordered which may be difficult to interpret with previous amputation. -ID and podiatry consulted. wound vac -IV vanco and IV zosyn renally dosed by pharmacy until cultures are finalized. -PCU admit due to risk of chf decompensation in light of new infection for telemetry monitoring Chronic Bronchiectasis s/p iv levaquin given by ER 04/25/19 and po azithromycin -7days IV ceftriaxone and 5 days po azithromycin -PCU admit due to risk of chf decompensation in light of new infection for telemetry monitoring -checked sputum cx, blood cx x 2 sets, urine legionella, urine streptococcal antigen, MRSA screen , and respiratory panel -CT chest : chronic bronchiectasis. no consolidation or infiltrate -supplemental oxygen if needed to keep o2 sat>90% Lactic Acidosis -due to sepsis -gentle ivfluid hydration due to history of systolic chf, and iv antibiotics -serial lactic acid monitoring -follow clinically and check admission and discharge esr and crp Coronary artery disease s/p percutaneous coronary intervention (PCI) to right coronary artery with bare metal stents times five in 2010. -geological science teacher is Dr. Mejias -in light of sepsis , diuretics were held and pt given gentle hydration with ns at 75ml/hr. -monitor for acute ischemic symptoms in light of acute respiratory infection -cycle cardiac markers if sob persists Ischemic cardiomyopathy with left ventricular systolic function approximately 30-35% inferior wall hypokinesis. -geological science teacher is Dr. Mejias -resume home meds -monitor for acute ischemic symptoms in light of acute respiratory infection -cycle cardiac markers if sob persists moderate mitral insufficiency -complicating care moderate pulmonary hypertension. -complicating care Chronic atrial fibrillation. -on chronic warfarin to target inr 2-3 -resumed home dose of warfarin -daily inr check to adjust dose if needed -resumed home metoprolol Hypertension. -resumed home dose of metoprolol Dyslipidemia. -resumed home meds History of chronic anemia that was iron deficiency -monitoring for symptoms of anemia -cbc stable on admission polycythemia -monitor cbc Peripheral vascular disease. -right popliteal artery and superficial femoral artery stent placement on 12/06/[address] Florence -s/p transmetatarsal amputation of the right foot due to osteomyelitis in 11/[address] Noriega Gastroesophageal reflux disease (GERD). -resume home meds Osteomyelitis of the right foot s/p Transmetatarsal Amputation 11/2018 Dr. Noriega -outpt fu with vascular surgery and podiatry for peripheral vascular disease Peripheral vascular disease -on chronic warfarin and statins -history of heavy cigar use Left Upper Extremity Scaphoid Fracture -healed History of cigar use -contributed to pt's peripheral arterial disease History of heavy Alcohol abuse -decreased consumption in recent years DVT prophylaxis: on chronic warfarin for atrial fibrillation VS, I&O, 24H, Fishbone Vital Signs/I&O Vital Signs Date Time Temp Pulse Resp B/P (MAP) Pulse Ox O2 Delivery O2 Flow Rate FiO2 04/28/19 06:00 96.8 76 18 120/61 (80) 92 04/25/19 16:37 Room Air I&O- Last 24 Hours up to 6 AM 04/28/19 06:00 Intake Total 1778 ml Output Total 2800 ml Balance -1022 ml Laboratory Data 24H LABS Laboratory Tests 2 04/27/19 08:37: Vancomycin Level Trough 12.0 04/28/19 05:39: Nucleated Red Blood Cells % (auto) 0.0, Prothrombin Time 24.0H, Prothromb Time International Ratio 2.17 CBC/BMP Laboratory Tests 04/28/19 05:39 Red Blood Count 4.31, Mean Corpuscular Volume 97.2 H, Mean Corpuscular Hemoglobin 30.9, Mean Corpuscular Hemoglobin Concent 31.7 L, Red Cell Distribution Width 16.8 H Microbiology Microbiology 04/27/19 Blood Culture, Received Pending 04/27/19 Blood Culture, Received Pending 04/25/19 Blood Culture - Preliminary, Resulted No Growth after 48 hours. All Specime... 04/25/19 Blood Culture - Final, Complete Streptococcus Group G 04/26/19 Gram Stain - Final, Complete 04/26/19 Sputum Culture - Final, Complete 04/25/19 Respiratory Virus Panel (PCR) (AIDA) - Final, Complete 04/25/19 MRSA Screen - Final, Complete 04/26/19 Gram Stain - Final, Resulted 04/26/19 Wound Culture - Preliminary, Resulted Staphylococcus Aureus ROSALES CHONG MD Apr 28, 2019 06:28
[2019-04-28 14:00] VITALS: BP 122/66
[2019-04-28] MEDS ORDERED: PILL CUTTER 1 EACH XX PRN (16:00)
[2019-04-28] MEDS: TORSEMIDE 100 MG TAB PO SCH (16:32)
[2019-04-28] MEDS: WARFARIN SOD 3 MG TAB PO SCH (16:33)
[2019-04-28] MEDS: ATORVASTATIN 20 MG TAB PO SCH (20:14)
[2019-04-28] MEDS: predniSONE 5 MG TAB PO SCH (20:15)
[2019-04-28] MEDS: DOCUSATE SODIUM 100 MG CAP PO SCH (20:16)
[2019-04-28] MEDS: OMEPRAZOLE 20 MG CAP PO SCH (20:17)
[2019-04-28] MEDS: ASPIRIN 81 MG ENTERIC TAB PO SCH (20:17)
[2019-04-28 22:00] VITALS: BP 134/67
[2019-04-29] MEDS: PIPERACILLIN/TAZOBACTAM SOD 3.375 GM in D5W MINI-BAG PLUS 50 ML IV SCH ×2 (01:16→06:57)
[2019-04-29] MEDS: SILVER SULFADIAZINE 1% CR 50 GM JAR TOP SCH ×3 (02:21→23:19)
[2019-04-29 06:00] VITALS: BP 122/59
[2019-04-29 06:11] LABS: HEMATOCRIT 42.1 % (42.0-52.0); HEMOGLOBIN 13.8 g/dl (13.5-17.5); MEAN CORPUSCULAR HEMOGLOBIN 30.5 pg (27.0-33.0); MEAN CORPUSCULAR HGB CONC 32.8 g/dl (32.0-36.5); MEAN CORPUSCULAR VOLUME 92.9 fl (80.0-96.0); PLATELET COUNT, AUTOMATED 144 10^3/uL (150-450); RED BLOOD COUNT 4.53 10^6/uL (4.30-6.10); WHITE BLOOD COUNT 8.8 10^3/uL (4.0-10.0)
[2019-04-29 06:19] LABS: INR 1.94; PROTHROMBIN TIME 21.9 SECONDS (11.8-14.0)
[2019-04-29 06:26] LABS: ALBUMIN 2.5 GM/DL (3.2-5.2); BLOOD UREA NITROGEN 16 MG/DL (7-18); CALCIUM LEVEL 8.3 MG/DL (8.8-10.2); CARBON DIOXIDE LEVEL 29 MEQ/L (21-32); CHLORIDE LEVEL 104 MEQ/L (98-107); CREATININE FOR GFR 1.06 MG/DL (0.70-1.30); GLOMERULAR FILTRATION RATE > 60.0 (>35); GLUCOSE, FASTING 112 MG/DL (70-100); PHOSPHORUS LEVEL 3.2 MG/DL (2.5-4.9); POTASSIUM SERUM 3.1 MEQ/L (3.5-5.1); SODIUM LEVEL 142 MEQ/L (136-145)
[2019-04-29 06:46] VITALS: BP 110/64
[2019-04-29] MEDS: SLF 3 ML SYR IV SCH ×2 (06:57→13:57)
[2019-04-29] MEDS: ALLOPURINOL 300 MG TAB PO SCH (09:00)
[2019-04-29] MEDS: TAMSULOSIN 0.4 MG CAP PO SCH (09:00)
[2019-04-29] MEDS: LACTOBACILLUS ACIDOPHILUS CAP (BACID) PO SCH ×2 (09:00→18:15)
[2019-04-29] MEDS: TORSEMIDE (DEMADEX) 50 MG PER 1/2 TAB PO SCH ×2 (09:00→16:43)
[2019-04-29] MEDS: MULTIVITAMINS/MINERALS THERAP 1 TAB PO SCH (09:00)
[2019-04-29] MEDS: METOPROLOL SUCC (TopROL XL) 100MG *XL* TAB PO SCH ×2 (09:01→23:17)
[2019-04-29] MEDS: K-PHOS NEUTRAL 250MG TABLET (SOD.PHOSPHATE/POT.PHOSPHATE) PO SCH ×3 (09:01→23:18)
[2019-04-29] MEDS: ACETAMINOPHEN 500 MG TAB PO SCH ×2 (09:01→23:17)
[2019-04-29] MEDS: VANCOMYCIN HCL 1,000 MG, VIAL MATE ADAPTER 1 EACH in D5W 250 ML IV SCH ×2 (10:11→23:20)
[2019-04-29 14:00] VITALS: BP 137/56
--- NOTE | 2019-04-29 15:02 | IPNPDOC ---
Date Seen The patient was seen on 04/29/19. Progress Note SUBJECTIVE: Afebrile, white count wnl. no malodorous discharge noted this morning. pt denies right leg pain. Pt is frustrated about having blood tests this morning. wound cx: staph,strep sensitive to vanco. zosyn discontinued. Dr. Noriega will not be available for the rest of the week. Vascular surgery consulted. OBJECTIVE: PHYSICAL EXAMINATION: VITALS: PLS SEE BELOW GENERAL: unkempt.He is alert, oriented, awake x 3. no conversational dyspnea. no use of respiratory accessory muscles HEENT: anicteric sclera, no jaundice. PERRLA EOMI poor dentition dry mucus membranes neck supple no LAD or cervical LAD HEART:S1 S2 JVP 4-5 cm. irregularly irregular rhythm. displaced PMI to left Lungs : diminished. fairly clear bilaterally. Abdomen isoft,nontender. Bowel sounds are present. no rebound guarding no hsm Extremities have mild edema bilaterally.chronic erythematous venous changes There are good peripheral pulses in popliteal arteries as well as posterior tibial arteries on both sides. Right foot transmetatarsal amputation bandaged nontender SKin: multiple ecchymoses b/l UE , chronic venous stasis changes in b/l LE. crhonic edema. LABORATORY DATA, IMAGING STUDIES, MICROBIOLOGY: PLS SEE BELOW ASSESSMENT AND PLAN: 83 y/o male admitted 11/2018 for a right ischemic foot / osteomyelitis s/p transmetatarsal amputation by Dr. Noriega, given IV vanco, zosyn and downgraded to po levaquin,chronic wound vac and debridement by Dr. Noriega since hospital discharge. Pt also underwent right popliteal artery and superficial femoral artery stent placement on 12/06/[address] Florence to improve healing, but has not seen vascular surgery since. His right foot was debrided in the office on Monday, and now presents to the ER with acute onset of chills this morning, described as "I was shaking so bad, I figured something was wrong." no medications were taken at home. He also admits to a hacking cough more than usual,nonproductive, for the past few days, and woke up thsi morning "not breathing good. I couldn't move so much since my toes were taken off." He denies any pain in the right foot. "I don't feel much in my hands and feet anymore, anyway," and has not seen any change in the usual serous drainage seen when the wound vac is changed on mon, mon, monday. Pt says his temperature usually runs low 97.5-98, but In the ER, pt was found to be febrile 102.4 white count 22 cxr: artifact vs left lower lobe infiltrate. ER gave one dose of IV levaquin. Hospitalist was called to admit for pneumonia, and patient was initially ordered iv ceftrriaxone and azithromycin. CT chest, however, showed chronic bronchiectasis, no consolidation, or infiltrate. Antibiotics changed to iv vanco and iv zosyn to cover chronic osteo of the right foot, podiatry and ID consulted to see the patient in the morning, and MRI foot. Sepsis -initially thought to be due to left lower lobe pneumonia due to c/o hacking cough, fever, wbc 22, and cxr: artifact vs LLL infiltrate. s/p iv levaquin given by ER 04/25/19, and azithro. -However, CT chest: bronchiectasis, no consolidation or infiltrate -most likely due to chronic osteomyelitis in the right foot despite transmetatar alessia amputation with recent debridement this past monday by his tracer bullet charging machine operator. -MRI right foot ordered which may be difficult to interpret with previous amputation. -ID and podiatry consulted. -IV vanco and IV zosyn renally dosed by pharmacy until cultures: staph and strep. IV zosyn discontinued -PCU admit due to risk of chf decompensation in light of new infection for telemetry monitoring chronic osteomyelitis in the right foot despite transmetatarsal amputation with recent debridement this past monday by his tracer bullet charging machine operator. - Tmax 102.4 wbc 22 -MRI right foot ordered which may be difficult to interpret with previous amputation. -ID and podiatry consulted. wound vac -IV vanco and IV zosyn renally dosed by pharmacy until cultures: staph, strep. iv zosyn discontinued. -PCU admit due to risk of chf decompensation in light of new infection for telemetry monitoring Chronic Bronchiectasis s/p iv levaquin given by ER 04/25/19 and po azithromycin -s/p iv zosyn discontinued 04/29/19 . on iv vanco for wound cx: staph strep -PCU admit due to risk of chf decompensation in light of new infection for telemetry monitoring -checked sputum cx, blood cx x 2 sets, urine legionella, urine streptococcal antigen, MRSA screen , and respiratory panel -CT chest : chronic bronchiectasis. no consolidation or infiltrate -supplemental oxygen if needed to keep o2 sat>90% Lactic Acidosis -due to sepsis -gentle ivfluid hydration due to history of systolic chf, and iv antibiotics -serial lactic acid monitoring -follow clinically and check admission and discharge esr and crp Coronary artery disease s/p percutaneous coronary intervention (PCI) to right coronary artery with bare metal stents times five in 2010. -sales and retail management recruiter is Dr. Mejias -in light of sepsis , diuretics were held initially and s/p gentle hydration with ns at 75ml/hr untili fever stopped. -monitor for acute ischemic symptoms in light of acute respiratory infection -cycle cardiac markers if sob persists -resumed home dose of diuretics Ischemic cardiomyopathy with left ventricular systolic function approximately 30-35% inferior wall hypokinesis. -sales and retail management recruiter is Dr. Mejias -resume home meds -monitor for acute ischemic symptoms in light of acute respiratory infection -cycle cardiac markers if sob persists moderate mitral insufficiency -complicating care moderate pulmonary hypertension. -complicating care Chronic atrial fibrillation. -on chronic warfarin to target inr 2-3 -resumed home dose of warfarin -daily inr check to adjust dose if needed -resumed home metoprolol Hypertension. -resumed home dose of metoprolol Dyslipidemia. -resumed home meds History of chronic anemia that was iron deficiency -monitoring for symptoms of anemia -cbc stable on admission polycythemia -monitor cbc Peripheral vascular disease. -right popliteal artery and superficial femoral artery stent placement on 12/06/[address] Florence -s/p transmetatarsal amputation of the right foot due to osteomyelitis in 11/[address] Noriega Gastroesophageal reflux disease (GERD). -resume home meds Osteomyelitis of the right foot s/p Transmetatarsal Amputation 11/2018 Dr. Noriega -outpt fu with vascular surgery and podiatry for peripheral vascular disease Peripheral vascular disease -on chronic warfarin and statins -history of heavy cigar use Left Upper Extremity Scaphoid Fracture -healed History of cigar use -contributed to pt's peripheral arterial disease History of heavy Alcohol abuse -decreased consumption in recent years DVT prophylaxis: on chronic warfarin for atrial fibrillation VS, I&O, 24H, Fishbone Vital Signs/I&O Vital Signs Date Time Temp Pulse Resp B/P (MAP) Pulse Ox O2 Delivery O2 Flow Rate FiO2 04/28/19 22:00 98.4 97 20 134/67 (89) 99 04/25/19 16:37 Room Air I&O- Last 24 Hours up to 6 AM 04/29/19 06:00 Intake Total 2076 ml Output Total 4225 ml Balance -2149 ml Laboratory Data 24H LABS Laboratory Tests 2 04/29/19 05:39: Nucleated Red Blood Cells % (auto) 0.0, Prothrombin Time 21.9H, Prothromb Time International Ratio 1.94 CBC/BMP Laboratory Tests 04/29/19 05:39 Red Blood Count 4.53, Mean Corpuscular Volume 92.9, Mean Corpuscular Hemoglobin 30.5, Mean Corpuscular Hemoglobin Concent 32.8, Red Cell Distribution Width 16.4 H Microbiology Microbiology 04/27/19 Blood Culture - Preliminary, Resulted No growth after 24 hours . All specim... 04/27/19 Blood Culture - Preliminary, Resulted No growth after 24 hours . All specim... 04/25/19 Blood Culture - Preliminary, Resulted No Growth after 72 hours. All specime... 04/25/19 Blood Culture - Final, Complete Streptococcus Group G 04/26/19 Gram Stain - Final, Complete 04/26/19 Sputum Culture - Final, Complete 04/25/19 Respiratory Virus Panel (PCR) (AIDA) - Final, Complete 04/25/19 MRSA Screen - Final, Complete 04/26/19 Gram Stain - Final, Resulted 04/26/19 Wound Culture - Preliminary, Resulted Staphylococcus Aureus Streptococcus Group G Staphylococcus Sp Coag Neg ROSALES CHONG MD Apr 29, 2019 06:24
[2019-04-29] MEDS: WARFARIN SOD 3 MG TAB PO SCH (16:43)
[2019-04-29] MEDS: TORSEMIDE 100 MG TAB PO SCH (17:01)
[2019-04-29 22:00] VITALS: BP 109/71
[2019-04-29] MEDS: DOCUSATE SODIUM 100 MG CAP PO SCH (23:16)
[2019-04-29] MEDS: ATORVASTATIN 20 MG TAB PO SCH (23:18)
[2019-04-29] MEDS: DIGOXIN 0.125 MG TAB PO SCH (23:18)
[2019-04-29] MEDS: ASPIRIN 81 MG ENTERIC TAB PO SCH (23:18)
[2019-04-29] MEDS: predniSONE 5 MG TAB PO SCH (23:18)
[2019-04-29] MEDS: OMEPRAZOLE 20 MG CAP PO SCH (23:18)
[2019-04-30] MEDS: SLF 3 ML SYR IV SCH ×4 (01:19→22:29)
[2019-04-30 06:00] VITALS: BP 115/57
[2019-04-30 06:16] LABS: INR 1.81; PROTHROMBIN TIME 20.7 SECONDS (11.8-14.0)
[2019-04-30 06:18] LABS: HEMATOCRIT 43.7 % (42.0-52.0); HEMOGLOBIN 14.2 g/dl (13.5-17.5); MEAN CORPUSCULAR HEMOGLOBIN 31.1 pg (27.0-33.0); MEAN CORPUSCULAR HGB CONC 32.5 g/dl (32.0-36.5); MEAN CORPUSCULAR VOLUME 95.6 fl (80.0-96.0); PLATELET COUNT, AUTOMATED 172 10^3/uL (150-450); RED BLOOD COUNT 4.57 10^6/uL (4.30-6.10); WHITE BLOOD COUNT 8.2 10^3/uL (4.0-10.0)
[2019-04-30 06:32] LABS: ALBUMIN 2.5 GM/DL (3.2-5.2); CALCIUM LEVEL 8.9 MG/DL (8.8-10.2); CREATININE FOR GFR 1.23 MG/DL (0.70-1.30); GLOMERULAR FILTRATION RATE 59.5 (>35); PHOSPHORUS LEVEL 3.3 MG/DL (2.5-4.9); POTASSIUM SERUM 2.8 MEQ/L (3.5-5.1)
[2019-04-30] MEDS ORDERED: POTASSIUM CHLORIDE 10 MEQ SR TABLET PO ONE ×2 (06:45→10:30)
[2019-04-30 06:50] LABS: MAGNESIUM LEVEL 2.2 MG/DL (1.8-2.4)
[2019-04-30] MEDS: TORSEMIDE (DEMADEX) 50 MG PER 1/2 TAB PO SCH (09:37)
[2019-04-30] MEDS: ALLOPURINOL 300 MG TAB PO SCH (09:38)
[2019-04-30] MEDS: METOPROLOL SUCC (TopROL XL) 100MG *XL* TAB PO SCH ×2 (09:38→22:28)
[2019-04-30] MEDS: ACETAMINOPHEN 500 MG TAB PO SCH ×2 (09:38→22:26)
[2019-04-30] MEDS: LACTOBACILLUS ACIDOPHILUS CAP (BACID) PO SCH ×2 (09:38→17:46)
[2019-04-30] MEDS: MULTIVITAMINS/MINERALS THERAP 1 TAB PO SCH (09:38)
[2019-04-30] MEDS: TAMSULOSIN 0.4 MG CAP PO SCH (09:38)
[2019-04-30] MEDS: SILVER SULFADIAZINE 1% CR 50 GM JAR TOP SCH ×2 (09:39→22:27)
[2019-04-30] MEDS: VANCOMYCIN HCL 1,000 MG, VIAL MATE ADAPTER 1 EACH in D5W 250 ML IV SCH ×2 (09:39→22:29)
--- NOTE | 2019-04-30 09:46 | CR.PDOC ---
General Date of Consultation: Apr 30, [address] Florence. HPI: 83 y/o male admitted 11/2018 for a right ischemic foot / osteomyelitis s/p transmetatarsal amputation by Dr. Noriega,chronic wound vac and debridement as per Dr. Noriega since hospital discharge. Pt also underwent right popliteal artery and superficial femoral artery stent placement on 12/06/[address] Florence to improve healing. Presnted to [facility] ER with acute onset of chills. Reported has not seen any change in the usual serous drainage seen when the wound vac is changed on mon, mon, monday. Pt admitted to Hospitalist, IV vanco/zosyn to cover chronic osteo of the right foot, podiatry following. vascular surgery consulted re RLE wound. Denies any fevers, chills, weakness, fatigue, Headache, Chest Pain, Shortness of breath, cough, palpitations, abdominal pain, N/V/D or changes in bowel or bladder habits. PAST MEDICAL HISTORY: CAD/bare metal stents times five in 2010. Ischemic cardiomyopathy. left ventricular systolic function approximately 30-35% inferior wall hypokinesis. moderate mitral insufficiency moderate pulmonary hypertension. Chronic atrial fibrillation. Coumadin AC. Hypertension. Dyslipidemia. History of chronic anemia/iron deficiency polycythemia Peripheral vascular disease. Gastroesophageal reflux disease (GERD). Osteomyelitis of the right foot s/p Transmetatarsal Amputation 11/2018 Dr. Noriega Left Upper Extremity Scaphoid Fracture SURGICAL HISTORY: Toe amputation. PCI with bare metal stents x 5 Right foot transmetatarsal amputation 11/2018 Status post right popliteal artery and superficial femoral artery stent placement on 12/06/[address] Florence SOCIAL HISTORY: . He lives with his son. smoked cigars history of heavy ETOH use ROS: As noted in HPI, otherwise 11pt ROS of systems reviewed and unremarkable. PE: GEN: 83yoM, appears stated age. Alert and oriented x 3. HEENT: Normocephalic, atraumatic. Sclera are nonicteric. Conjunctiva without injection. No facial asymmetry. Moist mucous membranes. CHEST: Regular rate and rhythm, +S1, +S2 LUNGS: Clear to auscultation bilaterally. No wheezes, rales, or rhonchi. Breathing appears symmetric and easy. ABD: Round, soft, non-tender, non-distended. +Bowel sounds throughout. EXT: Rt foot bandaged. chronic skin changes noted pretib areas b/l, erythema pretib area RLE. NEURO: Alert and oriented x 3. No focal deficits appreciated. XR foot Findings: Four views of the right foot are compared with the postoperative views from December 12, 2018. The patient is status post transmetatarsal amputation of all five digits. There is overlying soft tissue dressing and irregularity. A wound VAC is seen dorsally. Vascular calcification is noted in the soft tissues extending out to the of the level of the metatarsals. There is a plantar heel spur. No acute bony erosive changes seen. No soft tissue gas is noted. Electronically Signed by Bert Shafer MD 04/26/2019 09:13 A A&P: 1.Peripheral vascular disease. right popliteal artery and superficial femoral artery stent placement on 12/06/[address] Florence s/p transmetatarsal amputation of the right foot due to osteomyelitis in 11/[address] Noriega. Wound care as per Dr Noriega. IV Vanco as per primary team. Reviewed with Dr Florence, plan for LE arterial US, further recommendations pending results. SCr 1.23. DVT prophylaxis. Pt is on Coumadin. Thank you for your consultation. We will continue to follow along with you. Vital Signs/I&O Vital Signs Date Time Temp Pulse Resp B/P (MAP) Pulse Ox O2 Delivery O2 Flow Rate FiO2 04/30/19 06:00 97.0 58 18 115/57 (76) 93 04/25/19 16:37 Room Air I&O- Last 24 Hours up to 6 AM 04/30/19 06:00 Intake Total 1970 ml Output Total 4025 ml Balance -2055 ml Laboratory Data Labs 24H Laboratory Tests 2 04/30/19 05:41: Nucleated Red Blood Cells % (auto) 0.0, Prothrombin Time 20.7H, Prothromb Time International Ratio 1.81, Blood Urea Nitrogen 18, Creatinine 1.23, Sodium Level 141, Potassium Level 2.8*L, Chloride Level 102, Carbon Dioxide Level 31, Anion G ap 8, Glomerular Filtration Rate 59.5, Calcium Level 8.9, Phosphorus Level 3.3, Magnesium Level 2.2, Albumin 2.5L CBC/BMP Laboratory Tests 04/30/19 05:41 Red Blood Count 4.57, Mean Corpuscular Volume 95.6, Mean Corpuscular Hemoglobin 31.1, Mean Corpuscular Hemoglobin Concent 32.5, Red Cell Distribution Width 16.5 H, Anion Gap 8 Microbiology Microbiology 04/27/19 Blood Culture - Preliminary, Resulted No Growth after 72 hours. All specime... 04/27/19 Blood Culture - Preliminary, Resulted No Growth after 72 hours. All specime... 04/25/19 Blood Culture - Preliminary, Resulted No Growth after 72 hours. All specime... 04/25/19 Blood Culture - Final, Complete Streptococcus Group G 04/26/19 Gram Stain - Final, Complete 04/26/19 Sputum Culture - Final, Complete 04/25/19 Respiratory Virus Panel (PCR) (AIDA) - Final, Complete 04/25/19 MRSA Screen - Final, Complete 04/26/19 Gram Stain - Final, Complete 04/26/19 Wound Culture - Final, Complete Staphylococcus Aureus Streptococcus Group G Corynebacterium Species Allergies Coded Allergies: oxycodone (Verified Allergy, Mild, Rash, 04/25/19) Home Medications Scheduled Acetaminophen (Acetaminophen) 500 Mg Tab, 1,000 MG PO BID, (Reported) Allopurinol (Zyloprim) 300 Mg Tab, 300 MG PO DAILY, (Reported) Aspirin (Aspir 81) 81 Mg Tablet.dr, 81 MG PO QPM, (Reported) Atorvastatin Calcium (Atorvastatin Calcium) 20 Mg Tab, 20 MG PO QHS, (Reported) Calcium Carbonate/Vitamin D3 (Calcium 600-Vit D3 400 Tablet) 1 Tab Tab, 1 TAB PO BID, (Reported) Cyanocobalamin (Cyanocobalamin Injection) 1,000 Mcg/1 Ml Vial, 1 ML IM Q2WK, ( Reported) Digoxin (Digoxin) 125 Mcg Tab, 125 MCG PO Q2D, (Reported) Docusate Sodium (Stool Softener) 100 Mg Cap, 100 MG PO QHS, (Reported) Ferrous Gluconate (Ferrous Gluconate) 324 Mg Tab, 324 MG PO 2XW, (Reported) SUN/WED Lactobacillus Acidophilus (Probiotic) 1 Cap Cap, 1 CAP PO BID, (Reported) Meloxicam (Meloxicam) 15 Mg Tablet, 7.5 MG PO BID, (Reported) Metoprolol Succinate (Metoprolol Succinate) 100 Mg Tab, 100 MG PO BID, (Reported) Multivitamins (Thera M Plus Tablet) 1 Tab Tab, 1 TAB PO DAILY, (Reported) Omeprazole (Omeprazole) 20 Mg Cap, 20 MG PO QHS, (Reported) Potassium Chloride (Klor-Con M20) 20 Meq Tabcr, 20 MEQ PO BID, (Reported) Prednisone (Prednisone) 5 Mg Tab, 5 MG PO QHS, (Reported) Tamsulosin HCl (Flomax) 0.4 Mg Cap, 0.4 MG PO DAILY, (Reported) Testosterone Cypionate (Testosterone Cypionate) 200 Mg/1 Ml Vial, 1 ML IM Q2WK, (Reported) Torsemide (Torsemide) 100 Mg Tab, 50 MG PO QAM, (Reported) Torsemide (Torsemide) 100 Mg Tablet, 25 MG PO QPM, (Reported) Warfarin Sodium (Warfarin Sodium) 3 Mg Tablet, 6 MG PO 2XW, (Reported) Mon; Wed Warfarin Sodium (Warfarin Sodium) 3 Mg Tablet, 3 MG PO 5XW, (Reported) Rubia Cuellar FRI, SAT, SUN Richards, Tasha PA Apr 30, 2019 09:46
[2019-04-30 14:00] VITALS: BP 129/58
--- NOTE | 2019-04-30 14:21 | REP ---
Clinical: History of peripheral vascular disease with right lower extremity nonhealing ulcer. Technique: Real time esquivel scale and color Doppler evaluation of the bilateral lower extremity arterial vasculature using linear high frequency transducer. Findings: Esquivel scale and color images demonstrate moderate to severe bilateral atheromatous plaquing without obvious focal area of stenosis. Stent identified in the right mid to distal femoral artery with subsequent downstream monophasic arterial wave patterns and incomplete visualization of the distal posterior tibial artery and anterior tibial artery due to severe subcutaneous edema. Left side demonstrates biphasic arterial wave patterns to the level of the popliteal artery/proximal anterior tibial artery with subsequent monophasic wave patterns to the remainder of the left lower extremity. Right VLAD - cannot be obtained. Left VLAD - 0.9 Peak systolic velocities (cm/sec) RIGHT LEFT Common femoral artery 131.8 69.9 Profunda femoris 134.8 104.6 SFA (proximal) 91.6 71.9 SFA (mid) 75.3 48.0 SFA (distal) 69.9 60.0 Popliteal artery 48.9 15.9 ROBERT (prox.) 20.0 25.4 Tibioperoneal trunk 85.8 27.1 STEEL FABRICATING SUPERVISOR (prox.) 38.8 42.8 STEEL FABRICATING SUPERVISOR (distal) -- 19.4 ROBERT (distal) -- 58.0 Impression: Moderate to significant bilateral atheromatous plaquing. Right femoral artery stent with downstream monophasic wave pattern. Left lower extremity monophasic wave pattern distal to the popliteal artery. Electronically Signed by Ramez Hutchins MD 04/30/2019 02:13 P
[2019-04-30] MEDS ORDERED: WARFARIN SOD 3 MG TAB PO SCH (17:00)
[2019-04-30] MEDS: WARFARIN SOD 3 MG TAB PO SCH (17:46)
[2019-04-30] MEDS: TORSEMIDE 100 MG TAB PO SCH (17:47)
--- NOTE | 2019-04-30 19:57 | IPNPDOC ---
Date Seen The patient was seen on 04/30/19. Progress Note SUBJECTIVE: Patient denies any complaints this morning apart from the daily blood draws. Afebrile overnight and leukocytosis had resolved. Wound culture resulted in s. aureus, group G strep. 1 blood culture with Group G strep. OBJECTIVE PHYSICAL EXAMINATION: VITAL SIGNS: Please see below. General: No acute distress, Alert Eyes: Normal sclera, EOMI, SJ HENT: Atraumatic, neck supple, moist mucous membranes Cardiovascular: Normal rate, normal rhythm. No murmurs appreciated. Pulmonary: Clear to auscultation b/l, no wheezing GI: Soft, nontender, nondistended Skin: Warm and dry Neuro: CN grossly intact. No focal deficits. Strengths equal b/l. Psych: oriented x 3 LABORATORY DATA, IMAGING STUDIES, MICROBIOLOGY: Please see below. ASSESSMENT AND PLAN: 83M initially admitted 12/18 for R. foot ischemia/Osteo s/p transmetatarsal amputation by Dr. Noriega and has had a wound vac post discharge. Also follows with Dr. Florence and had R. popliteal artery and superficial femoral artery stent placement on 12/06/18. Presented with acute onset of chills found to be febrile with leukocytosis. Initially thought to have PNA but CT chest showed chronic bronchiectasis and no infiltrate. Sepsis 2/2 Chronic osteomyelitis of the foot. - Has had transmetatarsal amputation with recent debridement by Flume Worker. - Was seen by Podiatry Dr. Santos, now by Dr. Florence with vascular. - For LE arterial US. f/u recommendations. - group G strep in one blood culture and wound culture. - Was on vancomycin and Zosyn. Zosyn had been discontinued. - s. aureus: sensitive to vanco, oxacillin,bactrim,clinda Group G strep: sensitive to vanco, Rocephin, clinda Thrombocytopenia - resolved. - likely 2/2 sepsis. Chronic Bronchiectasis -s/p iv levaquin given by ER 04/25/19 and po azithromycin -s/p iv zosyn discontinued 04/29/19 . on iv vanco for wound cx: staph strep - respiratory panel, MRSA screen, negative. -CT chest : chronic bronchiectasis. no consolidation or infiltrate Coronary artery disease s/p percutaneous coronary intervention (PCI) to right coronary artery with bare metal stents times five in 2010. -motion picture set grip is Dr. Mejias -resumed home dose of diuretics Chronic atrial fibrillation. -on chronic warfarin to target inr 2-3 -resumed home dose of warfarin -daily inr check to adjust dose if needed -resumed home metoprolol Hypertension. -resumed home dose of metoprolol Dyslipidemia. -resumed home meds Peripheral vascular disease. -right popliteal artery and superficial femoral artery stent placement on 12/06/[address] Florence -s/p transmetatarsal amputation of the right foot due to osteomyelitis in 11/[address] Noriega Gastroesophageal reflux disease (GERD). -resume home meds Peripheral vascular disease -on chronic warfarin and statins -history of heavy cigar use DVT prophylaxis: on chronic warfarin for atrial fibrillation VS, I&O, 24H, Fishbone Vital Signs/I&O Vital Signs Date Time Temp Pulse Resp B/P (MAP) Pulse Ox O2 Delivery O2 Flow Rate FiO2 04/30/19 14:00 107 20 129/58 (81) 97 04/30/19 06:00 97.0 04/25/19 16:37 Room Air I&O- Last 24 Hours up to 6 AM 04/30/19 06:00 Intake Total 1970 ml Output Total 4025 ml Balance -2055 ml Laboratory Data 24H LABS Laboratory Tests 2 04/30/19 05:41: Nucleated Red Blood Cells % (auto) 0.0, Prothrombin Time 20.7H, Prothromb Time International Ratio 1.81, Blood Urea Nitrogen 18, Creatinine 1.23, Sodium Level 141, Potassium Level 2.8*L, Chloride Level 102, Carbon Dioxide Level 31, Anion Gap 8, Glomerular Filtration Rate 59.5, Calcium Level 8.9, Phosphorus Level 3.3, Magnesium Level 2.2, Albumin 2.5L CBC/BMP Laboratory Tests 04/30/19 05:41 Red Blood Count 4.57, Mean Corpuscular Volume 95.6, Mean Corpuscular Hemoglobin 31.1, Mean Corpuscular Hemoglobin Concent 32.5, Red Cell Distribution Width 16.5 H, Anion Gap 8 Microbiology Microbiology 04/27/19 Blood Culture - Preliminary, Resulted No Growth after 72 hours. All specime... 04/27/19 Blood Culture - Preliminary, Resulted No Growth after 72 hours. All specime... 04/25/19 Blood Culture - Final, Complete NO GROWTH AFTER 5 DAYS 04/25/19 Blood Culture - Final, Complete Streptococcus Group G 04/26/19 Gram Stain - Final, Complete 04/26/19 Sputum Culture - Final, Complete 04/25/19 Respiratory Virus Panel (PCR) (AIDA) - Final, Complete 04/25/19 MRSA Screen - Final, Complete 04/26/19 Gram Stain - Final, Complete 04/26/19 Wound Culture - Final, Complete Staphylococcus Aureus Streptococcus Group G Corynebacterium Species JULIO JOHNSON MD Apr 30, 2019 19:57
[2019-04-30 22:00] VITALS: BP 115/73
[2019-04-30] MEDS: DOCUSATE SODIUM 100 MG CAP PO SCH (22:26)
[2019-04-30] MEDS: OMEPRAZOLE 20 MG CAP PO SCH (22:26)
[2019-04-30] MEDS: ATORVASTATIN 20 MG TAB PO SCH (22:26)
[2019-04-30] MEDS: predniSONE 5 MG TAB PO SCH (22:26)
[2019-04-30] MEDS: ASPIRIN 81 MG ENTERIC TAB PO SCH (22:26)
[2019-05-01 06:00] VITALS: BP 108/60
[2019-05-01 06:10] LABS: HEMATOCRIT 43.9 % (42.0-52.0); HEMOGLOBIN 14.2 g/dl (13.5-17.5); MEAN CORPUSCULAR HEMOGLOBIN 30.5 pg (27.0-33.0); MEAN CORPUSCULAR HGB CONC 32.3 g/dl (32.0-36.5); MEAN CORPUSCULAR VOLUME 94.2 fl (80.0-96.0); PLATELET COUNT, AUTOMATED 197 10^3/uL (150-450); RED BLOOD COUNT 4.66 10^6/uL (4.30-6.10); WHITE BLOOD COUNT 10.2 10^3/uL (4.0-10.0)
[2019-05-01 06:19] LABS: INR 1.85; PROTHROMBIN TIME 21.1 SECONDS (11.8-14.0)
[2019-05-01 06:36] LABS: ALBUMIN 2.6 GM/DL (3.2-5.2); BLOOD UREA NITROGEN 21 MG/DL (7-18); CALCIUM LEVEL 8.4 MG/DL (8.8-10.2); CARBON DIOXIDE LEVEL 31 MEQ/L (21-32); CHLORIDE LEVEL 101 MEQ/L (98-107); CREATININE FOR GFR 1.04 MG/DL (0.70-1.30); GLOMERULAR FILTRATION RATE > 60.0 (>35); GLUCOSE, FASTING 106 MG/DL (70-100); PHOSPHORUS LEVEL 2.9 MG/DL (2.5-4.9); POTASSIUM SERUM 3.3 MEQ/L (3.5-5.1); SODIUM LEVEL 141 MEQ/L (136-145)
[2019-05-01] MEDS: SLF 3 ML SYR IV SCH ×3 (06:58→22:17)
[2019-05-01] MEDS: LACTOBACILLUS ACIDOPHILUS CAP (BACID) PO SCH ×2 (08:56→17:10)
[2019-05-01] MEDS: MULTIVITAMINS/MINERALS THERAP 1 TAB PO SCH (08:56)
[2019-05-01] MEDS: METOPROLOL SUCC (TopROL XL) 100MG *XL* TAB PO SCH ×2 (08:56→22:16)
[2019-05-01] MEDS: ALLOPURINOL 300 MG TAB PO SCH (08:56)
[2019-05-01] MEDS: FERROUS GLUCONATE 324 MG TAB PO SCH (08:57)
[2019-05-01] MEDS: TAMSULOSIN 0.4 MG CAP PO SCH (08:57)
[2019-05-01] MEDS: ACETAMINOPHEN 500 MG TAB PO SCH ×2 (08:57→22:15)
[2019-05-01] MEDS: SILVER SULFADIAZINE 1% CR 50 GM JAR TOP SCH (08:58)
[2019-05-01] MEDS ORDERED: VANCOMYCIN HCL 1,000 MG, VIAL MATE ADAPTER 1 EACH in D5W 250 ML IV SCH (10:00)
--- NOTE | 2019-05-01 13:00 | IPNPDOC ---
Date Seen The patient was seen on 05/01/19. Progress Note Vascular Surgery Dr Florence. HPI: 83 y/o male admitted 11/2018 for a right ischemic foot / osteomyelitis s/p transmetatarsal amputation by Dr. Noriega,chronic wound vac and debridement as per Dr. Noriega since hospital discharge. Pt also underwent right popliteal artery and superficial femoral artery stent placement on 12/06/[address] Florence to improve healing. Presnted to [facility] ER with acute onset of chills. Reported has not seen any change in the usual serous drainage seen when the wound vac is changed on mon, mon, monday. Pt admitted to Hospitalist, IV vanco/zosyn to cover chronic osteo of the right foot, podiatry following. vascular surgery consulted re RLE wound. Denies any fevers, chills, weakness, fatigue, Headache, Chest Pain, Shortness of breath, cough, palpitations, abdominal pain, N/V/D or changes in bowel or bladder habits. PAST MEDICAL HISTORY: CAD/bare metal stents times five in 2010. Ischemic cardiomyopathy. left ventricular systolic function approximately 30-35% inferior wall hypokinesis. moderate mitral insufficiency moderate pulmonary hypertension. Chronic atrial fibrillation. Coumadin AC. Hypertension. Dyslipidemia. History of chronic anemia/iron deficiency polycythemia Peripheral vascular disease. Gastroesophageal reflux disease (GERD). Osteomyelitis of the right foot s/p Transmetatarsal Amputation 11/2018 Dr. Noriega Left Upper Extremity Scaphoid Fracture SURGICAL HISTORY: Toe amputation. PCI with bare metal stents x 5 Right foot transmetatarsal amputation 11/2018 Status post right popliteal artery and superficial femoral artery stent plac ement on 12/06/[address] Florence PE: GEN: 83yoM, appears stated age. Alert and oriented x 3. HEENT: Normocephalic, atraumatic. Moist mucous membranes. CHEST: Regular rate and rhythm, +S1, +S2 LUNGS: Clear to auscultation bilaterally. No wheezes, rales, or rhonchi. ABD: Round, soft, non-tender, non-distended. EXT: Rt foot bandaged. chronic skin changes noted pretib areas b/l, erythema pretib area RLE. NEURO: Alert and oriented x 3. No focal deficits appreciated. XR foot Findings: Four views of the right foot are compared with the postoperative views from December 12, 2018. The patient is status post transmetatarsal amputation of all five digits. There is overlying soft tissue dressing and irregularity. A wound VAC is seen dorsally. Vascular calcification is noted in the soft tissues extending out to the of the level of the metatarsals. There is a plantar heel spur. No acute bony erosive changes seen. No soft tissue gas is noted. Electronically Signed by Bert Shafer MD 04/26/2019 09:13 A LE arterial US Impression: Moderate to significant bilateral atheromatous plaquing. Right femoral artery stent with downstream monophasic wave pattern. Left lower extremity monophasic wave pattern distal to the popliteal artery. Electronically Signed by Ramez Hutchins MD 04/30/2019 02:13 P A&P: 1.Peripheral vascular disease. right popliteal artery and superficial femoral artery stent placement on 12/06/[address] Florence s/p transmetatarsal amputation of the right foot due to osteomyelitis in 11/[address] Noriega. Wound care as per Dr Noriega. IV Vanco as per primary team. Plan as relayed as per Dr Florence 05/01/19 is for right lower extremity angiogram 05/02 or Monday05/03/19. SCr 1.04. DVT prophylaxis. Pt is on Coumadin. VS, I&O, 24H, Fishbone Vital Signs/I&O Vital Signs Date Time Temp Pulse Resp B/P (MAP) Pulse Ox O2 Delivery O2 Flow Rate FiO2 05/01/19 08:56 82 109/77 05/01/19 06:00 96.4 18 94 04/25/19 16:37 Room Air I&O- Last 24 Hours up to 6 AM 05/01/19 06:00 Intake Total 2310 ml Output Total 1875 ml Balance 435 ml Laboratory Data 24H LABS Laboratory Tests 2 05/01/19 05:44: Nucleated Red Blood Cells % (auto) 0.0, Prothrombin Time 21.1H, Prothromb Time International Ratio 1.85, Blood Urea Nitrogen 21H, Creatinine 1.04, Sodium Level 141, Potassium Level 3.3L, Chloride Level 101, Carbon Dioxide Level 31, Anion Gap 9, Glomerular Filtration Rate > 60.0, Calcium Level 8.4L, Phosphorus Level 2.9, Albumin 2.6L 05/01/19 09:14: Vancomycin Level Trough 21.5H CBC/BMP Laboratory Tests 05/01/19 05:44 Red Blood Count 4.66, Mean Corpuscular Volume 94.2, Mean Corpuscular Hemoglobin 30.5, Mean Corpuscular Hemoglobin Concent 32.3, Red Cell Distribution Width 16.4 H, Anion Gap 9 Microbiology Microbiology 04/27/19 Blood Culture - Preliminary, Resulted No Growth after 72 hours. All specime... 04/27/19 Blood Culture - Preliminary, Resulted No Growth after 72 hours. All specime... 04/25/19 Blood Culture - Final, Complete NO GROWTH AFTER 5 DAYS 04/25/19 Blood Culture - Final, Complete Streptococcus Group G 04/26/19 Gram Stain - Final, Complete 04/26/19 Sputum Culture - Final, Complete 04/25/19 Respiratory Virus Panel (PCR) (AIDA) - Final, Complete 04/25/19 MRSA Screen - Final, Complete 04/26/19 Gram Stain - Final, Complete 04/26/19 Wound Culture - Final, Complete Staphylococcus Aureus Streptococcus Group G Corynebacterium Species Sofia Malik May 01, 2019 13:00
[2019-05-01 14:00] VITALS: BP 130/73
--- NOTE | 2019-05-01 14:21 | PHACANCOPD ---
PHARMACY VANCOMYCIN DOSING Pt Demographics Demographics Patient Age:83 , Weight:89.300 , Gender: male Adjusted Body Weight Date: 04/25/19, Adjusted Body Weight: Kg Events Past 24 Hours Events Past 24 Hours: NO: Dialysis, Diuretic Therapy, Change in CrCl, Fever, Elevation in WBC, Pending Diagnostics, Pending Procedures, Other Vancomycin Vancomycin indication: Osteo Vancomycin Target Ranges: 15-20 mcg/ml Vancomycin Load Y/N: Yes Load Dose Date Time Vancomycin Load Dose: 1500 MG Date: 04/25/19 Time: 2200 Vancomycin Dose Date: 05/01/19. Current Vancomycin Dose: [1250mg IV q24h@08] Date: 04/25/19. Current Vancomycin Dose: [1 GRAM IV Q12H] Intermittent Dosing?: No Labs Labs Vital Signs Label Value Date Time Patient Temperature 96.4 degrees F 05/01/19 0600 Temperature Source Temporal 05/01/19 0600 Item Value Date Time White Blood Count 8.2 10^3/uL 04/30/19 0541 White Blood Count 10.2 10^3/uL H 05/01/19 0544 Creatinine 1.23 MG/DL 04/30/19 0541 Creatinine 1.04 MG/DL 05/01/19 0544 Micro Microbiology 04/27/19 Blood Culture - Preliminary, Resulted No Growth after 72 hours. All specime... 04/27/19 Blood Culture - Preliminary, Resulted No Growth after 72 hours. All specime... 04/25/19 Blood Culture - Final, Complete NO GROWTH AFTER 5 DAYS 04/25/19 Blood Culture - Final, Complete Streptococcus Group G 04/26/19 Gram Stain - Final, Complete 04/26/19 Sputum Culture - Final, Complete 04/25/19 Respiratory Virus Panel (PCR) (AIDA) - Final, Complete 04/25/19 MRSA Screen - Final, Complete 04/26/19 Gram Stain - Final, Complete 04/26/19 Wound Culture - Final, Complete Staphylococcus Aureus Streptococcus Group G Corynebacterium Species Creatinine Clearance Date:04/25/19. Creatinine Clearance: . Assessment and Plan Maintaining Current Dose?: No Reason for dose change: Trough too high Pharmacist Note Pharmacist Note 05/01: today is day 7 of treatment of Osteomyelitis with Vancomycin. Patient's trough came back at 21.5 this morning and he was given his 1000mg of Vancomycin this morning. His dose will be held 24 hours and restarted tomorrow at 1250mg IV q24h. We will obtain a trough 05/03 to make sure patient's level is within therapeutic range. Date: 04/25/19. Pharmacist note: Pharmacy consulted for vancomycin dosing for sepsis suspected to be caused by chronic osteomyelitis of the right foot. Patient was previously treated here at [facility] for same issue in November with Vancomycin and Zosyn. Patient was febrile and had an elevated white count. We'll load him with 1500 mg and continue with 1 gram q12h, as he did well on this regimen back in November. His creatinine is slightly higher this time, however. Pharmacy will continue to follow this patient and make adjustments as necessary. LETY [facility] May 01, 2019 14:21
[2019-05-01] MEDS ORDERED: LIDOCAINE 1% MDV 20ML VIAL As Ordered ONE (14:58)
[2019-05-01] MEDS: WARFARIN SOD 3 MG TAB PO SCH (17:10)
[2019-05-01] MEDS: TORSEMIDE 100 MG TAB PO SCH (17:11)
--- NOTE | 2019-05-01 19:56 | IPNPDOC ---
Date Seen The patient was seen on 05/01/19. Progress Note SUBJECTIVE: Patient report feeling fine, offered no complaints. Just wants to know about ongoing plans from vascular. Afebrile overnight. OBJECTIVE PHYSICAL EXAMINATION: VITAL SIGNS: Please see below. General: No acute distress, Alert Eyes: Normal sclera, EOMI, SJ HENT: Atraumatic, neck supple, moist mucous membranes Cardiovascular: Normal rate, normal rhythm. No murmurs appreciated. Pulmonary: Clear to auscultation b/l, no wheezing GI: Soft, nontender, nondistended Skin: Warm and dry Neuro: CN grossly intact. No focal deficits. Strengths equal b/l. Psych: oriented x 3 LABORATORY DATA, IMAGING STUDIES, MICROBIOLOGY: Please see below. ASSESSMENT AND PLAN: 83M initially admitted 12/18 for R. foot ischemia/Osteo s/p transmetatarsal amputation by Dr. Noriega and has had a wound vac post discharge. Also follows with Dr. Florence and had R. popliteal artery and superficial femoral artery stent placement on 12/06/18. Presented with acute onset of chills found to be febrile with leukocytosis. Initially thought to have PNA but CT chest showed chronic bronchiectasis and no infiltrate. Sepsis 2/2 Chronic osteomyelitis of the foot. - Has had transmetatarsal amputation with recent debridement by Asset Manager. - Was seen by Podiatry Dr. Santos, now by Dr. Florence with vascular. - LE arterial US with moderate to significant b/l atheromatous plaques. - group G strep in one blood culture and wound culture. - Was on vancomycin and Zosyn. Zosyn had been discontinued. - s. aureus: sensitive to vanco, oxacillin,bactrim,clinda Group G strep: sensitive to vanco, Rocephin, clinda - Planned for angiogram or monday this week. Thrombocytopenia - resolved. - likely 2/2 sepsis. Chronic Bronchiectasis -s/p iv levaquin given by ER 04/25/19 and po azithromycin -s/p iv zosyn discontinued 04/29/19 . on iv vanco for wound cx: staph strep - respiratory panel, MRSA screen, negative. -CT chest : chronic bronchiectasis. no consolidation or infiltrate Coronary artery disease s/p percutaneous coronary intervention (PCI) to right coronary artery with bare metal stents times five in 2010. -road grader operator is Dr. Mejias -resumed home dose of diuretics Chronic atrial fibrillation. -on chronic warfarin to target inr 2-3 -resumed home dose of warfarin -daily inr check to adjust dose if needed -resumed home metoprolol Hypertension. -resumed home dose of metoprolol Dyslipidemia. -resumed home meds Peripheral vascular disease. -right popliteal artery and superficial femoral artery stent placement on 12/06/[address] Florence -s/p transmetatarsal amputation of the right foot due to osteomyelitis in 11/[address] Noriega Gastroesophageal reflux disease (GERD). -resume home meds Peripheral vascular disease -on chronic warfarin and statins -history of heavy cigar use DVT prophylaxis: on chronic warfarin for atrial fibrillation VS, I&O, 24H, Fishbone Vital Signs/I&O Vital Signs Date Time Temp Pulse Resp B/P (MAP) Pulse Ox O2 Delivery O2 Flow Rate FiO2 05/01/19 14:00 96.8 68 20 130/73 (92) 98 04/25/19 16:37 Room Air I&O- Last 24 Hours up to 6 AM 05/01/19 06:00 Intake Total 2310 ml Output Total 1875 ml Balance 435 ml Laboratory Data 24H LABS Laboratory Tests 2 05/01/19 05:44: Nucleated Red Blood Cells % (auto) 0.0, Prothrombin Time 21.1H, Prothromb Time International Ratio 1.85, Blood Urea Nitrogen 21H, Creatinine 1.04, Sodium Level 141, Potassium Level 3.3L, Chloride Level 101, Carbon Dioxide Level 31, Anion Gap 9, Glomerular Filtration Rate > 60.0, Calcium Level 8.4L, Phosphorus Level 2.9, Albumin 2.6L 05/01/19 09:14: Vancomycin Level Trough 21.5H CBC/BMP Laboratory Tests 05/01/19 05:44 Red Blood Count 4.66, Mean Corpuscular Volume 94.2, Mean Corpuscular Hemoglobin 30.5, Mean Corpuscular Hemoglobin Concent 32.3, Red Cell Distribution Width 16.4 H, Anion Gap 9 Microbiology Microbiology 04/27/19 Blood Culture - Preliminary, Resulted No Growth after 72 hours. All specime... 04/27/19 Blood Culture - Preliminary, Resulted No Growth after 72 hours. All specime... 04/25/19 Blood Culture - Final, Complete NO GROWTH AFTER 5 DAYS 04/25/19 Blood Culture - Final, Complete Streptococcus Group G 04/26/19 Gram Stain - Final, Complete 04/26/19 Sputum Culture - Final, Complete 04/25/19 Respiratory Virus Panel (PCR) (AIDA) - Final, Complete 04/25/19 MRSA Screen - Final, Complete 04/26/19 Gram Stain - Final, Complete 04/26/19 Wound Culture - Final, Complete Staphylococcus Aureus Streptococcus Group G Corynebacterium Species JULIO JOHNSON MD May 01, 2019 19:56
[2019-05-01 22:00] VITALS: BP 133/64
[2019-05-01] MEDS: ATORVASTATIN 20 MG TAB PO SCH (22:14)
[2019-05-01] MEDS: DIGOXIN 0.125 MG TAB PO SCH (22:15)
[2019-05-01] MEDS: OMEPRAZOLE 20 MG CAP PO SCH (22:15)
[2019-05-01] MEDS: predniSONE 5 MG TAB PO SCH (22:15)
[2019-05-01] MEDS: DOCUSATE SODIUM 100 MG CAP PO SCH (22:15)
[2019-05-01] MEDS: ASPIRIN 81 MG ENTERIC TAB PO SCH (22:16)
[2019-05-02] MEDS: SILVER SULFADIAZINE 1% CR 50 GM JAR TOP SCH ×2 (01:27→09:10)
[2019-05-02 06:00] VITALS: BP 139/68
[2019-05-02] MEDS: SODIUM CHLORIDE 0.9% INJ 10 ML SYR IV SCH ×2 (06:00→17:27)
[2019-05-02 06:31] LABS: HEMATOCRIT 42.8 % (42.0-52.0); HEMOGLOBIN 13.8 g/dl (13.5-17.5); MEAN CORPUSCULAR HEMOGLOBIN 30.4 pg (27.0-33.0); MEAN CORPUSCULAR HGB CONC 32.2 g/dl (32.0-36.5); MEAN CORPUSCULAR VOLUME 94.3 fl (80.0-96.0); PLATELET COUNT, AUTOMATED 195 10^3/uL (150-450); RED BLOOD COUNT 4.54 10^6/uL (4.30-6.10); WHITE BLOOD COUNT 8.9 10^3/uL (4.0-10.0)
[2019-05-02] MEDS: SLF 3 ML SYR IV SCH ×3 (06:41→22:46)
[2019-05-02 06:44] LABS: INR 1.97; PROTHROMBIN TIME 22.2 SECONDS (11.8-14.0)
[2019-05-02 06:56] LABS: ALBUMIN 2.4 GM/DL (3.2-5.2); BLOOD UREA NITROGEN 22 MG/DL (7-18); CALCIUM LEVEL 8.4 MG/DL (8.8-10.2); CARBON DIOXIDE LEVEL 30 MEQ/L (21-32); CHLORIDE LEVEL 103 MEQ/L (98-107); GLOMERULAR FILTRATION RATE > 60.0 (>35); GLUCOSE, FASTING 101 MG/DL (70-100); PHOSPHORUS LEVEL 2.9 MG/DL (2.5-4.9); POTASSIUM SERUM 3.2 MEQ/L (3.5-5.1); SODIUM LEVEL 140 MEQ/L (136-145)
[2019-05-02] MEDS ORDERED: POTASSIUM CHLORIDE 10 MEQ SR TABLET PO ONE (08:30)
[2019-05-02] MEDS: TORSEMIDE (DEMADEX) 50 MG PER 1/2 TAB PO SCH (09:07)
[2019-05-02] MEDS: ALLOPURINOL 300 MG TAB PO SCH (09:07)
[2019-05-02] MEDS: LACTOBACILLUS ACIDOPHILUS CAP (BACID) PO SCH ×2 (09:07→17:27)
[2019-05-02] MEDS: ACETAMINOPHEN 500 MG TAB PO SCH ×2 (09:07→21:59)
[2019-05-02] MEDS: TAMSULOSIN 0.4 MG CAP PO SCH (09:08)
[2019-05-02] MEDS: METOPROLOL SUCC (TopROL XL) 100MG *XL* TAB PO SCH ×2 (09:08→22:00)
[2019-05-02] MEDS: MULTIVITAMINS/MINERALS THERAP 1 TAB PO SCH (09:08)
[2019-05-02] MEDS: VANCOMYCIN HCL 500 MG in D5W MINI-BAG PLUS 100 ML IV SCH (09:09)
[2019-05-02] MEDS: VANCOMYCIN HCL 750 MG, VIAL MATE ADAPTER 1 EACH in D5W 250 ML IV SCH (10:30)
[2019-05-02 14:00] VITALS: BP 129/65
--- NOTE | 2019-05-02 15:23 | IPNPDOC ---
Date Seen The patient was seen on 05/02/19. Progress Note SUBJECTIVE: Patient denies any complaints. Just inquiring about how much angiogram will help his legs. Planning for angiogram tomorrow. OBJECTIVE PHYSICAL EXAMINATION: VITAL SIGNS: Please see below. General: No acute distress, Alert Eyes: Normal sclera, EOMI, SJ HENT: Atraumatic, neck supple, moist mucous membranes Cardiovascular: Normal rate, normal rhythm. No murmurs appreciated. Pulmonary: Clear to auscultation b/l, no wheezing GI: Soft, nontender, nondistended Skin: Warm and dry Neuro: CN grossly intact. No focal deficits. Strengths equal b/l. Psych: oriented x 3 LABORATORY DATA, IMAGING STUDIES, MICROBIOLOGY: Please see below. ASSESSMENT AND PLAN: 83M initially admitted 12/18 for R. foot ischemia/Osteo s/p transmetatarsal amputation by Dr. Noriega and has had a wound vac post discharge. Also follows with Dr. Florence and had R. popliteal artery and superficial femoral artery stent placement on 12/06/18. Presented with acute onset of chills found to be febrile w ith leukocytosis. Initially thought to have PNA but CT chest showed chronic bronchiectasis and no infiltrate. Sepsis 2/2 Chronic osteomyelitis of the foot. - Has had transmetatarsal amputation with recent debridement by Data Sciences Director. - Was seen by Podiatry Dr. Santos, now by Dr. Florence with vascular. - LE arterial US with moderate to significant b/l atheromatous plaques. - group G strep in one blood culture and wound culture. - Was on vancomycin and Zosyn. Zosyn had been discontinued. - Preferably would use Pennicillin G for GGS but wound culture also has s. aureus and is resistant to Penicillin G, otherwise would likely use Rocephin without staph infection. - c/w vancomycin for now. ID consult when available. Obtain ECHO. - Planned for angiogram tomorrow. Thrombocytopenia - resolved. - likely 2/2 sepsis. Chronic Bronchiectasis -s/p iv levaquin given by ER 04/25/19 and po azithromycin -s/p iv zosyn discontinued 04/29/19 . on iv vanco for wound cx: staph strep - respiratory panel, MRSA screen, negative. -CT chest : chronic bronchiectasis. no consolidation or infiltrate Coronary artery disease s/p percutaneous coronary intervention (PCI) to right coronary artery with bare metal stents times five in 2010. -acute care nursing assistant is Dr. Mejias -resumed home dose of diuretics Chronic atrial fibrillation. -on chronic warfarin to target inr 2-3 -resumed home dose of warfarin -daily inr check to adjust dose if needed -resumed home metoprolol Hypertension. -resumed home dose of metoprolol Dyslipidemia. -resumed home meds Peripheral vascular disease. -right popliteal artery and superficial femoral artery stent placement on 12/06/[address] Florence -s/p transmetatarsal amputation of the right foot due to osteomyelitis in 11/[address] Noriega Gastroesophageal reflux disease (GERD). -resume home meds Peripheral vascular disease -on chronic warfarin and statins -history of heavy cigar use DVT prophylaxis: on chronic warfarin for atrial fibrillation VS, I&O, 24H, Fishbone Vital Signs/I&O Vital Signs Date Time Temp Pulse Resp B/P (MAP) Pulse Ox O2 Delivery O2 Flow Rate FiO2 05/02/19 09:08 76 139/68 05/02/19 06:00 97.8 20 99 I&O- Last 24 Hours up to 6 AM 05/02/19 06:00 Intake Total 1140 ml Output Total 1100 ml Balance 40 ml Laboratory Data 24H LABS Laboratory Tests 2 05/02/19 05:53: Nucleated Red Blood Cells % (auto) 0.0, Prothrombin Time 22.2H, Prothromb Time International Ratio 1.97, Blood Urea Nitrogen 22H, Creatinine 0.90, Sodium Level 140, Potassium Level 3.2L, Chloride Level 103, Carbon Dioxide Level 30, Anion Gap 7L, Glomerular Filtration Rate > 60.0, Calcium Level 8.4L, Phosphorus Level 2.9, Albumin 2.4L CBC/BMP Laboratory Tests 05/02/19 05:53 Red Blood Count 4.54, Mean Corpuscular Volume 94.3, Mean Corpuscular Hemoglobin 30.4, Mean Corpuscular Hemoglobin Concent 32.2, Red Cell Distribution Width 16.2 H, Anion Gap 7 L Microbiology Microbiology 04/27/19 Blood Culture - Final, Complete NO GROWTH AFTER 5 DAYS 04/27/19 Blood Culture - Final, Complete NO GROWTH AFTER 5 DAYS 04/25/19 Blood Culture - Final, Complete NO GROWTH AFTER 5 DAYS 04/25/19 Blood Culture - Final, Complete Streptococcus Group G 04/26/19 Gram Stain - Final, Complete 04/26/19 Sputum Culture - Final, Complete 04/25/19 Respiratory Virus Panel (PCR) (AIDA) - Final, Complete 04/25/19 MRSA Screen - Final, Complete 04/26/19 Gram Stain - Final, Complete 04/26/19 Wound Culture - Final, Complete Staphylococcus Aureus Streptococcus Group G Corynebacterium Species JULIO JOHNSON MD May 02, 2019 15:23
[2019-05-02] MEDS: TORSEMIDE 100 MG TAB PO SCH (17:27)
[2019-05-02] MEDS: WARFARIN SOD 3 MG TAB PO SCH (17:27)
[2019-05-02] MEDS: ASPIRIN 81 MG ENTERIC TAB PO SCH (21:59)
[2019-05-02] MEDS: ATORVASTATIN 20 MG TAB PO SCH (21:59)
[2019-05-02 22:00] VITALS: BP 128/74
[2019-05-02] MEDS: OMEPRAZOLE 20 MG CAP PO SCH (22:00)
[2019-05-02] MEDS: DOCUSATE SODIUM 100 MG CAP PO SCH (22:00)
[2019-05-02] MEDS: predniSONE 5 MG TAB PO SCH (22:00)
[2019-05-03] VITALS (8 sets, daily range): BP systolic 105–136; BP diastolic 59–78
[2019-05-03] MEDS: SILVER SULFADIAZINE 1% CR 50 GM JAR TOP SCH ×3 (02:41→23:25)
[2019-05-03] MEDS: SLF 3 ML SYR IV SCH ×2 (06:07→15:47)
[2019-05-03] MEDS: SODIUM CHLORIDE 0.9% INJ 10 ML SYR IV SCH ×2 (06:21→18:54)
[2019-05-03 07:19] LABS: HEMATOCRIT 44.8 % (42.0-52.0); HEMOGLOBIN 14.6 g/dl (13.5-17.5); MEAN CORPUSCULAR HEMOGLOBIN 31.8 pg (27.0-33.0); MEAN CORPUSCULAR HGB CONC 32.6 g/dl (32.0-36.5); MEAN CORPUSCULAR VOLUME 97.6 fl (80.0-96.0); PLATELET COUNT, AUTOMATED 207 10^3/uL (150-450); RED BLOOD COUNT 4.59 10^6/uL (4.30-6.10); WHITE BLOOD COUNT 9.4 10^3/uL (4.0-10.0)
[2019-05-03 07:36] LABS: INR 1.96; PROTHROMBIN TIME 22.1 SECONDS (11.8-14.0)
[2019-05-03 07:44] LABS: ALBUMIN 2.7 GM/DL (3.2-5.2); CALCIUM LEVEL 8.6 MG/DL (8.8-10.2); CREATININE FOR GFR 1.23 MG/DL (0.70-1.30); GLOMERULAR FILTRATION RATE 59.5 (>35); PHOSPHORUS LEVEL 2.7 MG/DL (2.5-4.9); POTASSIUM SERUM 3.4 MEQ/L (3.5-5.1); VANCOMYCIN LEVEL TROUGH 13.9 UG/ML (10.0-20.0)
[2019-05-03] MEDS: METOPROLOL SUCC (TopROL XL) 100MG *XL* TAB PO SCH ×2 (08:40→23:24)
[2019-05-03] MEDS: MULTIVITAMINS/MINERALS THERAP 1 TAB PO SCH (08:40)
[2019-05-03] MEDS: ACETAMINOPHEN 500 MG TAB PO SCH ×2 (08:40→23:24)
[2019-05-03] MEDS: ALLOPURINOL 300 MG TAB PO SCH (08:40)
[2019-05-03] MEDS: TORSEMIDE (DEMADEX) 50 MG PER 1/2 TAB PO SCH (08:41)
[2019-05-03] MEDS: LACTOBACILLUS ACIDOPHILUS CAP (BACID) PO SCH ×2 (08:41→19:17)
[2019-05-03] MEDS: TAMSULOSIN 0.4 MG CAP PO SCH (08:41)
[2019-05-03] MEDS: VANCOMYCIN HCL 500 MG in D5W MINI-BAG PLUS 100 ML IV SCH (08:42)
[2019-05-03] MEDS: VANCOMYCIN HCL 750 MG, VIAL MATE ADAPTER 1 EACH in D5W 250 ML IV SCH ×2 (10:13→23:25)
--- NOTE | 2019-05-03 11:25 | ECHO ---
DATE OF PROCEDURE: 05/02/2019 REFERRING PHYSICIAN: Dr. Phillip Harkins. INDICATION: Bacteremia. HEIGHT: 185 cm WEIGHT: 89 kg. DIMENSIONS: IV - 1.3 LV - 6.2 LVPW - 1.3 LA - 4.6 Aorta - 4.1 RV - 2.8 Left atrial volume index -101 IVC - 2.0 FINDINGS: The study is of acceptable technical quality. The patient is in atrial fibrillation with controlled rate. Left ventricle is dilated and appears globally hypokinetic. On some views, inferior wall appears to be almost akinetic. Overall LVEF is estimated 30-35%, computer calculated LVEF was 34%. The right ventricle also appears dilated and hypokinetic. There is severe biatrial enlargement, left atrium is much larger than right. No pericardial effusion is noted. Aortic valve is heavily sclerotic but it appears to have preserved mobility. Mitral valve and tricuspid valves appear normal. Pulmonic valve was poorly seen but grossly appears normal. Inferior vena cava is on upper limits of normal size but collapses appropriately with respiration indicative of likely normal or mildly elevated central venous pressure. Aortic root is dilated at 4.1 cm. Aortic arch and abdominal aorta were not well seen. Doppler interrogation reveals no significant aortic stenosis or insufficiency. There is [id number] mitral insufficiency with central MR jet likely secondary to LV dysfunction. There is mild tricuspid insufficiency. Calculated pulmonary artery pressure is around 40 mmHg, which corresponds to mild to moderate pulmonary hypertension. Evaluation of diastolic function is inconclusive due to underlying atrial fibrillation. CONCLUSION: 1. Study is of acceptable technical quality. 2. Dilated globally hypokinetic left ventricle with inferior wall almost akinesis and calculated LVEF 34%. Estimated LVEF in similar range between 30 and 35%. 3. Dilated hypokinetic right ventricle. 4. Severe biatrial enlargement. 5. Aortic sclerosis but no significant stenosis or insufficiency. 6. Uosi-fz-juhhrtfw mitral insufficiency. 7. Mild tricuspid insufficiency. 8. Normal mildly elevated central venous pressure and mild to moderate pulmonary hypertension. COMMENT: SBE prophylaxis is not recommended. No visualized vegetations. Overall no significant difference compared to report of the study from January 2018, possibly there is modest improvement in LV systolic function and degree of mitral insufficiency. MTDD
[2019-05-03] MEDS ORDERED: POTASSIUM CHLORIDE 10 MEQ SR TABLET PO ONE (12:00)
--- NOTE | 2019-05-03 14:28 | PHACANCOPD ---
PHARMACY VANCOMYCIN DOSING Pt Demographics Demographics Patient Age:83 , Weight:89.300 , Gender: male Adjusted Body Weight Date: 04/25/19, Adjusted Body Weight: Kg Events Past 24 Hours Events Past 24 Hours: NO: Dialysis, Diuretic Therapy, Change in CrCl, Fever, Elevation in WBC, Pending Diagnostics, Pending Procedures, Other Vancomycin Vancomycin indication: Osteo Vancomycin Target Ranges: 15-20 mcg/ml Vancomycin Load Y/N: Yes Load Dose Date Time Vancomycin Load Dose: 1500 MG Date: 04/25/19 Time: 2200 Vancomycin Dose Date: 05/03/19. Current Vancomycin Dose: [750MG IV Q12H] Date: 05/01/19. Current Vancomycin Dose: [1250mg IV q24h@08] Date: 04/25/19. Current Vancomycin Dose: [1 GRAM IV Q12H] Intermittent Dosing?: No Labs Labs Item Value Date Time White Blood Count 10.2 10^3/uL H 05/01/19 0544 White Blood Count 8.9 10^3/uL 05/02/19 0553 White Blood Count 9.4 10^3/uL 05/03/19 0710 Vancomycin Level Trough 19.5 UG/ML 04/29/19 0900 Vancomycin Level Trough 21.5 UG/ML H 05/01/19 0914 Vancomycin Level Trough 13.9 UG/ML 05/03/19 0710 Creatinine 1.04 MG/DL 05/01/19 0544 Creatinine 0.90 MG/DL 05/02/19 0553 Creatinine 1.23 MG/DL 05/03/19 0710 Micro Microbiology 04/27/19 Blood Culture - Final, Complete NO GROWTH AFTER 5 DAYS 04/27/19 Blood Culture - Final, Complete NO GROWTH AFTER 5 DAYS 04/25/19 Blood Culture - Final, Complete NO GROWTH AFTER 5 DAYS 04/25/19 Blood Culture - Final, Complete Streptococcus Group G 04/26/19 Gram Stain - Final, Complete 04/26/19 Sputum Culture - Final, Complete 04/25/19 Respiratory Virus Panel (PCR) (AIDA) - Final, Complete 04/25/19 MRSA Screen - Final, Complete 04/26/19 Gram Stain - Final, Complete 04/26/19 Wound Culture - Final, Complete Staphylococcus Aureus Streptococcus Group G Corynebacterium Species Creatinine Clearance Date:04/25/19. Creatinine Clearance: [51ML/MIN]. Pending Labs TROUGH @20:00 05/04/19 Assessment and Plan Maintaining Current Dose?: No Reason for dose change: Trough too low Pharmacist Note Pharmacist Note Date: 05/03/19. Pharmacist note:pt trough came in this am @ 13.9mcg/ml. Dosing was changed to 750mg IV q12 hours starting 05/03/19 @21:00. A trough is scheduled for 05/04/19 @20:00. We will continue to monitor and adjust the dose as needed. 05/01: today is day 7 of treatment of Osteomyelitis with Vancomycin. Patient's trough came back at 21.5 this morning and he was given his 1000mg of Vancomycin this morning. His dose will be held 24 hours and restarted tomorrow at 1250mg IV q24h. We will obtain a trough 05/03 to make sure patient's level is within therapeutic range. Date: 04/25/19. Pharmacist note: Pharmacy consulted for vancomycin dosing for sepsis suspected to be caused by chronic osteomyelitis of the right foot. Patient was previously treated here at [facility] for same issue in November with Vancomycin and Zosyn. Patient was febrile and had an elevated white count. We'll load him with 1500 mg and continue with 1 gram q12h, as he did well on this regimen back in November. His creatinine is slightly higher this time, however. Pharmacy will continue to follow this patient and make adjustments as necessary. [facility] May 03, 2019 14:28
--- NOTE | 2019-05-03 15:27 | IPNPDOC ---
Date Seen The patient was seen on 05/03/19. Progress Note SUBJECTIVE: Patient denies any physical complaints. Only inquired about the angiogram. No acute events reported overnight. OBJECTIVE PHYSICAL EXAMINATION: VITAL SIGNS: Please see below. General: No acute distress, Alert Eyes: Normal sclera, EOMI, SJ HENT: Atraumatic, neck supple, moist mucous membranes Cardiovascular: Normal rate, normal rhythm. No murmurs appreciated. Pulmonary: Clear to auscultation b/l, no wheezing GI: Soft, nontender, nondistended Skin: Warm and dry Neuro: CN grossly intact. No focal deficits. Strengths equal b/l. Psych: oriented x 3 LABORATORY DATA, IMAGING STUDIES, MICROBIOLOGY: Please see below. ASSESSMENT AND PLAN: 83M initially admitted 12/18 for R. foot ischemia/Osteo s/p transmetatarsal amputation by Dr. Noriega and has had a wound vac post discharge. Also follows with Dr. Florence and had R. popliteal artery and superficial femoral artery stent placement on 12/06/18. Presented with acute onset of chills found to be febrile with leukocytosis. Initially thought to have PNA but CT chest showed chronic bronchiectasis and no infiltrate. Sepsis 2/2 Chronic osteomyelitis of the foot. - Has had transmetatarsal amputation with recent debridement by [employer]. - Was seen by Podiatry Dr. Santos, now by Dr. Florence with vascular. - LE arterial US with moderate to significant b/l atheromatous plaques. - group G strep in one blood culture and wound culture. - Was on vancomycin and Zosyn. Zosyn had been discontinued. - Preferably would use Pennicillin G for GGS but wound culture also has s. aureus and is resistant to Penicillin G, otherwise would likely use Rocephin without staph infection. - c/w vancomycin for now. ID consult when available. Obtain ECHO. - Planned for angiogram today. Thrombocytopenia - resolved. - likely 2/2 sepsis. Chronic Bronchiectasis -s/p iv levaquin given by ER 04/25/19 and po azithromycin -s/p iv zosyn discontinued 04/29/19 . on iv vanco for wound cx: staph strep - respiratory panel, MRSA screen, negative. -CT chest : chronic bronchiectasis. no consolidation or infiltrate Coronary artery disease s/p percutaneous coronary intervention (PCI) to right coronary artery with bare metal stents times five in 2010. -director of solutions architecture is Dr. Mejias -resumed home dose of diuretics Chronic atrial fibrillation. -on chronic warfarin to target inr 2-3 -resumed home dose of warfarin -daily inr check to adjust dose if needed -resumed home metoprolol Hypertension. -resumed home dose of metoprolol Dyslipidemia. -resumed home meds Peripheral vascular disease. -right popliteal artery and superficial femoral artery stent placement on 12/06/[address] Florence -s/p transmetatarsal amputation of the right foot due to osteomyelitis in 11/[address] Noriega Gastroesophageal reflux disease (GERD). -resume home meds Peripheral vascular disease -on chronic warfarin and statins -history of heavy cigar use DVT prophylaxis: on chronic warfarin for atrial fibrillation VS, I&O, 24H, Fishbone Vital Signs/I&O Vital Signs Date Time Temp Pulse Resp B/P (MAP) Pulse Ox O2 Delivery O2 Flow Rate FiO2 05/03/19 14:00 97.7 72 20 129/59 (82) 95 I&O- Last 24 Hours up to 6 AM 05/03/19 06:00 Intake Total 1850 ml Output Total 2425 ml Balance -575 ml Laboratory Data 24H LABS Laboratory Tests 2 05/03/19 07:10: Nucleated Red Blood Cells % (auto) 0.0, Prothrombin Time 22.1H, Prothromb Time International Ratio 1.96, Blood Urea Nitrogen 22H, Creatinine 1.23, Sodium Level 142, Potassium Level 3.4L, Chloride Level 102, Carbon Dioxide Level 32, Anion Gap 8, Glomerular Filtration Rate 59.5, Calcium Level 8.6L, Phosphorus Level 2.7, Albumin 2.7L, Vancomycin Level Trough 13.9 CBC/BMP Laboratory Tests 05/03/19 07:10 Red Blood Count 4.59, Mean Corpuscular Volume 97.6 H, Mean Corpuscular Hemoglobin 31.8, Mean Corpuscular Hemoglobin Concent 32.6, Red Cell Distribution Width 16.3 H, Anion Gap 8 Microbiology Microbiology 04/27/19 Blood Culture - Final, Complete NO GROWTH AFTER 5 DAYS 04/27/19 Blood Culture - Final, Complete NO GROWTH AFTER 5 DAYS 04/25/19 Blood Culture - Final, Complete NO GROWTH AFTER 5 DAYS 04/25/19 Blood Culture - Final, Complete Streptococcus Group G 04/26/19 Gram Stain - Final, Complete 04/26/19 Sputum Culture - Final, Complete 04/25/19 Respiratory Virus Panel (PCR) (AIDA) - Final, Complete 04/25/19 MRSA Screen - Final, Complete 04/26/19 Gram Stain - Final, Complete 04/26/19 Wound Culture - Final, Complete Staphylococcus Aureus Streptococcus Group G Corynebacterium Species JULIO JOHNSON MD May 03, 2019 15:27
[2019-05-03] MEDS ORDERED: LIDOCAINE 1% SDV INJ 30 ML VIAL As Ordered ONE (16:45)
[2019-05-03] MEDS ORDERED: ISOVUE-300 61% 50ML VIAL (Q9967) As Ordered ONE (16:46)
[2019-05-03] MEDS ORDERED: BUPIVACAINE HCL 0.5% 30 ML VIAL As Ordered ONE (16:46)
[2019-05-03] MEDS ORDERED: HEPARIN SOD (PORCINE) 5000 UNITS/ML VIAL As Ordered ONE (16:46)
[2019-05-03] MEDS ORDERED: PROPOFOL 200 MG/20 ML VIAL As Ordered ONE (17:52)
[2019-05-03] MEDS ORDERED: MIDAZOLAM INJ 2 MG/2 ML VIAL (J2250) As Ordered ONE (17:52)
[2019-05-03] MEDS ORDERED: LIDOCAINE 2% INJ 100 MG/5 ML SDV (FOR ANES.) As Ordered ONE (17:53)
[2019-05-03] MEDS ORDERED: ONDANSETRON 4MG/2ML VIAL (J2405) IV PRN (19:00)
[2019-05-03] MEDS ORDERED: LR 1,000 ML IV SCH (19:00)
[2019-05-03] MEDS: TORSEMIDE 100 MG TAB PO SCH (19:18)
[2019-05-03] MEDS: WARFARIN SOD 3 MG TAB PO SCH (19:18)
[2019-05-03] MEDS: DOCUSATE SODIUM 100 MG CAP PO SCH (23:22)
[2019-05-03] MEDS: OMEPRAZOLE 20 MG CAP PO SCH (23:23)
[2019-05-03] MEDS: predniSONE 5 MG TAB PO SCH (23:23)
[2019-05-03] MEDS: ATORVASTATIN 20 MG TAB PO SCH (23:23)
[2019-05-03] MEDS: ASPIRIN 81 MG ENTERIC TAB PO SCH (23:23)
[2019-05-03] MEDS: DIGOXIN 0.125 MG TAB PO SCH (23:23)
[2019-05-04 00:15] VITALS: BP 120/75
[2019-05-04] MEDS: SODIUM CHLORIDE 0.9% INJ 10 ML SYR IV PRN ×2 (01:17→22:55)
[2019-05-04] MEDS: SLF 3 ML SYR IV SCH ×4 (03:38→23:50)
[2019-05-04 04:15] VITALS: BP 116/61
[2019-05-04 06:12] LABS: HEMATOCRIT 44.5 % (42.0-52.0); HEMOGLOBIN 14.5 g/dl (13.5-17.5); MEAN CORPUSCULAR HEMOGLOBIN 31.5 pg (27.0-33.0); MEAN CORPUSCULAR HGB CONC 32.6 g/dl (32.0-36.5); MEAN CORPUSCULAR VOLUME 96.5 fl (80.0-96.0); PLATELET COUNT, AUTOMATED 212 10^3/uL (150-450); RED BLOOD COUNT 4.61 10^6/uL (4.30-6.10); WHITE BLOOD COUNT 8.2 10^3/uL (4.0-10.0)
[2019-05-04 06:18] LABS: INR 1.63; PROTHROMBIN TIME 19.1 SECONDS (11.8-14.0)
[2019-05-04 06:35] LABS: ALBUMIN 2.8 GM/DL (3.2-5.2); BLOOD UREA NITROGEN 24 MG/DL (7-18); CALCIUM LEVEL 8.9 MG/DL (8.8-10.2); CARBON DIOXIDE LEVEL 34 MEQ/L (21-32); CHLORIDE LEVEL 102 MEQ/L (98-107); CREATININE FOR GFR 1.14 MG/DL (0.70-1.30); GLOMERULAR FILTRATION RATE > 60.0 (>35); GLUCOSE, FASTING 97 MG/DL (70-100); POTASSIUM SERUM 3.3 MEQ/L (3.5-5.1); SODIUM LEVEL 140 MEQ/L (136-145)
[2019-05-04] MEDS: SODIUM CHLORIDE 0.9% INJ 10 ML SYR IV SCH ×2 (06:45→17:33)
[2019-05-04] MEDS ORDERED: POTASSIUM CHLORIDE 10 MEQ SR TABLET PO ONE (08:00)
[2019-05-04 08:15] VITALS: BP 128/59
[2019-05-04] MEDS: MULTIVITAMINS/MINERALS THERAP 1 TAB PO SCH (09:09)
[2019-05-04] MEDS: TAMSULOSIN 0.4 MG CAP PO SCH (09:09)
[2019-05-04] MEDS: TORSEMIDE (DEMADEX) 50 MG PER 1/2 TAB PO SCH (09:09)
[2019-05-04] MEDS: ALLOPURINOL 300 MG TAB PO SCH (09:09)
[2019-05-04] MEDS: LACTOBACILLUS ACIDOPHILUS CAP (BACID) PO SCH ×2 (09:09→17:32)
[2019-05-04] MEDS: METOPROLOL SUCC (TopROL XL) 100MG *XL* TAB PO SCH ×2 (09:10→21:47)
[2019-05-04] MEDS: VANCOMYCIN HCL 750 MG, VIAL MATE ADAPTER 1 EACH in D5W 250 ML IV SCH (09:11)
[2019-05-04] MEDS: ACETAMINOPHEN 500 MG TAB PO SCH ×2 (09:11→21:49)
--- NOTE | 2019-05-04 11:47 | IPNPDOC ---
Date Seen The patient was seen on 05/04/19. Progress Note SUBJECTIVE: Patient reported having a brief episode of pain in his R. toe yesterday but had since resolved. Requested to have his uric acid level checked. Currently denies any discomfort. s/p angiogram yesterday. OBJECTIVE PHYSICAL EXAMINATION: VITAL SIGNS: Please see below. General: No acute distress, Alert Eyes: Normal sclera, EOMI, SJ HENT: Atraumatic, neck supple, moist mucous membranes Cardiovascular: Normal rate, normal rhythm. No murmurs appreciated. Pulmonary: Clear to auscultation b/l, no wheezing GI: Soft, nontender, nondistended Skin: Warm and dry Neuro: CN grossly intact. No focal deficits. Strengths equal b/l. Psych: oriented x 3 LABORATORY DATA, IMAGING STUDIES, MICROBIOLOGY: Please see below. ASSESSMENT AND PLAN: 83M initially admitted 12/18 for R. foot ischemia/Osteo s/p transmetatarsal amputation by Dr. Noriega and has had a wound vac post discharge. Also follows with Dr. Florence and had R. popliteal artery and superficial femoral artery stent placement on 12/06/18. Presented with acute onset of chills found to be febrile with leukocytosis. Initially thought to have PNA but CT chest showed chronic bronchiectasis and no infiltrate. Sepsis 2/2 Chronic osteomyelitis of the foot. - Has had transmetatarsal amputation with recent debridement by [employer]. - Was seen by Podiatry Dr. Santos, now by Dr. Florence with vascular. - LE arterial US with moderate to significant b/l atheromatous plaques. - group G strep in one blood culture and wound culture. - Was on vancomycin and Zosyn. Zosyn had been discontinued. - Preferably would use Pennicillin G for GGS but wound culture also has s. aureus and is resistant to Penicillin G, otherwise would likely use Rocephin without staph infection. - ECHO showed evidence of vegetations. - Transitioned to Ancef. Plan to treat for 14 days post negative blood culture on 04/27. Thrombocytopenia - resolved. - likely 2/2 sepsis. Chronic Bronchiectasis -s/p iv levaquin given by ER 04/25/19 and po azithromycin -s/p iv zosyn discontinued 04/29/19 . on iv vanco for wound cx: staph strep - respiratory panel, MRSA screen, negative. -CT chest : chronic bronchiectasis. no consolidation or infiltrate HFrEF/Coronary artery disease s/p percutaneous coronary intervention (PCI) to right coronary artery with bare metal stents times five in 2010. -ECHO 30-35%, no improvement from previous ECHO documented. -sexual abuse counsellor is Dr. Mejias -resumed home dose of medications. Chronic atrial fibrillation. -on chronic warfarin to target inr 2-3 - Has been on 3mg daily except for 6 mg on Monday and monday - Has been subtherapeutic. Will change to 4mg daily and keeping MW same for now. -daily inr check to adjust dose if needed -resumed home metoprolol Hypertension. -resumed home dose of metoprolol Dyslipidemia. -resumed home meds Peripheral vascular disease. -right popliteal artery and superficial femoral artery stent placement on 12/06/[address] Florence -s/p transmetatarsal amputation of the right foot due to osteomyelitis in 11/[address] Noriega Gastroesophageal reflux disease (GERD). -resume home meds Peripheral vascular disease -on chronic warfarin and statins -history of heavy cigar use Gout - c/w allopurinol - check uric acid level. DVT prophylaxis: on chronic warfarin for atrial fibrillation VS, I&O, 24H, Fishbone Vital Signs/I&O Vital Signs Date Time Temp Pulse Resp B/P (MAP) Pulse Ox O2 Delivery O2 Flow Rate FiO2 05/04/19 09:10 95 117/68 05/04/19 08:15 97.9 17 96 I&O- Last 24 Hours up to 6 AM 05/04/19 06:00 Intake Total 1175 ml Output Total 2125 ml Balance -950 ml Laboratory Data 24H LABS Laboratory Tests 2 05/04/19 05:42: Nucleated Red Blood Cells % (auto) 0.0, Prothrombin Time 19.1H, Prothromb Time International Ratio 1.63, Blood Urea Nitrogen 24H, Creatinine 1.14, Sodium Level 140, Potassium Level 3.3L, Chloride Level 102, Carbon Dioxide Level 34H, Anion Gap 4L, Glomerular Filtration Rate > 60.0, Calcium Level 8.9, Phosphorus Level 3.0, Albumin 2.8L CBC/BMP Laboratory Tests 05/04/19 05:42 Red Blood Count 4.61, Mean Corpuscular Volume 96.5 H, Mean Corpuscular Hemoglobin 31.5, Mean Corpuscular Hemoglobin Concent 32.6, Red Cell Distribution Width 16.1 H, Anion Gap 4 L Microbiology Microbiology 04/27/19 Blood Culture - Final, Complete NO GROWTH AFTER 5 DAYS 04/27/19 Blood Culture - Final, Complete NO GROWTH AFTER 5 DAYS 04/25/19 Blood Culture - Final, Complete NO GROWTH AFTER 5 DAYS 04/25/19 Blood Culture - Final, Complete Streptococcus Group G 04/26/19 Gram Stain - Final, Complete 04/26/19 Sputum Culture - Final, Complete 04/25/19 Respiratory Virus Panel (PCR) (AIDA) - Final, Complete 04/25/19 MRSA Screen - Final, Complete 04/26/19 Gram Stain - Final, Complete 04/26/19 Wound Culture - Final, Complete Staphylococcus Aureus Streptococcus Group G Corynebacterium Species JULIO JOHNSON MD May 04, 2019 11:47
[2019-05-04 12:15] VITALS: BP 139/75
[2019-05-04] MEDS: SILVER SULFADIAZINE 1% CR 50 GM JAR TOP SCH ×2 (13:59→21:49)
[2019-05-04] MEDS: WARFARIN SOD 4 MG TAB PO SCH (17:32)
[2019-05-04] MEDS: TORSEMIDE 100 MG TAB PO SCH (17:32)
[2019-05-04] MEDS: ASPIRIN 81 MG ENTERIC TAB PO SCH (21:47)
[2019-05-04] MEDS: ATORVASTATIN 20 MG TAB PO SCH (21:48)
[2019-05-04] MEDS: DOCUSATE SODIUM 100 MG CAP PO SCH (21:48)
[2019-05-04] MEDS: OMEPRAZOLE 20 MG CAP PO SCH (21:48)
[2019-05-04] MEDS: predniSONE 5 MG TAB PO SCH (21:48)
[2019-05-04 22:00] VITALS: BP 128/66
[2019-05-05 06:00] VITALS: BP 115/72
[2019-05-05 06:34] LABS: HEMATOCRIT 41.8 % (42.0-52.0); HEMOGLOBIN 13.4 g/dl (13.5-17.5); MEAN CORPUSCULAR HEMOGLOBIN 30.3 pg (27.0-33.0); MEAN CORPUSCULAR HGB CONC 32.1 g/dl (32.0-36.5); MEAN CORPUSCULAR VOLUME 94.6 fl (80.0-96.0); PLATELET COUNT, AUTOMATED 206 10^3/uL (150-450); RED BLOOD COUNT 4.42 10^6/uL (4.30-6.10); WHITE BLOOD COUNT 8.3 10^3/uL (4.0-10.0)
[2019-05-05 06:51] LABS: INR 1.77; PROTHROMBIN TIME 20.4 SECONDS (11.8-14.0)
[2019-05-05 07:02] LABS: ALBUMIN 2.5 GM/DL (3.2-5.2); CALCIUM LEVEL 8.4 MG/DL (8.8-10.2); CREATININE FOR GFR 1.25 MG/DL (0.70-1.30); GLOMERULAR FILTRATION RATE 58.4 (>35); PHOSPHORUS LEVEL 3.1 MG/DL (2.5-4.9)
[2019-05-05] MEDS: SODIUM CHLORIDE 0.9% INJ 10 ML SYR IV SCH ×2 (07:22→17:30)
[2019-05-05] MEDS: SLF 3 ML SYR IV SCH ×2 (07:22→14:28)
[2019-05-05] MEDS: POTASSIUM CHLORIDE 10 MEQ SR TABLET PO SCH ×2 (08:11→22:23)
[2019-05-05] MEDS: LACTOBACILLUS ACIDOPHILUS CAP (BACID) PO SCH ×2 (08:11→17:30)
[2019-05-05] MEDS: MULTIVITAMINS/MINERALS THERAP 1 TAB PO SCH (08:12)
[2019-05-05] MEDS: TAMSULOSIN 0.4 MG CAP PO SCH (08:12)
[2019-05-05] MEDS: METOPROLOL SUCC (TopROL XL) 100MG *XL* TAB PO SCH ×2 (08:12→22:25)
[2019-05-05] MEDS: FERROUS GLUCONATE 324 MG TAB PO SCH (08:12)
[2019-05-05] MEDS: TORSEMIDE (DEMADEX) 50 MG PER 1/2 TAB PO SCH (08:12)
[2019-05-05] MEDS: ALLOPURINOL 300 MG TAB PO SCH (08:12)
[2019-05-05] MEDS: ACETAMINOPHEN 500 MG TAB PO SCH ×2 (08:13→22:26)
[2019-05-05] MEDS: SILVER SULFADIAZINE 1% CR 50 GM JAR TOP SCH ×2 (11:04→22:27)
--- NOTE | 2019-05-05 13:15 | IPNPDOC ---
Date Seen The patient was seen on 05/05/19. Progress Note SUBJECTIVE: Patient denies any complaints. Has not had any recurrent of pain in his R. toe. Uric acid at 6. OBJECTIVE PHYSICAL EXAMINATION: VITAL SIGNS: Please see below. General: No acute distress, Alert Eyes: Normal sclera, EOMI, SJ HENT: Atraumatic, neck supple, moist mucous membranes Cardiovascular: Normal rate, normal rhythm. No murmurs appreciated. Pulmonary: Clear to auscultation b/l, no wheezing GI: Soft, nontender, nondistended Skin: Warm and dry Neuro: CN grossly intact. No focal deficits. Strengths equal b/l. Psych: oriented x 3 LABORATORY DATA, IMAGING STUDIES, MICROBIOLOGY: Please see below. ASSESSMENT AND PLAN: 83M initially admitted 12/18 for R. foot ischemia/Osteo s/p transmetatarsal amputation by Dr. Noriega and has had a wound vac post discharge. Also follows with Dr. Florence and had R. popliteal artery and superficial femoral artery stent placement on 12/06/18. Presented with acute onset of chills found to be febrile with leukocytosis. Initially thought to have PNA but CT chest showed chronic bronchiectasis and no infiltrate. Sepsis 2/2 Chronic osteomyelitis of the foot. - Has had transmetatarsal amputation with recent debridement by Interventional Cardiologist. - Was seen by Podiatry Dr. Santos, now by Dr. Florence with vascular. - LE arterial US with moderate to significant b/l atheromatous plaques. - s/p angiogram 05/03 with significant blockages, plan to repeat tomorrow with stent placement. - group G strep in one blood culture and wound culture. - Was on vancomycin and Zosyn. Zosyn had been discontinued. - Preferably would use Pennicillin G for GGS but wound culture also has s. aureus and is resistant to Penicillin G. - ECHO showed no evidence of vegetations. - Transitioned to Ancef. Plan to treat for 14 days post negative blood culture on 04/27. Thrombocytopenia - resolved. - likely 2/2 sepsis. Chronic Bronchiectasis -s/p iv levaquin given by ER 04/25/19 and po azithromycin -s/p iv zosyn discontinued 04/29/19 . on iv vanco for wound cx: staph strep - respiratory panel, MRSA screen, negative. -CT chest : chronic bronchiectasis. no consolidation or infiltrate HFrEF/Coronary artery disease s/p percutaneous coronary intervention (PCI) to right coronary artery with bare metal stents times five in 2010. -ECHO 30-35%, no improvement from previous ECHO documented. -retail sales assistant is Dr. Mejias -resumed home dose of medications. Chronic atrial fibrillation. -on chronic warfarin to target inr 2-3 - Has been on 3mg daily except for 6 mg on Monday and monday - Has been subtherapeutic. Will change to 4mg daily and keeping MW same for now. -daily inr check to adjust dose if needed -resumed home metoprolol Hypertension. -resumed home dose of metoprolol Dyslipidemia. -resumed home meds Peripheral vascular disease. -right popliteal artery and superficial femoral artery stent placement on 12/06/[address] Florence -s/p transmetatarsal amputation of the right foot due to osteomyelitis in 11/[address] Noriega Gastroesophageal reflux disease (GERD). -resume home meds Peripheral vascular disease -on chronic warfarin and statins -history of heavy cigar use Gout - c/w allopurinol - check uric acid level. DVT prophylaxis: on chronic warfarin for atrial fibrillation VS, I&O, 24H, Fishbone Vital Signs/I&O Vital Signs Date Time Temp Pulse Resp B/P (MAP) Pulse Ox O2 Delivery O2 Flow Rate FiO2 05/05/19 08:12 69 122/68 05/05/19 06:00 97.2 16 99 I&O- Last 24 Hours up to 6 AM 05/05/19 06:00 Intake Total 1350 ml Output Total 2225 ml Balance -875 ml Laboratory Data 24H LABS Laboratory Tests 2 05/05/19 05:34: Nucleated Red Blood Cells % (auto) 0.0, Prothrombin Time 20.4H, Prothromb Time International Ratio 1.77, Blood Urea Nitrogen 22H, Creatinine 1.25, Sodium Level 139, Potassium Level 3.0L, Chloride Level 101, Carbon Dioxide Level 32, Anion Gap 6L, Uric Acid 6.0, Glomerular Filtration Rate 58.4, Calcium Level 8.4L, Phosphorus Level 3.1, Albumin 2.5L CBC/BMP Laboratory Tests 05/05/19 05:34 Red Blood Count 4.42, Mean Corpuscular Volume 94.6, Mean Corpuscular Hemoglobin 30.3, Mean Corpuscular Hemoglobin Concent 32.1, Red Cell Distribution Width 16.1 H, Anion Gap 6 L, Uric Acid 6.0 Microbiology Microbiology 04/27/19 Blood Culture - Final, Complete NO GROWTH AFTER 5 DAYS 04/27/19 Blood Culture - Final, Complete NO GROWTH AFTER 5 DAYS 04/25/19 Blood Culture - Final, Complete NO GROWTH AFTER 5 DAYS 04/25/19 Blood Culture - Final, Complete Streptococcus Group G 04/26/19 Gram Stain - Final, Complete 04/26/19 Sputum Culture - Final, Complete 04/25/19 Respiratory Virus Panel (PCR) (AIDA) - Final, Complete 04/25/19 MRSA Screen - Final, Complete 04/26/19 Gram Stain - Final, Complete 04/26/19 Wound Culture - Final, Complete Staphylococcus Aureus Streptococcus Group G Corynebacterium Species JULIO JOHNSON MD May 05, 2019 13:15
[2019-05-05 14:00] VITALS: BP 137/57
[2019-05-05] MEDS: TORSEMIDE 100 MG TAB PO SCH (17:29)
[2019-05-05] MEDS: WARFARIN SOD 4 MG TAB PO SCH (17:30)
[2019-05-05 22:00] VITALS: BP 130/69
[2019-05-05] MEDS: ATORVASTATIN 20 MG TAB PO SCH (22:23)
[2019-05-05] MEDS: DOCUSATE SODIUM 100 MG CAP PO SCH (22:23)
[2019-05-05] MEDS: predniSONE 5 MG TAB PO SCH (22:24)
[2019-05-05] MEDS: DIGOXIN 0.125 MG TAB PO SCH (22:24)
[2019-05-05] MEDS: OMEPRAZOLE 20 MG CAP PO SCH (22:25)
[2019-05-05] MEDS: ASPIRIN 81 MG ENTERIC TAB PO SCH (22:25)
[2019-05-06] MEDS: SODIUM CHLORIDE 0.9% INJ 10 ML SYR IV PRN (00:05)
[2019-05-06] MEDS: SLF 3 ML SYR IV SCH ×4 (00:19→22:26)
[2019-05-06 06:00] VITALS: BP 131/73
[2019-05-06 06:35] LABS: BLOOD UREA NITROGEN 21 MG/DL (7-18); CALCIUM LEVEL 8.2 MG/DL (8.8-10.2); CARBON DIOXIDE LEVEL 32 MEQ/L (21-32); CHLORIDE LEVEL 102 MEQ/L (98-107); GLOMERULAR FILTRATION RATE > 60.0 (>35); GLUCOSE, FASTING 105 MG/DL (70-100); POTASSIUM SERUM 3.2 MEQ/L (3.5-5.1); SODIUM LEVEL 140 MEQ/L (136-145)
[2019-05-06] MEDS: SODIUM CHLORIDE 0.9% INJ 10 ML SYR IV SCH ×2 (06:48→18:00)
[2019-05-06] MEDS: MULTIVITAMINS/MINERALS THERAP 1 TAB PO SCH (08:19)
[2019-05-06] MEDS: LACTOBACILLUS ACIDOPHILUS CAP (BACID) PO SCH ×2 (08:19→19:02)
[2019-05-06] MEDS: ACETAMINOPHEN 500 MG TAB PO SCH ×2 (08:21→22:20)
[2019-05-06] MEDS: TAMSULOSIN 0.4 MG CAP PO SCH (08:21)
[2019-05-06] MEDS: ALLOPURINOL 300 MG TAB PO SCH (08:21)
[2019-05-06] MEDS: METOPROLOL SUCC (TopROL XL) 100MG *XL* TAB PO SCH ×2 (08:22→22:24)
[2019-05-06] MEDS: SILVER SULFADIAZINE 1% CR 50 GM JAR TOP SCH ×2 (08:23→21:00)
--- NOTE | 2019-05-06 10:36 | IPNPDOC ---
Date Seen The patient was seen on 05/06/19. Progress Note SUBJECTIVE: Patient is upset again this morning, had more questions regarding procedure today. Denies any physical complaints however, denies any toe pain or foot/leg discomfort. Planned for angiogram this evening. OBJECTIVE PHYSICAL EXAMINATION: VITAL SIGNS: Please see below. General: No acute distress, Alert Eyes: Normal sclera, EOMI, SJ HENT: Atraumatic, neck supple, moist mucous membranes Cardiovascular: Normal rate, normal rhythm. No murmurs appreciated. Pulmonary: Clear to auscultation b/l, no wheezing GI: Soft, nontender, nondistended MSK: R. foot with overlying bandage. Skin: Warm and dry Neuro: CN grossly intact. No focal deficits. Strengths equal b/l. Psych: oriented x 3 LABORATORY DATA, IMAGING STUDIES, MICROBIOLOGY: Please see below. ASSESSMENT AND PLAN: 83M initially admitted 12/18 for R. foot ischemia/Osteo s/p transmetatarsal amputation by Dr. Noriega and has had a wound vac post discharge. Also follows with Dr. Florence and had R. popliteal artery and superficial femoral artery stent placement on 12/06/18. Presented with acute onset of chills found to be febrile with leukocytosis. Initially thought to have PNA but CT chest showed chronic bronchiectasis and no infiltrate. Sepsis 2/2 Chronic osteomyelitis of the foot. - Has had transmetatarsal amputation with recent debridement by [employer]. - Was seen by Podiatry Dr. Santos, now by Dr. Florence with vascular. - LE arterial US with moderate to significant b/l atheromatous plaques. - s/p angiogram 05/03 with significant blockages, plan to repeat today for stent placement. - group G strep in one blood culture and wound culture. - Was on vancomycin and Zosyn. Zosyn had been discontinued. - Preferably would use Pennicillin G for GGS but wound culture also has s. aureus and is resistant to Penicillin G. - ECHO showed no evidence of vegetations. - Transitioned to Ancef. Plan to treat for 14 days post negative blood culture on 04/27. Thrombocytopenia - resolved. - likely 2/2 sepsis. Chronic Bronchiectasis -s/p iv levaquin given by ER 04/25/19 and po azithromycin -s/p iv zosyn discontinued 04/29/19 . on iv vanco for wound cx: staph, strep - respiratory panel, MRSA screen, negative. -CT chest : chronic bronchiectasis. no consolidation or infiltrate HFrEF/Coronary artery disease s/p percutaneous coronary intervention (PCI) to right coronary artery with bare metal stents times five in 2010. -ECHO 30-35%, no improvement from previous ECHO documented. 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 Mejias -resumed home dose of medications. Chronic atrial fibrillation. -on chronic warfarin to target inr 2-3 - Has been on 3mg daily except for 6 mg on Monday and monday - Has been subtherapeutic. Will change to 4mg daily and keeping MW same for now. -daily inr check to adjust dose if needed -resumed home metoprolol Hypertension. -resumed home dose of metoprolol Dyslipidemia. -resumed home meds Peripheral vascular disease. -right popliteal artery and superficial femoral artery stent placement on 12/06/[address] Florence -s/p transmetatarsal amputation of the right foot due to osteomyelitis in 11/[address] Noriega Gastroesophageal reflux disease (GERD). -resume home meds Peripheral vascular disease -on chronic warfarin and statins -history of heavy cigar use Gout - c/w allopurinol - check uric acid level. DVT prophylaxis: on chronic warfarin for atrial fibrillation VS, [facility]&O[facility] Vital Signs/I&O Vital Signs Date Time Temp Pulse Resp B/P (MAP) Pulse Ox O2 Delivery O2 Flow Rate FiO2 05/06/19 08:22 119/65 05/06/19 06:00 97.2 62 18 96 I&O- Last 24 Hours up to 6 AM 05/06/19 05:59 Intake Total 2180 ml Output Total 3100 ml Balance -920 ml Laboratory Data 24H LABS Laboratory Tests 2 05/06/19 05:41: Anion Gap 6L, Glomerular Filtration Rate > 60.0, Blood Urea Nitrogen 21H, Creatinine 1.20, Sodium Level 140, Potassium Level 3.2L, Chloride Level 102, Carbon Dioxide Level 32, Calcium Level 8.2L CBC/BMP Laboratory Tests 05/06/19 05:41 Calcium Level 8.2 L Microbiology Microbiology 04/27/19 Blood Culture - Final, Complete NO GROWTH AFTER 5 DAYS 04/27/19 Blood Culture - Final, Complete NO GROWTH AFTER 5 DAYS 04/26/19 Gram Stain - Final, Complete 04/26/19 Sputum Culture - Final, Complete 04/26/19 Gram Stain - Final, Complete 04/26/19 Wound Culture - Final, Complete Staphylococcus Aureus Streptococcus Group G Corynebacterium Species JULIO JOHNSON MD May 06, 2019 10:36
[2019-05-06] MEDS: TORSEMIDE (DEMADEX) 50 MG PER 1/2 TAB PO SCH (12:31)
[2019-05-06 13:10] LABS: INR 1.84
--- NOTE | 2019-05-06 13:30 | IPNPDOC ---
Date Seen The patient was seen on 05/06/19. Progress Note Vascular Surgery Dr Florence. HPI: 83 y/o male followed by vascular surgery re RLE wound, s/p Angiogram RLE 05/03/[address] Florence. Denies any fevers, chills, weakness, fatigue, Headache, Chest Pain, Shortness of breath, cough, palpitations, abdominal pain, N/V/D or changes in bowel or bladder habits. PAST MEDICAL HISTORY: CAD/bare metal stents times five in 2010. Ischemic cardiomyopathy. left ventricular systolic function approximately 30-35% inferior wall hypokinesis. moderate mitral insufficiency moderate pulmonary hypertension. Chronic atrial fibrillation. Coumadin AC. Hypertension. Dyslipidemia. History of chronic anemia/iron deficiency polycythemia Peripheral vascular disease. Gastroesophageal reflux disease (GERD). Osteomyelitis of the right foot s/p Transmetatarsal Amputation 11/2018 Dr. Noriega Left Upper Extremity Scaphoid Fracture SURGICAL HISTORY: Toe amputation. PCI with bare metal stents x 5 Right foot transmetatarsal amputation 11/2018 Status post right popliteal artery and superficial femoral artery stent placement on 12/06/[address] Florence PE: GEN: 83yoM, appears stated age. Alert and oriented x 3. HEENT: Normocephalic, atraumatic. Moist mucous membranes. CHEST: Regular rate and rhythm, +S1, +S2 LUNGS: Clear to auscultation bilaterally. No wheezes, rales, or rhonchi. ABD: Round, soft, non-tender, non-distended. EXT: Rt foot bandaged. chronic skin changes noted pretib areas b/l, erythema pretib area RLE. NEURO: Alert and oriented x 3. No focal deficits appreciated. XR foot Findings: Four views of the right foot are compared with the postoperative views from December 12, 2018. The patient is status post transmetatarsal amputation of all five digits. There is overlying soft tissue dressing and irregularity. A wound VAC is seen dorsally. Vascular calcification is noted in the soft tissues extending out to the of the level of the metatarsals. There is a plantar heel spur. No acute bony erosive changes seen. No soft tissue gas is noted. Electronically Signed by Bert Shafer MD 04/26/2019 09:13 A LE arterial US Impression: Moderate to significant bilateral atheromatous plaquing. Right femoral artery stent with downstream monophasic wave pattern. Left lower extremity monophasic wave pattern distal to the popliteal artery. Electronically Signed by Ramez Hutchins MD 04/30/2019 02:13 P A&P: 1.Peripheral vascular disease. right popliteal artery and superficial femoral artery stent placement on 12/06/[address] Florence s/p transmetatarsal amputation of the right foot due to osteomyelitis in 11/[address] Noriega. Wound care as per Dr Noriega. IV Cefazolin as per primary team. S/P angiogram 05/03/[address] Florence. Plan as relayed as per Dr Florence 05/06/19 is for right lower extremity angiogram with intervention 05/06 or 05/07/19. SCr 1.20. DVT prophylaxis. Pt is on Coumadin. VS, I&O, 24H, Fishbone Vital Signs/I&O Vital Signs Date Time Temp Pulse Resp B/P (MAP) Pulse Ox O2 Delivery O2 Flow Rate FiO2 05/06/19 08:22 119/65 05/06/19 06:00 97.2 62 18 96 I&O- Last 24 Hours up to 6 AM 05/06/19 06:00 Intake Total 2080 ml Output Total 3100 ml Balance -1020 ml Laboratory Data 24H LABS Laboratory Tests 2 05/06/19 05:41: Anion Gap 6L, Glomerular Filtration Rate > 60.0, Blood Urea Nitrogen 21H, Creatinine 1.20, Sodium Level 140, Potassium Level 3.2L, Chloride Level 102, Carbon Dioxide Level 32, Calcium Level 8.2L 05/06/19 12:45: Prothrombin Time 21.0H, Prothromb Time International Ratio 1.84 CBC/BMP Laboratory Tests 05/06/19 05:41 Calcium Level 8.2 L Microbiology Microbiology 04/27/19 Blood Culture - Final, Complete NO GROWTH AFTER 5 DAYS 04/27/19 Blood Culture - Final, Complete NO GROWTH AFTER 5 DAYS 04/26/19 Gram Stain - Final, Complete 04/26/19 Sputum Culture - Final, Complete 04/26/19 Gram Stain - Final, Complete 04/26/19 Wound Culture - Final, Complete Staphylococcus Aureus Streptococcus Group G Corynebacterium Species Sofia Malik May 06, 2019 13:30
[2019-05-06 14:00] VITALS: BP 128/60
[2019-05-06] MEDS ORDERED: MIDAZOLAM INJ 2 MG/2 ML VIAL (J2250) As Ordered ONE (16:16)
[2019-05-06] MEDS ORDERED: BUPIVACAINE HCL 0.5% 10 ML VIAL As Ordered ONE (16:16)
[2019-05-06] MEDS ORDERED: fentaNYL 100 MCG/2 ML INJECTION (J3010) As Ordered ONE (16:16)
[2019-05-06] MEDS ORDERED: diphenhydrAMINE INJ 50MG/ML VIAL (J1200) As Ordered ONE (16:16)
[2019-05-06] MEDS ORDERED: HEPARIN 1,000 UNITS/ML 10ML VIAL (FOR RADIOLOGY& DIALYSIS ONLY) As Ordered ONE (16:17)
[2019-05-06] MEDS ORDERED: ISOVUE-300 61% 50ML VIAL (Q9967) As Ordered ONE (16:17)
[2019-05-06] MEDS ORDERED: LIDOCAINE 2% MDV 20 ML VIAL As Ordered ONE (16:17)
[2019-05-06] MEDS ORDERED: TORSEMIDE (DEMADEX) 50 MG PER 1/2 TAB PO SCH (17:00)
[2019-05-06] MEDS: TORSEMIDE 100 MG TAB PO SCH (19:02)
[2019-05-06] MEDS: WARFARIN SOD 3 MG TAB PO SCH (19:03)
[2019-05-06 19:17] VITALS: BP 121/68
[2019-05-06 22:00] VITALS: BP 122/68
[2019-05-06] MEDS: ATORVASTATIN 20 MG TAB PO SCH (22:19)
[2019-05-06] MEDS: ASPIRIN 81 MG ENTERIC TAB PO SCH (22:19)
[2019-05-06] MEDS: predniSONE 5 MG TAB PO SCH (22:21)
[2019-05-06] MEDS: OMEPRAZOLE 20 MG CAP PO SCH (22:21)
[2019-05-06] MEDS: DOCUSATE SODIUM 100 MG CAP PO SCH (22:21)
[2019-05-07 02:00] VITALS: BP 120/58
[2019-05-07 06:00] VITALS: BP 102/58
[2019-05-07] MEDS: SLF 3 ML SYR IV SCH ×3 (06:00→22:00)
[2019-05-07 06:02] LABS: HEMATOCRIT 45.1 % (42.0-52.0); HEMOGLOBIN 14.9 g/dl (13.5-17.5); MEAN CORPUSCULAR HEMOGLOBIN 31.7 pg (27.0-33.0); PLATELET COUNT, AUTOMATED 196 10^3/uL (150-450); WHITE BLOOD COUNT 10.2 10^3/uL (4.0-10.0)
[2019-05-07 06:12] LABS: INR 1.78; PROTHROMBIN TIME 20.5 SECONDS (11.8-14.0)
[2019-05-07] MEDS: SODIUM CHLORIDE 0.9% INJ 10 ML SYR IV SCH ×2 (06:27→17:18)
[2019-05-07 06:34] LABS: BLOOD UREA NITROGEN 23 MG/DL (7-18); C REACTIVE PROTEIN QUANTITATIV 2.68 MG/DL (0.00-0.30); CALCIUM LEVEL 8.4 MG/DL (8.8-10.2); CARBON DIOXIDE LEVEL 32 MEQ/L (21-32); CHLORIDE LEVEL 101 MEQ/L (98-107); GLOMERULAR FILTRATION RATE > 60.0 (>35); GLUCOSE, FASTING 105 MG/DL (70-100); POTASSIUM SERUM 3.2 MEQ/L (3.5-5.1); SODIUM LEVEL 139 MEQ/L (136-145)
[2019-05-07 06:52] LABS: ERYTHROCYTE SEDIMENTATION RATE 37 mm/hr (0-30)
--- NOTE | 2019-05-07 06:58 | CR ---
DATE OF CONSULTATION: 05/06/2019 I was asked to consult by the hospitalist for evaluation of home IV antibiotic in a patient with right foot osteomyelitis status post transmetatarsal amputation. HISTORY OF PRESENT ILLNESS: Mr. Gardiner is an 83-year-old gentleman with a history of right ischemic foot and osteomyelitis of the right foot diagnosed in the November 2018. He underwent a transmetatarsal amputation by Dr. Noriega and a right popliteal artery and superficial femoral artery stent done by Dr. Florence, December 06, 2018. The patient since then has had a chronic open wound managed by Dr. Noriega with a wound VAC for the past two months. He presented to the hospital on April 25 with a white count of 21,000, a temperature 102.4 and rigors. He also had a mild cough which was nonproductive and was not feeling well. He denied any pain in his foot or unusual drainage. The wound VAC was removed after he was hospitalized. His white count on admission was 22,000. Chest x-ray showed the possibility of a left lower lobe infiltrate. He was initially treated with IV Levaquin, vancomycin and then eventually switched to a IV cefazolin. The patient had positive blood cultures for group G strep and the wound culture from the right foot was positive for group G strep and methicillin-sensitive Staphylococcus aureus (MSSA). Eventually, the patient was diagnosed with cellulitis with bacteremia and has been followed up by Dr. Noriega and Dr. Florence. The patient underwent angiogram and was waiting for an interventional procedure today regarding his peripheral vascular disease of the right foot. The patient was confused about what the procedure was going to be this afternoon. PAST MEDICAL HISTORY: Significant for: Coronary artery disease status post percutaneous coronary intervention (PCI) to the right coronary artery with bare metal stents times five in 2010. Ischemic cardiomyopathy. Congestive heart failure with systolic dysfunction with EF of 30-35%, moderate. Myocardial infarction. Moderate pulmonary hypertension. Chronic atrial fibrillation. Hypertension. Dyslipidemia. Anemia. Iron deficiency. Polycythemia. Gastroesophageal reflux disease. Osteomyelitis of the right foot status post transmetatarsal amputation November 2018. Peripheral vascular disease. Left upper extremity scaphoid fracture. PAST SURGICAL HISTORY: Right foot transmetatarsal amputation. Popliteal artery stenting and superficial femoral artery stenting. SOCIAL HISTORY: He lives with his son. He smokes cigars. He has a history of heavy alcohol abuse, but not recently. ALLERGIES: 1. OXYCODONE. MEDICATIONS: - torsemide 25 mg p.o. daily - warfarin 4 mg p.o. Monday, , Monday and Monday - cefazolin 2 grams IV q.8 h - heparin to the PICC line - ferrous gluconate 325 mg twice a week - digoxin 0.125 mg p.o. q.48 h - torsemide 50 mg p.o. q. a.m. - Silvadene 1% b.i.d. to right foot - multivitamin 1 tablet daily - allopurinol 300 mg daily - tamsulosin 0.4 mg daily - probiotic 1 tablet p.o. b.i.d. with meals - aspirin 81 mg daily - atorvastatin 20 mg p.o. q.h.s. - Colace 100 mg p.o. q.h.s. - metoprolol 100 mg b.i.d. - omeprazole 20 mg q.h.s. - prednisone 5 mg p.o. q.h.s. LABORATORY DATA: White count 8.3, hemoglobin 13.4, hematocrit 41.8, platelets 206. ESR on admission was 20. Sodium 140, potassium 3.2, chloride 102, bicarb 32, BUN 21, creatinine 1.2, glucose 105, calcium 8.2, CRP on admission was 3.37, has not been repeated since then. Blood culture was positive for group G strep on 04/25 and 04/26. Wound culture had group G strep and MSSA. Sputum culture was negative. Respiratory panel negative. Methicillin-resistant Staphylococcus aureus (MRSA) screen negative. Foot x-ray showed some irregularity in the bone, soft tissue dressing and irregularity. A wound VAC was seen, vascular calcification. There is a plantar heel spur. No acute bony erosive changes seen. No soft tissue gas noted. PHYSICAL EXAMINATION: He is an elderly gentleman, irritated, in no acute distress. HEAD/ENT: Right eye blindness. Oropharynx clear. NECK: Supple. HEART: Normal S1-S2, regular. LUNGS: Diminished breath sounds bilaterally. ABDOMEN: Soft, nontender. No hepatosplenomegaly. BACK: No cerebrovascular accident (CVA) or lumbosacral tenderness. EXTREMITIES: +1 edema. Right foot transmetatarsal amputation. There is a triangular looking ulceration measuring about 3 x 2 cm with granulation tissue. No purulent discharge. There is mild erythema of the foot. No tenderness. No crepitus. IMPRESSION: This is an 83-year-old gentleman admitted with cellulitis of the right foot, history of chronic osteomyelitis of the foot status post transmetatarsal amputation followed by Dr. Noriega with a wound VAC whose current admission is related to bacteremia and cellulitis of the foot rather than osteomyelitis. The patient has been appropriately treated. He has been on antibiotics since admission on April 25, has finished 10 days of appropriate antibiotic. Currently his white count is normal. I have discussed the case with Dr. Noriega who feels this episode was related to more of a cellulitis and bacteremia rather than osteomyelitis. The foot really does look good and is healing well, so I agree with that. His sed rate was within normal, CRP slightly elevated. PLAN: Will continue with IV cefazolin while he is in the hospital. As soon as the patient is ready for discharge, he could be switched to oral Keflex and would suggest keeping him on Keflex for at least 2-3 weeks until wound is completely healed. According to the patient, this wound has been open for over a year and he is very frustrated. Will repeat ESR, CRP in the morning. The patient will not need home IV antibiotics. Dr. Noriega has been contacted and he will see the patient this afternoon.
[2019-05-07] MEDS: MULTIVITAMINS/MINERALS THERAP 1 TAB PO SCH (08:24)
[2019-05-07] MEDS: TAMSULOSIN 0.4 MG CAP PO SCH (08:24)
[2019-05-07] MEDS: TORSEMIDE (DEMADEX) 50 MG PER 1/2 TAB PO SCH (08:24)
[2019-05-07] MEDS: ACETAMINOPHEN 500 MG TAB PO SCH ×2 (08:25→22:34)
[2019-05-07] MEDS: ALLOPURINOL 300 MG TAB PO SCH (08:25)
[2019-05-07] MEDS: LACTOBACILLUS ACIDOPHILUS CAP (BACID) PO SCH ×2 (08:25→17:17)
[2019-05-07] MEDS: SILVER SULFADIAZINE 1% CR 50 GM JAR TOP SCH ×2 (08:27→22:34)
[2019-05-07] MEDS: METOPROLOL SUCC (TopROL XL) 100MG *XL* TAB PO SCH ×2 (08:34→22:32)
--- NOTE | 2019-05-07 08:42 | IPNPDOC ---
Date Seen The patient was seen on 05/07/19. Progress Note Vascular Surgery Dr Florence. HPI: 83 y/o male followed by vascular surgery re RLE wound, s/p Angiogram RLE 05/03/[address] Florence. Denies any fevers, chills, weakness, fatigue, Headache, Chest Pain, Shortness of breath, cough, palpitations, abdominal pain, N/V/D or changes in bowel or bladder habits. PAST MEDICAL HISTORY: CAD/bare metal stents times five in 2010. Ischemic cardiomyopathy. left ventricular systolic function approximately 30-35% inferior wall hypokinesis. moderate mitral insufficiency moderate pulmonary hypertension. Chronic atrial fibrillation. Coumadin AC. Hypertension. Dyslipidemia. History of chronic anemia/iron deficiency polycythemia Peripheral vascular disease. Gastroesophageal reflux disease (GERD). Osteomyelitis of the right foot s/p Transmetatarsal Amputation 11/2018 Dr. Noriega Left Upper Extremity Scaphoid Fracture SURGICAL HISTORY: Toe amputation. PCI with bare metal stents x 5 Right foot transmetatarsal amputation 11/2018 Status post right popliteal artery and superficial femoral artery stent placement on 12/06/[address] Florence PE: GEN: 83yoM, appears stated age. Alert and oriented x 3. HEENT: Normocephalic, atraumatic. Moist mucous membranes. CHEST: Regular rate and rhythm, +S1, +S2 LUNGS: Clear to auscultation bilaterally. No wheezes, rales, or rhonchi. ABD: Round, soft, non-tender, non-distended. EXT: Rt foot bandaged. chronic skin changes noted pretib areas b/l, erythema improved pretib area RLE. NEURO: Alert and oriented x 3. No focal deficits appreciated. XR foot Findings: Four views of the right foot are compared with the postoperative views from December 12, 2018. The patient is status post transmetatarsal amputation of all five digits. There is overlying soft tissue dressing and irregularity. A wound VAC is seen dorsally. Vascular calcification is noted in the soft tissues extending out to the of the level of the metatarsals. There is a plantar heel spur. No acute bony erosive changes seen. No soft tissue gas is noted. Electronically Signed by Bert Shafer MD 04/26/2019 09:13 A LE arterial US Impression: Moderate to significant bilateral atheromatous plaquing. Right femoral artery stent with downstream monophasic wave pattern. Left lower extremity monophasic wave pattern distal to the popliteal artery. Electronically Signed by Ramez Hutchins MD 04/30/2019 02:13 P A&P: 1.Peripheral vascular disease. right popliteal artery and superficial femoral artery stent placement on 12/06/[address] Florence s/p transmetatarsal amputation of the right foot due to osteomyelitis in 11/[address] Noriega. Wound care as per Dr Noriega. IV Cefazolin as per primary team. Infectious disease following. S/P RLE angiogram 05/03/[address] Florence. S/P RLE angiogram with intervention 05/[address] Florence. SCr 1.10. Outpt FU with Dr Florence's office. DVT prophylaxis. Pt is on Coumadin. VS, I&O, 24H, Fishbone Vital Signs/I&O Vital Signs Date Time Temp Pulse Resp B/P (MAP) Pulse Ox O2 Delivery O2 Flow Rate FiO2 05/07/19 08:34 74 118/66 05/07/19 06:00 98.4 17 97 I&O- Last 24 Hours up to 6 AM 05/07/19 06:00 Intake Total 420 ml Output Total 2650 ml Balance -2230 ml Laboratory Data 24H LABS Laboratory Tests 2 05/06/19 12:45: Prothrombin Time 21.0H, Prothromb Time International Ratio 1.84 05/07/19 05:29: Nucleated Red Blood Cells % (auto) 0.0, Erythrocyte Sedimentation Rate 37H 05/07/19 05:30: Prothrombin Time 20.5H, Prothromb Time International Ratio 1.78, Anion Gap 6L, Glomerular Filtration Rate > 60.0, Blood Urea Nitrogen 23H, Creatinine 1.10, Sodium Level 139, Potassium Level 3.2L, Chloride Level 101, Carbon Dioxide Level 32, Calcium Level 8.4L, C-Reactive Protein, Quantitative 2.68H CBC/BMP Laboratory Tests 05/07/19 05:29 Red Blood Count 4.70, Mean Corpuscular Volume 96.0, Mean Corpuscular Hemoglobin 31.7, Mean Corpuscular Hemoglobin Concent 33.0, Red Cell Distribution Width 15.9 H 05/07/19 05:30 Calcium Level 8.4 L Microbiology Microbiology 04/27/19 Blood Culture - Final, Complete NO GROWTH AFTER 5 DAYS 04/27/19 Blood Culture - Final, Complete NO GROWTH AFTER 5 DAYS Sofia Malik May 07, 2019 08:42
[2019-05-07 14:00] VITALS: BP_SYST 158; BP_SYST 164; BP_SYST 58; BP_DIAS 85; BP_DIAS 98
[2019-05-07] MEDS ORDERED: KEFL500C17 PO (16:57)
[2019-05-07] MEDS ORDERED: BACITAB PO (16:57)
--- NOTE | 2019-05-07 17:11 | IPNPDOC ---
Date Seen The patient was seen on 05/07/19. Progress Note SUBJECTIVE: s/p stent (8) 05/06/19. anxious to go home. on iv ancef while in hospital. pt passed HSE and has good support system at home with his son. He has been afebrile. pain is controlled. Per Infectious Disease recommendations: keflex x 2-3 weeks after discharge. OBJECTIVE: PHYSICAL EXAMINATION: VITALS: PLS SEE BELOW GENERAL: unkempt.He is alert, oriented, awake x 3. no conversational dyspnea. no use of respiratory accessory muscles HEENT: anicteric sclera, no jaundice. PERRLA EOMI poor dentition dry mucus membranes neck supple no LAD or cervical LAD HEART:S1 S2 JVP 4-5 cm. irregularly irregular rhythm. displaced PMI to left Lungs : diminished. fairly clear bilaterally. Abdomen isoft,nontender. Bowel sounds are present. no rebound guarding no hsm Extremities have mild edema bilaterally.chronic erythematous venous changes There are good peripheral pulses in popliteal arteries as well as posterior tibial arteries on both sides. Right foot transmetatarsal amputation bandaged nontender SKin: multiple ecchymoses b/l UE , chronic venous stasis changes in b/l LE. crhonic edema. LABORATORY DATA, IMAGING STUDIES, MICROBIOLOGY: PLS SEE BELOW ASSESSMENT AND PLAN: 83 y/o male admitted 11/2018 for a right ischemic foot / osteomyelitis s/p transmetatarsal amputation by Dr. Noriega, given IV vanco, zosyn and downgraded to po levaquin,chronic wound vac and debridement by Dr. Noriega since hospital discharge. Pt also underwent right popliteal artery and superficial femoral artery stent placement on 12/06/[address] Florence to improve healing, but has not seen vascular surgery since. His right foot was debrided in the office on Monday, and now presents to the ER with acute onset of chills this morning, described as "I was shaking so bad, I figured something was wrong." no medications were taken at home. He also admits to a hacking cough more than usual,nonproductive, for the past few days, and woke up thsi morning "not breathing good. I couldn't move so much since my toes were taken off." He denies any pain in the right foot. "I don't feel much in my hands and feet anymore, anyway," and has not seen any change in the usual serous drainage seen when the wound vac is changed on mon, mon, monday. Pt says his temperature usually runs low 97.5-98, but In the ER, pt was found to be febrile 102.4 white count 22 cxr: artifact vs left lower lobe infiltrate. ER gave one dose of IV levaquin. Hospitalist was called to admit for pneumonia, and patient was initially ordered iv ceftrriaxone and azithromycin. CT chest, however, showed chronic bronchiectasis, no consolidation, or infiltrate. Antibiotics changed to iv vanco and iv zosyn to cover chronic osteo of the right foot, podiatry and ID consulted to see the patient in the morning, and MRI foot. Sepsis -initially thought to be due to left lower lobe pneumonia due to c/o hacking cough, fever, wbc 22, and cxr: artifact vs LLL infiltrate. s/p iv levaquin given by ER 04/25/19, and azithro. -However, CT chest: bronchiectasis, no consolidation or infiltrate -most likely due to right foot cellulitis and bacteremia despite transmetatarsal amputation with recent debridement by his oil expeller. -MRI right foot ordered which may be difficult to interpret with previous amputation. -ID and podiatry consulted. -s/p IV vanco and IV zosyn renally dosed by pharmacy until cultures: staph and s trep. IV zosyn discontinued -initially, PCU admit due to risk of chf decompensation in light of new infection for telemetry monitoring -changed to iv cefazolin while in hospital right foot cellulitis and bacteremia despite transmetatarsal amputation with recent debridement by his oil expeller. - Tmax 102.4 wbc 22 -MRI right foot ordered which may be difficult to interpret with previous amputation. -ID and podiatry consulted. -s/p IV vanco and IV zosyn renally dosed by pharmacy until cultures: staph, strep. iv zosyn discontinued. -changed to iv cefazoline while in hospital -outpt keflex x 2-3 weeks per ID Chronic Bronchiectasis s/p iv levaquin given by ER 04/25/19 and po azithromycin -s/p iv zosyn discontinued 04/29/19 . s/p iv vanco for wound cx: staph strep -PCU admit due to risk of chf decompensation in light of new infection for telemetry monitoring -checked sputum cx, blood cx x 2 sets, urine legionella, urine streptococcal antigen, MRSA screen , and respiratory panel -CT chest : chronic bronchiectasis. no consolidation or infiltrate -supplemental oxygen if needed to keep o2 sat>90% Lactic Acidosis, resolved -due to sepsis -gentle ivfluid hydration due to history of systolic chf, and iv antibiotics -s/p serial lactic acid monitoring -followed clinically Coronary artery disease s/p percutaneous coronary intervention (PCI) to right coronary artery with bare metal stents times five in 2010. -burr picker is Dr. Mejias -in light of sepsis , diuretics were held initially and s/p gentle hydration with ns at 75ml/hr untili fever stopped. -monitored for acute ischemic symptoms in light of acute respiratory infection with serial cardiac markers which were negative -resumed home dose of diuretics Ischemic cardiomyopathy with left ventricular systolic function approximately 30-35% inferior wall hypokinesis. -burr picker is Dr. Mejias -resumed home meds -monitored for acute ischemic symptoms in light of acute respiratory infection moderate mitral insufficiency -complicating care moderate pulmonary hypertension. -complicating care Chronic atrial fibrillation. -on chronic warfarin to target inr 2-3 -resumed home dose of warfarin -daily inr check to adjust dose if needed -resumed home metoprolol Hypertension. -resumed home dose of metoprolol Dyslipidemia. -resumed home meds History of chronic anemia that was iron deficiency -monitoring for symptoms of anemia -cbc stable on admission polycythemia -monitor cbc Peripheral arterial disease. -right popliteal artery and superficial femoral artery stent placement on 12/06/[address] Florence -s/p transmetatarsal amputation of the right foot due to osteomyelitis in 11/[address] Noriega -s/p 8 stents in right LE 05/06/[address] Florence -history of heavy nicotine abuse Gastroesophageal reflux disease (GERD). -resume home meds History of Osteomyelitis of the right foot s/p Transmetatarsal Amputation 11/2018 Dr. Noriega -outpt fu with vascular surgery and podiatry for peripheral vascular disease Left Upper Extremity Scaphoid Fracture -healed History of cigar use -contributed to pt's peripheral arterial disease History of heavy Alcohol abuse -decreased consumption in recent years DVT prophylaxis: on chronic warfarin for atrial fibrillation disposition: dc home on Monday. VS, I&O, 24H, Fishbone Vital Signs/I&O Vital Signs Date Time Temp Pulse Resp B/P (MAP) Pulse Ox O2 Delivery O2 Flow Rate FiO2 05/07/19 14:00 98.1 70 18 164/85 (111) 95 I&O- Last 24 Hours up to 6 AM 05/07/19 06:00 Intake Total 420 ml Output Total 2650 ml Balance -2230 ml Laboratory Data 24H LABS Laboratory Tests 2 05/07/19 05:29: Nucleated Red Blood Cells % (auto) 0.0, Erythrocyte Sedimentation Rate 37H 05/07/19 05:30: Prothrombin Time 20.5H, Prothromb Time International Ratio 1.78, Anion Gap 6L, Glomerular Filtration Rate > 60.0, Blood Urea Nitrogen 23H, Creatinine 1.10, Sodium Level 139, Potassium Level 3.2L, Chloride Level 101, Carbon Dioxide Level 32, Calcium Level 8.4L, C-Reactive Protein, Quantitative 2.68H CBC/BMP Laboratory Tests 05/07/19 05:29 Red Blood Count 4.70, Mean Corpuscular Volume 96.0, Mean Corpuscular Hemoglobin 31.7, Mean Corpuscular Hemoglobin Concent 33.0, Red Cell Distribution Width 15.9 H 05/07/19 05:30 Calcium Level 8.4 L Microbiology Microbiology 04/27/19 Blood Culture - Final, Complete NO GROWTH AFTER 5 DAYS 04/27/19 Blood Culture - Final, Complete NO GROWTH AFTER 5 DAYS ROSALES CHONG MD May 07, 2019 17:06
[2019-05-07] MEDS ORDERED: POTASSIUM CHLORIDE 10 MEQ SR TABLET PO ONE (17:15)
[2019-05-07] MEDS: TORSEMIDE 100 MG TAB PO SCH (17:17)
[2019-05-07] MEDS: WARFARIN SOD 4 MG TAB PO SCH (17:17)
--- NOTE | 2019-05-07 17:45 | REP ---
Procedure: PICC line insertion with Irlanda The procedure was performed under the direct supervision of Dr. Esquivel. The risks and benefits of the procedure were explained to the patient and informed consent was obtained. The right basilic vein was localized using ultrasound guidance. The skin was prepped and draped in a sterile fashion. 2% lidocaine was used as a local anesthetic. Using ultrasound guidance the basilic vein was cannulated and a 0.018 guidewire was inserted and advanced to the SVC using fluoroscopic guidance. The needle was removed and a 4.5 [place] dilator and peel-away sheath was inserted over the guide wire. A 4.5 [place] single lumen catheter was cut to length of 45 cm. The dilator was removed and the catheter was inserted over the guide wire with the tip ending in the SVC. The peel-away sheath was removed and the catheter was flushed with heparinized saline as per Hospital protocol. The catheter was affixed to the skin and a sterile dressing was applied. The patient tolerated the procedure well and there were no immediate complications. 0.2 minutes of fluoro time was utilized for this procedure. Reviewed by GIOVANNI Garcia 05/01/2019 05:02 P Electronically Signed by Suman Esquivel MD 05/07/2019 05:36 P
--- NOTE | 2019-05-07 18:08 | IPN ---
DATE: 05/07/2019 Mr. Gardiner is doing well. He has no complaints today except the fact that he is not being told when he gets discharged home. I told him he probably will be discharged home tomorrow. He had stenting in the right lower extremity yesterday done by Dr. Florence. Dr. Noriega saw him in followup last night. He stated that his wound looked great. He does not have a wound VAC. He will be discharged home with dressing changes. LABORATORY DATA: White count is 10.2, hemoglobin 14.9, hematocrit 45.1, platelets 196. Erythrocyte sedimentation rate 37. Sodium 139, potassium 3.2, chloride 101, bicarbonate 32, BUN 23, creatinine 1.1, glucose 105, calcium 8.4. CRP 2.68, down from 3.37. Blood cultures on 04/27/2019: No growth after five days. Blood culture on 04/25/2019: Group G Streptococcus. Right lower extremity: Slight erythema below the knee. Open wound at the transmetatarsal amputation site, triangular in shape, with granulation tissue, minimal serosanguineous discharge. IMPRESSION: 1. Right lower extremity cellulitis with a history of osteomyelitis status post transmetatarsal amputation with secondary group G Streptococcus bacteremia and wound culture positive for group G Streptococcus and methicillin-sensitive Staphylococcus aureus (MSSA). 2. Peripheral vascular disease status post angioplasty and multiple previous interventions done by Dr. Florence including right popliteal artery and superficial femoral artery stenting in November 2018. PLAN: Discontinue intravenous IV cefazolin. Switch to oral Keflex 500 mg by mouth three times a day. The patient to follow up with Dr. Noriega as an outpatient. He does not need followup with infectious disease. Discharged home with two weeks of cephalexin.
--- NOTE | 2019-05-07 18:08 | IPN ---
DATE: 05/07/2019 CHIEF COMPLAINT: Patient seen at bedside for evaluation of ulcer on the distal aspect of previous transmetatarsal amputation, site of the right foot. Patient denies any fever or chills. There is a bandage in place on his right lower extremity. Patient's laboratory studies were reviewed. His white count today is 10.2, elevated from yesterday as 8.3, but the patient did have a surgical procedure the other day, guided fluoroscopy. His ESR is 34, his C-reactive protein is 2.68. His bandage was removed on the right lower extremity revealing an ulceration at the distal transmetatarsal site, and the ulceration measures 3.2 cm from medial to lateral, 2.5 cm from dorsal to plantar, and is 0.2 mm in depth. There is no undermining. There was a good granulation tissue based throughout the ulcer bed. There was no necrotic tissue. There was no odor. There was no surrounding erythema or discharge. Appears consistent with resolved soft tissue infection. ASSESSMENT: Stage III ulceration right foot, as described. Resolving cellulitis right foot. PLAN: The patient is being seen by infectious disease. She will cover his infection. His foot culture revealed growth of Staphylococcus aureus Streptococcus G and Corynebacterium species. Patient's blood culture was Streptococcus Group C. Discussed with patient on discharge being followed up in the office. Since he has a good granulation tissue bed, would recommend discontinuing the wound VAC, applying Silvadene and a dressing twice a day, however, with home health care, he can have a once a day bandage change. When his discharge from the wound decreases, he may be able to be switched to a foam dressing. His questions were answered.
[2019-05-07 22:00] VITALS: BP 122/65
[2019-05-07] MEDS: ATORVASTATIN 20 MG TAB PO SCH (22:31)
[2019-05-07] MEDS: predniSONE 5 MG TAB PO SCH (22:31)
[2019-05-07] MEDS: ASPIRIN 81 MG ENTERIC TAB PO SCH (22:31)
[2019-05-07] MEDS: CEPHALEXIN 500 MG CAP PO SCH (22:31)
[2019-05-07] MEDS: DIGOXIN 0.125 MG TAB PO SCH (22:33)
[2019-05-07] MEDS: OMEPRAZOLE 20 MG CAP PO SCH (22:34)
[2019-05-07] MEDS: DOCUSATE SODIUM 100 MG CAP PO SCH (22:36)
[2019-05-08 02:00] VITALS: BP 106/63
[2019-05-08 06:00] VITALS: BP 109/68
[2019-05-08] MEDS: SLF 3 ML SYR IV SCH (06:00)
[2019-05-08] MEDS: SODIUM CHLORIDE 0.9% INJ 10 ML SYR IV SCH (06:21)
[2019-05-08] MEDS: CEPHALEXIN 500 MG CAP PO SCH (06:21)
[2019-05-08 06:22] LABS: HEMATOCRIT 44.1 % (42.0-52.0); HEMOGLOBIN 14.2 g/dl (13.5-17.5); MEAN CORPUSCULAR HEMOGLOBIN 30.6 pg (27.0-33.0); MEAN CORPUSCULAR HGB CONC 32.2 g/dl (32.0-36.5); PLATELET COUNT, AUTOMATED 198 10^3/uL (150-450); RED BLOOD COUNT 4.64 10^6/uL (4.30-6.10)
[2019-05-08 06:39] LABS: INR 1.96; PROTHROMBIN TIME 22.1 SECONDS (11.8-14.0)
[2019-05-08 06:48] LABS: BLOOD UREA NITROGEN 27 MG/DL (7-18); CALCIUM LEVEL 8.5 MG/DL (8.8-10.2); CARBON DIOXIDE LEVEL 33 MEQ/L (21-32); CHLORIDE LEVEL 101 MEQ/L (98-107); CREATININE FOR GFR 1.16 MG/DL (0.70-1.30); GLOMERULAR FILTRATION RATE > 60.0 (>35); GLUCOSE, FASTING 103 MG/DL (70-100); POTASSIUM SERUM 3.4 MEQ/L (3.5-5.1); SODIUM LEVEL 139 MEQ/L (136-145)
[2019-05-08] MEDS: TORSEMIDE (DEMADEX) 50 MG PER 1/2 TAB PO SCH (09:28)
[2019-05-08] MEDS: LACTOBACILLUS ACIDOPHILUS CAP (BACID) PO SCH (09:28)
[2019-05-08] MEDS: ALLOPURINOL 300 MG TAB PO SCH (09:29)
[2019-05-08] MEDS: ACETAMINOPHEN 500 MG TAB PO SCH (09:29)
[2019-05-08] MEDS: FERROUS GLUCONATE 324 MG TAB PO SCH (09:29)
[2019-05-08] MEDS: MULTIVITAMINS/MINERALS THERAP 1 TAB PO SCH (09:29)
[2019-05-08 09:32] VITALS: BP 122/67
[2019-05-08] MEDS: TAMSULOSIN 0.4 MG CAP PO SCH (09:32)
[2019-05-08] MEDS: METOPROLOL SUCC (TopROL XL) 100MG *XL* TAB PO SCH (09:32)
[2019-05-08] MEDS: SILVER SULFADIAZINE 1% CR 50 GM JAR TOP SCH (09:32)
[2019-05-08] MEDS ORDERED: SILV50CR TOP (09:58)
--- NOTE | 2019-05-08 20:53 | DS.PDOC ---
Discharge Summary General Date of Admission Apr 25, 2019 at 15:24 Date of Discharge May 08, 2019 Discharge Summary CONSULTANTS: INFECTIOUS DISEASE: DR. MARIEE PODIATRY: DR. AGUSTIN VASCULAR SURGERY: DR. FINN PROCEDURES: right lower extremity stent placement-Dr. Finn right lower extremity debridement-Dr. Agustin PICC Line placement DISCHARGE DIAGNOSES: sepsis Right LE cellulitis with bacteremia History of Right foot osteomyelitis s/p transmetatarsal amputation chronic bronchiectasis peripheral arterial disease s/p right LE stents placement chronic Afib on warfarin CHF EF 30%, compensated CAD and coronary stents HTN Dyslipidemia GERD Lactic acidosis DISCHARGE MEDICATIONS: pls see below HISTORY OF PRESENTING ILLNESS: 83 y/o male admitted 11/2018 for a right ischemic foot / osteomyelitis s/p transmetatarsal amputation by Dr. Agustin, given IV vanco, zosyn and downgraded to po levaquin,chronic wound vac and debridement by Dr. Agutsin since hospital discharge. Pt also underwent right popliteal artery and superficial femoral artery stent placement on 12/06/[address] Finn to improve healing, but has not seen vascular surgery since. His right foot was debrided in the office on Monday, and now presents to the ER with acute onset of chills this morning, described as "I was shaking so bad, I figured something was wrong." no medications were taken at home. He also admits to a hacking cough more than usual,nonproductive, for the past few days, and woke up thsi morning " not breathing good. I couldn't move so much since my toes were taken off." He denies any pain in the right foot. "I don't feel much in my hands and feet anymore, anyway," and has not seen any change in the usual serous drainage seen when the wound vac is changed on mon, mon, monday. Pt says his temperature usually runs low 97.5-98, but In the ER, pt was found to be febrile 102.4 white count 22 cxr: artifact vs left lower lobe infiltrate. ER gave one dose of IV levaquin. Hospitalist was called to admit for pneumonia, and patient was initially ordered iv ceftrriaxone and azithromycin. CT chest, however, showed chronic bronchiectasis, no consolidation, or infiltrate. Antibiotics changed to iv vanco and iv zosyn to cover cellulitis of the right foot, podiatry and ID consulted to see the patient. Sepsis -initially thought to be due to left lower lobe pneumonia due to c/o hacking cough, fever, wbc 22, and cxr: artifact vs LLL infiltrate. s/p iv levaquin given by ER 04/25/19, and azithro. -However, CT chest: bronchiectasis, no consolidation or infiltrate -most likely due to right foot cellulitis and bacteremia despite transmetatarsal amputation with recent debridement by his shirt creaser. -MRI right foot ordered which may be difficult to interpret with previous amputation. -ID and podiatry consulted. -s/p IV vanco and IV zosyn renally dosed by pharmacy until cultures: staph and strep. IV zosyn discontinued -initially, PCU admit due to risk of chf decompensation in light of new i nfection for telemetry monitoring -changed to iv cefazolin while in hospital -to complete po keflex as outpt w podiatry fu. right foot cellulitis and bacteremia despite transmetatarsal amputation with recent debridement by his shirt creaser. - Tmax 102.4 wbc 22 -MRI right foot ordered which may be difficult to interpret with previous amputation. -ID and podiatry consulted. -s/p IV vanco and IV zosyn renally dosed by pharmacy until cultures: staph, strep. iv zosyn discontinued. -changed to iv cefazolin while in hospital -outpt keflex x 2-3 weeks per ID Chronic Bronchiectasis s/p iv levaquin given by ER 04/25/19 and po azithromycin -s/p iv zosyn discontinued 04/29/19 . s/p iv vanco for wound cx: staph strep -PCU admit due to risk of chf decompensation in light of new infection for telemetry monitoring -checked sputum cx, blood cx x 2 sets, urine legionella, urine streptococcal antigen, MRSA screen , and respiratory panel -CT chest : chronic bronchiectasis. no consolidation or infiltrate -supplemental oxygen if needed to keep o2 sat>90% Lactic Acidosis, resolved -due to sepsis -gentle ivfluid hydration due to history of systolic chf, and iv antibiotics -s/p serial lactic acid monitoring -followed clinically Coronary artery disease s/p percutaneous coronary intervention (PCI) to right coronary artery with bare metal stents times five in 2010. -senior business objects developer is Dr. Mejias -in light of sepsis , diuretics were held initially and s/p gentle hydration with ns at 75ml/hr untili fever stopped. -monitored for acute ischemic symptoms in light of acute respiratory infection with serial cardiac markers which were negative -resumed home dose of diuretics Ischemic cardiomyopathy with left ventricular systolic function approximately 30-35% inferior wall hypokinesis. -senior business objects developer is Dr. Mejias -resumed home meds -monitored for acute ischemic symptoms in light of acute respiratory infection moderate mitral insufficiency -complicating care moderate pulmonary hypertension. -complicating care Chronic atrial fibrillation. -on chronic warfarin to target inr 2-3 -resumed home dose of warfarin -daily inr check to adjust dose if needed -resumed home metoprolol Hypertension. -resumed home dose of metoprolol Dyslipidemia. -resumed home meds History of chronic anemia that was iron deficiency -monitoring for symptoms of anemia -cbc stable on admission polycythemia -monitor cbc Peripheral arterial disease. -right popliteal artery and superficial femoral artery stent placement on 12/06/[address] Finn -s/p transmetatarsal amputation of the right foot due to osteomyelitis in 11/[address] Agustin -s/p 8 stents in right LE 05/06/[address] Finn -history of heavy nicotine abuse Gastroesophageal reflux disease (GERD). -resume home meds History of Osteomyelitis of the right foot s/p Transmetatarsal Amputation 11/2018 Dr. Agustin -outpt fu with vascular surgery and podiatry for peripheral vascular disease Left Upper Extremity Scaphoid Fracture -healed History of cigar use -contributed to pt's peripheral arterial disease History of heavy Alcohol abuse -decreased consumption in recent years DVT prophylaxis: on chronic warfarin for atrial fibrillation DISCHARGE PHYSICAL EXAMINATION: VITALS: PLS SEE BELOW GENERAL: unkempt.He is alert, oriented, awake x 3. no conversational dyspnea. no use of respiratory accessory muscles HEENT: anicteric sclera, no jaundice. PERRLA EOMI poor dentition dry mucus membranes neck supple no LAD or cervical LAD HEART:S1 S2 JVP 4-5 cm. irregularly irregular rhythm. displaced PMI to left Lungs : diminished. fairly clear bilaterally. Abdomen isoft,nontender. Bowel sounds are present. no rebound guarding no hsm Extremities have mild edema bilaterally.chronic erythematous venous changes There are good peripheral pulses in popliteal arteries as well as posterior tibial arteries on both sides. Right foot transmetatarsal amputation bandaged nontender SKin: multiple ecchymoses b/l UE , chronic venous stasis changes in b/l LE. crhonic edema. LABORATORY DATA, IMAGING STUDIES, MICROBIOLOGY: PLS SEE BELOW TIME SPENT ON HOSPITAL DISCHARGE: 32 MIN. Vital Signs/I&Os Vital Signs Date Time Temp Pulse Resp B/P (MAP) Pulse Ox O2 Delivery O2 Flow Rate FiO2 05/08/19 09:32 103 122/67 05/08/19 06:00 97.3 18 92 I&O- Last 24 Hours up to 6 AM 05/08/19 06:00 Intake Total 1510 ml Output Total 2900 ml Balance -1390 ml Laboratory Data Labs 24H Laboratory Tests 2 05/08/19 05:42: Nucleated Red Blood Cells % (auto) 0.0, Prothrombin Time 22.1H, Prothromb Time International Ratio 1.96, Anion Gap 5L, Glomerular Filtration Rate > 60.0, Blood Urea Nitrogen 27H, Creatinine 1.16, Sodium Level 139, Potassium Level 3.4L, Chloride Level 101, Carbon Dioxide Level 33H, Calcium Level 8.5L CBC/BMP Laboratory Tests 05/08/19 05:42 Red Blood Count 4.64, Mean Corpuscular Volume 95.0, Mean Corpuscular Hemoglobin 30.6, Mean Corpuscular Hemoglobin Concent 32.2, Red Cell Distribution Width 16.0 H, Calcium Level 8.5 L Discharge Medications Scheduled Acetaminophen (Acetaminophen) 500 Mg Tab, 1,000 MG PO BID, (Reported) Allopurinol (Zyloprim) 300 Mg Tab, 300 MG PO DAILY, (Reported) Aspirin (Aspir 81) 81 Mg Tablet.dr, 81 MG PO QPM, (Reported) Atorvastatin Calcium (Atorvastatin Calcium) 20 Mg Tab, 20 MG PO QHS, (Reported) Calcium Carbonate/Vitamin D3 (Calcium 600-Vit D3 400 Tablet) 1 Tab Tab, 1 TAB PO BID, (Reported) Cephalexin (Keflex) 500 Mg Capsule, 500 MG PO TID Cyanocobalamin (Cyanocobalamin Injection) 1,000 Mcg/1 Ml Vial, 1 ML IM Q2WK, (Reported) Digoxin (Digoxin) 125 Mcg Tab, 125 MCG PO Q2D, (Reported) Docusate Sodium (Stool Softener) 100 Mg Cap, 100 MG PO QHS, (Reported) Ferrous Gluconate (Ferrous Gluconate) 324 Mg Tab, 324 MG PO 2XW, (Reported) SUN/MON L.acidoph/L.bulg/B.bif/S.therm (Bacid Caplet) 1 Each Tablet, 1 TAB PO BIDWM Meloxicam (Meloxicam) 15 Mg Tablet, 7.5 MG PO BID, (Reported) Metoprolol Succinate (Metoprolol Succinate) 100 Mg Tab, 100 MG PO BID, (Reported) Multivitamins (Thera M Plus Tablet) 1 Tab Tab, 1 TAB PO DAILY, (Reported) Omeprazole (Omeprazole) 20 Mg Cap, 20 MG PO QHS, (Reported) Potassium Chloride (Klor-Con M20) 20 Meq Tabcr, 20 MEQ PO BID, (Reported) Prednisone (Prednisone) 5 Mg Tab, 5 MG PO QHS, (Reported) Silver Sulfadiazine (Ssd) 50 Gm Cream..g., 0 GM TOP BID Tamsulosin HCl (Flomax) 0.4 Mg Cap, 0.4 MG PO DAILY, (Reported) Testosterone Cypionate (Testosterone Cypionate) 200 Mg/1 Ml Vial, 1 ML IM Q2WK, (Reported) Torsemide (Torsemide) 100 Mg Tab, 50 MG PO QAM, (Reported) Torsemide (Torsemide) 100 Mg Tablet, 25 MG PO QPM, (Reported) Warfarin Sodium (Warfarin Sodium) 3 Mg Tablet, 6 MG PO 2XW, (Reported) Mon; Mon Warfarin Sodium (Warfarin Sodium) 3 Mg Tablet, 3 MG PO 5XW, (Reported) Tue,Thurs,FRI,SAT,SUN Allergies Coded Allergies: oxycodone (Verified Allergy, Mild, Rash, 04/25/19) ROSALES CHONG MD May 08, 2019 20:46
--- NOTE | 2019-06-13 08:57 | RO ---
DATE OF PROCEDURE: 05/03/2019 ATTENDING SURGEON: Dr. Yessenia Florence EMERGENCY SPECIALIST: None. PREOPERATIVE DIAGNOSIS: Non-healing right transverse tarsal amputation wound bilateral lower extremity venous valvular insufficiency with venous hypertension. POSTOPERATIVE DIAGNOSES: Non-healing right transverse tarsal amputation wound bilateral lower extremity venous valvular insufficiency with venous hypertension. PROCEDURE: Left common femoral arterial cannulation, selective right common femoral artery catheter placement with right lower extremity angiogram, selective right superficial femoral artery catheter placement right lower extremity angiogram was directed the pre and postoperative diagnosis and had chronic renal insufficiency, continuation of the procedure, Mynx closure of the left common femoral arteriotomy. INDICATION: The patient is an 83-year-old male with a nonhealing right transmetatarsal amputation wound who has nonpalpable pulses and venous valvular insufficiency in the right lower extremity. The patient will undergo angiogram with possible angioplasty stent and/or atherectomy. ANESTHESIA: Local MAC. FLUOROSCOPY TIME: 1 minute 58 seconds. CONTRAST: 3 mL of Isovue-300. IV FLUIDS: 250 mL ESTIMATED BLOOD LOSS: 15 mL. HEPARIN: None. COMPLICATIONS: None. DRAINS: None. SPECIMENS: None. IMPLANTS: Left common femoral arteriotomy closure with a Mynx closure device. PROCEDURE: The patient was taken the operating room, placed supine on the operating room table and prepped and draped in standard surgical fashion. The left common femoral artery was cannulated using a micropuncture needle after that side the overlying skin and subcutaneous tissue. The micropuncture wire was advanced through the micropuncture needle which was upsized to a micropuncture sheath. A Bentson wire was advanced through the micropuncture sheath which was upsized to a 5-Frisian sheath, the Omni flush catheter was advanced over the Bentson wire into the aorta and up and over the bifurcation artery and placed in the right common femoral artery site where a right lower extremity angiogram was performed. Catheter was advanced into the right superficial femoral artery as far distal as possible and a right lower extremity angiogram was performed. Catheters and wires removed and a Mynx closure device used close the arteriotomy in the left common femoral artery with additional 10 minutes adjunctive pressure applied for hemostasis. Dressings were then applied. The patient tolerated procedure well. All instrument, sponge and needle counts were correct at the case. There were no complications doctor Florence was present for directed the entire case. The patient was transferred to recovery room subsequent to the floor in stable condition.
--- NOTE | 2019-06-13 12:29 | REPIR ---
DATE OF PROCEDURE: 05/06/2019 ATTENDING SURGEON: Dr. Yessenia Florence SALES AND SERVICE REPRESENTATIVE: Misti Bonds and Neha Tubbs PREOPERATIVE DIAGNOSIS: Nonhealing right transmetatarsal amputation wound, chronic renal insufficiency. POSTOPERATIVE DIAGNOSIS: Nonhealing right transmetatarsal amputation wound, chronic renal insufficiency. PROCEDURE: Left common femoral arterial cannulation, selective right common femoral artery catheter placement with right lower extremity angiogram, selective right superficial femoral artery catheter placement with right lower extremity angiogram, selective right popliteal artery catheter placement with right lower extremity angiogram, right common femoral artery angioplasty with 6x200 mm balloon, right superficial femoral artery angioplasty with 6x200 mm balloon, right popliteal artery angioplasty with 6x200 mm balloon. 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 The patient has a nonhealing right transmetatarsal amputation and will undergo an angiogram with possible angioplasty stent and/or atherectomy. ANESTHESIA: Local with sedation with 1 mg Versed, 100 mcg of fentanyl and 10 mL of 2% lidocaine mixed 0.5% Marcaine, Benadryl 50 mg. FLUORO TIME: 4.0 minutes. CONTRAST: 9 mL of Isovue-300. SEDATION TIME: From 5:35 p.m. to 6:24 p.m. for a total of 49 minutes. COMPLICATIONS: None. DRAINS: None. SPECIMENS: None. IMPLANTS: Left common femoral arteriotomy closure with a MYNX closure device. DESCRIPTION OF PROCEDURE: The patient was taken to the angiography suite, placed supine on the angiography room table and then prepped and draped in the standard surgical fashion. The left common femoral artery was cannulated. A catheter was advanced over a Bentson wire and placed in the right common femoral artery and an angiogram was performed. The right common femoral, superficial femoral and popliteal arteries were then angioplastied with the 6x200 balloon. A completion angiogram showed resolution of the stenosis with no residual stenosis remaining. Catheters and wires were removed. A MYNX closure device was used to close the arteriotomy in the left common femoral artery with an additional 10 minutes of adjunctive pressure applied for hemostasis. Dressings were then applied. The patient tolerated the procedure well. All instrument, sponge and needle counts were correct at the end of the case. There were no complications. Dr. Florence was present for and directed the entire case. The patient was transferred to the holding area and subsequently to the floor in stable condition
== END 2019-05-08 11:55 | disposition home health service (06) | DRG 854 ==
LOC: EDBD 13:37 → M ED 13:37 → M ED INP 15:24 → M PCU 16:53 → M MSPAV 04-26 15:38
PROVIDERS: ADMIT General Practice; ATTEND General Practice
PROC: 02HV33Z Insertion of Infusion Device into Superior Vena Cava, Percutaneous Approach (ICD-10-PCS; 2019-05-01)
PROC: B41F1ZZ Fluoroscopy of Right Lower Extremity Arteries using Low Osmolar Contrast (ICD-10-PCS; 2019-05-03)
PROC: 047Y3DZ Dilation of Lower Artery with Intraluminal Device, Percutaneous Approach (ICD-10-PCS; principal; 2019-05-03 16:05)
DX: A41.9 Sepsis, unspecified organism (principal); E87.2 Acidosis; M86.671 Other chronic osteomyelitis, right ankle and foot; L03.115 Cellulitis of right lower limb; R65.20 Severe sepsis without septic shock; D69.6 Thrombocytopenia, unspecified; I48.2 Chronic atrial fibrillation; K21.9 Gastro-esophageal reflux disease without esophagitis; E78.5 Hyperlipidemia, unspecified; Z79.01 Long term (current) use of anticoagulants; I73.9 Peripheral vascular disease, unspecified; Z95.2 Presence of prosthetic heart valve; I50.9 Heart failure, unspecified; I11.0 Hypertensive heart disease with heart failure; I25.5 Ischemic cardiomyopathy; I34.0 Nonrheumatic mitral (valve) insufficiency; I27.20 Pulmonary hypertension, unspecified; Z79.82 Long term (current) use of aspirin; D75.1 Secondary polycythemia; Z79.899 Other long term (current) drug therapy; Z88.5 Allergy status to narcotic agent; J47.9 Bronchiectasis, uncomplicated; E11.621 Type 2 diabetes mellitus with foot ulcer; L97.519 Non-pressure chronic ulcer of other part of right foot with unspecified severity; E11.51 Type 2 diabetes mellitus with diabetic peripheral angiopathy without gangrene; I25.2 Old myocardial infarction

== ENCOUNTER → 2019-06-20 | Outpatient (CLI) | payer MEDICARE ==
[~2019-06-20] MED LIST changes: +BACITAB PO; +CYAN1000VL IM; -DIGO0.12 PO; +DIGO0.123 PO; +KEFL500C17 PO; +LEVA1TAB2 PO; +MELO15TA28 PO; +OMEP-218 PO; +OMEP1CAP73 PO; -OMEP20CA4 PO; -OMEP40CA2 PO; +OMEP40CA97 PO; +SILV50CR TOP; +TEST200I14 IM; +TRAM50TA2 PO; +WARF-58 PO
--- NOTE | 2019-06-20 15:30 | REP ---
Bilateral lower extremity arterial Doppler ultrasound: History: Peripheral vascular disease. Findings: Ankle brachial indices are normal measured at 1.1 on the right and 0.96 on the left. Predominately biphasic waveforms are noted in the arterial structures in the lower extremities with the exception of the distal segments of the anterior and posterior tibial arteries bilaterally. These are monophasic waveforms. The right posterior tibial artery is felt to be occluded distally. Moderate to severe plaquing is seen diffusely in the legs. There is evidence of stenosis in the left superficial femoral artery proximally and at mid SFA level. Velocity chart right lower extremity arteries: CF A 207 cm/S Profunda 146 Proximal SFA 91 Mid SFA with stent 64 Distal SFA with stent 61 Popliteal 45 Proximal AT A 28 Tibioperoneal trunk 63 Proximal POWER [employer]OV[employer] SHIFT ENGINEER 52 Distal POWER [employer] SHIFT ENGINEER occluded Distal AT A 45 Velocity chart left lower extremity arteries: CF A 122 cm/S Profunda 151 Proximal SFA 52-146 Mid SFA 69-184 Distal SFA 73 Popliteal 33 Proximal AT A 50 Tibioperoneal trunk 31 Proximal POWER [employer] SHIFT ENGINEER 56 Distal POWER AND [employer]OV[employer] SHIFT ENGINEER 16 Distal AT A 30 Electronically Signed by Bert Shafer MD 06/20/2019 03:22 P
== END ==
LOC: M RAD 12:21
PROVIDERS: ATTEND Surgery Vascular Surgery
DX: I73.9 Peripheral vascular disease, unspecified (principal)

== ENCOUNTER → 2019-07-29 | Outpatient (CLI) | payer MEDICARE ==
[~2019-07-29] MED LIST changes: +DIGO0.12 PO; -DIGO0.123 PO; -LEVA1TAB2 PO; -OMEP-218 PO; -OMEP1CAP73 PO; +OMEP20CA4 PO; +OMEP40CA2 PO; -OMEP40CA97 PO; -TRAM50TA2 PO
[2019-07-29 15:15] LABS: HEMATOCRIT 47.5 % (42.0-52.0); HEMOGLOBIN 15.2 g/dl (13.5-17.5); MEAN CORPUSCULAR HEMOGLOBIN 31.7 pg (27.0-33.0); PLATELET COUNT, AUTOMATED 191 10^3/uL (150-450); WHITE BLOOD COUNT 12.6 10^3/uL (4.0-10.0)
[2019-07-29 15:28] LABS: INR 1.81; PROTHROMBIN TIME 20.7 SECONDS (11.8-14.0)
[2019-07-29 15:40] LABS: CALCIUM LEVEL 8.8 MG/DL (8.8-10.2); CREATININE FOR GFR 1.49 MG/DL (0.70-1.30); GLOMERULAR FILTRATION RATE 47.7 (>35); POTASSIUM SERUM 3.9 MEQ/L (3.5-5.1)
== END ==
LOC: M LAB 14:30
PROVIDERS: ATTEND Surgery Vascular Surgery
DX: I70.213 Atherosclerosis of native arteries of extremities with intermittent claudication, bilateral legs (principal)

== ENCOUNTER → 2019-07-31 | Outpatient (CLI) | payer MEDICARE ==
[~2019-07-31] MED LIST changes: +HEPARIN 1,000 UNITS/ML 10ML VIAL (FOR RADIOLOGY& DIALYSIS ONLY) As Ordered ONE; +ISOVUE-300 61% 50ML VIAL (Q9967) As Ordered ONE; +LIDOCAINE 1% MDV 20ML VIAL As Ordered ONE; +MIDAZOLAM INJ 2 MG/2 ML VIAL (J2250) As Ordered ONE; -OMEP40CA2 PO; +OMEP40CA97 PO; +diphenhydrAMINE INJ 50MG/ML VIAL (J1200) As Ordered ONE; +fentaNYL 100 MCG/2 ML INJECTION (J3010) As Ordered ONE
--- NOTE | 2019-07-31 11:23 | ROOPDOC ---
[facility] Report Of Operation Report of Operation DATE OF PROCEDURE: 07/31/19 PREPROCEDURE DIAGNOSES: Atherosclerosis of the [place] arteries with non-healing right foot TMA POSTPROCEDURE DIAGNOSES: Same PROCEDURE: 1. Ultrasound-guided access left common femoral artery 2. Right lower extremity iliofemoral arteriogram with runoff from selection of right SFA 3. Cross chronic total occlusion right posterior tibial artery and angioplasty with 2.5 x 220 Hussain balloon 4. Attempt to cross chronic total occlusion anterior tibial artery but only able to cross to distal calf, angioplasty with 2.5 x 2 20 Hussain balloon 5. Completion arteriograms 6. Mynx closure left common femoral artery SURGEON: Elizabet Caballero MD ANESTHESIA: 10 mL lidocaine local anesthesia. Moderate intravenous conscious sedation was monitored by Dr. Caballero. The patient was independently monitored by registered nurse assigned to the Department of radiology using automated blood pressure, EKG, and pulse oximetry. The detailed conscious sedation record is housed permanently in the hospital information system. The brief sedation record is as follows: Start time 09:07, stop time 10:55, heparin 6000 units IV, fentanyl 75 g IV, Versed 1.5 mg IV. CONTRAST: 53 mL Isovue INDICATION FOR PROCEDURE: Mr. Gardiner is a very pleasant 83-year-old gentleman with a long-standing history of tobacco abuse and arterial disease, status post interventions in the past with Dr. Florence, who returned to clinic to see me this week with a nonhealing wound on the distal right transmetatarsal amputation. Despite very appropriate wound care and debridements, this has been stagnant in healing. Based on his noninvasive imaging, the patient likely has some significant tibial arterial disease and we bring him in today for right lower extremity arteriogram to make sure there is no new issues proximally, and then an attempt to open the tibial arterial flow. Risks benefits and alternatives were explained to the patient and his son and informed consent was obtained. INTERPRETATION: 1. The right iliofemoral system is widely patent. There are some mild 20% stenosis within the main body of the SFA, but they are focal and not flow limiting. He has a very large superficial femoral artery and I did not feel this required intervention. The popliteal artery is widely patent. 2. The right tibial system has heavy disease, and there is little flow through the pedal vessels in the foot. He has brisk flow through the peroneal artery with rapid filling of the venous system due to little outflow in the foot and good outflow through the veins at the ankle. The anterior tibial artery is open for less than 1 cm at its origin. The posterior tibial artery occludes the proximal calf. There are collaterals around each and they appear chronic. 3. Considerable time was spent crossing the chronic total occlusion in the posterior tibial artery we were able to open it to the ankle. We attempted to open it into the plantar vessels, but were unsuccessful. Heavy calcific chronic disease was encountered and despite aggressive attempts, we could not successfully open all the way through the foot. After angioplasty, there was in- line flow to the distal ankle with outflow through the venous system primarily and minimal flow to the distal foot. 4. Even more time was spent crossing the chronic total occlusion the anterior tibial artery but we were only able to open the vessel to the mid calf. Unfortunately, we did not encounter any significant collateral outflow so even after angioplasty this did not provide additional flow. Without outflow, the vessel will not remain open. 5. The pedal vessels are extremely small, and minimal flow traverses the foot from the peroneal artery to the distal foot, and from the posterior tibial artery through the plantar vessels in the foot. REPORT OF OPERATION: Mr. Gardiner is a very pleasant 83-year-old gentleman who was brought to the angiographic suite in stable condition and placed supine on the fluoroscopic table. His bilateral groins were prepped and draped in sterile fashion. A timeout was performed. Sedation was a parts counter sales person without complication. The patient tolerated it well. Local anesthesia was parts counter sales person to skin and subcutaneous tissue in the left groin and a microneedle was used to access the common femoral artery under ultrasound guidance. A wire was passed through this access and a 6 Cuban micro-sheath was placed and flushed with saline. Glidewire was advanced into the aorta and catheter was placed over the wire. We then went up and over the bifurcation with an infusion catheter and a quick iliofemoral arteriogram was performed and we found good inflow through to the right lower extremity. Next, we advanced Glidewire into the SFA and exchanged her sheath for 45 cm sheath. This was flushed with saline. We then performed a right lower extremity runoff through this selection of the proximal SFA. The SFA is patent, please see interpretation above. The popliteals patent. Tibial disease is fairly profound. The peroneal is the main runoff to the foot, although there is rapid venous return due to limited outflow episode itself. The posterior tibial artery is chronically occluded in the proximal calf and the anterior tibial artery occludes within a centimeter of its origin. A great Funmi time, proximally 40 m inutes was spent crossing each vessel. We were able to cross posterior tibial artery all the way into the foot, but not past the proximal foot at the ankle. Distal to that, we encounter significant heavy calcified plaque and were not able to connect flow into the plantar artery. After angioplasty, there is a significant improvement in flow but the majority of it, like the peroneal artery, ended at the ankle and join the venous system there. The flow to the foot was sluggish and minimal. The vessels are extremely small and constricted. We utilized multiple wires and catheters attempting to cross the intra-tibial artery which had even worse disease in the posterior tibial artery. Just above the ankle, we encountered heavy calcification and we could not get across. We angioplastied what we had opened from the origin to the distal calf, but without finding any collaterals is outflow or venous connection, there was no way for this to stay open. Unfortunately, the patient's disease is fairly profound. His peroneal remains the main runoff to the foot, but without good outflow in the pedal vessels, we still have concerned that he will have adequate flow for healing. Final images were obtained to make sure we had no embolization dissection or extravasation. Once we were safe from this respect, we exchanged her sheath for short 6 Cuban sheath over Glidewire and occluded Mynx closure device with good hemostasis. Pressure was held for 10 minutes and the patient was transferred to recovery in stable condition. Aside from chronic back pain, he tolerated the procedure very well. ESTIMATED BLOOD LOSS: Approximately 5 mL. COMPLICATIONS: None. PLAN: Our plan is to see the patient back in clinic within a week to check his groin and see how his foot is feeling. Unfortunately, due to pedal arterial disease that we could not open, despite aggressive efforts we only improved the flow to the distal foot only minimally. Even by opening of the posterior tibial artery, without outflow to the distal foot, I'm not sure this will help with healing of the transmetatarsal amputation wound. The patient has a long-standing history of tobacco abuse, and we found that his distal pedal arteries are severely diseased. The patient I had a long discussion about smoking cessation in clinic and again today. This will be critical for healing his TMA. I do not think it will heal with the flow that he has without smoking cessation. ELIZABET CABALLERO MD Jul 31, 2019 11:23
[2019-07-31 15:00] VITALS: BP 140/68
== END ==
LOC: M IRPRO 08:08
PROVIDERS: ATTEND Surgery Vascular Surgery
DX: I70.235 Atherosclerosis of native arteries of right leg with ulceration of other part of foot (principal); I70.92 Chronic total occlusion of artery of the extremities
CPT/HCPCS: 37228; 75710; 99152; 99153; C1725; C1760; C1769; C1887; C1894; J2250; J3010; Q9967

== ENCOUNTER 2019-10-08 11:26 | Inpatient (IN) | payer MEDICARE ==
[~2019-10-08] VITALS: Ht 180.3 cm; Wt 93.1 kg
[~2019-10-08 11:26] MED LIST changes: -DIGO0.12 PO; +DIGO0.123 PO; -HEPARIN 1,000 UNITS/ML 10ML VIAL (FOR RADIOLOGY& DIALYSIS ONLY) As Ordered ONE; -ISOVUE-300 61% 50ML VIAL (Q9967) As Ordered ONE; -LIDOCAINE 1% MDV 20ML VIAL As Ordered ONE; -MIDAZOLAM INJ 2 MG/2 ML VIAL (J2250) As Ordered ONE; +OMEP-172 PO; -OMEP20CA4 PO; -diphenhydrAMINE INJ 50MG/ML VIAL (J1200) As Ordered ONE; -fentaNYL 100 MCG/2 ML INJECTION (J3010) As Ordered ONE
--- NOTE | 2019-10-08 12:15 | REP ---
CT brain: 10/08/2019. Indication: Head trauma. Comparison: 03/22/2017. Technique: Unenhanced axial CT images of the brain were obtained from skull base to vertex. Findings: There is no acute intracranial hemorrhage, acute cortical infarction, mass effect, hydrocephalus or acute calvarial fracture. Diffuse volume loss is present. Patchy areas of white matter hypoattenuation are noted most consistent with sequelae of chronic small vessel disease. Intracranial atherosclerotic disease is present. Impression: No acute intracranial process. Volume loss and sequelae of chronic microangiopathic ischemic disease. Electronically Signed by Juan Mcginnis DO 10/08/2019 12:07 P
--- NOTE | 2019-10-08 12:20 | REP ---
Chest x-ray: Single view. History: Trauma. Comparison study: April 25, 2019. Findings: Cardiomegaly is again observed unchanged. The lungs are well inflated and otherwise clear. Pleural angles are sharp. Mediastinum is not widened. The aorta is calcific and somewhat tortuous. Pleural angles are sharp. There are degenerative changes in the shoulders bilaterally. Impression: No acute disease. Electronically Signed by Bert Shafer MD 10/08/2019 12:11 P
[2019-10-08] MEDS ORDERED: BACITAB PO (12:23)
[2019-10-08] MEDS ORDERED: OMEP-218 PO (12:23)
--- NOTE | 2019-10-08 12:25 | REP ---
PELVIS LEFT HIP: Three views. HISTORY: Trauma. FINDINGS: AP view of the pelvis and AP and frog-leg views of the left hip demonstrate a basi-cervical/intertrochanteric fracture of the left hip in varus. There is slight comminution. Vascular calcification is noted. Bony pelvic ring is intact. No right hip fracture is seen. There are degenerative changes in the lumbar spine. IMPRESSION: Left hip fracture in varus. Base of the cervical neck versus intertrochanteric. Electronically Signed by Bert Shafer MD 10/08/2019 05:17 P
[2019-10-08 13:04] LABS: BASO # 0.1 10^3/uL (0.0-0.2); BASO % 0.4 % (0.0-1.0); EOS # 0.2 10^3/uL (0.0-0.5); EOS % 1.7 % (0.0-3.0); HEMATOCRIT 45.5 % (42.0-52.0); HEMOGLOBIN 14.8 g/dl (13.5-17.5); LYMPH # 2.2 10^3/uL (1.5-5.0); LYMPH % 17.6 % (24.0-44.0); MEAN CORPUSCULAR HEMOGLOBIN 32.5 pg (27.0-33.0); MEAN CORPUSCULAR HGB CONC 32.5 g/dl (32.0-36.5); MONO # 0.7 10^3/uL (0.0-0.8); MONO % 5.4 % (0.0-5.0); NEUTROPHILS # 9.4 10^3/uL (1.5-8.5); NEUTROPHILS % 74.2 % (36.0-66.0); PLATELET COUNT, AUTOMATED 158 10^3/uL (150-450); RED BLOOD COUNT 4.55 10^6/uL (4.30-6.10); WHITE BLOOD COUNT 12.6 10^3/uL (4.0-10.0)
[2019-10-08] MEDS ORDERED: fentaNYL 100 MCG/2 ML INJECTION (J3010) IV ONE ×2 (13:15→21:45)
[2019-10-08 13:20] LABS: PROTHROMBIN TIME 22.4 SECONDS (11.8-14.0)
[2019-10-08 13:36] LABS: ALBUMIN 3.3 GM/DL (3.2-5.2); BILIRUBIN,TOTAL 0.7 MG/DL (0.2-1.0); CALCIUM LEVEL 8.9 MG/DL (8.8-10.2); CREATININE FOR GFR 1.3 MG/DL (0.70-1.30); GLOMERULAR FILTRATION RATE 55.9 (>35); POTASSIUM SERUM 4.2 MEQ/L (3.5-5.1); TOTAL PROTEIN 6.6 GM/DL (6.4-8.2)
--- NOTE | 2019-10-08 14:20 | REP ---
LEFT FEMUR: Bruise. HISTORY: Trauma. Ipsilateral hip fracture. FINDINGS: AP and lateral views of the distal and mid femur show no additional left femur fracture. There is osteoarthritis at the knee with medial and patellofemoral compartment spurring and joint space narrowing mild in degree. Vascular calcification is noted. IMPRESSION: Knee joint osteoarthritis. Vascular calcification. No other left femur fracture. Electronically Signed by Bert Shafer MD 10/08/2019 05:18 P
--- NOTE | 2019-10-08 16:24 | HPEPDOC ---
General Date of Admission Date of Service: Oct 08, 2019 Chief Complaint The patient is a 83-year-old male admitted with a reason for visit of Fall Injury. Source: Patient Exam Limitations: Physical impairment (L hip fracture ) Associated Symptoms: Denies Symptoms History of Present Illness Mr Gardiner is an 83 year old male who was seen in ED following a fall in the home and fracture of the L hip. 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 Per his landfill grader (Dr. Mejias) he has an EF of 35%. 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 Mr. Gardiner reported he was getting a drink from the fridge when he fell. He typically uses a walker and isn't sure why he fell. Pt denied head trauma or LOC. He fell on his left side and noted significant pain in the L hip. Pt stated he has little to no pain following pain medications given in the ED. Home Medications Scheduled Acetaminophen (Acetaminophen) 500 Mg Tab, 1,000 MG PO BID, (Reported) Allopurinol (Zyloprim) 300 Mg Tab, 300 MG PO DAILY, (Reported) Aspirin (Aspir 81) 81 Mg Tablet.dr, 81 MG PO QHS, (Reported) Atorvastatin Calcium (Atorvastatin Calcium) 20 Mg Tab, 20 MG PO QHS, (Reported) Calcium Carbonate/Vitamin D3 (Calcium 600-Vit D3 400 Tablet) 1 Tab Tab, 1 TAB PO BID, (Reported) Digoxin (Digoxin) 125 Mcg Tab, 125 MCG PO Q2D, (Reported) Docusate Sodium (Stool Softener) 100 Mg Cap, 100 MG PO QHS, (Reported) Ferrous Gluconate (Ferrous Gluconate) 324 Mg Tab, 324 MG PO 2XW, (Reported) SUN/WED L.acidoph/L.bulg/B.bif/S.therm (Bacid Caplet) 1 Each Tablet, 1 TAB PO BID, (Reported) Meloxicam (Meloxicam) 15 Mg Tablet, 7.5 MG PO BID, (Reported) Metoprolol Succinate (Metoprolol Succinate) 100 Mg Tab, 100 MG PO BID, (Reported) Multivitamins (Thera M Plus Tablet) 1 Tab Tab, 1 TAB PO DAILY, (Reported) Omeprazole (Omeprazole) 20 Mg Capsule.dr, 20 MG PO QHS, (Reported) Potassium Chloride (Klor-Con M20) 20 Meq Tabcr, 20 MEQ PO BID, (Reported) Prednisone (Prednisone) 5 Mg Tab, 5 MG PO QHS, (Reported) Tamsulosin HCl (Flomax) 0.4 Mg Cap, 0.4 MG PO DAILY, (Reported) Torsemide (Torsemide) 100 Mg Tab, 50 MG PO QAM, (Reported) Torsemide (Torsemide) 100 Mg Tablet, 25 MG PO QPM, (Reported) Warfarin Sodium (Warfarin Sodium) 3 Mg Tablet, 6 MG PO 2XW, (Reported) MONDAYS,WEDNESDAYS Warfarin Sodium (Warfarin Sodium) 3 Mg Tablet, 3 MG PO 5XW, (Reported) SUN/E//MON/SAT Allergies Coded Allergies: oxycodone (Verified Allergy, Mild, Rash, 04/25/19) ATTENDING NOTE I have personally performed a face to face diagnostic evaluation on this patient. I have reviewed and agree with the care plan. 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 Surgical History Amputation of 5 digits R foot Coronary stents x 5 Stenting R popliteal and superficial femoral artery Family History Significant Family History: Diabetes (Brother ), Heart disease (?mother (patient unsure); Brother - pacemaker ), Seizures (Sister) Social History * Smoker: other (1 - 2 cigarillos per day ) Alcohol: occationally (" I drink when I want" 0-1 beer per day, rarely whiskey) Drugs: denies Psychosocial History: No pertinent psych hx A-FIB/CHADSVASC A-FIB History Current/History of A-Fib/PAF?: Yes Current PO Anticoag Therapy: Yes Review of Systems Constitutional: Denies: Chills, Fever Eyes: Reports: Vision change; Denies: Pain ENT: Denies: Head Aches Skin: Reports: Lesions (LLE - healed ) Pulmonary: Denies: Dyspnea, Cough Cardiovascular: Denies: Chest Pain, Palpitations, Lt Headedness Hematologic: Reports: Bruising (on Coumadin ); Denies: Bleeding Excessively Musculoskeletal: Reports: Joint Pain (L hip), Spasms (L hip); Denies: Neck Pain, Back Pain, Muscle Pain Neurological: Denies: Change in speech Psych: Denies: Mood Normal Physical Examination General Exam: Positive: Alert, No Acute Distress Eye Exam: Positive: Conjunctiva & lids normal ENT Exam: Positive: Atraumatic Chest Exam: Positive: Clear to auscultation, Normal air movement Heart Exam: Positive: Irregular Rhythm Telemetry: Positive: Atrial fibrillation Abdomen Exam: Positive: Normal bowel sounds, Soft; Negative: Tenderness Extremity Exam: Positive: Edema (slight edema b/l LEs), Tenderness (L leg externally rotated. No pain with palpation of the L hip. Patient reported tenderness over the groin when the leg is passively raised during exam.); Negative: Clubbing, Cyanosis Skin Exam: Positive: Nl turgor and temperature Neuro Exam: Positive: Normal Speech Psych Exam: Positive: Mood NL Vital Signs Vital Signs Date Time Temp Pulse Resp B/P (MAP) Pulse Ox O2 Delivery O2 Flow Rate FiO2 10/08/19 13:41 16 10/08/19 11:31 97.6 98 115/73 Room Air Laboratory Data Labs 24H Laboratory Tests 2 10/08/19 12:43: Immature Granulocyte % (Auto) 0.7, Neutrophils (%) (Auto) 74.2H, Lymphocytes (%) (Auto) 17.6L, Monocytes (%) (Auto) 5.4H, Eosinophils (%) (Auto) 1.7, Basophils (%) (Auto) 0.4, Neutrophils # (Auto) 9.4H, Lymphocytes # (Auto) 2.2, Monocytes # (Auto) 0.7, Eosinophils # (Auto) 0.2, Basophils # (Auto) 0.1, Nucleated Red Blood Cells % (auto) 0.0, Prothrombin Time 22.4H, Prothromb Time International Ratio 2.00, Anion Gap 6L, Glomerular Filtration Rate 55.9, Calcium Level 8.9, Total Bilirubin 0.7, Aspartate Amino Transf (AST/SGOT) 19, Alanine Aminotransferase (ALT/SGPT) 25, Alkaline Phosphatase 134H, Total Protein 6.6, Albumin 3.3, Albumin/Globulin Ratio 1.00 CBC/BMP Laboratory Tests 10/08/19 12:43 Assessment/Plan Mr Gardiner is an 83 year old male who was seen in ED following a fall in the home and fracture of the L hip. Left hip fracture in varus 10/08/2019. Consulted orthopedics - Dr. Tobias will assess Mr. Gardiner. If patient is a surgical candidate, planned for 10/10/2019 Continue pain control Coronary artery disease s/p percutaneous coronary intervention (PCI) to right coronary artery with bare metal stents times five in [address]. Dr. Mejias officially consulted. He plans to assess the patient tomorrow and to provide cardiac clearance in anticipation of orthopedic surgery. Continue home medications Ischemic cardiomyopathy with left ventricular systolic function 35% inferior wall hypokinesis. -Dr. Mejias officially consulted. -Mr. Gardiner denied any cough, dyspnea, CP, palpitations Does not appear volume overloaded at this time Continue home medications moderate mitral insufficiency management per cardiology moderate pulmonary hypertension. management per cardiology Chronic atrial fibrillation. -on chronic Warfarin; INR 2.0 -daily INR check prior to surgery -Hold Warfarin until seen by Dr. Mejias Hypertension. Continue home medications Dyslipidemia. Continue home medications History of chronic YESSICA -monitor for symptoms of anemia -CBC stable in ED - Repeat CBC qam polycythemia - monitor CBC qam Peripheral vascular disease. Right popliteal artery and superficial femoral artery stent placement on 12/06/[address] Florence -s/p transmetatarsal amputation of the right toes due to osteomyelitis in 11/[address] Noriega Gastroesophageal reflux disease (GERD). 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 Noriega -Continue outpatient management by podiatry Peripheral vascular disease -on chronic warfarin and statins -current cigar smoker which complicates care Left Upper Extremity Scaphoid Fracture Healed History of heavy Alcohol abuse Decreased consumption in recent years DVT prophylaxis: on chronic warfarin for atrial fibrillation Diet: regular diet today Plan / VTE VTE Prophylaxis Ordered?: No Plan Diet: Continue Current Activity: Continue Current Diagnostics: Repeat Labs in AM Advanced Directives: MOLST Form is available, Do Not Resuscitate (DNR) PADMINI MARCUM PA-C Oct 08, 2019 16:24 JULIO JOHNSON MD Oct 08, 2019 19:19
[2019-10-08] MEDS: ACETAMINOPHEN TAB 650MG DOSE (2X325MG) PO PRN ×2 (17:15→23:16)
--- NOTE | 2019-10-08 18:37 | ECGEPIP ---
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
[2019-10-08] MEDS ORDERED: LR 1,000 ML IV SCH (21:30)
[2019-10-08 23:23] VITALS: BP 125/69
[2019-10-09] VITALS (17 sets, daily range): BP systolic 106–145; BP diastolic 56–79; O2SAT 94–98
[2019-10-09] MEDS ORDERED: fentaNYL 100 MCG/2 ML INJECTION (J3010) IV PRN (02:30)
[2019-10-09] MEDS ORDERED: ACETAMINOPHEN *IV* 1,000 MG in IV 1 EA IV ONE (03:00)
[2019-10-09] MEDS: ACETAMINOPHEN TAB 650MG DOSE (2X325MG) PO PRN ×3 (03:55→14:17)
[2019-10-09 05:42] LABS: HEMATOCRIT 41.5 % (42.0-52.0); HEMOGLOBIN 13.7 g/dl (13.5-17.5); MEAN CORPUSCULAR HEMOGLOBIN 32.1 pg (27.0-33.0); MEAN CORPUSCULAR VOLUME 97.2 fl (80.0-96.0); PLATELET COUNT, AUTOMATED 140 10^3/uL (150-450); RED BLOOD COUNT 4.27 10^6/uL (4.30-6.10)
[2019-10-09 06:08] LABS: BLOOD UREA NITROGEN 22 MG/DL (7-18); CALCIUM LEVEL 8.2 MG/DL (8.8-10.2); CARBON DIOXIDE LEVEL 32 MEQ/L (21-32); CHLORIDE LEVEL 105 MEQ/L (98-107); CREATININE FOR GFR 1.31 MG/DL (0.70-1.30); GLOMERULAR FILTRATION RATE 55.4 (>35); GLUCOSE, FASTING 114 MG/DL (70-100); POTASSIUM SERUM 3.4 MEQ/L (3.5-5.1); SODIUM LEVEL 142 MEQ/L (136-145)
[2019-10-09] MEDS ORDERED: POTASSIUM CHLORIDE 10 MEQ SR TABLET PO ONE (08:15)
[2019-10-09 08:35] LABS: PROTHROMBIN TIME 22.5 SECONDS (11.8-14.0)
[2019-10-09] MEDS ORDERED: TORSEMIDE 100 MG TAB PO SCH (09:00)
[2019-10-09] MEDS: DIGOXIN 0.125 MG TAB PO SCH (09:23)
[2019-10-09] MEDS: METOPROLOL SUCC (TopROL XL) 100MG *XL* TAB PO SCH ×2 (09:23→21:34)
[2019-10-09 09:24] LABS: TROPONIN I < 0.02 NG/ML (< 0.10)
[2019-10-09] MEDS: TORSEMIDE (DEMADEX) 50 MG PER 1/2 TAB PO SCH (09:24)
[2019-10-09] MEDS: FERROUS GLUCONATE 324 MG TAB PO SCH (09:24)
[2019-10-09] MEDS: TAMSULOSIN 0.4 MG CAP PO SCH (09:26)
[2019-10-09] MEDS ORDERED: ceFAZolin SOD 2 GM in IV 1 EA IV ONE (12:00)
--- NOTE | 2019-10-09 15:52 | IPNPDOC ---
Subjective Date Seen The patient was seen on 10/09/19. Subjective Chief Complaint/HPI Mr Gardiner is an 83 year old male who was seen in ED following a fall in the home and fracture of the L hip. Mr. Gardiner was seen this morning with his son present. Pt. denied any new or worsening symptoms. Mr. Gardiner disagrees that he is still taking Prednisone 5mg qhs; his son reported he gives him this medication every night. Rx is via his PCP but Mr. Gardiner and his son do not know why. He has been on this medication for at least several months. General: Reports: Normal Appetite; Denies: Chills, Night Sweats, Malaise Constitutional: Denies: Chills, Fever, Night Sweats Eyes: Denies: Pain, Vision change ENT: Denies: Head Aches, Ear Pain Skin: Denies: Rash, Lesions Pulmonary: Denies: Dyspnea, Cough Cardiovascular: Denies: Chest Pain, Palpitations, Lt Headedness Gastrointestinal: Denies: Abdominal Pain Genitourinary: Denies: Dysuria Musculoskeletal: Denies: Neck Pain, Back Pain, Shoulder Pain, Arm Pain, Hand Pain, Leg Pain, Foot Pain, Joint Pain, Muscle Pain, Spasms, Other Symptoms Neurological: Denies: Change in speech Psych: Reports: Mood Normal Objective Physical Examination General Exam: Positive: Alert, No Acute Distress Eye Exam: Positive: Conjunctiva & lids normal ENT Exam: Positive: Atraumatic Chest Exam: Positive: Clear to auscultation, Normal air movement Heart Exam: Positive: Irregular Rhythm Telemetry: Positive: Atrial fibrillation Abdomen Exam: Positive: Normal bowel sounds, Soft; Negative: Tenderness Extremity Exam: Positive: Edema (slight edema b/l LEs), Tenderness (pain from acute hip Fx well-controlled); Negative: Clubbing, Cyanosis Skin Exam: Positive: Nl turgor and temperature Neuro Exam: Positive: Normal Speech Psych Exam: Positive: Mood NL Assessment /Plan Assessment Mr Gardiner is an 83 year old male who was seen in ED following a fall in the home and fracture of the L hip. 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 Per his primary teacher (Dr. Mejias) he has an EF of 35%. 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 Left hip fracture in varus 10/08/2019. Consulted orthopedics - Dr. Tobias awaiting cardiology clearance. ?Surgery on by on-call surgeon. Continue pain control Chronic corticosteroids: - telephone PCP to discuss indication. - hold medication ac surgery Coronary artery disease s/p percutaneous coronary intervention (PCI) to right coronary artery with bare metal stents times five in 2010. Discussion with Dr. Mejias: - INR remains at 2.0; no Heparin. Allow INR to taper w/out meds. - Continue ASA - Troponin for CP overnight. <0.02 Ischemic cardiomyopathy with left ventricular systolic function 35% inferior wall hypokinesis. -Seen by Dr. Mejias -Mr. Gardiner denied any cough, dyspnea, CP, palpitations Does not appear volume overloaded at this time Continue home medications moderate mitral insufficiency management per cardiology moderate pulmonary hypertension. management per cardiology Chronic atrial fibrillation. -on chronic Warfarin; INR 2.0 -daily INR check prior to surgery -Hold Warfarin Hypertension. Continue home medications Dyslipidemia. Continue home medications History of chronic YESSICA -monitor for symptoms of anemia -CBC stable in ED - Repeat CBC qam; CBC stable 10/09/2019 Polycythemia - CBC qam - CBC stable 10/09/2019 Peripheral vascular disease. Right popliteal artery and superficial femoral artery stent placement on 12/06/[address] Florence -s/p transmetatarsal amputation of the right toes due to osteomyelitis in 11/[address] Noriega Gastroesophageal reflux disease (GERD). 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 Marito flores -Continue outpatient management by podiatry Peripheral vascular disease -on chronic warfarin and statins -current cigar smoker which complicates care Left Upper Extremity Scaphoid Fracture Healed History of heavy Alcohol abuse Decreased consumption in recent years DVT prophylaxis: - see cardiology recommendation(s) above Plan/VTE VTE Prophylaxis Ordered?: No (INR 2.0; Surgery planned ) VS, I&O, 24H, Fishbone Vital Signs/I&O Vital Signs Date Time Temp Pulse Resp B/P (MAP) Pulse Ox O2 Delivery O2 Flow Rate FiO2 10/09/19 12:10 98.2 107 25 143/76 (98) 96 Room Air 10/08/19 23:23 2.0 I&O- Last 24 Hours up to 6 AM 10/09/19 06:00 Intake Total 240 ml Output Total 500 ml Balance -260 ml Laboratory Data 24H LABS Laboratory Tests 2 10/09/19 05:16: Nucleated Red Blood Cells % (auto) 0.0, Anion Gap 5L, Glomerular Filtration Rate 55.4, Calcium Level 8.2L, Troponin I < 0.02 10/09/19 08:05: Prothrombin Time 22.5H, Prothromb Time International Ratio 2.00 CBC/BMP Laboratory Tests 10/09/19 05:16 ATTENDING NOTE I have personally performed a face to face diagnostic evaluation on this patient. I have reviewed and agree with the care plan. Check AM cortisol level to asses HPA assess to see if stress dose steroids are needed or just continue home dose. Hold diuretics prior to surgery to reduce risk of periop hypotention, if surgery is decided for tomorrow. PADMINI MARCUM PA-C Oct 09, 2019 15:52 JULIO JOHNSON MD Oct 09, 2019 17:16
--- NOTE | 2019-10-09 18:00 | CR ---
DATE OF CONSULTATION: 10/09/2019 REFERRING PROVIDER: Katty Hernandez INDICATION: Preoperative clearance for hip open reduction, internal fixation (ORIF). HISTORY OF PRESENT ILLNESS: Mr. Gardiner is well known to me. He is an 83-year-old man who has a multitude of medical problems that include chronic atrial fibrillation, ischemic cardiomyopathy, hypertension, and peripheral vascular disease. He presented to [facility] Emergency Room (ER) yesterday after he fell at home and broke his hip. The circumstances of the fall are not completely clear. It looks like he went to the fridge to get a drink, and as he was turning around he lost balance and fell. It does not appear that he lost consciousness. Eventually he was able to call his son, who called an ambulance, and he was brought to emergency room. When I saw him this morning, he did complain that since the fall he has had episodes of hip pain but also pain in the epigastrium. He says that these seem to come together. The nature of the pain is sharp and generally comes in brief episodes. It was present on and off throughout the night. His dyspnea is at his baseline. As long as he is staying in bed he feels basically asymptomatic from that perspective. He has not had any unusual events since he was seen in the office last on August 19. PAST MEDICAL HISTORY: 1. Coronary artery disease. History of percutaneous coronary intervention (PCI) to right coronary artery in 2010. He received total of five bare metal stents. He does not have anginal symptoms at baseline. 2. Ischemic cardiomyopathy. Most recent echocardiogram was performed on May 02 and revealed stable left ventricular systolic function with ejection fraction approximately 30-35%. 3. Chronic atrial fibrillation, rate controlled on combination of high-dose metoprolol and digoxin. Has been chronically anticoagulated with warfarin. 4. Peripheral vascular disease. He most recently underwent intervention on the right lower extremity by Dr. Florence in April 2019. He is status post transmetatarsal amputation of right lower extremity in December 2017. 5. Hypertension. 6. Dyslipidemia. 7. Gastroesophageal reflux disease (GERD). PAST SURGICAL HISTORY: 1. Appendectomy. 2. Cataract surgery. 3. Transmetatarsal amputation of the right foot. 4. Wrist surgery. FAMILY HISTORY: Positive for cardiac problems in his mother and brother. The patient is not sure about the details. One of his brothers is diabetic and one of his sisters has seizure. SOCIAL HISTORY: The patient lives alone. He continues to drink, typically beer and occasionally hard liquor. On average has probably one drink a day. He used to be a much heavier drinker in distant past. Denies any recent cigarettes but has occasional cigar. REVIEW OF SYSTEMS: He denies any recent fever, chills, nausea, vomiting, diarrhea. No peripheral edema. No syncopal events. Nothing unusual lately. PHYSICAL EXAMINATION: Blood pressure this morning was 145/68, heart rate was around 100. Atrial fibrillation. He is afebrile. Saturation 96% on room air. The patient was alert, oriented, and appropriate. Jugular venous pulse (JUGULAR VENOUS PULSE) was not high. I did not appreciate any carotid bruit. Lungs are clear. Good air movement. Heart: Irregularly irregular rhythm. No appreciated gallop or murmur. Abdomen soft. No apparent epigastric tenderness. No hepatosplenomegaly. Extremities revealed transmetatarsal amputation on the right. Minimal amount of edema. Also minimal amount of edema on the left lower extremity. Peripheral pulses are barely palpable. 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 LABORATORY DATA: As of this morning sodium 142, potassium 3.4, BUN 22, creatinine 1.3, glucose 114. Troponin 0.02. Albumin 3.3. INR 2.0. CBC: WBC count 12, hemoglobin 13.7, hematocrit 41.5, and platelet count 140,000. ECG reveals atrial fibrillation but otherwise is relatively normal without appreciable repolarization abnormalities and with no evidence of prior infarction. OUTPATIENT MEDICATIONS: - allopurinol 300 mg a day - aspirin 81 a day - Lipitor 20 mg a day - digoxin 0.125 a day - Colace as needed - iron sulfate 324 twice a week - Mobic 7.5 mg as needed - multivitamin - Prilosec 20 mg a day - potassium chloride 20 mEq twice a day - Flomax 0.4 mg a day - warfarin as directed by primary care physician (PCP) - torsemide 50 mg in the morning and 25 at night - Toprol XL 100 mg twice a day - prednisone 5 mg daily ALLERGIES: He reports intolerance to OXYCODONE that causes altered mental status. His chest x-ray reveals cardiomegaly without any obvious evidence for congestive heart failure or infiltrate. ASSESSMENT AND PLAN: Mr. Gardiner is an 83-year-old man who has history of coronary artery disease (CAD) with a remote history of right coronary artery (RCA) intervention with five bare metal stents and severe cardiomyopathy with left ventricular ejection fraction (LVEF) around 35%. He has chronic atrial fibrillation that is rate controlled on combination of total 200 mg of metoprolol daily plus digoxin 0.125 mg daily. At this point, I believe he should proceed with left hip open reduction, internal fixation (ORIF). He did have very atypical chest discomfort last night, which I have very low suspicion for ischemic etiology. His cardiac enzymes are negative. I am going to obtain another set tomorrow, but I expect that it will remain normal. I would continue aspirin in the perioperative period. Coumadin is being held, but I would wait until INR drops below 1.5 before we proceed with surgery. Remaining medications should be all continued. I am hopeful that once he gets his left hip pinned that he will be able go back to walking. I explained to the patient and the son who is present during the visit that due to his multiple comorbidities, he certainly has increased risk of cardiovascular complications, but it is still less risky to proceed with surgery rather than not operate at all.
--- NOTE | 2019-10-09 21:28 | ECGEPIP ---
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
[2019-10-09] MEDS: ATORVASTATIN 20 MG TAB PO SCH (21:34)
[2019-10-09] MEDS: DOCUSATE SODIUM 100 MG CAP PO SCH (21:35)
[2019-10-09] MEDS: TORSEMIDE 10 MG TABLET PO SCH (21:35)
[2019-10-10] VITALS (19 sets, daily range): BP systolic 120–174; BP diastolic 62–79; O2SAT 90–98
[2019-10-10 02:09] LABS: APPEARANCE, URINE CLEAR (CLEAR); BACTERIA, URINE AUTO NEGATIVE (NEGATIVE); BILIRUBIN, URINE AUTO NEGATIVE (NEGATIVE); BLOOD, URINE BLOOD 1+ (NEGATIVE); COLOR, URINE YELLOW (YELLOW); GLUCOSE, URINE (UA) AUTO NEGATIVE (NEGATIVE); KETONE, URINE AUTO NEGATIVE (NEGATIVE); LEUKOCYTE ESTERASE, URINE AUTO NEGATIVE (NEGATIVE); NITRITE, URINE AUTO NEGATIVE (NEGATIVE); PROTEIN, URINE AUTO NEGATIVE (NEGATIVE); RBC, URINE AUTO 4 /HPF (0-3); SPECIFIC GRAVITY URINE AUTO 1.009 (1.002-1.035); SQUAMOUS EPITHELIAL CELL UR AU 0 /HPF (0-6); UROBILINOGEN, URINE AUTO 0.2 mg/dL (0.0-2.0); WBC, URINE AUTO 1 /HPF (0-3)
[2019-10-10] MEDS ORDERED: HALOPERIDOL 5 MG/ML VIAL (J1630) IV ONE (05:00)
[2019-10-10 06:13] LABS: HEMATOCRIT 43.3 % (42.0-52.0); HEMOGLOBIN 14.2 g/dl (13.5-17.5); MEAN CORPUSCULAR HEMOGLOBIN 31.7 pg (27.0-33.0); MEAN CORPUSCULAR HGB CONC 32.8 g/dl (32.0-36.5); MEAN CORPUSCULAR VOLUME 96.7 fl (80.0-96.0); PLATELET COUNT, AUTOMATED 140 10^3/uL (150-450); RED BLOOD COUNT 4.48 10^6/uL (4.30-6.10); WHITE BLOOD COUNT 12.3 10^3/uL (4.0-10.0)
[2019-10-10 06:25] LABS: INR 1.8; PROTHROMBIN TIME 20.6 SECONDS (11.8-14.0)
[2019-10-10] MEDS: TORSEMIDE (DEMADEX) 50 MG PER 1/2 TAB PO SCH (09:00)
--- NOTE | 2019-10-10 09:02 | CR ---
DATE OF CONSULTATION: 10/08/2019 INDICATION: Left hip fracture. HISTORY OF PRESENT ILLNESS: Jan is a 83-year-old gentleman with multiple medical problems and a walker ambulator who sustained a mechanical fall on 10/08/2019. He had immediate pain and inability to bear weight. X-rays obtained in [facility] emergency room (ER) revealed a displaced proximal femur fracture. He was admitted to the hospitalist service and cardiology consult requested for medical clearance. Orthopedics was consulted for definitive management. The patient is reporting moderate left hip pain in particular muscle spasms. PAST MEDICAL HISTORY: Past medical history is quite extensive. Please see the hospitalist history and physical (H and P) for the full past medical history, past surgical history, medications, allergies, social history and review of systems. I personally reviewed all that. The highlights of the past medical history are peripheral vascular disease status post angioplasty and bypass grafting of the right lower extremity. No vascular surgery on the left leg. He had a recent ankle-brachial Index (VLAD) that was normal on the left leg. He has coronary artery disease. He has atrial fibrillation on Coumadin. He has diabetes. He has some type of neuropathy leading to decreased sensation and decreased toe movement in his left foot at baseline. The patient is not the best historian. He is accompanied by his son who helped with the history. PHYSICAL EXAMINATION: Physical exam reveals an elderly gentleman in no distress. He is alert and times three. Neurologic: Appropriate mood and affect. Cardiovascular: He has a 1+ dorsalis pedis pulse. Skin: The left hip is intact without open lesions. There is some venous stasis changes the left lower extremity. The patient and son denies any history of skin grafts, although there is the appearance that he may have had a skin graft to the left jones. The patient does not fire extensor digitorum longus (EHL), flexor digitorum longus (FHL). He can dorsi and plantar flex the ankle. Sensation light touch in the foot is grossly absent that is at baseline apparently. No tenderness noted at the knee. Log roll deferred due to known hip fracture. The left leg was also externally rotated in place. X-rays of the left hip were obtained at the ER revealing a displaced intertrochanteric femur fracture. I also requested a long-leg femur films, which were pending at the time of evaluating the patient. ASSESSMENT/PLAN: Jan Gardiner is an 83-year-old gentleman with a displaced left intertrochanteric femur fracture. I recommend surgical management which will be of the open reduction, internal fixation (ORIF) of left femur, typically with a cephalomedullary nail. I explained to the son and the patient, that the patient will be optimized for at least 2 days. We have to let the INR drift. So, whoever is on-call when the patient is medically cleared will perform the surgery and therefore, can do the consent. We did briefly discuss some of the surgical details and recovery. Plan will be to move forward with surgery once medically cleared.
[2019-10-10] MEDS: TAMSULOSIN 0.4 MG CAP PO SCH (09:33)
[2019-10-10] MEDS: METOPROLOL SUCC (TopROL XL) 100MG *XL* TAB PO SCH (09:33)
[2019-10-10] MEDS ORDERED: traMADol 50 MG TAB PO ONE (10:00)
[2019-10-10 10:44] LABS: CALCIUM LEVEL 8.5 MG/DL (8.8-10.2); CREATININE FOR GFR 1.33 MG/DL (0.70-1.30); GLOMERULAR FILTRATION RATE 54.4 (>35); POTASSIUM SERUM 3.3 MEQ/L (3.5-5.1); TROPONIN I 0.02 NG/ML (< 0.10)
[2019-10-10 11:49] LABS: CORTISOL AM 20.2 UG/DL (4.3-22.4)
[2019-10-10] MEDS ORDERED: KCL 10MEQ/100ML SWI (KRUN) 10 MEQ in IV 1 EA IV ONE ×5 (12:15→13:15)
[2019-10-10] MEDS: predniSONE 5 MG TAB PO SCH (12:18)
[2019-10-10] MEDS ORDERED: POTASSIUM CHLORIDE 10 MEQ SR TABLET PO ONE (13:00)
[2019-10-10] MEDS ORDERED: traMADol 50 MG TAB PO PRN (13:45)
--- NOTE | 2019-10-10 14:43 | IPNPDOC ---
Subjective Date Seen The patient was seen on 10/10/19. Subjective Chief Complaint/HPI Mr Gardiner is an 83 year old male who was seen in ED following a fall in the home and fracture of the L hip. Mr. Gardiner was seen this morning with several family members present. Mr. Gardiner is very sleepy, but rouses when asked direct questions. Pt. denied any new or worsening symptoms. Discussed with family - patient is tentatively scheduled for surgery today; however INR remains elevated. It will be re-checked at 1700 and a definitive decision made at that time. General: Reports: ROS Unobtainable Objective Physical Examination General Exam: Positive: No Acute Distress Eye Exam: Positive: Conjunctiva & lids normal ENT Exam: Positive: Atraumatic Chest Exam: Positive: Clear to auscultation, Normal air movement Heart Exam: Positive: Irregular Rhythm Telemetry: Positive: Atrial fibrillation (chronic ) Abdomen Exam: Positive: Normal bowel sounds, Soft; Negative: Tenderness Extremity Exam: Positive: Edema (slight edema b/l LEs), Tenderness (no TTP over fractured hip. ankle boot present ); Negative: Clubbing, Cyanosis Skin Exam: Positive: Nl turgor and temperature Psych Exam: Positive: Mood NL Assessment /Plan Assessment Mr Gardiner is an 83 year old male who was seen in ED following a fall in the home and fracture of the L hip. 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 Mejias) he has an EF of 35%. 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 Consultation notes per Drs. Tobias and Randell reviewed. Left hip fracture in varus 10/08/2019. Per Dr. Tobias - ORIF recommended once patient medically cleared Cardiology and ortho agree to let INR taper down; 1.8 this am Re-check INR 1700 Continue pain control Cardiology evaluated cardiology vascular risk in setting of severe cardiomyopathy 35%, Afib, CAD with 5 BMS. Repeated troponins remain <.02. No active chest pain as of this evening. Patient also noted to have loud snoring and apneic episodes during sleep suggestive of KAIA. No previous treatment for KAIA, which would present a higher respiratory risks periop. Normally would recommend testing and treatment as outpatient prior to less urgent elective surgery. Had discussed risks with families and patient and had decided to proceed with surgery. Recommended follow up for sleep study and treatment for possible KAIA post procedure, although patient's cooperation and compliance appear to be in question. Patient on chronic steroid prednisone 5mg/day. AM Cortisol 20, very unlikely to have HPA access suppression and can continue with normal prednisone dosing the day of procedure. Coronary artery disease s/p percutaneous coronary intervention (PCI) to right coronary artery with bare metal stents times five in 2010. Discussion with Dr. Mejias: - INR 1.8; Allow INR to taper w/out meds. - Continue ASA - Troponin for CP 12..19. <0.02 - Repeated enzymes 12..19. 0.02 Ischemic cardiomyopathy with left ventricular systolic function 35% inferior wall hypokinesis. -Seen by Dr. Mejias -Mr. Gardiner denied any cough, dyspnea, CP, palpitations Does not appear volume overloaded at this time Continue home medications moderate mitral insufficiency management per cardiology moderate pulmonary hypertension. management per cardiology Chronic atrial fibrillation. -on chronic Warfarin; INR 1.8 -daily INR check prior to surgery -Hold Warfarin Hypertension. Continue home medications Dyslipidemia. Continue home medications History of chronic YESSICA -monitor for symptoms of anemia -CBC stable in ED - Repeat CBC qam; CBC stable 10/10/2019 Polycythemia - CBC qam - CBC stable 10/10/2019 Peripheral vascular disease. Right popliteal artery and superficial femoral artery stent placement on 12/06/[address] Florence -s/p transmetatarsal amputation of the right toes due to osteomyelitis in 11/[address] Noriega Gastroesophageal reflux disease (GERD). 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 Noriega - Daily bandage changes and wound care consult per Dr. Johnson Peripheral vascular disease -on chronic warfarin and statins -current cigar smoker which complicates care Left Upper Extremity Scaphoid Fracture Healed History of heavy Alcohol abuse Decreased consumption in recent years DVT prophylaxis: - see cardiology recommendation(s) above Plan/VTE VTE Prophylaxis Ordered?: No (INR 2.0; Surgery planned ) VS, I&O, 24H, Fishbone Vital Signs/I&O Vital Signs Date Time Temp Pulse Resp B/P (MAP) Pulse Ox O2 Delivery O2 Flow Rate FiO2 10/10/19 13:00 96 Nasal Cannula 1.0 10/10/19 12:20 98.7 98 25 139/79 (99) I&O- Last 24 Hours up to 6 AM 10/10/19 06:00 Intake Total 1040 ml Output Total 1050 ml Balance -10 ml Laboratory Data 24H LABS Laboratory Tests 2 10/10/19 01:43: Urine Color YELLOW, Urine Appearance CLEAR, Urine pH 7.0, Urine Specific [place] 1.009, Urine Protein NEGATIVE, Urine Glucose (Auto)(UA) NEGATIVE, Urine Ketones (Auto) NEGATIVE, Urine Blood 1+H, Urine Nitrite NEGATIVE, Urine Bilirubin NEGATIVE, Urine Urobilinogen 0.2, Urine Leukocyte Esterase (Auto) NEGATIVE, Urine WBC (Auto) 1, Urine RBC (Auto) 4H, Urine Hyaline Casts (Auto) 0, Urine Bacteria (Auto) NEGATIVE, Urine Squamous Epithelial Cells 0, Urine Sperm (Auto) 10/10/19 05:55: Nucleated Red Blood Cells % (auto) 0.0, Erythrocyte Sedimentation Rate 30H, Prothrombin Time 20.6H, Prothromb Time International Ratio 1.80, Anion Gap 8, Glomerular Filtration Rate 54.4, Calcium Level 8.5L, Troponin I 0.02, C-Reactive Protein, Quantitative 15.00H, Cortisol AM Sample 20.2 CBC/BMP Laboratory Tests 10/10/19 05:55 ATTENDING NOTE I have personally performed a face to face diagnostic evaluation on this patient. I have reviewed and agree with the care plan. PADMINI MARCUM PA-C Oct 10, 2019 14:43 JULIO JOHNSON MD Oct 10, 2019 16:50
[2019-10-10 17:10] LABS: INR 1.51; PROTHROMBIN TIME 17.9 SECONDS (11.8-14.0)
[2019-10-10] MEDS: NS 1,000 ML IV SCH (18:19)
[2019-10-10] MEDS: ACETAMINOPHEN TAB 650MG DOSE (2X325MG) PO PRN (18:28)
[2019-10-10 20:55] LABS: INR 1.51; PROTHROMBIN TIME 17.9 SECONDS (11.8-14.0)
[2019-10-10 21:58] LABS: INR 1.49; PROTHROMBIN TIME 17.7 SECONDS (11.8-14.0)
[2019-10-10] MEDS ORDERED: fentaNYL 100 MCG/2 ML INJECTION (J3010) As Ordered ONE (22:34)
[2019-10-10] MEDS ORDERED: LIDOCAINE 2% INJ 100 MG/5 ML SDV (FOR ANES.) As Ordered ONE (22:34)
[2019-10-10] MEDS ORDERED: PROPOFOL 200 MG/20 ML VIAL As Ordered ONE (22:34)
[2019-10-10] MEDS ORDERED: MIDAZOLAM INJ 2 MG/2 ML VIAL (J2250) As Ordered ONE (22:34)
[2019-10-10] MEDS ORDERED: KETAMINE HCL 200 MG/20 ML VIAL As Ordered ONE (22:34)
[2019-10-10] MEDS ORDERED: ceFAZolin 2 GM/D5W 50 ML IV BAG (J0690 PER 500MG) As Ordered ONE (23:33)
[2019-10-11] VITALS (16 sets, daily range): BP systolic 102–139; BP diastolic 49–80; O2SAT 91–94
[2019-10-11] MEDS ORDERED: MEPERIDINE INJ 25 MG/ML VIAL (J2175) IV PRN (00:30)
[2019-10-11] MEDS ORDERED: PERCOCET 5MG/325MG TAB PO PRN (00:30)
[2019-10-11] MEDS ORDERED: LR 1,000 ML IV SCH (00:30)
[2019-10-11] MEDS ORDERED: METOCLOPRAMIDE INJ 10MG/2ML VIAL (J2765) IV PRN (00:30)
[2019-10-11] MEDS ORDERED: fentaNYL 100 MCG/2 ML INJECTION (J3010) IV PRN (00:30)
[2019-10-11] MEDS ORDERED: ONDANSETRON 4MG/2ML VIAL (J2405) IV PRN (00:30)
[2019-10-11] MEDS: METOPROLOL SUCC (TopROL XL) 100MG *XL* TAB PO SCH ×3 (02:42→21:43)
[2019-10-11] MEDS: ATORVASTATIN 20 MG TAB PO SCH ×2 (02:42→21:43)
[2019-10-11] MEDS: TORSEMIDE 10 MG TABLET PO SCH ×2 (02:42→21:43)
[2019-10-11] MEDS: predniSONE 5 MG TAB PO SCH ×2 (02:43→21:43)
[2019-10-11] MEDS: DOCUSATE SODIUM 100 MG CAP PO SCH ×2 (02:43→21:43)
[2019-10-11] MEDS: ACETAMINOPHEN TAB 650MG DOSE (2X325MG) PO PRN (05:47)
[2019-10-11] MEDS: NS 1,000 ML IV SCH (05:48)
[2019-10-11] MEDS ORDERED: DIGOXIN 0.25 MG TAB PO ONE (06:15)
[2019-10-11] MEDS ORDERED: traMADol 50 MG TAB PO PRN (06:15)
[2019-10-11 07:59] LABS: HEMATOCRIT 39.2 % (42.0-52.0); HEMOGLOBIN 12.8 g/dl (13.5-17.5); MEAN CORPUSCULAR HGB CONC 32.7 g/dl (32.0-36.5); PLATELET COUNT, AUTOMATED 127 10^3/uL (150-450); WHITE BLOOD COUNT 15.3 10^3/uL (4.0-10.0)
[2019-10-11 08:09] LABS: INR 1.44; PROTHROMBIN TIME 17.3 SECONDS (11.8-14.0)
[2019-10-11] MEDS: TORSEMIDE (DEMADEX) 50 MG PER 1/2 TAB PO SCH (08:14)
--- NOTE | 2019-10-11 08:17 | REP ---
Left femur: Two views: History: Left hip fracture. 1 minute 55 seconds of fluoroscopy time is reported. Findings: A sequence of two last image hold fluoroscopic spot radiographs document femoral pinning procedure. No laterality markers are visible. Electronically Signed by Bert Shafer MD 10/11/2019 01:00 P
[2019-10-11] MEDS: TAMSULOSIN 0.4 MG CAP PO SCH (08:22)
[2019-10-11] MEDS: ceFAZolin SOD 1 GM in D5W MINI-BAG PLUS 50 ML IV SCH ×2 (08:22→17:57)
[2019-10-11 08:23] LABS: BLOOD UREA NITROGEN 18 MG/DL (7-18); CALCIUM LEVEL 8.4 MG/DL (8.8-10.2); CARBON DIOXIDE LEVEL 29 MEQ/L (21-32); CHLORIDE LEVEL 108 MEQ/L (98-107); CREATININE FOR GFR 1.21 MG/DL (0.70-1.30); GLOMERULAR FILTRATION RATE > 60.0 (>35); GLUCOSE, FASTING 142 MG/DL (70-100); POTASSIUM SERUM 3.4 MEQ/L (3.5-5.1); SODIUM LEVEL 142 MEQ/L (136-145)
[2019-10-11] MEDS: DIGOXIN 0.125 MG TAB PO SCH (08:23)
[2019-10-11] MEDS: MIRALAX *UNIT DOSE* 17GM PACKET PO SCH (08:26)
--- NOTE | 2019-10-11 10:01 | IPN ---
DATE: 10/11/2019 Mr. Gardiner had surgery last night. Apparently there were episodes of confusion and some agitation but overall he tolerated it reasonably well. This morning unfortunately he is quite tachycardiac. I think it is partially due to the agitation and also the fact that his medications were not administered last night. He feels well though. Denies any chest pain or sensation of shortness of breath. Blood pressure 104/64, heart rate when I saw him was about 110 irregular. He is afebrile. Saturation 97% on room air. Weight was documented 91.5. He was alert and oriented even though he had some paranoid ideation. His jugular venous pressure did not look high. Lungs: Reasonably clear with minimal crackles over bases. Heart: Irregular tachycardia. Abdomen: Soft. Extremities: Free of edema. LABORATORY: Basic metabolic panel: Sodium 132, potassium 3.4, BUN 18, creatinine 0.2 and glucose 124. CBC: Hemoglobin 12.9, hematocrit 39, platelet count 127,000, INR is 1.4 ASSESSMENT/PLAN: Mrs. Gardiner is an 84-year-old man who underwent open reduction, internal fixation (ORIF) of his left hip yesterday. He does have established peripheral vascular disease, coronary artery disease, and in chronic atrial fibrillation. The surgery seemed to have gone well. Unfortunately, he has some alteration of mental status which probably is related to pain and narcotic medications. I suspect that the tachycardia has to do with the factors above, but hopefully after he gets his morning medications that he previously refused but eventually agreed to take his heart rate will come down. Otherwise, I do not have any specific recommendations for management. I asked his nurse to hold his morning diuretic today.
--- NOTE | 2019-10-11 11:10 | RO ---
DATE OF PROCEDURE: 10/10/2019 PREPROCEDURE DIAGNOSIS: Left intertrochanteric femur fracture. POSTPROCEDURE DIAGNOSIS: Left intertrochanteric femur fracture. PROCEDURE: Left femur intramedullary tana. INDICATION: 83-year-old male who suffered a left intertrochanteric femur fracture. We discussed the operative versus nonoperative treatments for this with the patient and his family. Due to increased ability in mobilization and the patient's ability to mobilized as soon as possible, we decided to pursue operative intervention despite his multiple medical comorbidities. We discussed the risks and benefits, including, but not limited to infection, damage to surrounding structures, malunion, nonunion. The patient and family wished to proceed. ESTIMATED BLOOD LOSS: 150 ANESTHESIA: Spinal. COMPLICATIONS: None. SURGEON: Rl Garcia MD ASSISTANTS: None. DESCRIPTION OF PROCEDURE: The patient was brought to the operating room. In supine position, underwent spinal anesthesia and was then placed on the fracture table. We then confirmed fracture alignment with the fracture on AP and lateral x-rays with C-arm. At this point, we prepped and draped the left hip in the usual fashion. We then had a time-out identifying the site and side of surgery. Once all in agreement, I made a longitudinal incision in line with the femur and proximal to the greater trochanter and used C-Arm to help establish our starting points for the femoral nail. Once this was confirmed in AP and lateral, we drilled the drill into place. We then used the entry reamer to open the femur canal and used the guidewire to place all the way down to the femur to the knee. This was confirmed on AP films. We then sequentially reamed up to a 12.5 using a size 11 nail, length 420. We then inserted the nail and removed the guidewire. We then placed the lag screw with a helical blade in center and confirmed on AP and lateral. Once we were happy with this, we locked the plates. We then turned out attention to the distal femur where we did perfect [place] technique with a static locking screw through the nail. This was confirmed on AP and lateral, at which point we checked the entire femur and we were happy with the intertrochanteric reduction and fixation at this point, confirmed on AP and lateral both proximally and distally. At which point, we irrigated the wound sterilely and closed with 2-0 Vicryl and francy, dressed with gauze and Tegaderm. We moved the patient from the fracture table and then took the patient to the postanesthesia care unit (PACU) in stable condition. POSTOPERATIVE PLAN: The patient will be weightbearing as tolerated. Resume his anticoagulation. We will see the patient in the office in 2 weeks for a repeat clinical check at that time.
--- NOTE | 2019-10-11 13:17 | IPNPDOC ---
Subjective Date Seen The patient was seen on 10/11/19. Subjective Chief Complaint/HPI Mr Gardiner is an 83 year old male who was seen in ED following a fall in the home and fracture of the L hip. Patient had ORIF last night 10/10/19. Mr Gardiner denied any pain or discomfort, headache, fever, chills, cough, shortness of breath, stomach pain or hip pain. He stated he broke his hip. 'but they seemed to have stitched me up overnight!" He was in good spirits, though fell asleep during the physical exam. Per Mr. Gardiner's son: his dad was able to help staff roll him over today; he has 'grunted a few times' while being moved, but these were brief and pain appears to be well-controlled. Pt was slightly agitated this morning; possibly due to pain and narcotic medications per Dr. Mejias. Pt eventually accepted his morning medications and has seemed calmer since then per son. Constitutional: Denies: Chills, Fever ENT: Denies: Head Aches Pulmonary: Denies: Dyspnea, Cough Cardiovascular: Denies: Chest Pain Gastrointestinal: Denies: Abdominal Pain Musculoskeletal: Denies: Joint Pain Objective Physical Examination General Exam: Positive: No Acute Distress Eye Exam: Positive: Conjunctiva & lids normal ENT Exam: Positive: Atraumatic Chest Exam: Positive: Normal air movement, Other (mild crackles b/l lung bases ) Heart Exam: Positive: Irregular Rhythm Telemetry: Positive: Atrial fibrillation (chronic ) Abdomen Exam: Positive: Normal bowel sounds, Soft; Negative: Tenderness Extremity Exam: Positive: Edema (slight edema b/l LEs), Tenderness (no TTP over fractured hip. ); Negative: Clubbing, Cyanosis Skin Exam: Positive: Nl turgor and temperature (surgical wounds are bandaged; no signs of inflammation over affected joint ) Psych Exam: Positive: Mood NL, Oriented x 3 Assessment /Plan Assessment Mr Gardiner is an 83 year old male who was seen in ED following a fall in the home and fracture of the L hip. 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 Mejias) he has an EF of 35%. 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 L. hip fracture - s/p ORIF completed 10/10/19. - PT consultation. - Pain control. VTE ppx already on warfarin for Afib, continue that. Leukocytosis: WBC 15.3 - likely secondary to stress from surgery - patient is asymptomatic - monitor CBC qam for resolution Coronary artery disease s/p percutaneous coronary intervention (PCI) to right coronary artery with bare metal stents times five in 2010. Discussion with Dr. Mejias: - INR 1.44 today - Continue ASA - Troponin for CP 12.11.19. <0.02 - Repeated enzymes 12.12.19. 0.02 Ischemic cardiomyopathy with left ventricular systolic function 35% inferior wall hypokinesis. -Seen by Dr. Mejias -Mr. Gardiner denied any cough, dyspnea, CP, palpitations Does not appear volume overloaded at this time Continue home medications moderate mitral insufficiency management per cardiology moderate pulmonary hypertension. management per cardiology Chronic atrial fibrillation. -on chronic Warfarin; INR 1.44 -Resume warfarin now post op. Hypertension. Continue home medications Dyslipidemia. Continue home medications History of chronic YESSICA -monitor for symptoms of anemia - Repeat CBC qam Polycythemia - CBC qam - CBC Peripheral vascular disease. Right popliteal artery and superficial femoral artery stent placement on 12/06/[address] Florence -s/p transmetatarsal amputation of the right toes due to osteomyelitis in 11/[address] Noriega Gastroesophageal reflux disease (GERD). 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 Noriega - Daily bandage changes and wound care consult per Dr. Harkins Peripheral vascular disease -on chronic warfarin and statins -current cigar smoker which complicates care Left Upper Extremity Scaphoid Fracture Healed History of heavy Alcohol abuse Decreased consumption in recent years DVT prophylaxis: - see cardiology recommendation(s) above Plan/VTE VTE Prophylaxis Ordered?: Yes (will resume Xarelto 10mg) VS, I&O, 24H, Fishbone Vital Signs/I&O Vital Signs Date Time Temp Pulse Resp B/P (MAP) Pulse Ox O2 Delivery O2 Flow Rate FiO2 10/11/19 08:23 140 104/64 10/11/19 08:00 99.1 20 97 Nasal Cannula 2.0 I&O- Last 24 Hours up to 6 AM 10/11/19 06:00 Intake Total 1907 ml Output Total 1800 ml Balance 107 ml Laboratory Data 24H LABS Laboratory Tests 2 10/10/19 16:48: Prothrombin Time 17.9H, Prothromb Time International Ratio 1.51 10/10/19 17:22: Bedside Glucose (Misc Panel) 123H 10/10/19 20:22: Prothrombin Time 17.9H, Prothromb Time International Ratio 1.51 10/10/19 21:38: Prothrombin Time 17.7H, Prothromb Time International Ratio 1.49 10/11/19 07:39: Nucleated Red Blood Cells % (auto) 0.0, Prothrombin Time 17.3H, Prothromb Time International Ratio 1.44, Anion Gap 5L, Glomerular Filtration Rate > 60.0, Calcium Level 8.4L CBC/BMP Laboratory Tests 10/11/19 07:39 ATTENDING NOTE I have personally performed a face to face diagnostic evaluation on this patient. I have reviewed and agree with the care plan. PADMINI MARCUM PA-C Oct 11, 2019 13:17 JULIO HARKINS MD Oct 11, 2019 18:42
[2019-10-11] MEDS ORDERED: WARFARIN SOD 3 MG TAB PO ONE (17:00)
[2019-10-11] MEDS: WARFARIN SOD 3 MG TAB PO SCH (17:56)
[2019-10-11] MEDS ORDERED: RIVAROXABAN 10 MG TAB (XARELTO) PO SCH (18:00)
[2019-10-12] VITALS (16 sets, daily range): BP systolic 107–134; BP diastolic 54–88; O2SAT 91–99
[2019-10-12] MEDS: ceFAZolin SOD 1 GM in D5W MINI-BAG PLUS 50 ML IV SCH (00:29)
[2019-10-12 06:13] LABS: HEMATOCRIT 36.3 % (42.0-52.0); HEMOGLOBIN 11.6 g/dl (13.5-17.5); MEAN CORPUSCULAR HEMOGLOBIN 31.1 pg (27.0-33.0); MEAN CORPUSCULAR VOLUME 97.3 fl (80.0-96.0); PLATELET COUNT, AUTOMATED 146 10^3/uL (150-450); RED BLOOD COUNT 3.73 10^6/uL (4.30-6.10); WHITE BLOOD COUNT 12.2 10^3/uL (4.0-10.0)
[2019-10-12 06:24] LABS: INR 1.51
[2019-10-12 06:30] LABS: BLOOD UREA NITROGEN 20 MG/DL (7-18); CALCIUM LEVEL 8.5 MG/DL (8.8-10.2); CARBON DIOXIDE LEVEL 29 MEQ/L (21-32); CHLORIDE LEVEL 106 MEQ/L (98-107); CREATININE FOR GFR 1.21 MG/DL (0.70-1.30); GLOMERULAR FILTRATION RATE > 60.0 (>35); GLUCOSE, FASTING 119 MG/DL (70-100); POTASSIUM SERUM 3.1 MEQ/L (3.5-5.1); SODIUM LEVEL 144 MEQ/L (136-145)
[2019-10-12] MEDS ORDERED: MAG SULF 1GM/100ML (MAG RUN) 1 GM in IV 1 EA IV ONE (06:45)
[2019-10-12] MEDS ORDERED: POTASSIUM CHLORIDE 10 MEQ SR TABLET PO ONE (06:45)
[2019-10-12 07:02] LABS: MAGNESIUM LEVEL 2.3 MG/DL (1.8-2.4)
[2019-10-12] MEDS: TAMSULOSIN 0.4 MG CAP PO SCH (08:02)
[2019-10-12] MEDS: TORSEMIDE (DEMADEX) 50 MG PER 1/2 TAB PO SCH (08:02)
[2019-10-12] MEDS: METOPROLOL SUCC (TopROL XL) 100MG *XL* TAB PO SCH ×2 (08:03→21:13)
[2019-10-12] MEDS: MIRALAX *UNIT DOSE* 17GM PACKET PO SCH (08:03)
--- NOTE | 2019-10-12 14:00 | IPNPDOC ---
Date Seen The patient was seen on 10/12/19. Progress Note SUBJECTIVE: Patient appear weak today but responsive and answer questions appropriately. Denies having any pain at all. Reportedly was more confused yesterday but had improved significantly today per son at bedside. HR labile 100-150s Afib w/ RVR. OBJECTIVE PHYSICAL EXAMINATION: VITAL SIGNS: Please see below. General: Alert, responsive but lethargic Eyes: Normal sclera, EOMI HENT: Atraumatic Cardiovascular: tachycardic, irregular irregular Pulmonary: Clear to auscultation b/l, no wheezing GI: Soft, nontender, nondistended Skin: Warm and dry Neuro: CN grossly intact. No focal deficits. LABORATORY DATA, IMAGING STUDIES, MICROBIOLOGY: Please see below. DVT prophylaxis ordered?: HUGH and warfarin ASSESSMENT AND PLAN: 1. L. hip fracture - s/p ORIF 10/10 with ortho. - c/w Pain control, patient does not appear to have much discomfort at this time. - c/w PT/OT. May need Rehab, patient has been very weak. - On warfarin for VTE ppx. 2. Afib w/ RVR - c/w home dose Digoxin and Metoprolol. . - Cardiology following. Recommended an additional dose of BB and possibly IVF, diuretic had been held tonight, possibly from hypovolemia. - c/w Telemetry. - Warfarin for AC. Monitor INR. 3. Ischemic cardiomyopathy - EF 35% with. - s/p PCI with BMS x 5. - c/w home medications. - No chest pain. 4. HLD - c/w statin. 5. PAD - c/w home med. R. 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 - Wound care with Dr. Calix consulted. - Nurse or son to change dressing daily. 6. hx alcohol use. DISPOSITION: Likely Rehab. VS, I&O, 24H, Fishbone Vital Signs/I&O Vital Signs Date Time Temp Pulse Resp B/P (MAP) Pulse Ox O2 Delivery O2 Flow Rate FiO2 10/12/19 12:00 99.4 131 18 126/57 (80) 95 Room Air 10/11/19 16:00 2.0 I&O- Last 24 Hours up to 6 AM 10/12/19 06:00 Intake Total 880 ml Output Total 0 ml Balance 880 ml Laboratory Data 24H LABS Laboratory Tests 2 10/12/19 05:39: Nucleated Red Blood Cells % (auto) 0.0, Prothrombin Time 18.0H, Prothromb Time International Ratio 1.51, Anion Gap 9, Glomerular Filtration Rate > 60.0, Calcium Level 8.5L, Magnesium Level 2.3 CBC/BMP Laboratory Tests 10/12/19 05:39 JULIO JOHNSON MD Oct 12, 2019 14:00
[2019-10-12] MEDS ORDERED: METOPROLOL SUCC (TopROL XL) 100MG *XL* TAB PO ONE (15:00)
[2019-10-12] MEDS: ACETAMINOPHEN TAB 650MG DOSE (2X325MG) PO PRN (15:47)
[2019-10-12] MEDS ORDERED: NS 500 ML IV ONE (16:00)
[2019-10-12 17:10] LABS: ABG BASE EXCESS 5.9 (-2.0-2.0); ABG HCO3 26.7 MEQ/L (22.0-26.0); ABG O2 SATURATION 84.9 % (95.0-99.0); ABG PARTIAL PRESSURE CO2 27.6 mmHg (35.0-45.0); ABG STANDARD HCO3 29.5 MEQ/L (22.0-26.0); ABG TOTAL CO2 27.6 MEQ/L (23.0-31.0)
[2019-10-12 17:13] LABS: ABG pH (ARTERIAL) 7.604 UNITS (7.350-7.450)
[2019-10-12 17:14] LABS: ABG PARTIAL PRESSURE O2 44.7 mmHg (75.0-100.0)
[2019-10-12] MEDS: WARFARIN SOD 3 MG TAB PO SCH (17:58)
[2019-10-12] MEDS: predniSONE 5 MG TAB PO SCH (21:12)
[2019-10-12] MEDS: DOCUSATE SODIUM 100 MG CAP PO SCH (21:12)
[2019-10-12] MEDS: ATORVASTATIN 20 MG TAB PO SCH (21:12)
[2019-10-13] VITALS (19 sets, daily range): BP systolic 88–155; BP diastolic 52–80; O2SAT 95–98
[2019-10-13] MEDS: ACETAMINOPHEN TAB 650MG DOSE (2X325MG) PO PRN ×2 (01:52→20:10)
[2019-10-13] MEDS ORDERED: FUROSEMIDE 40 MG/4 ML VIAL (J1940) IV ONE (02:30)
--- NOTE | 2019-10-13 02:36 | REPVR ---
PROCEDURE INFORMATION: Exam: XR Chest, 2 Views Exam date and time: 10/13/2019 2:16 AM Age: 84 years old Clinical history: Condition or disease; Other: Diminished bilateral base; Additional info: Dimmished bilateral base TECHNIQUE: Imaging protocol: XR of the chest Views: 2 views. COMPARISON: CR Chest, 1 view 10/08/2019 11:53 AM FINDINGS: Lungs: The lungs are unchanged. There are no interval infiltrates. Pleural space: Unremarkable. No pleural effusion. No pneumothorax. Heart/Mediastinum: The heart and mediastinum are unchanged. Cardiomegaly persists. Bones/joints: Unremarkable. IMPRESSION: Essentially stable chest since 10/08/2019. No acute interval process is identified. Electronically signed by: Dale Briceno On 10/13/2019 02:35:38 AM
[2019-10-13] MEDS ORDERED: DIGOXIN INJ 0.5 MG/2 ML AMP (J1160) IV ONE (03:45)
[2019-10-13 05:53] LABS: HEMATOCRIT 37.1 % (42.0-52.0); HEMOGLOBIN 11.5 g/dl (13.5-17.5); MEAN CORPUSCULAR HEMOGLOBIN 30.9 pg (27.0-33.0); MEAN CORPUSCULAR VOLUME 99.7 fl (80.0-96.0); PLATELET COUNT, AUTOMATED 152 10^3/uL (150-450); RED BLOOD COUNT 3.72 10^6/uL (4.30-6.10); WHITE BLOOD COUNT 20.9 10^3/uL (4.0-10.0)
[2019-10-13 06:01] LABS: INR 1.6; PROTHROMBIN TIME 18.8 SECONDS (11.8-14.0)
[2019-10-13 06:15] LABS: CALCIUM LEVEL 8.5 MG/DL (8.8-10.2); CREATININE FOR GFR 1.33 MG/DL (0.70-1.30); GLOMERULAR FILTRATION RATE 54.3 (>35); MAGNESIUM LEVEL 2.4 MG/DL (1.8-2.4); POTASSIUM SERUM 3.2 MEQ/L (3.5-5.1)
--- NOTE | 2019-10-13 07:52 | IPN ---
DATE: 10/12/2019 Mr. Gardiner has not been doing terribly well. He has intermittent episodes of agitation. When I talked to him though he seemed oriented even though he would easily fall asleep when not stimulated. Denies any chest pain or shortness of breath. Vital signs: Blood pressure 120s to 130s systolic and diastolic from 50s to 60s. He is afebrile. Saturation 95% on room air. Heart rate in 120s to 130s. His fluid balance yesterday was recorded about a liter positive. Weight this morning is 89 kg. So far no documented urine output today. His jugular venous pressure does not appear grossly elevated. Lungs are reasonably clear. I do not appreciate any wheezing or crackles. Heart: Exam reveals irregular tachycardia without gallop or rub. Abdomen is soft. There is no peripheral edema. LABORATORY Basic metabolic panel: Sodium 144, potassium 3.1, BUN 20, creatinine 1.2, glucose 119. CBC: Hemoglobin 11.6, hematocrit 36, platelet count 46,000 and INR 1.5. ASSESSMENT/PLAN Mr. Gardiner is an 84-year-old man who has multitude of medical problems that include coronary artery disease, chronic atrial fibrillation and peripheral vascular disease who presented with fall and fractured his left hip. He underwent ORIF. In postoperative period he has altered mental status which I think is unlikely related to stressful condition plus narcotics plus hospital environment. I hope that this will clear within a few days. As far as the heart is concerned, I am not totally comfortable with his heart rate being this fast. He is already receiving very high doses of beta-ashish, total 200 mg a day plus digoxin. I suspect that part of the problem has to do with relatively poor oral intake even though yesterday was recorded that he received total over 2 liters of fluids. He is also hypokalemic. I am not going to give him additional AV tyler blocking medications but will hold his diuretics tomorrow morning. I had a long discussion with his son and explained to him that this altered mental status is a frequent complication and it is challenging to prevent. As far as the DVT prophylaxis concerned, he was already restarted back on anticoagulation.
[2019-10-13] MEDS: PIPERACILLIN/TAZOBACTAM SOD 3.375 GM in D5W MINI-BAG PLUS 50 ML IV SCH ×3 (08:57→19:32)
[2019-10-13] MEDS: TORSEMIDE (DEMADEX) 50 MG PER 1/2 TAB PO SCH (09:35)
[2019-10-13] MEDS: DIGOXIN 0.125 MG TAB PO SCH (09:35)
[2019-10-13] MEDS: TAMSULOSIN 0.4 MG CAP PO SCH (09:36)
[2019-10-13] MEDS: VANCOMYCIN HCL 1,000 MG, VIAL MATE ADAPTER 1 EACH in D5W 250 ML IV SCH ×3 (09:36→20:09)
[2019-10-13] MEDS: MIRALAX *UNIT DOSE* 17GM PACKET PO SCH (09:36)
[2019-10-13] MEDS: METOPROLOL SUCC (TopROL XL) 100MG *XL* TAB PO SCH ×2 (09:36→20:10)
[2019-10-13] MEDS: FERROUS GLUCONATE 324 MG TAB PO SCH (10:36)
--- NOTE | 2019-10-13 11:10 | IPN ---
DATE OF VISIT: 10/13/2019 Mr. Gardiner was moved to intensive care unit (ICU) overnight. He continued to be quite tachycardic and he also had apparently clearly altered mental status. This morning, he is alert and oriented. He clearly has paranoid ideation and he is convinced that during the night somebody tried to kill him, but at the same time he seems to have somewhat rational insight at times. He denies any chest pain, palpitations or shortness of breath. Denies much of the pain in his left hip. Yesterday, his oral intake was fairly minimal, but right now he is asking for something to eat which is a good sign. Blood pressure 139/80. Heart rate currently around 115 and 120, atrial fibrillation. He is afebrile. Saturations 98% on room air. His fluid balance yesterday was recorded fairly poorly, only 240 of oral intake was documented and no urine output. Today, the weight has not been recorded yet. He made about 500 mL and already put out about 400 mL of urine. He is alert and oriented. His jugular venous pulse (JVP) does not look high. Lungs are reasonably clear. I do not appreciate wheezing or crackles. Good air movement. Heart exam is irregularly irregular. There is faint murmur in the apex, but not very prominent. No gallop. Abdomen: Soft, nontender. No edema. The left hip, even though I did not remove the dressing, the surrounding tissue looks clean. There is no obvious redness. CBC: WBC count 21,000 with hemoglobin 11, hematocrit 37 and platelet count 152,000. Basic metabolic panel with sodium 147, potassium 3.2, BUN 26, creatinine 1.3, glucose 143, lactic acid was 1.8. ASSESSMENT/PLAN: Mr. Gardiner is an 84-year-old man with chronic atrial fibrillation, ischemic cardiomyopathy with LVEF around 35% and peripheral vascular disease who presented with broken hip and underwent open reduction internal fixation (ORIF). Now in postoperative period, we have had trouble with tachycardia and today very high white blood cell count, even though he is not febrile and does not have any obvious source. I do believe that part of the problem was relative dehydration. He had very poor oral intake and was still receiving diuretics until stopped last night. His heart rate control is better even though still not optimal today and he is being hydrated intravenously. I think it is reasonable to continue the medications without change. The blood cultures were drawn and he was empirically started on antibiotics, even though I am not completely convinced that there indeed an active infection. The fact that he is asking for food is certainly encouraging, but overall he remains quite ill. JADON
--- NOTE | 2019-10-13 14:24 | IPNPDOC ---
Date Seen The patient was seen on 10/13/19. Progress Note SUBJECTIVE: Patient reported was very lethargic overnight, appear to be alert this morning. Mental status waxes and wanes but overall pretty significant weakness. HR still elevated reportedly to 180s or even higher, requiring IV digoxin. HR now in 110s. WBC 12->20. Moved to ICU today. OBJECTIVE PHYSICAL EXAMINATION: VITAL SIGNS: Please see below. General: Alert, responsive and slightly agitated Eyes: Normal sclera, EOMI HENT: Atraumatic Cardiovascular: tachycardic, irregular irregular Pulmonary: Clear to auscultation b/l, no wheezing GI: Soft, nontender, nondistended Skin: Warm and dry Neuro: CN grossly intact. No focal deficits. LABORATORY DATA, IMAGING STUDIES, MICROBIOLOGY: Please see below. DVT prophylaxis ordered?: HUGH and warfarin ASSESSMENT AND PLAN: 1. L. hip fracture - s/p ORIF 10/10 with ortho. - c/w Pain control, patient does not appear to have much discomfort at this time. - c/w PT/OT. May need Rehab, patient has been very weak. - On warfarin for VTE ppx. 2. Afib w/ RVR - c/w home dose Digoxin and Metoprolol. . - Cardiology following. Recommended an additional dose of BB and possibly IVF, diuretic had been held tonight, possibly from hypovolemia. - c/w Telemetry. - Warfarin for AC. Monitor INR. 3. Ischemic cardiomyopathy - EF 35% with. - s/p PCI with BMS x 5. - c/w home medications. - No chest pain. 4. HLD - c/w statin. 5. PAD - c/w home med. R. 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 - Wound care with Dr. Calix consulted. - Nurse or son to change dressing daily. 6. hx alcohol use. 7. Leukocytosis - Continues to trend up to 20 today, which would be unusual for a post op inflammatory response although lactic acid remains normal. - blood cultures obtained, broad spectrum Abx. - Taper Abx base on cultures. R. foot wound could possibly be a source but son reports that it even looks better now than it did previously at home. 8. Significant debility with periods of delirium - Was very weak prior to surgery in setting of multiple comorbidities. - Concern for even worsening post op. - c/w PT and hopeful that he will improve. - Discussed with son regarding possible outcomes and possible further decline. DISPOSITION: Likely Rehab. VS, I&O, 24H, Fishbone Vital Signs/I&O Vital Signs Date Time Temp Pulse Resp B/P (MAP) Pulse Ox O2 Delivery O2 Flow Rate FiO2 10/13/19 10:00 116 95 10/13/19 08:00 98.3 20 145/63 (90) Nasal Cannula 2.0 I&O- Last 24 Hours up to 6 AM 10/13/19 06:00 Intake Total 270 ml Output Total 200 ml Balance 70 ml Laboratory Data 24H LABS Laboratory Tests 2 10/12/19 16:49: Blood Gas Bicarbonate Standard 29.5H, Arterial Blood pH 7.604*H, Arterial Blood Partial Pressure CO2 27.6L, Arterial Blood Partial Pressure O2 44.7*L, Arterial Blood Total CO2 27.6, Arterial Blood HCO3 26.7H, Arterial Blood Base Excess 5.9H, Arterial Blood Oxygen Saturation 84.9L 10/12/19 18:28: Lactic Acid Level 1.6 10/13/19 05:14: Nucleated Red Blood Cells % (auto) 0.0, Prothrombin Time 18.8H, Prothromb Time International Ratio 1.60, Anion Gap 9, Glomerular Filtration Rate 54.3, Calcium Level 8.5L, Magnesium Level 2.4 10/13/19 07:35: Lactic Acid Level 1.8 CBC/BMP Laboratory Tests 10/13/19 05:14 Microbiology Microbiology 10/13/19 Blood Culture, Received Pending 10/13/19 Blood Culture, Received Pending JULIO JOHNSON MD Oct 13, 2019 14:24
--- NOTE | 2019-10-13 15:36 | PHACANCOPD ---
PHARMACY VANCOMYCIN DOSING Pt Demographics Demographics Patient Age:84 , Weight:89.000 , Gender: male Adjusted Body Weight Date: 10/13/19, Adjusted Body Weight: Kg Events Past 24 Hours Events Past 24 Hours: YES: Change in CrCl, Elevation in WBC; NO: Dialysis, Diuretic Therapy, Fever, Pending Diagnostics, Pending Procedures, Other Vancomycin Vancomycin indication: Empiric coverage for sepsis Vancomycin Target Ranges: 15-20 mcg/ml Vancomycin Load Y/N: Yes Load Dose Date Time Vancomycin Load Dose: 2 grams Date: 10/13/19 Time: 0900 Vancomycin Dose Date: 10/13/19. Current Vancomycin Dose: [ 1 gram q12h @21 ] Intermittent Dosing?: No Labs Labs Vital Signs Label Value Date Time Patient Temperature 98.3 degrees F 10/13/19 0800 Temperature Source Temporal 10/13/19 0800 Blood Pressure Assessment 145/63 (90) 10/13/19 0800 Blood Pressure Assessment 139/80 (99) 10/13/19 0400 Item Value Date Time Creatinine 1.21 MG/DL 10/12/19 0539 Blood Urea Nitrogen 18 MG/DL 10/11/19 0739 Glomerular Filtration Rate > 60.0 10/11/19 0739 Creatinine 1.21 MG/DL 10/11/19 0739 Glomerular Filtration Rate > 60.0 10/12/19 0539 Creatinine 1.33 MG/DL H 10/13/19 0514 Glomerular Filtration Rate 54.3 10/13/19 0514 White Blood Count 20.9 10^3/uL H 10/13/19 0514 White Blood Count 12.2 10^3/uL H 10/12/19 0539 White Blood Count 15.3 10^3/uL H 10/11/19 0739 White Blood Count 12.3 10^3/uL H 10/10/19 0555 Micro Microbiology 10/13/19 Blood Culture, Received Pending 10/13/19 Blood Culture, Received Pending Creatinine Clearance Date:10/13/19. Creatinine Clearance: [ 42.46 mL/min ]. Assessment and Plan Maintaining Current Dose?: Yes Reason for dose change: No Dose Change Pharmacist Note Pharmacist Note Date: 10/13/19. Pharmacist note: Patient was initiated on vancomycin at [facility] for a possible post operative infection after a hip fracture. She was found to have an elevated white blood cell count, inc onsistent with her recent surgery. He was placed on empiric antibiotic therapy consisting of Zosyn 3.375 grams every 6 hours starting at 0800. A vancomycin loading dose of 2 grams was scheduled for 0900. Mr. Gardiner last received vancomycin at our facility in April of 2019, of which his currently scheduled maintenance dose is based upon. This was determined to be 1 gram every 12 hours. A trough was scheduled for 10/14/19 @ 0800, prior to the third dose. We will continue to monitor and make adjustments as needed. MARIA [facility] Oct 13, 2019 15:36
[2019-10-13] MEDS: WARFARIN SOD 3 MG TAB PO SCH (17:00)
[2019-10-13] MEDS: predniSONE 5 MG TAB PO SCH (20:10)
[2019-10-13] MEDS: DOCUSATE SODIUM 100 MG CAP PO SCH (20:10)
[2019-10-13] MEDS: ATORVASTATIN 20 MG TAB PO SCH (20:10)
[2019-10-13] MEDS ORDERED: POTASSIUM CHLORIDE 10 MEQ SR TABLET PO ONE (20:30)
[2019-10-13] MEDS ORDERED: POTASSIUM CHLORIDE 10% LIQ 20 MEQ/15 ML UDC PO ONE (20:30)
[2019-10-13 22:53] LABS: HEMATOCRIT 33.6 % (42.0-52.0); HEMOGLOBIN 10.6 g/dl (13.5-17.5); MEAN CORPUSCULAR HEMOGLOBIN 31.5 pg (27.0-33.0); MEAN CORPUSCULAR HGB CONC 31.5 g/dl (32.0-36.5); PLATELET COUNT, AUTOMATED 145 10^3/uL (150-450); RED BLOOD COUNT 3.36 10^6/uL (4.30-6.10)
--- NOTE | 2019-10-13 23:33 | REPVR ---
PROCEDURE INFORMATION: Exam: XR Chest, 1 View Exam date and time: 10/13/2019 11:09 PM Age: 84 years old Clinical history: Shortness of breath; Additional info: Change status TECHNIQUE: Imaging protocol: XR of the chest Views: 1 view. COMPARISON: CR Chest, 2 view PA, Lat 10/13/2019 2:09 AM FINDINGS: Lungs: Retrocardiac density may indicate a left lower lobe infiltrate and or atelectasis. Mild prominence of the pulmonary vascularity with cephalization of flow may indicate mild congestive failure. Pleural space: No pleural effusions demonstrated. Heart/Mediastinum: Unremarkable. No cardiomegaly. Diaphragm: Eventration and elevation of the left hemidiaphragm. Bones/joints: Osteoporosis. Degenerative spondylosis and dextroscoliosis thoracic spine. IMPRESSION: 1. Possible mild CHF. 2. Findings compatible with in retrocardiac infiltrate and or atelectasis. Notably the finding was not demonstrated on the earlier examination. As such, follow-up PA and lateral suggested when feasible. Electronically signed by: Anthony Nielsen On 10/13/2019 23:33:04 PM
[2019-10-13 23:41] LABS: BLOOD UREA NITROGEN 26 MG/DL (7-18); CALCIUM LEVEL 8.3 MG/DL (8.8-10.2); CARBON DIOXIDE LEVEL 31 MEQ/L (21-32); CHLORIDE LEVEL 104 MEQ/L (98-107); CREATININE FOR GFR 1.39 MG/DL (0.70-1.30); GLOMERULAR FILTRATION RATE 51.6 (>35); GLUCOSE, FASTING 146 MG/DL (70-100); POTASSIUM SERUM 3.3 MEQ/L (3.5-5.1); SODIUM LEVEL 141 MEQ/L (136-145)
[2019-10-14] VITALS (20 sets, daily range): BP systolic 96–124; BP diastolic 51–89
[2019-10-14] MEDS ORDERED: NS 500 ML IV ONE (00:45)
[2019-10-14 01:29] LABS: CK-MB VALUE MASS < 1.0 NG/ML (<3.6); CPK CREATINE PHOSPHOKINASE 38 U/L (39-308); MB/CK RELATIVE INDEX 2.63 (< OR =4); NT-PRO BNP 4940 PG/ML (<450); TROPONIN I 0.05 NG/ML (< 0.10)
[2019-10-14] MEDS: ACETAMINOPHEN TAB 650MG DOSE (2X325MG) PO PRN ×3 (02:13→15:34)
[2019-10-14] MEDS: PIPERACILLIN/TAZOBACTAM SOD 3.375 GM in D5W MINI-BAG PLUS 50 ML IV SCH ×4 (02:13→20:07)
[2019-10-14 04:30] LABS: HEMATOCRIT 33.5 % (42.0-52.0); HEMOGLOBIN 10.4 g/dl (13.5-17.5); MEAN CORPUSCULAR HEMOGLOBIN 31.2 pg (27.0-33.0); MEAN CORPUSCULAR VOLUME 100.6 fl (80.0-96.0); PLATELET COUNT, AUTOMATED 146 10^3/uL (150-450); RED BLOOD COUNT 3.33 10^6/uL (4.30-6.10); WHITE BLOOD COUNT 19.7 10^3/uL (4.0-10.0)
[2019-10-14 04:57] LABS: CALCIUM LEVEL 7.9 MG/DL (8.8-10.2); CREATININE FOR GFR 1.3 MG/DL (0.70-1.30); GLOMERULAR FILTRATION RATE 55.7 (>35); MAGNESIUM LEVEL 2.4 MG/DL (1.8-2.4); POTASSIUM SERUM 3.5 MEQ/L (3.5-5.1); TROPONIN I 0.03 NG/ML (< 0.10)
[2019-10-14] MEDS: TORSEMIDE (DEMADEX) 50 MG PER 1/2 TAB PO SCH (09:29)
[2019-10-14] MEDS: TAMSULOSIN 0.4 MG CAP PO SCH (09:30)
[2019-10-14] MEDS: MIRALAX *UNIT DOSE* 17GM PACKET PO SCH (09:30)
[2019-10-14] MEDS: VANCOMYCIN HCL 1,000 MG, VIAL MATE ADAPTER 1 EACH in D5W 250 ML IV SCH ×2 (09:31→21:05)
[2019-10-14] MEDS: METOPROLOL SUCC (TopROL XL) 100MG *XL* TAB PO SCH ×2 (09:31→20:07)
[2019-10-14] MEDS: WARFARIN SOD 3 MG TAB PO SCH (16:25)
--- NOTE | 2019-10-14 17:07 | ECGEPIP ---
[facility] Test Date: 2019-10-14 Pat Name: KEO WOODS Department: Room: [place] [address] Gender: Male Success Coach: RICHMOND : 1935 Requested By: RANULFO ASKEW Order Number: [id number] Reading MD: Cirilo Agustin Measurements Intervals [place] Rate: 106 P: LA: 0 QRS: -86 QRSD: 102 T: -88 QT: 328 QTc: 436 Interpretive Statements ATRIAL FIBRILLATION WITH RAPID VENTRICULAR RESPONSE WITH ABERRANT CONDUCTION OR VENTRICULAR PREMATURE COMPLEXES MINIMAL VOLTAGE CRITERIA FOR LVH, CONSIDER NORMAL VARIANT Nonspecific ST-T wave abnormalities Inferior Q waves of uncertain significance, new from tracing done 10-09-19 Electronically Signed on 10-14-2019 17:06:50 EST by Cirilo Agustin
--- NOTE | 2019-10-14 17:11 | IPNPDOC ---
Subjective Date Seen The patient was seen on 10/14/19. Subjective Chief Complaint/HPI Mr. Gardiner is an 84 year old male who presented to [facility] ED after he fell in the home. He was diagnosed with a fracture of the L hip which required ORIF on 10/10/19. Today Mr. Gardiner is seen in the ICU with his grandson. He was transferred to ICU on 10/12/19 after deteriorating mental status and delirium. He reported he is doing 'pretty good.' Nursing reported that he continues to improve his PO intake of food and fluids; no hallucinations this morning. Mr Gardiner will allow wound care to assess his R foot, but prefers Dr. Luis gifford to continue his care. Constitutional: Denies: Chills, Night Sweats Eyes: Denies: Pain ENT: Denies: Head Aches Pulmonary: Denies: Dyspnea, Cough Cardiovascular: Denies: Chest Pain Gastrointestinal: Denies: Abdominal Pain Musculoskeletal: Denies: Neck Pain, Back Pain, Shoulder Pain, Arm Pain, Hand Pain, Leg Pain, Foot Pain, Joint Pain, Muscle Pain, Spasms, Other Symptoms Objective Physical Examination General Exam: Positive: Alert (lethargic), No Acute Distress Eye Exam: Positive: Conjunctiva & lids normal ENT Exam: Positive: Atraumatic Chest Exam: Positive: Normal air movement, Other (mild crackles b/l lung bases ) Heart Exam: Positive: Irregular Rhythm Telemetry: Positive: Atrial fibrillation (chronic ) Abdomen Exam: Positive: Normal bowel sounds, Soft; Negative: Tenderness Extremity Exam: Positive: Edema (slight edema b/l LEs), Tenderness (no TTP over surgical site ); Negative: Clubbing, Cyanosis Skin Exam: Positive: Nl turgor and temperature (surgical wounds are bandaged; no signs of inflammation over affected joint ) Psych Exam: Positive: Mood NL, Oriented x 3 Assessment /Plan Assessment Mr Gardiner is an 83 year old male who was seen in ED following a fall in the home and fracture of the L hip. 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 Per his wrapper opener (Dr. Mejias) he has an EF of 35%. 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 L. hip fracture - s/p ORIF completed 10/10/19. - PT consultation. - Pain control. VTE ppx already on warfarin for Afib, continue that. Leukocytosis: - PA, Lat CXR 10/13/19. Impression: "1. Possible mild CHF. 2. Findings compatible with in retrocardiac infiltrate and or atelectasis. Notably the finding was not demonstrated on the earlier examination. As such, follow-up PA and lateral suggested when feasible." - WBC 12.2 (10/12/19) - 20.9 (10/13/19). Post surgery inflammation no longer a possibility. - Blood cultures obtained 10/13/19. - Vancomycin & Pip./Tazo. started 10/13/19. - Taper dose based on culture results. AMS: - Due to dehydration? Reportedly poor PO intake. - Tachycardia appeared to improve slightly with IVF. - Diuretic d/c per Dr. Mejias Coronary artery disease s/p percutaneous coronary intervention (PCI) to right coronary artery with bare metal stents times five in 2010. Discussion with Dr. Mejias: - INR 1.60 today - Warfarin resumed - Continue ASA - Troponin for CP 12... <0.02 - Repeated enzymes ... 0.02 Ischemic cardiomyopathy with left ventricular systolic function 35% inferior wall hypokinesis. -Seen by Dr. Mejisa -Mr. Gardiner denied any cough, dyspnea, CP, palpitations Does not appear volume overloaded at this time Continue home medications moderate mitral insufficiency management per cardiology moderate pulmonary hypertension. management per cardiology Chronic atrial fibrillation. -on chronic Warfarin; INR 1.60 -Resume warfarin now post op. Hypertension. Continue home medications Dyslipidemia. Continue home medications History of chronic YESSICA -monitor for symptoms of anemia - Repeat CBC qam Polycythemia - CBC qam Peripheral vascular disease. Right popliteal artery and superficial femoral artery stent placement on 12/06/[address] Florence -s/p transmetatarsal amputation of the right toes due to osteomyelitis in 11/[address] Noriega Gastroesophageal reflux disease (GERD). 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 Noriega - Managed outpt. per Dr. Noriega - Wound care to assess today 10/13 for possible source of Leukocytosis Peripheral vascular disease -on chronic warfarin and statins -current cigar smoker which complicates care Left Upper Extremity Scaphoid Fracture Healed History of heavy Alcohol abuse Decreased consumption in recent years Plan/VTE VTE Prophylaxis Ordered?: Yes (Warfarin resumed ) VS, I&O, 24H, Fishbone Vital Signs/I&O Vital Signs Date Time Temp Pulse Resp B/P (MAP) Pulse Ox O2 Delivery O2 Flow Rate FiO2 10/14/19 09:31 116 114/57 10/14/19 08:00 98.1 22 96 Nasal Cannula 2.0 I&O- Last 24 Hours up to 6 AM 10/14/19 06:00 Intake Total 3570 ml Output Total 850 ml Balance 2720 ml Laboratory Data 24H LABS Laboratory Tests 2 10/13/19 22:38: Nucleated Red Blood Cells % (auto) 0.0, Anion Gap 6L, Glomerular Filtration Rate 51.6, Lactic Acid Level 2.0, Calcium Level 8.3L, Total Creatine Kinase 38L, Creatine Kinase MB < 1.0, Creatine Kinase MB Relative Index 2.63, Troponin I 0.05, C-Reactive Protein, Quantitative 26.20H, KF-Mko-T-Type Natriuretic Peptide 4940H 10/14/19 04:06: Nucleated Red Blood Cells % (auto) 0.0, Anion Gap 8, Glomerular Filtration Rate 55.7, Calcium Level 7.9L, Troponin I 0.03#, Magnesium Level 2.4 10/14/19 08:13: Vancomycin Level Trough 13.9 10/14/19 13:05: Methicillin-Resist S.aureus DNA PCR NOT DETECTED CBC/BMP Laboratory Tests 10/13/19 22:38 10/14/19 04:06 Microbiology Microbiology 10/14/19 Blood Culture, Received Pending 10/14/19 Blood Culture, Received Pending 10/13/19 Urine Culture, Received Pending 10/13/19 Blood Culture - Preliminary, Resulted No growth after 24 hours . All specim... 10/13/19 Blood Culture - Preliminary, Resulted PADMINI MARCUM PA-C Oct 14, 2019 17:11
[2019-10-14] MEDS: DOCUSATE SODIUM 100 MG CAP PO SCH (20:07)
[2019-10-14] MEDS: predniSONE 5 MG TAB PO SCH (20:07)
[2019-10-14] MEDS: ATORVASTATIN 20 MG TAB PO SCH (20:07)
[2019-10-14] MEDS: MOM 30ML SUSPENSION UDC PO PRN (21:05)
[2019-10-15] VITALS (8 sets, daily range): BP systolic 113–135; BP diastolic 57–71
[2019-10-15] MEDS: PIPERACILLIN/TAZOBACTAM SOD 3.375 GM in D5W MINI-BAG PLUS 50 ML IV SCH ×4 (02:37→20:43)
[2019-10-15] MEDS: ACETAMINOPHEN TAB 650MG DOSE (2X325MG) PO PRN ×2 (02:38→09:17)
[2019-10-15 05:38] LABS: HEMATOCRIT 31.9 % (42.0-52.0); HEMOGLOBIN 10.1 g/dl (13.5-17.5); MEAN CORPUSCULAR HEMOGLOBIN 31.6 pg (27.0-33.0); MEAN CORPUSCULAR HGB CONC 31.7 g/dl (32.0-36.5); MEAN CORPUSCULAR VOLUME 99.7 fl (80.0-96.0); PLATELET COUNT, AUTOMATED 164 10^3/uL (150-450)
[2019-10-15 06:11] LABS: BLOOD UREA NITROGEN 22 MG/DL (7-18); CALCIUM LEVEL 8.3 MG/DL (8.8-10.2); CARBON DIOXIDE LEVEL 29 MEQ/L (21-32); CHLORIDE LEVEL 103 MEQ/L (98-107); CREATININE FOR GFR 1.04 MG/DL (0.70-1.30); GLOMERULAR FILTRATION RATE > 60.0 (>35); GLUCOSE, FASTING 120 MG/DL (70-100); MAGNESIUM LEVEL 2.5 MG/DL (1.8-2.4); POTASSIUM SERUM 3.4 MEQ/L (3.5-5.1); SODIUM LEVEL 139 MEQ/L (136-145)
[2019-10-15] MEDS ORDERED: POTASSIUM CHLORIDE 10 MEQ SR TABLET PO ONE (06:30)
--- NOTE | 2019-10-15 07:15 | IPN ---
DATE OF SERVICE: 10/14/2019 Mr. Gardiner is seen at bedside in the intensive care unit (ICU). He is in great spirits today and did well overnight, however, continues to have fevers as high as 101.8 overnight, but is afebrile this morning at temperature of 98.1. He is borderline tachycardiac, but overall is asymptomatic. Heart rate remaining in the low 100 to 110 range. Denies any chest pain, palpitations, shortness of breath, lightheadedness. He does not appear septic or ill as of this morning. PHYSICAL EXAMINATION: Vitals: Temperature 98.1, pulse 106, respirations 22, blood pressure 106/59, MAP of 75, pulse oximetry 96% on 2 liters nasal cannula. He had a net positive of 1880 yesterday. Weight this morning is 91 kg in bed. He is alert and oriented and appropriately conversant, resting comfortably without any distress. His jugular venous pulse (JVP) is not elevated. Lungs overall are clear without any adventitious sounds. Overall has good air movement. His heart is borderline tachycardiac, irregular rhythm, rate is around 105 to 110. Faint systolic murmur appreciated on the left sternal border. No clicks or gallops. Minimal lower extremity edema without any tenderness of the calf. Abdomen is soft and nontender, overall benign. LABS: WBC 19.7, hemoglobin 10.4, platelets 146. Sodium 144, potassium 3.5, BUN 26, creatinine 1.3. Lactic acid overnight 2.0. Magnesium 2.4. Troponin this a.m. is 0.03. ASSESSMENT AND PLAN: Mr. Gardiner is an 84-year-old man chronically in atrial fibrillation with a history of ischemic cardiomyopathy with a LVEF of 35% and severe peripheral vascular disease who underwent an open reduction internal fixation (ORIF) this admission for left broken hip. Given his bouts of tachycardia and fevers, he is moved to the ICU, however, on exam does not appear to have any true infection at this point. He is currently on broad spectrum antibiotics and lactate was negative. Fortunately, his troponin this morning is also normal. From a cardiac standpoint, he is doing fairly well. Will continue his current regimen with metoprolol XL, digoxin and chronic anticoagulation on Coumadin. Monitor on telemetry. Adjust Coumadin to obtain therapeutic levels.
[2019-10-15] MEDS: METOPROLOL SUCC (TopROL XL) 100MG *XL* TAB PO SCH ×2 (08:42→20:42)
[2019-10-15] MEDS: TORSEMIDE (DEMADEX) 50 MG PER 1/2 TAB PO SCH (08:42)
[2019-10-15] MEDS: TAMSULOSIN 0.4 MG CAP PO SCH (08:43)
[2019-10-15] MEDS: MIRALAX *UNIT DOSE* 17GM PACKET PO SCH (08:43)
[2019-10-15] MEDS: DIGOXIN 0.125 MG TAB PO SCH (08:43)
[2019-10-15] MEDS: MOM 30ML SUSPENSION UDC PO PRN (08:49)
[2019-10-15] MEDS: VANCOMYCIN HCL 1,000 MG, VIAL MATE ADAPTER 1 EACH in D5W 250 ML IV SCH (08:50)
--- NOTE | 2019-10-15 09:24 | IPN ---
DATE OF SERVICE: 10/15/2019 Mr. Gardiner is examined at bedside in the intensive care unit (ICU). He is feeling well today without any complaints. He is not having any chest pain, palpitations, lightheadedness, dizziness, or shortness of breath. No issues overnight. On telemetry, he had intermittent PVCs, but it appears he was asymptomatic. He continues to be in atrial fibrillation with heart rate well controlled in the high 90s to low 100s. PHYSICAL EXAMINATION: Vitals: Temperature 98.8, pulse 100, blood pressure 116/61, pulse oximetry 96% on 1 liter nasal cannula. He has documented intake of 2220 and no documented urine output. I suspect this is partially inaccurate as he is making urine. Weight is 93.1 kg this morning. Alert and oriented times three, in no acute distress. Resting comfortably in bed. Appropriately conversant and his jugular venous pulse (JVP) is not elevated. Cardiac rhythm is irregular, rate is controlled in the 90s. Faint systolic murmur on the left sternal border. No clicks or gallops. Has minimal bibasilar crackles, otherwise lungs are clear with equal chest rise bilaterally and no accessory muscle usage. Abdomen soft, nontender, nondistended. Minimal lower extremity edema. No calf tenderness. LABS: WBC 14, hemoglobin 10, platelets 164. Sodium and potassium 139 and 3.4. Creatinine 1.04. Magnesium 2.5. ASSESSMENT AND PLAN: Mr. Gardiner is an 84-year-old gentleman with history of ischemic cardiomyopathy and an ejection fraction (EF) of 35%, chronic atrial fibrillation and severe peripheral vascular disease who underwent an ORIF for a left broken hip this admission. His heart rate is well controlled on current regimen. Will not make any adjustments currently. Continue his Toprol XL 100 twice a day and torsemide 50 mg daily. Continue chronic anticoagulation on Coumadin and monitor INR to reach therapeutic levels. His heart rate is doing well and he is feeling much better. Encourage ambulation. Supplement electrolytes as needed.
[2019-10-15 10:06] LABS: INR 2.23; PROTHROMBIN TIME 24.5 SECONDS (11.8-14.0)
--- NOTE | 2019-10-15 16:13 | IPNPDOC ---
Subjective Date Seen The patient was seen on 10/15/19. Subjective Chief Complaint/HPI Mr. Gardiner is an 84 year old male who presented to [facility] ED after he fell in the home. He was diagnosed with a fracture of the L hip which required ORIF on 10/10/19. Today Mr. Gardiner is seen in the ICU with his son present. He was transferred to ICU on 10/12/19 after deteriorating mental status and delirium. He reported Dr. Mejias is happy and so he is happy too. Nursing reported that he continues to improve his PO intake of food and fluids; no hallucinations this morning. Declined wound care checking his wound. Son reported that he changed the bandage and the wound is improving. He showed me several pictures of the wound from yesterday and and several weeks ago and I agree with him. Per nursing, pt tachycardia continues to resolve. Infrequent runs of PVCs. General: Reports: Normal Appetite; Denies: Chills, Night Sweats Constitutional: Denies: Chills, Fever, Night Sweats Eyes: Denies: Pain ENT: Denies: Head Aches Pulmonary: Denies: Dyspnea Cardiovascular: Denies: Chest Pain, Palpitations, Lt Headedness Gastrointestinal: Denies: Abdominal Pain Genitourinary: Denies: Dysuria Musculoskeletal: Denies: Neck Pain, Back Pain, Shoulder Pain, Arm Pain, Hand Pain, Leg Pain, Foot Pain, Joint Pain, Muscle Pain, Spasms, Other Symptoms Psych: Reports: Mood Normal Objective Physical Examination General Exam: Positive: Alert, Cooperative, No Acute Distress Eye Exam: Positive: Conjunctiva & lids normal ENT Exam: Positive: Atraumatic Chest Exam: Positive: Normal air movement, Other (mild crackles b/l lung bases ) Heart Exam: Positive: Irregular Rhythm Telemetry: Positive: Atrial fibrillation (chronic ) Abdomen Exam: Positive: Normal bowel sounds, Soft; Negative: Tenderness Extremity Exam: Positive: Edema (slight edema b/l LEs), Tenderness (no TTP over surgical site ); Negative: Clubbing, Cyanosis Skin Exam: Positive: Nl turgor and temperature (surgical wounds are bandaged; no signs of inflammation over affected joint ) Psych Exam: Positive: Mood NL, Oriented x 3 Assessment /Plan Assessment Mr Gardiner is an 83 year old male who was seen in ED following a fall in the home on 10/08/19 and fracture of the L hip. Mr Gardiner has a PMHx of Ischemic Cardiomyopathy, Chronic Systolic CHF, Chronic A-fib with RVR, Pulmonary Hypertension, Mitral Insufficiency, Hyperlipidemia, Hypertension, Chronic Anemia, CAD w/5 stents, PVD (with R popliteal and superficial femoral artery stenting), polycythemia, GERD, s/p amputation 5 digits on R foot. Cardiology was consulted for preoperative cardiac risk stratification. Per his potato chip frier (Dr. Mejias) he has an EF of 35%. Surgery was delayed due to patient being on coumadin ultimately had surgery done on 10/10/19. Patient had confusion in the perioperative period. Post surgery on 10/11 onwards he had been tachycardic and was in Afib with RVR. The patient decompensated on 10/13/19 and moved to ICU. Patient was febrile and tachycardic and some soft bps. It was felt patient was septic. Blood cultures and urine cultures were sent on 10/13. CXR was done. another set of blood cultures were sent on 10/14. L. hip fracture - s/p ORIF completed 10/10/19. - PT consultation. - Pain control. VTE ppx already on warfarin for Afib, continue that. Leukocytosis: - PA, Lat CXR 10/13/19. Impression: "1. Possible mild CHF. 2. Findings compatible with in retrocardiac infiltrate and or atelectasis. Notably the finding was not demonstrated on the earlier examination. As such, follow-up PA and lateral suggested when feasible." - WBC 12.2 (10/12/19) - 20.9 (10/13/19). Post surgery inflammation no longer a possibility. - Blood cultures obtained 10/13/19. - 1/4 blood culture sets positive for gram negative rods - MRSA PCR not detected - d.c vancomycin; continue Zosyn Metabolic encephalopathy - Due to dehydration vs infection Reportedly poor PO intake. - Tachycardia due to Afib with rvr appeared to improve slightly with IVF. - Diuretic d/c per Dr. Mejias - appears resolved today Coronary artery disease s/p percutaneous coronary intervention (PCI) to right co ronary artery with bare metal stents times five in 2010. Discussion with Dr. Mejias: - INR 2.23 today - Warfarin resumed - Continue ASA - Troponin for CP 12..19. <0.02 - Repeated enzymes 12.12.19. 0.02 - continued management per cardiology Ischemic cardiomyopathy with left ventricular systolic function 35% inferior wall hypokinesis. -Management per Dr. Mejias -Mr. Gardiner denied any cough, dyspnea, CP, palpitations Does not appear volume overloaded at this time Continue home medications moderate mitral insufficiency management per cardiology moderate pulmonary hypertension. management per cardiology Chronic atrial fibrillation. -on chronic Warfarin; INR 2.23 -Resume warfarin now post op. -management per cardiology Hypertension. Continue home medications Dyslipidemia. Continue home medications History of chronic YESSICA -monitor for symptoms of anemia - Repeat CBC qam Polycythemia - CBC qam Peripheral vascular disease. Right popliteal artery and superficial femoral artery stent placement on 12/06/[address] Florence -s/p transmetatarsal amputation of the right toes due to osteomyelitis in 11/[address] Noriega Gastroesophageal reflux disease (GERD). 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 Noriega - Managed outpt. per Dr. Noriega - Wound care to assess today 10/13 for possible source of Leukocytosis. Declined by patient - Son will notify nursing to page me during next bandage change Peripheral vascular disease -on chronic warfarin and statins -current cigar smoker which complicates care Left Upper Extremity Scaphoid Fracture Healed History of heavy Alcohol abuse Decreased consumption in recent years Plan/VTE VTE Prophylaxis Ordered?: Yes (Warfarin resumed ) Attending Note I have personally performed a face to face diagnostic evaluation on this patient. I have reviewed and agree with the care plan documented above. VS, I&O, 24H, Fishbone Vital Signs/I&O Vital Signs Date Time Temp Pulse Resp B/P (MAP) Pulse Ox O2 Delivery O2 Flow Rate FiO2 10/15/19 13:10 97.7 104 18 119/63 (81) Room Air 10/15/19 12:00 95 10/15/19 08:00 1.0 I&O- Last 24 Hours up to 6 AM 10/15/19 06:00 Intake Total 1480 ml Balance 1480 ml Laboratory Data 24H LABS Laboratory Tests 2 10/15/19 04:52: Nucleated Red Blood Cells % (auto) 0.0, Anion Gap 7L, Glomerular Filtration Rate > 60.0, Calcium Level 8.3L, Magnesium Level 2.5H 10/15/19 08:01: Vancomycin Level Trough 16.5 10/15/19 09:34: Prothrombin Time 24.5H, Prothromb Time International Ratio 2.23 CBC/BMP Laboratory Tests 10/15/19 04:52 Microbiology Microbiology 10/14/19 Blood Culture - Preliminary, Resulted No growth after 24 hours . All specim... 10/14/19 Blood Culture - Preliminary, Resulted No growth after 24 hours . All specim... 10/13/19 Urine Culture, Received Pending 10/13/19 Blood Culture - Preliminary, Resulted No Growth after 48 hours. All Specime... 10/13/19 Blood Culture - Preliminary, Resulted PADMINI MARCUM PA-C Oct 15, 2019 16:13 LEONIDES PHELPS MD Oct 24, 2019 14:43
[2019-10-15] MEDS ORDERED: PIPERACILLIN/TAZOBACTAM SOD 3.375 GM in D5W MINI-BAG PLUS 50 ML IV SCH ×2 (17:00→18:00)
[2019-10-15] MEDS: WARFARIN SOD 3 MG TAB PO SCH (17:43)
[2019-10-15] MEDS: predniSONE 5 MG TAB PO SCH (20:43)
[2019-10-15] MEDS: ATORVASTATIN 20 MG TAB PO SCH (20:43)
[2019-10-15] MEDS: DOCUSATE SODIUM 100 MG CAP PO SCH (20:43)
[2019-10-16] MEDS: PIPERACILLIN/TAZOBACTAM SOD 3.375 GM in D5W MINI-BAG PLUS 50 ML IV SCH ×4 (02:00→19:58)
[2019-10-16 06:00] VITALS: BP 118/62
[2019-10-16] MEDS ORDERED: CEFDINIR 300 MG CAP (OMNICEF) PO SCH (06:00)
[2019-10-16 06:56] LABS: HEMATOCRIT 33.4 % (42.0-52.0); HEMOGLOBIN 10.4 g/dl (13.5-17.5); MEAN CORPUSCULAR HGB CONC 31.1 g/dl (32.0-36.5); MEAN CORPUSCULAR VOLUME 99.7 fl (80.0-96.0); PLATELET COUNT, AUTOMATED 209 10^3/uL (150-450); RED BLOOD COUNT 3.35 10^6/uL (4.30-6.10); WHITE BLOOD COUNT 10.2 10^3/uL (4.0-10.0)
[2019-10-16 07:25] LABS: BLOOD UREA NITROGEN 18 MG/DL (7-18); CALCIUM LEVEL 8.6 MG/DL (8.8-10.2); CARBON DIOXIDE LEVEL 28 MEQ/L (21-32); CHLORIDE LEVEL 105 MEQ/L (98-107); CREATININE FOR GFR 1.12 MG/DL (0.70-1.30); GLOMERULAR FILTRATION RATE > 60.0 (>35); GLUCOSE, FASTING 127 MG/DL (70-100); MAGNESIUM LEVEL 2.9 MG/DL (1.8-2.4); POTASSIUM SERUM 3.4 MEQ/L (3.5-5.1); SODIUM LEVEL 140 MEQ/L (136-145)
[2019-10-16] MEDS: TAMSULOSIN 0.4 MG CAP PO SCH (09:30)
[2019-10-16] MEDS: FERROUS GLUCONATE 324 MG TAB PO SCH (09:30)
[2019-10-16] MEDS: TORSEMIDE (DEMADEX) 50 MG PER 1/2 TAB PO SCH (09:30)
[2019-10-16] MEDS: METOPROLOL SUCC (TopROL XL) 100MG *XL* TAB PO SCH ×2 (09:33→19:59)
[2019-10-16] MEDS: MIRALAX *UNIT DOSE* 17GM PACKET PO SCH (09:34)
[2019-10-16 14:00] VITALS: BP 122/63
--- NOTE | 2019-10-16 15:30 | IPNPDOC ---
Subjective Date Seen The patient was seen on 10/16/19. Subjective Chief Complaint/HPI Mr. Gardiner is an 84 year old male who presented to [facility] ED after he fell in the home. He was diagnosed with a fracture of the L hip which required ORIF on 10/10/19. Today Mr. Gardiner is seen in the ICU with his son present. He was transferred to ICU on 10/12/19 after deteriorating mental status and delirium. Mr. Gardiner continues to improve. He is quite witty and his sense of humor has returned; a positive sign in light of his recent decline. He has a healthy appetite and really wants to get out of bed on his own. He recalls thinking the ICU staff wanted to kill him at one point; he is able to joke about it now. Per nursing: no concerns today. Mr. Gardiner has kept them laughing. Constitutional: Denies: Chills, Fever Eyes: Denies: Pain ENT: Denies: Head Aches Skin: Denies: Rash Pulmonary: Denies: Dyspnea, Cough Cardiovascular: Denies: Chest Pain, Palpitations Gastrointestinal: Denies: Abdominal Pain Genitourinary: Denies: Dysuria Musculoskeletal: Denies: Neck Pain, Back Pain, Joint Pain, Muscle Pain, Spasms Psych: Reports: Mood Normal Objective Physical Examination General Exam: Positive: Alert, Cooperative, No Acute Distress Eye Exam: Positive: Conjunctiva & lids normal ENT Exam: Positive: Atraumatic Chest Exam: Positive: Normal air movement, Other (mild crackles b/l lung bases ) Heart Exam: Positive: Irregular Rhythm Telemetry: Positive: Atrial fibrillation (chronic ) Abdomen Exam: Positive: Normal bowel sounds, Soft; Negative: Tenderness Extremity Exam: Positive: Edema (slight edema b/l LEs), Tenderness (no TTP over surgical site ); Negative: Clubbing, Cyanosis Skin Exam: Positive: Nl turgor and temperature (surgical wounds are bandaged; no signs of inflammation over affected joint ) Psych Exam: Positive: Mood NL, Oriented x 3 Assessment /Plan Assessment Mr Gardiner is an 83 year old male who was seen in ED following a fall in the home on 10/08/19 and fracture of the L hip. Mr Gardiner has a PMHx of Ischemic Cardiomyopathy, Chronic Systolic CHF, Chronic A-fib with RVR, Pulmonary Hypertension, Mitral Insufficiency, Hyperlipidemia, Hypertension, Chronic Anemia, CAD w/5 stents, PVD (with R popliteal and superficial femoral artery stenting), polycythemia, GERD, s/p amputation 5 digits on R foot due to osteomyelitis. Cardiology was consulted for preoperative cardiac risk stratification. Per his certified respiratory therapist (Dr. Mejias) he has an EF of 35%. Surgery was delayed due to patient being on coumadin ultimately had surgery done on 10/10/19. Patient had confusion in the perioperative period. Post surgery on 10/11 onwards he had been tachycardic and was in Afib with RVR. The patient decompensated on 10/13/19 and moved to ICU. Patient was febrile and tachycardic and some soft bps. It was felt patient was septic. Blood cultures and urine cultures were sent on 10/13. CXR was done. another set of blood cultures were sent on 10/14. L. hip fracture - s/p ORIF completed 10/10/19. - PT consultation. - Pain control. VTE ppx already on warfarin for Afib, continue that. Gram negative bacterimia due to pseudomonas Possible transient bacterimia from UTI 11/02 bottles positive for pseudomonas. - PA, Lat CXR 10/13/19. Impression: "1. Possible mild CHF. 2. Findings compatible with in retrocardiac infiltrate and or atelectasis. Notably the finding was not demonstrated on the earlier examination. As such, follow-up PA and lateral suggested when feasible." - WBC 12.2 (10/12/19) - 20.9 (10/13/19). Post surgery inflammation no longer a possibility. - Blood cultures obtained 10/13/19. - 1/4 blood culture sets positive for gram negative rods - MRSA PCR not detected - d.c ed vancomycin; continued Zosyn - Day 4 of Zosyn therapy Acute metabolic encephalopathy with delirium -due to infection , Due to dehydration? Reportedly prior poor PO intake. - Tachycardia appeared to improve slightly with IV Fluid. - Diuretic d/c per Dr. Mejias - appears resolved today Coronary artery disease s/p percutaneous coronary intervention (PCI) to right coronary artery with bare metal stents times five in 2010. Discussion with Dr. Mejias: - INR 2.23 10/15/19. May re-check qweek - Warfarin resumed - Continue ASA - Troponin for CP 12.11.19. <0.02 - Repeated enzymes .19. 0.02 - continued management per cardiology Ischemic cardiomyopathy with left ventricular systolic function 35% inferior wall hypokinesis. -Management per Dr. Mejias -Mr. Gardiner denied any cough, dyspnea, CP, palpitations Does not appear volume overloaded at this time Continue home medications moderate mitral insufficiency management per cardiology moderate pulmonary hypertension. management per cardiology Chronic atrial fibrillation. -on chronic Warfarin; INR 2.23 10/15/19 -Warfarin resumed post-op -management per cardiology Hypertension. Continue home medications Dyslipidemia. Continue home medications History of chronic YESSICA -monitor for symptoms of anemia - Repeat CBC qam Polycythemia - CBC qam Peripheral vascular disease. Right popliteal artery and superficial femoral artery stent placement on 12/06/[address] Florence -s/p transmetatarsal amputation of the right toes due to osteomyelitis in 11/[address] Noriega Gastroesophageal reflux disease (GERD). 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 Noriega - Managed outpt. per Dr. Noriega - Wound care to assess today 10/13 for possible source of Leukocytosis. Declined by patient - Son will notify nursing to page me during next bandage change Peripheral vascular disease -on chronic warfarin and statins -current cigar smoker which complicates care Left Upper Extremity Scaphoid Fracture Healed History of heavy Alcohol abuse Decreased consumption in recent years Plan/VTE VTE Prophylaxis Ordered?: Yes (Warfarin resumed ) Attending Note I have personally performed a face to face diagnostic evaluation on this patient. I have reviewed and agree with the care plan documented above. VS, I&O, [facility] Vital Sign[facility]/I&O Vital Signs Date Time Temp Pulse Resp B/P (MAP) Pulse Ox O2 Delivery O2 Flow Rate FiO2 10/16/19 09:33 110 121/63 10/16/19 06:00 97.7 20 97 Room Air 10/15/19 08:00 1.0 I&O- Last 24 Hours up to 6 AM 10/16/19 06:00 Intake Total 1590 ml Output Total 975 ml Balance 615 ml Laboratory Data 24H LABS Laboratory Tests 2 10/16/19 06:04: Nucleated Red Blood Cells % (auto) 0.0, Anion Gap 7L, Glomerular Filtration Rate > 60.0, Calcium Level 8.6L, Magnesium Level 2.9H CBC/BMP Laboratory Tests 10/16/19 06:04 Microbiology Microbiology 10/14/19 Blood Culture - Preliminary, Resulted No Growth after 48 hours. All Specime... 10/14/19 Blood Culture - Preliminary, Resulted No Growth after 48 hours. All Specime... 10/13/19 Urine Culture - Final, Complete Pseudomonas Aeruginosa 10/13/19 Blood Culture - Preliminary, Resulted No Growth after 72 hours. All specime... 10/13/19 Blood Culture - Final, Complete Pseudomonas Aeruginosa PADMINI MARCUM PA-C Oct 16, 2019 15:30 LEONIDES PHELPS MD Oct 29, 2019 13:20
[2019-10-16] MEDS: WARFARIN SOD 3 MG TAB PO SCH (17:27)
[2019-10-16] MEDS: predniSONE 5 MG TAB PO SCH (19:58)
[2019-10-16] MEDS: ATORVASTATIN 20 MG TAB PO SCH (19:58)
[2019-10-16] MEDS: DOCUSATE SODIUM 100 MG CAP PO SCH (21:00)
[2019-10-16 22:00] VITALS: BP 117/63
[2019-10-17] MEDS: PIPERACILLIN/TAZOBACTAM SOD 3.375 GM in D5W MINI-BAG PLUS 50 ML IV SCH ×4 (02:34→20:50)
[2019-10-17 06:00] VITALS: BP 128/78
[2019-10-17 06:04] LABS: HEMATOCRIT 32.9 % (42.0-52.0); HEMOGLOBIN 10.5 g/dl (13.5-17.5); MEAN CORPUSCULAR HEMOGLOBIN 31.6 pg (27.0-33.0); MEAN CORPUSCULAR HGB CONC 31.9 g/dl (32.0-36.5); MEAN CORPUSCULAR VOLUME 99.1 fl (80.0-96.0); PLATELET COUNT, AUTOMATED 243 10^3/uL (150-450); RED BLOOD COUNT 3.32 10^6/uL (4.30-6.10); WHITE BLOOD COUNT 9.9 10^3/uL (4.0-10.0)
[2019-10-17 06:33] LABS: BLOOD UREA NITROGEN 19 MG/DL (7-18); CALCIUM LEVEL 8.7 MG/DL (8.8-10.2); CARBON DIOXIDE LEVEL 31 MEQ/L (21-32); CHLORIDE LEVEL 103 MEQ/L (98-107); CREATININE FOR GFR 1.08 MG/DL (0.70-1.30); GLOMERULAR FILTRATION RATE > 60.0 (>35); GLUCOSE, FASTING 119 MG/DL (70-100); MAGNESIUM LEVEL 2.7 MG/DL (1.8-2.4); POTASSIUM SERUM 3.3 MEQ/L (3.5-5.1); SODIUM LEVEL 139 MEQ/L (136-145)
[2019-10-17] MEDS: MIRALAX *UNIT DOSE* 17GM PACKET PO SCH (07:59)
[2019-10-17] MEDS: POTASSIUM CHLORIDE 10 MEQ SR TABLET PO SCH (07:59)
[2019-10-17] MEDS: TORSEMIDE (DEMADEX) 50 MG PER 1/2 TAB PO SCH (07:59)
[2019-10-17] MEDS: TAMSULOSIN 0.4 MG CAP PO SCH (08:00)
[2019-10-17] MEDS: METOPROLOL SUCC (TopROL XL) 100MG *XL* TAB PO SCH ×2 (08:00→20:51)
[2019-10-17] MEDS: DIGOXIN 0.125 MG TAB PO SCH (08:00)
--- NOTE | 2019-10-17 09:49 | IPN ---
DATE: 10/17/2019 Mr. Gardiner seems slightly agitated this morning. He certainly has some component of altered mental status I think related to his hospital stay but, for the most part, he is pleasant and cooperative. Blood pressure this morning was 108/64, heart rate was in 90s and low 100s. He gets more tachycardic with physical activity. Afebrile. Saturation 96% on room air. His fluid balance yesterday was recorded approximately equal. Weight has not been recorded as morning. His JVP is not high. Lungs are clear. Good air movement. Heart exam reveals irregularly irregular rhythm with faint murmur at the apex. No gallop. Abdomen is soft. There is no significant peripheral edema. Neurologically, there is generalized weakness but is overall intact. LABS: Hemoglobin 10.5, hematocrit 32, WBC count is down to 9.9, and platelet count is 243,000. Basic metabolic panel is normal with the exception of potassium 3.3 and magnesium was 2.7. ASSESSMENT/PLAN: Mr. Gardiner is an 84-year-old man who came with broken hip and underwent open reduction internal fixation (ORIF). The postoperative course was complicated by transient fever with elevated white cell count. The etiology is not completely clear, possibly related to pneumonia. From cardiac perspective, he has numerous problems as well that include chronic coronary artery disease, chronic atrial fibrillation, ischemic cardiomyopathy, and peripheral vascular disease. Even though his compensation is not perfect, he is close to his baseline, and I believe that he can be transferred to rehab floor. I tentatively will see him in the office in the second half of October. Please call me back if further assistance is required or requested.
[2019-10-17 14:00] VITALS: BP 105/64
--- NOTE | 2019-10-17 16:23 | IPNPDOC ---
Subjective Date Seen The patient was seen on 10/17/19. Subjective Chief Complaint/HPI Mr. Gardiner is an 84 year old male who presented to [facility] ED after he fell in the home. He was diagnosed with a fracture of the L hip which required ORIF on 10/10/19. He was transferred to ICU on 10/12/19 after deteriorating mental status and delirium.Today Mr. Gardiner is seen in the PCU with his son present. Mr. Gardiner has increased confusion and paranoia today. He is thoughts are non- linear and bizarre in content, however he is convinced these things are real. He continues to smile. Nursing have also noticed his confusion. He believes hospital staff are trying to mess with him again. He is not verbally or physically abusive and continues to recognize me and report the discussions with his parts picker in a lucid manner. General: Denies: Chills, Night Sweats, Fatigue Constitutional: Denies: Chills, Fever, Night Sweats Eyes: Denies: Pain Pulmonary: Denies: Dyspnea, Cough Cardiovascular: Denies: Chest Pain, Edema Gastrointestinal: Denies: Abdominal Pain Musculoskeletal: Denies: Neck Pain, Back Pain, Joint Pain, Muscle Pain, Spasms Neurological: Denies: Weakness Objective Physical Examination General Exam: Positive: Alert, Cooperative, Mild Distress (paranoid hospital staff are out to get him ) Eye Exam: Positive: Conjunctiva & lids normal ENT Exam: Positive: Atraumatic Chest Exam: Positive: Normal air movement, Other (mild crackles b/l lung bases ) Heart Exam: Positive: Irregular Rhythm Telemetry: Positive: Atrial fibrillation (chronic ) Abdomen Exam: Positive: Normal bowel sounds, Soft; Negative: Tenderness Extremity Exam: Positive: Edema (slight edema b/l LEs), Tenderness (no TTP over surgical site ); Negative: Clubbing, Cyanosis Skin Exam: Positive: Nl turgor and temperature (surgical wounds are bandaged; no signs of inflammation over affected joint ) Psych Exam: Negative: Oriented x 3 Assessment /Plan Assessment Mr Gardiner is an 83 year old male who was seen in ED following a fall in the home on 10/08/19 and fracture of the L hip. Mr Gardiner has a PMHx of Ischemic Cardiomyopathy, Chronic Systolic CHF, Chronic A-fib with RVR, Pulmonary H ypertension, Mitral Insufficiency, Hyperlipidemia, Hypertension, Chronic Anemia, CAD w/5 stents, PVD (with R popliteal and superficial femoral artery stenting), polycythemia, GERD, s/p amputation 5 digits on R foot due to osteomyelitis. Cardiology was consulted for preoperative cardiac risk stratification this admission. Per his parts picker (Dr. Mejias) he has an EF of 35%. Surgery was delayed due to patient being on coumadin ultimately had surgery done on 10/10/19. Patient had confusion in the perioperative period. Post surgery on 10/11 onwards he had been tachycardic and was in Afib with RVR. The patient decompensated on 10/13/19 and moved to ICU. Patient was febrile and tachycardic and some soft bps. It was felt patient was septic. Blood cultures and urine cultures were sent on 10/13. CXR was done. another set of blood cultures were sent on 10/14. L. hip fracture - s/p ORIF completed 10/10/19. - PT consultation. - Pain control. VTE ppx already on warfarin for Afib, continue that. Gram negative bacterimia due to pseudomonas Possible transient bacterimia from UTI 1/4 bottles positive for pseudomonas. - PA, Lat CXR 10/13/19. Impression: "1. Possible mild CHF. 2. Findings compatible with in retrocardiac infiltrate and or atelectasis. Notably the finding was not demonstrated on the earlier examination. As such, follow-up PA and lateral suggested when feasible." - WBC 12.2 (10/12/19) - 20.9 (10/13/19). Post surgery inflammation no longer a possibility. - Blood cultures obtained 10/13/19. - 1/4 blood culture sets positive for gram negative rods - MRSA PCR not detected - d.c ed vancomycin; continued Zosyn Pseudomonas UTI continue on Zosyn Acute encephalopathy due to dinfection, acute delirium, dehydration. - pt is Afebrile and Leukocytosis resolved - monitor symptoms for worsening and provide treatment prn Coronary artery disease s/p percutaneous coronary intervention (PCI) to right coronary artery with bare metal stents times five in 2010. Discussion with Dr. Mejias: - INR therapeutic; re-check weekly - Warfarin resumed - Continue ASA - Troponin for CP 12..19. <0.02 - Repeated enzymes .10.17. 0.02 - continued management per cardiology Ischemic cardiomyopathy with left ventricular systolic function 35% inferior wall hypokinesis. -Management per Dr. Mejias -Mr. Gardiner denied any cough, dyspnea, CP, palpitations Does not appear volume overloaded at this time Continue home medications Moderate mitral insufficiency management per cardiology Moderate pulmonary hypertension. management per cardiology Chronic atrial fibrillation. -on chronic Warfarin; INR therapeutic -Warfarin resumed post-op -management per cardiology Hypertension. Continue home medications Dyslipidemia. Continue home medications History of chronic YESSICA -monitor for symptoms of anemia - Repeat CBC qam Polycythemia - CBC qam Peripheral vascular disease. Right popliteal artery and superficial femoral artery stent placement on 12/06/[address] Florence -s/p transmetatarsal amputation of the right toes due to osteomyelitis in 11/[address] Noriega Gastroesophageal reflux disease (GERD). 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 Noriega - Managed outpt. per Dr. Noriega - Wound care to assess today 10/13 for possible source of Leukocytosis. Declined by patient - Son will notify nursing to page me during next bandage change Peripheral vascular disease -on chronic warfarin and statins -current cigar smoker which complicates care Left Upper Extremity Scaphoid Fracture Healed History of heavy Alcohol abuse Decreased consumption in recent years Plan/VTE VTE Prophylaxis Ordered?: Yes (Warfarin resumed ) Attending Note I have personally performed a face to face diagnostic evaluation on this patient. I have reviewed and agree with the care plan documented above. VS, I&O, 24H, Fishbone Vital Signs/I&O Vital Signs Date Time Temp Pulse Resp B/P (MAP) Pulse Ox O2 Delivery O2 Flow Rate FiO2 10/17/19 14:00 98.7 54 16 105/64 (78) 96 Room Air 10/15/19 08:00 1.0 I&O- Last 24 Hours up to 6 AM 10/17/19 06:00 Intake Total 950 ml Output Total 600 ml Balance 350 ml Laboratory Data 24H LABS Laboratory Tests 2 10/17/19 05:39: Nucleated Red Blood Cells % (auto) 0.0, Anion Gap 5L, Glomerular Filtration Rate > 60.0, Calcium Level 8.7L, Magnesium Level 2.7H CBC/BMP Laboratory Tests 10/17/19 05:39 Microbiology Microbiology 10/14/19 Blood Culture - Preliminary, Resulted No Growth after 72 hours. All specime... 10/14/19 Blood Culture - Preliminary, Resulted No Growth after 72 hours. All specime... 10/13/19 Urine Culture - Final, Complete Pseudomonas Aeruginosa 10/13/19 Blood Culture - Preliminary, Resulted No Growth after 72 hours. All specime... 10/13/19 Blood Culture - Final, Complete Pseudomonas Aeruginosa PADMINI MARCUM PA-C Oct 17, 2019 16:23 LEONIDES PHELPS MD Oct 29, 2019 16:43
[2019-10-17] MEDS: WARFARIN SOD 3 MG TAB PO SCH (17:15)
[2019-10-17] MEDS: predniSONE 5 MG TAB PO SCH (20:50)
[2019-10-17] MEDS: ATORVASTATIN 20 MG TAB PO SCH (20:50)
[2019-10-17] MEDS: DOCUSATE SODIUM 100 MG CAP PO SCH (20:50)
[2019-10-17 22:00] VITALS: BP 119/70
[2019-10-18] MEDS: PIPERACILLIN/TAZOBACTAM SOD 3.375 GM in D5W MINI-BAG PLUS 50 ML IV SCH (02:27)
[2019-10-18 06:00] VITALS: BP 124/60
[2019-10-18 06:28] LABS: HEMOGLOBIN 10.7 g/dl (13.5-17.5); MEAN CORPUSCULAR HEMOGLOBIN 30.8 pg (27.0-33.0); MEAN CORPUSCULAR HGB CONC 30.6 g/dl (32.0-36.5); MEAN CORPUSCULAR VOLUME 100.9 fl (80.0-96.0); PLATELET COUNT, AUTOMATED 275 10^3/uL (150-450); RED BLOOD COUNT 3.47 10^6/uL (4.30-6.10); WHITE BLOOD COUNT 10.4 10^3/uL (4.0-10.0)
[2019-10-18 06:42] LABS: INR 3.21; PROTHROMBIN TIME 32.8 SECONDS (11.8-14.0)
[2019-10-18] MEDS ORDERED: LevoFLOXacin 500 MG TABLET PO SCH (06:45)
[2019-10-18 06:53] LABS: BLOOD UREA NITROGEN 20 MG/DL (7-18); CALCIUM LEVEL 8.5 MG/DL (8.8-10.2); CARBON DIOXIDE LEVEL 29 MEQ/L (21-32); CHLORIDE LEVEL 106 MEQ/L (98-107); CREATININE FOR GFR 1.05 MG/DL (0.70-1.30); GLOMERULAR FILTRATION RATE > 60.0 (>35); GLUCOSE, FASTING 120 MG/DL (70-100); MAGNESIUM LEVEL 2.6 MG/DL (1.8-2.4); POTASSIUM SERUM 3.8 MEQ/L (3.5-5.1); SODIUM LEVEL 141 MEQ/L (136-145)
[2019-10-18] MEDS: TAMSULOSIN 0.4 MG CAP PO SCH (08:19)
[2019-10-18 08:20] VITALS: BP 111/64
[2019-10-18] MEDS: METOPROLOL SUCC (TopROL XL) 100MG *XL* TAB PO SCH (08:20)
[2019-10-18] MEDS: TORSEMIDE (DEMADEX) 50 MG PER 1/2 TAB PO SCH (08:20)
[2019-10-18] MEDS: MIRALAX *UNIT DOSE* 17GM PACKET PO SCH (08:21)
[2019-10-18] MEDS: POTASSIUM CHLORIDE 10 MEQ SR TABLET PO SCH (08:21)
--- NOTE | 2019-10-18 09:06 | IPNPDOC ---
Subjective Date Seen The patient was seen on 10/18/19. Subjective Chief Complaint/HPI CANCEL Assessment /Plan Assessment CANCEL Plan/VTE VTE Prophylaxis Ordered?: Yes (Warfarin resumed ) VS, I&O, 24H, Fishbone Vital Signs/I&O Vital Signs Date Time Temp Pulse Resp B/P (MAP) Pulse Ox O2 Delivery O2 Flow Rate FiO2 10/18/19 08:20 119 111/64 10/18/19 06:00 98.4 18 95 10/17/19 14:00 Room Air 10/15/19 08:00 1.0 I&O- Last 24 Hours up to 6 AM 10/18/19 06:00 Intake Total 1370 ml Output Total 875 ml Balance 495 ml Laboratory Data 24H LABS Laboratory Tests 2 10/18/19 05:59: Nucleated Red Blood Cells % (auto) 0.0, Prothrombin Time 32.8H, Prothromb Time International Ratio 3.21, Anion Gap 6L, Glomerular Filtration Rate > 60.0, Calcium Level 8.5L, Magnesium Level 2.6H CBC/BMP Laboratory Tests 10/18/19 05:59 Microbiology Microbiology 10/14/19 Blood Culture - Preliminary, Resulted No Growth after 72 hours. All specime... 10/14/19 Blood Culture - Preliminary, Resulted No Growth after 72 hours. All specime... 10/13/19 Urine Culture - Final, Complete Pseudomonas Aeruginosa 10/13/19 Blood Culture - Final, Complete NO GROWTH AFTER 5 DAYS 10/13/19 Blood Culture - Final, Complete Pseudomonas Aeruginosa PADMINI MARCUM PA-C Oct 18, 2019 09:06
[2019-10-18] MEDS ORDERED: LEVA1TAB2 PO (10:49)
[2019-10-18] MEDS ORDERED: TRAM50TA2 PO (10:49)
--- NOTE | 2019-10-18 11:24 | DS.PDOC ---
Discharge Summary General Date of Admission Oct 08, 2019 at 16:05 Date of Discharge 10/18/19 Discharge Summary PROCEDURES PERFORMED DURING STAY: ORIF Left Hip on 10/10/19 ADMITTING DIAGNOSES: 1. Left hip fracture in varus 2. CAD s/p PCI 3. Ischemic Cardiomyopathy with left ventricular systolic function 35% inferior wall hypokinesis 4. Moderate Mitral Insufficiency 5. Moderate Pulmonary Hypertension 6. Chronic Atrial Fibrillation with RVR 7. Hypertension 8. Dyslipidemia 9 History of Chronic YESSICA 9. Polycythemia 10. PVD 11. GERD 12. 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 HISTORY OF PRESENT ILLNESS: "Mr Gardiner is an 83 year old male who was seen in ED following a fall in the home and fracture of the L hip. 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 Per his parts driver (Dr. Mejias) he has an EF of 35%. 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 Mr. Gardiner reported he was getting a drink from the fridge when he fell. He typically uses a walker and isn't sure why he fell. Pt denied head trauma or LOC. He fell on his left side and noted significant pain in the L hip. Pt stated he has little to no pain following pain medications given in the ED." HOSPITAL COURSE: Mr. Gardiner presented to [facility] ED on 10/08/19 following a fall in his home. He denied LOC or head trauma. In the ED he was stable. He was diagnosed with a Fracture of the Right hip. Ortho consulted and recommended ORIF; Dr. Tobias discussed the risks and benefits with pt and family. Cardiology consulted due to Mr. Gardiner's significant cardiac Hx. Dr. Mejias assessed the pt. and spoke with him and his family about surgery. Further, he recommended holding Warfarin and allowing INR to taper to 1.5 and continuing ASA through procedure. Pt on chronic Prednisone 5mg qpm which was held when he was 1st admitted. Morning Cortisol demonstrated no evidence of HPA supression and Prednisone was resumed as prescribed. Patient underwent ORIF 10/10/19 which he reportedly tolerated well. 10/11/19 pt had episodes of confusion, agitation and tachycardia overnight;? related to pain and chronic narcotic pain medications. Dr. Calix was consulted for in-hospital wound care; pt son continued to care for his wound per Dr. Noriega's instructions. Warfarin resumed post-up and managed per cardiology. Pt became extremely tachycardic with Afib with RVR and received IV Digoxin. WBC elevated to 20,000. He was moved to ICU 10/13/19. IV Vanc/Zosyn initiated. No obvious source of infection identified initially. wound care assessment declined by pt and his family. 11/02 blood culture and urine culture (x1) +ve Pseudomonas Aeruginosa; patient treated presumptively for a transient bacteremia due to UTI due t Pseudomonas and was continued with Zosyn. Pt responded well to therapy in ICU and transferred to PCU. Pt feels well although he remains slightly confused today. He continues to deny any pain including over the surgical site. He and his son agree he may continue to recover at [facility] and agree to be transferred there. He will complete his abx therapy with Levaquin PO x 5days. DISCHARGE MEDICATIONS: Please see below. ALLERGIES: Please see below. PHYSICAL EXAMINATION ON DISCHARGE: VITAL SIGNS: Please see below. General Exam: Positive: Lethargic, Mild Distress (paranoid hospital staff wish him harm) Eye Exam: Positive: Conjunctiva & lids normal ENT Exam: Positive: Atraumatic Chest Exam: Positive: Normal air movement, Other (mild crackles b/l lung bases ) Heart Exam: Positive: Irregular Rhythm Telemetry: Positive: Atrial fibrillation (chronic ) Abdomen Exam: Positive: Normal bowel sounds, Soft; Negative: Tenderness Extremity Exam: Positive: Edema (slight edema b/l LEs), Tenderness (no TTP over surgical site); bruising over L hip/surgical site Negative: Clubbing, Cyanosis Skin Exam: Positive: Nl turgor and temperature (surgical wounds are bandaged; no signs of inflammation over affected joint ) Psych Exam: Negative: Oriented x 3 LABORATORY DATA: Please see below. IMAGING: Hip/Pelvis X-ray 10/08/19. Impression: "Left hip fracture in varus. Base of the cervical neck versus intertrochanteric." Femur X-ray 10/08/19. Impression: "Knee joint osteoarthritis. Vascular calcification. No other left femur fracture." Head CT 10/08/19. Impression: "No acute intracranial process. Volume loss and sequelae of chronic microangiopathic ischemic disease." PA, Lat CXR 10/13/19. Impression: "1. Possible mild CHF. 2. Findings compatible with in retrocardiac infiltrate and or atelectasis. Notably the finding was not demonstrated on the earlier examination. As such, follow-up PA and lateral suggested when feasible." ACTIVITY: [As tolerated]. DIET: Regular diet DISCHARGE PLAN: see below DISPOSITION: Discharge to [facility] DISCHARGE INSTRUCTIONS: N/A ITEMS TO FOLLOWUP ON ON OUTPATIENT: N/A DISCHARGE CONDITION: [Stable]. TIME SPENT ON DISCHARGE: Greater than 35 minutes. Vital Signs/I&Os Vital Signs Date Time Temp Pulse Resp B/P (MAP) Pulse Ox O2 Delivery O2 Flow Rate FiO2 10/18/19 08:20 119 111/64 10/18/19 06:00 98.4 18 95 10/17/19 14:00 Room Air 10/15/19 08:00 1.0 I&O- Last 24 Hours up to 6 AM 10/18/19 06:00 Intake Total 1370 ml Output Total 875 ml Balance 495 ml Laboratory Data Labs 24H Laboratory Tests 2 10/18/19 05:59: Nucleated Red Blood Cells % (auto) 0.0, Prothrombin Time 32.8H, Prothromb Time International Ratio 3.21, Anion Gap 6L, Glomerular Filtration Rate > 60.0, Calcium Level 8.5L, Magnesium Level 2.6H CBC/BMP Laboratory Tests 10/18/19 05:59 Microbiology Microbiology 10/14/19 Blood Culture - Preliminary, Resulted No Growth after 72 hours. All specime... 10/14/19 Blood Culture - Preliminary, Resulted No Growth after 72 hours. All specime... 10/13/19 Urine Culture - Final, Complete Pseudomonas Aeruginosa 10/13/19 Blood Culture - Final, Complete NO GROWTH AFTER 5 DAYS 10/13/19 Blood Culture - Final, Complete Pseudomonas Aeruginosa Discharge Medications Scheduled Acetaminophen (Acetaminophen) 500 Mg Tab, 1,000 MG PO BID, (Reported) Allopurinol (Zyloprim) 300 Mg Tab, 300 MG PO DAILY, (Reported) Aspirin (Aspir 81) 81 Mg Tablet.dr, 81 MG PO QHS, (Reported) Atorvastatin Calcium (Atorvastatin Calcium) 20 Mg Tab, 20 MG PO QHS, (Reported) Calcium Carbonate/Vitamin D3 (Calcium 600-Vit D3 400 Tablet) 1 Tab Tab, 1 TAB PO BID, (Reported) Digoxin (Digoxin) 125 Mcg Tab, 125 MCG PO Q2D, (Reported) Docusate Sodium (Stool Softener) 100 Mg Cap, 100 MG PO QHS, (Reported) Ferrous Gluconate (Ferrous Gluconate) 324 Mg Tab, 324 MG PO 2XW, (Reported) MON/MON L.acidoph/L.bulg/B.bif/S.therm (Bacid Caplet) 1 Each Tablet, 1 TAB PO BID, (Reported) Levofloxacin (Levaquin) 500 Mg Tablet, 500 MG PO DAILY@06 Meloxicam (Meloxicam) 15 Mg Tablet, 7.5 MG PO BID, (Reported) Metoprolol Succinate (Metoprolol Succinate) 100 Mg Tab, 100 MG PO BID, (Reported) Multivitamins (Thera M Plus Tablet) 1 Tab Tab, 1 TAB PO DAILY, (Reported) Omeprazole (Omeprazole) 20 Mg Capsule.dr, 20 MG PO QHS, (Reported) Potassium Chloride (Klor-Con M20) 20 Meq Tabcr, 20 MEQ PO BID, (Reported) Prednisone (Prednisone) 5 Mg Tab, 5 MG PO QHS, (Reported) Tamsulosin HCl (Flomax) 0.4 Mg Cap, 0.4 MG PO DAILY, (Reported) Torsemide (Torsemide) 100 Mg Tab, 50 MG PO QAM, (Reported) Torsemide (Torsemide) 100 Mg Tablet, 25 MG PO QPM, (Reported) Warfarin Sodium (Warfarin Sodium) 3 Mg Tablet, 6 MG PO 2XW, (Reported) MONDAYS,WEDNESDAYS Warfarin Sodium (Warfarin Sodium) 3 Mg Tablet, 3 MG PO 5XW, (Reported) SUN/MON/TH/FRI/SAT Scheduled PRN Tramadol HCl (Tramadol HCl) 50 Mg Tablet, 50 MG PO Q6HP PRN for MODERATE PAIN (PS 5-7) Allergies Coded Allergies: oxycodone (Verified Allergy, Mild, Rash, 04/25/19) Attending Note I have personally performed a face to face diagnostic evaluation on this patient. I have reviewed and agree with the care plan documented above. PADMINI MARCUM PA-C Oct 18, 2019 11:24 LEONIDES PHELPS MD Oct 31, 2019 17:08
== END 2019-10-18 11:51 | DRG 480 ==
LOC: M ED 11:26 → EDUNIT# 11:26 → EDBD 11:26 → M ED INP 16:05 → M PCU 23:02 → M ICU 10-13 08:17 → M MSPAV 10-15 13:05
PROVIDERS: ADMIT Student in an Organized Health Care Education/Training Program; ATTEND Internal Medicine Nephrology
PROC: 0QS706Z Reposition Left Upper Femur with Intramedullary Internal Fixation Device, Open Approach (ICD-10-PCS; principal; 2019-10-10 21:30)
DX: S72.8X2A Other fracture of left femur, initial encounter for closed fracture (principal); G93.41 Metabolic encephalopathy; I48.20 Chronic atrial fibrillation, unspecified; R78.81 Bacteremia; N39.0 Urinary tract infection, site not specified; K21.9 Gastro-esophageal reflux disease without esophagitis; I27.20 Pulmonary hypertension, unspecified; E78.5 Hyperlipidemia, unspecified; I25.5 Ischemic cardiomyopathy; I25.10 Atherosclerotic heart disease of native coronary artery without angina pectoris; D75.1 Secondary polycythemia; I34.0 Nonrheumatic mitral (valve) insufficiency; D50.9 Iron deficiency anemia, unspecified; W18.30XA Fall on same level, unspecified, initial encounter; Y92.009 Unspecified place in unspecified non-institutional (private) residence as the place of occurrence of the external cause; Z79.899 Other long term (current) drug therapy; Z79.82 Long term (current) use of aspirin; Z88.5 Allergy status to narcotic agent; Z95.2 Presence of prosthetic heart valve; Z79.52 Long term (current) use of systemic steroids; D72.829 Elevated white blood cell count, unspecified; Z79.01 Long term (current) use of anticoagulants; B96.5 Pseudomonas (aeruginosa) (mallei) (pseudomallei) as the cause of diseases classified elsewhere

== ENCOUNTER → 2019-10-19 | Outpatient (REF) | payer MEDICARE ==
[~2019-10-19] MED LIST changes: +LEVA1TAB2 PO; +OMEP-218 PO; +TRAM50TA2 PO
[2019-10-19 13:50] LABS: INR 2.46; PROTHROMBIN TIME 26.5 SECONDS (11.8-14.0)
== END ==
LOC: SKLAB2 13:11
PROVIDERS: ATTEND Internal Medicine
DX: Z79.01 Long term (current) use of anticoagulants (principal)

== ENCOUNTER → 2019-10-21 | Outpatient (REF) ==
[2019-10-21 08:46] LABS: HEMATOCRIT 37.9 % (42.0-52.0); HEMOGLOBIN 11.8 g/dl (13.5-17.5); MEAN CORPUSCULAR HEMOGLOBIN 31.2 pg (27.0-33.0); MEAN CORPUSCULAR HGB CONC 31.1 g/dl (32.0-36.5); MEAN CORPUSCULAR VOLUME 100.3 fl (80.0-96.0); PLATELET COUNT, AUTOMATED 378 10^3/uL (150-450); RED BLOOD COUNT 3.78 10^6/uL (4.30-6.10)
[2019-10-21 09:06] LABS: CREATININE FOR GFR 1.41 MG/DL (0.70-1.30); GLOMERULAR FILTRATION RATE 50.7 (>35); INR 2.52; POTASSIUM SERUM 3.6 MEQ/L (3.5-5.1)
== END ==
LOC: SKLAB2 08:02
PROVIDERS: ATTEND Internal Medicine
DX: I25.10 Atherosclerotic heart disease of native coronary artery without angina pectoris (principal); Z79.01 Long term (current) use of anticoagulants; I11.0 Hypertensive heart disease with heart failure

== ENCOUNTER → 2019-10-28 | Outpatient (REF) ==
[2019-10-28 09:21] LABS: INR 3.37; PROTHROMBIN TIME 34.1 SECONDS (11.8-14.0)
[2019-10-28 09:43] LABS: HEMATOCRIT 33.9 % (42.0-52.0); HEMOGLOBIN 10.5 g/dl (13.5-17.5); MEAN CORPUSCULAR HEMOGLOBIN 31.3 pg (27.0-33.0); MEAN CORPUSCULAR VOLUME 100.9 fl (80.0-96.0); PLATELET COUNT, AUTOMATED 369 10^3/uL (150-450); RED BLOOD COUNT 3.36 10^6/uL (4.30-6.10); WHITE BLOOD COUNT 8.8 10^3/uL (4.0-10.0)
[2019-10-28 10:13] LABS: ALBUMIN 2.2 GM/DL (3.2-5.2); BILIRUBIN,TOTAL 0.6 MG/DL (0.2-1.0); CALCIUM LEVEL 8.7 MG/DL (8.8-10.2); CREATININE FOR GFR 1.23 MG/DL (0.70-1.30); GLOMERULAR FILTRATION RATE 59.4 (>35); POTASSIUM SERUM 3.8 MEQ/L (3.5-5.1); TOTAL PROTEIN 6.2 GM/DL (6.4-8.2)
== END ==
LOC: SKLAB2 08:15
PROVIDERS: ATTEND Internal Medicine
DX: Z79.01 Long term (current) use of anticoagulants (principal)

== ENCOUNTER → 2019-10-31 | Outpatient (REF) ==
[2019-10-31 09:50] LABS: INR 1.54; PROTHROMBIN TIME 18.2 SECONDS (11.8-14.0)
== END ==
LOC: SKLAB2 07:00
PROVIDERS: ATTEND Internal Medicine
DX: Z51.81 Encounter for therapeutic drug level monitoring (principal)

== ENCOUNTER → 2019-11-02 | Outpatient (REF) ==
[2019-11-02 08:19] LABS: INR 1.47; PROTHROMBIN TIME 17.6 SECONDS (11.8-14.0)
== END ==
LOC: SKLAB2 07:00
PROVIDERS: ATTEND Internal Medicine
DX: I48.91 Unspecified atrial fibrillation (principal)

== ENCOUNTER → 2019-11-04 | Outpatient (REF) ==
[2019-11-04 10:57] LABS: HEMATOCRIT 36.8 % (42.0-52.0); HEMOGLOBIN 11.1 g/dl (13.5-17.5); MEAN CORPUSCULAR HEMOGLOBIN 31.1 pg (27.0-33.0); MEAN CORPUSCULAR HGB CONC 30.2 g/dl (32.0-36.5); MEAN CORPUSCULAR VOLUME 103.1 fl (80.0-96.0); PLATELET COUNT, AUTOMATED 246 10^3/uL (150-450); RED BLOOD COUNT 3.57 10^6/uL (4.30-6.10)
[2019-11-04 11:08] LABS: INR 1.74; PROTHROMBIN TIME 20.1 SECONDS (11.8-14.0)
[2019-11-04 11:24] LABS: CALCIUM LEVEL 8.6 MG/DL (8.8-10.2); CREATININE FOR GFR 1.27 MG/DL (0.70-1.30); GLOMERULAR FILTRATION RATE 57.2 (>35); POTASSIUM SERUM 3.8 MEQ/L (3.5-5.1)
== END ==
LOC: SKLAB2 10:00
PROVIDERS: ATTEND Internal Medicine
DX: D64.9 Anemia, unspecified (principal); I50.20 Unspecified systolic (congestive) heart failure

== ENCOUNTER → 2019-11-05 | Outpatient (REF) ==
[2019-11-05 06:45] LABS: INR 1.93; PROTHROMBIN TIME 21.8 SECONDS (11.8-14.0)
== END ==
LOC: SKLAB2 07:00
PROVIDERS: ATTEND Internal Medicine
DX: Z51.81 Encounter for therapeutic drug level monitoring (principal); Z79.899 Other long term (current) drug therapy

== ENCOUNTER → 2019-11-08 | Outpatient (REF) ==
[2019-11-08 08:09] LABS: INR 2.29
== END ==
LOC: SKLAB2 08:16
PROVIDERS: ATTEND Internal Medicine
DX: Z79.899 Other long term (current) drug therapy (principal)

== ENCOUNTER → 2019-11-11 | Outpatient (REF) ==
[~2019-11-11] MED LIST changes: -OMEP-172 PO; +OMEP1CAP73 PO
[2019-11-11 08:10] LABS: HEMATOCRIT 38.7 % (42.0-52.0); HEMOGLOBIN 11.9 g/dl (13.5-17.5); MEAN CORPUSCULAR HEMOGLOBIN 31.4 pg (27.0-33.0); MEAN CORPUSCULAR HGB CONC 30.7 g/dl (32.0-36.5); MEAN CORPUSCULAR VOLUME 102.1 fl (80.0-96.0); PLATELET COUNT, AUTOMATED 173 10^3/uL (150-450); RED BLOOD COUNT 3.79 10^6/uL (4.30-6.10); WHITE BLOOD COUNT 12.6 10^3/uL (4.0-10.0)
[2019-11-11 09:02] LABS: CALCIUM LEVEL 8.9 MG/DL (8.8-10.2); CREATININE FOR GFR 1.28 MG/DL (0.70-1.30); GLOMERULAR FILTRATION RATE 56.7 (>35)
== END ==
LOC: SKLAB2 10:25
PROVIDERS: ATTEND Internal Medicine
DX: Z79.01 Long term (current) use of anticoagulants (principal)

== ENCOUNTER → 2019-11-12 | Outpatient (REF) ==
[2019-11-12 07:48] LABS: HEMATOCRIT 37.5 % (42.0-52.0); HEMOGLOBIN 11.4 g/dl (13.5-17.5); MEAN CORPUSCULAR HGB CONC 30.4 g/dl (32.0-36.5); MEAN CORPUSCULAR VOLUME 101.9 fl (80.0-96.0); PLATELET COUNT, AUTOMATED 162 10^3/uL (150-450); RED BLOOD COUNT 3.68 10^6/uL (4.30-6.10); WHITE BLOOD COUNT 11.3 10^3/uL (4.0-10.0)
[2019-11-13 00:37] LABS: APPEARANCE, URINE CLOUDY (CLEAR); BACTERIA, URINE AUTO 2+ (NEGATIVE); BILIRUBIN, URINE AUTO NEGATIVE (NEGATIVE); BLOOD, URINE BLOOD 2+ (NEGATIVE); COLOR, URINE YELLOW (YELLOW); GLUCOSE, URINE (UA) AUTO NEGATIVE (NEGATIVE); KETONE, URINE AUTO NEGATIVE (NEGATIVE); LEUKOCYTE ESTERASE, URINE AUTO 3+ (NEGATIVE); NITRITE, URINE AUTO POSITIVE (NEGATIVE); PROTEIN, URINE AUTO NEGATIVE (NEGATIVE); RBC, URINE AUTO 37 /HPF (0-3); SQUAMOUS EPITHELIAL CELL UR AU 0 /HPF (0-6); UROBILINOGEN, URINE AUTO 0.2 mg/dL (0.0-2.0); WBC, URINE AUTO TNTC /HPF (0-3)
== END ==
LOC: SKLAB2 07:00
PROVIDERS: ATTEND Internal Medicine
DX: D72.829 Elevated white blood cell count, unspecified (principal)

== ENCOUNTER → 2019-11-18 | Outpatient (REF) ==
[2019-11-18 08:19] LABS: HEMATOCRIT 39.2 % (42.0-52.0); HEMOGLOBIN 12.5 g/dl (13.5-17.5); MEAN CORPUSCULAR HEMOGLOBIN 31.7 pg (27.0-33.0); MEAN CORPUSCULAR HGB CONC 31.9 g/dl (32.0-36.5); MEAN CORPUSCULAR VOLUME 99.5 fl (80.0-96.0); PLATELET COUNT, AUTOMATED 228 10^3/uL (150-450); RED BLOOD COUNT 3.94 10^6/uL (4.30-6.10); WHITE BLOOD COUNT 8.6 10^3/uL (4.0-10.0)
[2019-11-18 08:34] LABS: INR 2.43; PROTHROMBIN TIME 26.2 SECONDS (11.8-14.0)
== END ==
LOC: SKLAB2 07:00
PROVIDERS: ATTEND Internal Medicine
DX: Z79.01 Long term (current) use of anticoagulants (principal); I11.9 Hypertensive heart disease without heart failure

== ENCOUNTER → 2019-11-25 | Outpatient (REF) ==
[2019-11-25 10:52] LABS: INR 2.68; PROTHROMBIN TIME 28.4 SECONDS (11.8-14.0)
[2019-11-25 11:12] LABS: CALCIUM LEVEL 9.3 MG/DL (8.8-10.2); CREATININE FOR GFR 1.58 MG/DL (0.70-1.30); GLOMERULAR FILTRATION RATE 44.5 (>35); POTASSIUM SERUM 4.2 MEQ/L (3.5-5.1)
== END ==
LOC: SKLAB2 07:00
PROVIDERS: ATTEND Internal Medicine
DX: Z51.81 Encounter for therapeutic drug level monitoring (principal)

== ENCOUNTER → 2019-11-28 | Outpatient (REF) ==
[2019-11-28 08:46] LABS: INR 2.82; PROTHROMBIN TIME 29.5 SECONDS (11.8-14.0)
[2019-11-28 08:56] LABS: CALCIUM LEVEL 9.3 MG/DL (8.8-10.2); CREATININE FOR GFR 1.44 MG/DL (0.70-1.30); GLOMERULAR FILTRATION RATE 49.5 (>35)
== END ==
LOC: SKLAB2 07:00
PROVIDERS: ATTEND Internal Medicine
DX: Z51.81 Encounter for therapeutic drug level monitoring (principal)

== ENCOUNTER → 2019-12-04 | Outpatient (REF) | payer MEDICARE ==
[2019-12-04 12:21] LABS: APPEARANCE, URINE CLOUDY (CLEAR); BACTERIA, URINE AUTO 2+ (NEGATIVE); BILIRUBIN, URINE AUTO NEGATIVE (NEGATIVE); BLOOD, URINE BLOOD 1+ (NEGATIVE); COLOR, URINE YELLOW (YELLOW); GLUCOSE, URINE (UA) AUTO NEGATIVE (NEGATIVE); KETONE, URINE AUTO NEGATIVE (NEGATIVE); LEUKOCYTE ESTERASE, URINE AUTO 3+ (NEGATIVE); NITRITE, URINE AUTO NEGATIVE (NEGATIVE); PROTEIN, URINE AUTO NEGATIVE (NEGATIVE); RBC, URINE AUTO 82 /HPF (0-3); SPECIFIC GRAVITY URINE AUTO 1.014 (1.002-1.035); SQUAMOUS EPITHELIAL CELL UR AU 0 /HPF (0-6); UROBILINOGEN, URINE AUTO 0.2 mg/dL (0.0-2.0); WBC, URINE AUTO TNTC /HPF (0-3)
== END ==
LOC: M LAB REF 11:33 → M SHH 11:33
PROVIDERS: ATTEND Family Medicine
DX: N39.0 Urinary tract infection, site not specified (principal)

== ENCOUNTER 2019-12-13 14:34 | Emergency (ER) | payer MEDICARE ==
[~2019-12-13] VITALS: Ht 182.9 cm; Wt 87.7 kg
[2019-12-13 16:03] LABS: BASO # 0.1 10^3/uL (0.0-0.2); BASO % 0.5 % (0.0-1.0); EOS # 0.3 10^3/uL (0.0-0.5); EOS % 3.1 % (0.0-3.0); HEMATOCRIT 38.1 % (42.0-52.0); HEMOGLOBIN 11.9 g/dl (13.5-17.5); LYMPH # 2.6 10^3/uL (1.5-5.0); LYMPH % 25.6 % (24.0-44.0); MEAN CORPUSCULAR HEMOGLOBIN 31.1 pg (27.0-33.0); MEAN CORPUSCULAR HGB CONC 31.2 g/dl (32.0-36.5); MEAN CORPUSCULAR VOLUME 99.5 fl (80.0-96.0); MONO # 0.7 10^3/uL (0.0-0.8); MONO % 6.9 % (0.0-5.0); NEUTROPHILS # 6.5 10^3/uL (1.5-8.5); NEUTROPHILS % 63.6 % (36.0-66.0); PLATELET COUNT, AUTOMATED 184 10^3/uL (150-450); RED BLOOD COUNT 3.83 10^6/uL (4.30-6.10); WHITE BLOOD COUNT 10.3 10^3/uL (4.0-10.0)
[2019-12-13 16:21] LABS: CALCIUM LEVEL 8.3 MG/DL (8.8-10.2); CREATININE FOR GFR 1.25 MG/DL (0.70-1.30); GLOMERULAR FILTRATION RATE 58.3 (>35); POTASSIUM SERUM 4.3 MEQ/L (3.5-5.1)
[2019-12-13] MEDS ORDERED: LEVA750T7 PO (16:49)
[2019-12-13 17:03] VITALS: BP 114/59
== END 2019-12-13 17:05 | disposition home or self-care (01) ==
LOC: M ED 14:34
DX: N30.00 Acute cystitis without hematuria (principal); R32 Unspecified urinary incontinence; R30.9 Painful micturition, unspecified; I25.5 Ischemic cardiomyopathy; E78.5 Hyperlipidemia, unspecified; G90.09 Other idiopathic peripheral autonomic neuropathy; Z87.891 Personal history of nicotine dependence; Z88.5 Allergy status to narcotic agent; Z79.01 Long term (current) use of anticoagulants; Z79.899 Other long term (current) drug therapy

== ENCOUNTER 2020-01-03 11:07 | Inpatient (IN) | payer MEDICARE ==
[2020-01-03 12:00] LABS: HEMATOCRIT 41.5 % (42.0-52.0); HEMOGLOBIN 12.2 g/dl (13.5-17.5); MEAN CORPUSCULAR HEMOGLOBIN 30.3 pg (27.0-33.0); MEAN CORPUSCULAR HGB CONC 29.4 g/dl (32.0-36.5); PLATELET COUNT, AUTOMATED 252 10^3/uL (150-450); RED BLOOD COUNT 4.03 10^6/uL (4.30-6.10)
[2020-01-03 12:01] LABS: WHITE BLOOD COUNT 16.7 10^3/uL (4.0-10.0)
[2020-01-03 12:02] LABS: CALCIUM LEVEL 8.4 MG/DL (8.8-10.2); CK-MB VALUE MASS 1.9 NG/ML (<3.6); CREATININE FOR GFR 1.46 MG/DL (0.70-1.30); GLOMERULAR FILTRATION RATE 48.7 (>35); MB/CK RELATIVE INDEX 3.45 (< OR =4); POTASSIUM SERUM 3.1 MEQ/L (3.5-5.1); TROPONIN I 0.06 NG/ML (< 0.10)
--- NOTE | 2020-01-03 12:17 | REP ---
CHEST PORTABLE: AP supine portable views of the chest are performed. There is cardiomegaly and vascular congestion. No focal infiltrate is seen. There is calcification and tortuosity of the thoracic aorta. There are degenerative changes of the spine. Electronically Signed by Suman Esquivel MD 01/07/2020 03:31 P
[2020-01-03] MEDS ORDERED: ALBUTEROL SULFATE 2.5 MG/0.5 ML INH NEB SOLN NEB PRN (12:30)
[2020-01-03] MEDS ORDERED: NS 1,000 ML IV SCH (12:30)
[2020-01-03 12:35] LABS: ATYPICAL LYMPH 1 % (0-5); EOSINOPHILS 2 % (0-3); LYMPHOCYTES 62 % (16-44); MONOCYTES 4 % (0-5); NEUTROPHILS 31 % (28-66)
[2020-01-03 12:36] LABS: OVALOCYTES 1+; PLATELET ESTIMATE NORMAL (NORMAL)
[2020-01-03 13:00] VITALS: BP 80/44
[2020-01-03] MEDS ORDERED: NOREPINEPHRINE BITARTRATE 8 MG in D5W 492 ML IV SCH (13:00)
--- NOTE | 2020-01-03 13:12 | HPEPDOC ---
General Date of Admission 01/03/20 Date of Service: Jan 03, 2020 Chief Complaint The patient is a 84-year-old male admitted with a reason for visit of Cardiac Arrest. Source: Family, EMS notes reviewed Exam Limitations: Clinical conditions Timing/Duration: 1-3 hours Severity: Severe Associated Symptoms: Unobtainable History of Present Illness Mr. Gardiner is an 84-year-old male who was transported to the ED via EMS following cardiac arrest. His son provides the history as the patient is unconscious and agonal at this time. According to his son (healthcare proxy), he had gotten the patient up, gotten them ready for the day as they had several things planned. He left him to eat breakfast, heard him fall, he immediately activated EMS via the patient's medical call button. Leading up to this morning's events, patient was reportedly well. No complaints. Per the medical records, EMS performed CPR and resuscitated the patient as there was some confusion regarding his DNR/DNI paperwork. We are admitting the patient, because the son and son-in-law are waiting for the daughter to complete the [employer] paperwork. Home Medications Scheduled Acetaminophen (Acetaminophen) 500 Mg Tab, 1,000 MG PO BID, (Reported) Allopurinol (Zyloprim) 300 Mg Tab, 300 MG PO DAILY, (Reported) Aspirin (Aspir 81) 81 Mg Tablet.dr, 81 MG PO QHS, (Reported) Atorvastatin Calcium (Atorvastatin Calcium) 20 Mg Tab, 20 MG PO QHS, (Reported) Calcium Carbonate/Vitamin D3 (Calcium 600-Vit D3 400 Tablet) 1 Tab Tab, 1 TAB PO BID, (Reported) Digoxin (Digoxin) 125 Mcg Tab, 125 MCG PO Q2D, (Reported) Docusate Sodium (Stool Softener) 100 Mg Cap, 100 MG PO QHS, (Reported) Ferrous Gluconate (Ferrous Gluconate) 324 Mg Tab, 324 MG PO 2XW, (Reported) SUN/WED L.acidoph/L.bulg/B.bif/S.therm (Bacid Caplet) 1 Each Tablet, 1 TAB PO BID, (Reported) Levofloxacin (Levaquin) 750 Mg Tablet, 1 TAB PO Q48HP Meloxicam (Meloxicam) 15 Mg Tablet, 7.5 MG PO BID, (Reported) Metoprolol Succinate (Metoprolol Succinate) 100 Mg Tab, 100 MG PO BID, (Reported) Multivitamins (Thera M Plus Tablet) 1 Tab Tab, 1 TAB PO DAILY, (Reported) Omeprazole (Omeprazole) 20 Mg Capsule.dr, 20 MG PO QHS, (Reported) Potassium Chloride (Klor-Con M20) 20 Meq Tabcr, 20 MEQ PO BID, (Reported) Prednisone (Prednisone) 5 Mg Tab, 5 MG PO QHS, (Reported) Tamsulosin HCl (Flomax) 0.4 Mg Cap, 0.4 MG PO DAILY, (Reported) Torsemide (Torsemide) 100 Mg Tab, 50 MG PO QAM, (Reported) Torsemide (Torsemide) 100 Mg Tablet, 25 MG PO QPM, (Reported) Warfarin Sodium (Warfarin Sodium) 3 Mg Tablet, 6 MG PO 2XW, (Reported) MONDAYS,WEDNESDAYS Warfarin Sodium (Warfarin Sodium) 3 Mg Tablet, 3 MG PO 5XW, (Reported) SUN/E//MON/SAT Allergies Coded Allergies: oxycodone (Verified Allergy, Mild, Rash, 04/25/19) Past Medical History Medical History Ischemic cardiomyopathy with EF of 35%, chronic atrial fibrillation with RVR in the past on Coumadin, history of CAD, history of severe peripheral vascular disease with femoral popliteal stent and, amputation of the 5 digits on right foot, osteomyelitis of right foot, history of for pneumonia last year Surgical History Amputation of ideas on right foot, coronary artery stent placed 5 with a standard 1. Right popliteal and superficial femoral arteries as well Family History Brother had diabetes, mother had heart disease and brother also had a sick sinus syndrome with pacemaker in one of the sister has seizure disorder: History was obtained from patient's previous record and the family Social History * Smoker: current smoker Alcohol: Denies Drugs: denies A-FIB/CHADSVASC A-FIB History Current/History of A-Fib/PAF?: Yes Current PO Anticoag Therapy: Yes Review of Systems Constitutional: Reports: Other (, unable to obtained review of systems secondary to patient's medical status) Other systems Unobtainable Physical Examination General Exam: Positive: Other (exam is limited very limited due to patient condition. unconscious, agonal breathing) Eye Exam: Positive: Other Eye Symptoms (pupils are not reactive to light) ENT Exam: Positive: Other ENT (. Unable to do ENT exam) Neck Exam: Positive: Supple, Other (, no JVD) Chest Exam: Positive: Rhonchi (bilateral), Diminished Heart Exam: Positive: Irregular Rhythm Telemetry: Positive: Atrial fibrillation Abdomen Exam: Positive: BS Hypoactive Extremity Exam: Positive: Other (. Diminished pulses bilaterally. Peripherally) Skin Exam: Positive: Other skin issue (cool and clammy skin) Neuro Exam: Positive: Other (. Unable to neuro exam secondary to patient's medical status) Psych Exam: Positive: Other (, unable to psych exam secondary to patient's medical status) Vital Signs Vital Signs Date Time Temp Pulse Resp B/P (MAP) Pulse Ox O2 Delivery O2 Flow Rate FiO2 01/03/20 11:54 58/ (19) 01/03/20 11:26 15.0 100 01/03/20 11:15 109 12 95 Ventilator Laboratory Data Labs 24H Laboratory Tests 2 01/03/20 11:18: Neutrophils (%) (Auto) , Lymphocytes # (Auto) , Nucleated Red Blood Cells % (auto) 0.2H, Neutrophils 31, Lymphocytes (Manual) 62H, Monocytes (Manual) 4, Eosinophils (Manual) 2, Atypical Lymphocytes 1, Ovalocytes 1+, Platelet Estimate NORMAL, Anion Gap 10, Glomerular Filtration Rate 48.7, Calcium Level 8.4L, Total Creatine Kinase 55, Creatine Kinase MB 1.9, Creatine Kinase MB Relative Index 3.45, Troponin I 0.06, KJ-Qem-R-Type Natriuretic Peptide 2498H CBC/BMP Laboratory Tests 01/03/20 11:18 Assessment/Plan 1. Cardiac Arrest currently in PEA Patient is DNR/DNI, discussed with patient's son regarding placing patient on comfort care, but he is awaiting his sister to, and speak to her before he decides about that decision. In the meantime, patient will be admitted to ICU with supportive care including vasopressors. Patient has very poor prognosis and family is aware, there were discussed and explained Initially Will admit patient to ICU with vasopressors, but will await decision from family regarding comfort measures if they agreed and signed the papers, then we'll downgrade patient to medical floor and provide only comfort care. Patient will remain nothing by mouth and hold all by mouth meds Plan / VTE VTE Prophylaxis Ordered?: No VTE Exclusion Mechanical Proph: Other (not applicable) VTE Exclusion Pharmacological: Other (not applicable) Plan Advanced Directives: Do Not Resuscitate (DNR), Do Not Intubate (DNI), Comfort Care Measures PADMINI MARCUM PA-C Jan 03, 2020 13:12 RADHA BANG MD Jan 03, 2020 16:29
--- NOTE | 2020-01-03 13:36 | DS.PDOC ---
Discharge Summary General Date of Admission Jan 03, 2020 at 12:30 Date of Discharge 01/03/20 Discharge Summary PROCEDURES PERFORMED DURING STAY: None. ADMITTING DIAGNOSES: 1. Cardiac arrest. DISCHARGE DIAGNOSES: 1. Cardiac arrest, . COMPLICATIONS/CHIEF COMPLAINT: Cardiac Arrest. HISTORY OF PRESENT ILLNESS: 84 years old white male with past medical history of ischemic cardiomyopathy with EF of 35% was brought in after he had a cardiac arrest at home. Patient had a CPR performed by EMS and with epinephrine with the return of his vital signs and was brought to emergency room where we'll called in to admit patient, but unfortunately S1 is a patient was admitted he develop PEA and . HOSPITAL COURSE: Patient was admitted initially to ICU with a Levophed drip for hypotension, as patients son was waiting for his sister to discuss before the signed the comfort care. Unfortunately, patient had an episode of her pulse Lasix cardiac activity and hence, and was pronounced at 12:55 PM in the emergency room. Patient's family was contacted and informed. DISCHARGE MEDICATIONS: Please see below. ALLERGIES: Please see below. PHYSICAL EXAMINATION ON DISCHARGE: Not applicable LABORATORY DATA: Please see below. IMAGING: Not applicable PROGNOSIS: ACTIVITY: . DIET: Not applicable DISCHARGE PLAN: DISPOSITION: . DISCHARGE INSTRUCTIONS: 1. Not applicable. ITEMS TO FOLLOWUP ON ON OUTPATIENT: 1. Not applicable. DISCHARGE CONDITION: . TIME SPENT ON DISCHARGE: 20 minutes. Vital Signs/I&Os Vital Signs Date Time Temp Pulse Resp B/P (MAP) Pulse Ox O2 Delivery O2 Flow Rate FiO2 01/03/20 11:54 58/ (19) 01/03/20 11:26 15.0 100 01/03/20 11:15 109 12 95 Ventilator Laboratory Data Labs 24H Laboratory Tests 2 01/03/20 11:18: Neutrophils (%) (Auto) , Lymphocytes # (Auto) , Nucleated Red Blood Cells % (auto) 0.2H, Neutrophils 31, Lymphocytes (Manual) 62H, Monocytes (Manual) 4, Eosinophils (Manual) 2, Atypical Lymphocytes 1, Ovalocytes 1+, Platelet Estimate NORMAL, Anion Gap 10, Glomerular Filtration Rate 48.7, Calcium Level 8.4L, Total Creatine Kinase 55, Creatine Kinase MB 1.9, Creatine Kinase MB Relative Index 3.45, Troponin I 0.06, MW-Yhn-B-Type Natriuretic Peptide 2498H CBC/BMP Laboratory Tests 01/03/20 11:18 Discharge Medications Scheduled Acetaminophen (Acetaminophen) 500 Mg Tab, 1,000 MG PO BID, (Reported) Allopurinol (Zyloprim) 300 Mg Tab, 300 MG PO DAILY, (Reported) Aspirin (Aspir 81) 81 Mg Tablet.dr, 81 MG PO QHS, (Reported) Atorvastatin Calcium (Atorvastatin Calcium) 20 Mg Tab, 20 MG PO QHS, (Reported) Calcium Carbonate/Vitamin D3 (Calcium 600-Vit D3 400 Tablet) 1 Tab Tab, 1 TAB PO BID, (Reported) Digoxin (Digoxin) 125 Mcg Tab, 125 MCG PO Q2D, (Reported) Docusate Sodium (Stool Softener) 100 Mg Cap, 100 MG PO QHS, (Reported) Ferrous Gluconate (Ferrous Gluconate) 324 Mg Tab, 324 MG PO 2XW, (Reported) SUN/MON L.acidoph/L.bulg/B.bif/S.therm (Bacid Caplet) 1 Each Tablet, 1 TAB PO BID, (Reported) Levofloxacin (Levaquin) 750 Mg Tablet, 1 TAB PO Q48HP Meloxicam (Meloxicam) 15 Mg Tablet, 7.5 MG PO BID, (Reported) Metoprolol Succinate (Metoprolol Succinate) 100 Mg Tab, 100 MG PO BID, (Reported) Multivitamins (Thera M Plus Tablet) 1 Tab Tab, 1 TAB PO DAILY, (Reported) Omeprazole (Omeprazole) 20 Mg Capsule.dr, 20 MG PO QHS, (Reported) Potassium Chloride (Klor-Con M20) 20 Meq Tabcr, 20 MEQ PO BID, (Reported) Prednisone (Prednisone) 5 Mg Tab, 5 MG PO QHS, (Reported) Tamsulosin HCl (Flomax) 0.4 Mg Cap, 0.4 MG PO DAILY, (Reported) Torsemide (Torsemide) 100 Mg Tab, 50 MG PO QAM, (Reported) Torsemide (Torsemide) 100 Mg Tablet, 25 MG PO QPM, (Reported) Warfarin Sodium (Warfarin Sodium) 3 Mg Tablet, 6 MG PO 2XW, (Reported) MONDAYS,WEDNESDAYS Warfarin Sodium (Warfarin Sodium) 3 Mg Tablet, 3 MG PO 5XW, (Reported) SUN/E//MON/SAT Allergies Coded Allergies: oxycodone (Verified Allergy, Mild, Rash, 04/25/19) RADHA BANG MD Jan 03, 2020 13:36
--- NOTE | 2020-01-04 18:31 | ECGEPIP ---
[facility] - ED Test Date: 2020-01-03 Pat Name: KEO WOODS Department: Room: - Gender: Male Line Closer: SHREYA : 1935 Requested By: Stefan Perez Order Number: [id number] Reading MD: Tawnya Fields Measurements Intervals [place] Rate: 101 P: MT: 0 QRS: 46 QRSD: 104 T: -9 QT: 331 QTc: 430 Interpretive Statements ATRIAL FIBRILLATION WITH RAPID VENTRICULAR RESPONSE ST DEPRESSION, CONSIDER SUBENDOCARDIAL INJURY COMPARED 10/14/19 SIMILAR 10/14/19 Electronically Signed on 01-04-2020 18:30:51 EST by Tawnya Fields
== END 2020-01-03 13:05 | disposition expired | DRG 296 ==
LOC: M ED 11:07 → M ED INP 12:30
PROVIDERS: ADMIT Internal Medicine; ATTEND Internal Medicine
DX: I46.9 Cardiac arrest, cause unspecified (principal); R40.20 Unspecified coma; I25.5 Ischemic cardiomyopathy; I48.20 Chronic atrial fibrillation, unspecified; I25.10 Atherosclerotic heart disease of native coronary artery without angina pectoris; I73.9 Peripheral vascular disease, unspecified; Z66 Do not resuscitate; I95.9 Hypotension, unspecified; Z79.82 Long term (current) use of aspirin; Z79.899 Other long term (current) drug therapy; Z88.5 Allergy status to narcotic agent; Z79.01 Long term (current) use of anticoagulants; F17.200 Nicotine dependence, unspecified, uncomplicated